=== PATIENT | female | born 1955 | race Caucasian/White ===

== ENCOUNTER → 2018-05-26 08:09 | Outpatient (CLI) | payer MEDICAID, SELFPAY ==
--- NOTE | 2018-05-26 08:14 | BI_ITS ---
MAMMOGRAPHY - BILATERAL SCREENING REASON FOR EXAM: Female, 63 years old. Routine annual screening examination. PERTINENT HISTORY: Mother with breast cancer. History of leukemia. TECHNIQUE: Digital bilateral breast caprice (3D mammographic acquisition) in the CC and MLO projections. 2-D mediolateral oblique (MLO) and craniocaudad (CC) views of both breasts were obtained. CAD: Full Field Digital Mammography with Computer Added Detection was performed. COMPARISON: Comparison is made with prior axial examination dated April 11, 2016 and May 02, 2011. FINDINGS: Breast Composition: There are scattered areas of fibroglandular density. There are no dominant masses or suspicious calcifications. Multiple enlarged bilateral axillary lymph nodes. These have progressed as compared to prior study. No other significant abnormalities are identified. There has been no significant change since the prior study. BI/SCREENING MAMM (CAD), BILAT IMPRESSION: Stable bilateral screening mammogram. Multiple bilateral axillary lymph nodes. These have progressed as compared to prior study. Yearly follow-up mammogram recommended. (A) ASSESSMENT CATEGORY: BIRADS Category 2: Benign. A letter regarding these results will be sent to the patient by the facility within 30 days. Approximately 10% of breast cancers are not detected by mammography. A normal mammogram should not delay biopsy of a clinically suspicious abnormality. [id number] Electronically Signed: Chepe Hays MD at 10:18 EST , Service support ,
== END ==
PROVIDERS: Family Provider Internal Medicine; PCP Internal Medicine
DX: Z12.31 Encounter for screening mammogram for malignant neoplasm of breast (principal)
CPT/HCPCS: 77063; 77067

== ENCOUNTER 2018-11-09 00:23 | Emergency (ER) | payer OTHER, SELFPAY ==
[2018-10-15 14:06] VITALS: BMI 28.9
[2018-11-09 00:23] VITALS: BP 156/83; PULSE 70; RESP 16; TEMP 37; O2SAT 95
[2018-11-09 00:24] VITALS: BP 156/83; PULSE 70; RESP 16; TEMP 37; O2SAT 95; BMI 28.7
--- NOTE | 2018-11-09 01:34 | CT_ITS ---
STUDY: CT ABDOMEN AND PELVIS WITH CONTRAST REASON FOR EXAM: Female, 63 years old. Left lower quadrant pain with nausea and vomiting. Pelvic mass left side. Elevated white blood cell count. History of lymphoma and thyroid cancer in the past. RADIATION DOSAGE (If Supplied By Facility): CTDIvol = ( 14.85 ) mGy, DLP = ( 1124.51 ) mGycm TECHNIQUE: Transaxial images were obtained from the dome of the diaphragm to the symphysis pubis without oral contrast. 100ML IV Isovue 300 was administered. Sagittal and coronal images were reconstructed. Individualized dose optimization techniques were used for this CT. COMPARISON: None. FINDINGS: The visualized lung bases are unremarkable. The visualized portions of the heart are within normal limits. There is mild abdominal and pelvic ascites. Normal liver. Normal gallbladder and extrahepatic biliary system. The spleen measures 15.2 x 5.0 x 13.7 cm, consistent with moderate splenomegaly. Normal pancreas. Normal bilateral adrenal glands. Normal right kidney. There are multiple left peripelvic cysts. There is a 4 mm focus of cortical nephrocalcinosis in the anterior lower pole of left kidney. Otherwise, normal left kidney with no demonstrated hydronephrosis or ureteral calculi. There is a small hiatal hernia. There is apparent focal mural thickening of the distal body of the stomach, seen both on early and delayed images, which might be an artifact of peristalsis or might represent inflammatory or neoplastic process. There is dilatation of small bowel loops, ranging up to 3.2 cm in diameter. There is no demonstrated decompression of the distal ileum or discrete transition point to strongly suggest presence of a mechanical obstruction. Finding is more likely to represent ileus. Normal colon. The appendix is visualized on series 2, axial images 61-65 and it appears normal.. Normal abdominal aorta. Normal inferior vena cava. There is an enlarged lymph node adjacent to the head of the pancreas, with short axis diameter of 2.8 cm. There are borderline enlarged periaortic and pericaval retroperitoneal lymph nodes, ranging up to 1 cm in short axis diameter. There are enlarged pelvic sidewall lymph nodes bilaterally, ranging up to 3 cm in short axis diameter on the left and 2.4 cm in short axis diameter on the right. There are also mildly enlarged inguinal lymph nodes bilaterally. Normal urinary bladder. There is a 7.7 x 3.6 x 3.4 cm left spigelian hernia which contains omental fat, but no bowel. There is no significant infiltration of the herniated fat and strangulation is thought to be unlikely. Normal osseous structures. CT/Abdomen/Pelvis W IV Cont ONLY IMPRESSION: Moderate splenomegaly. Prominent pelvic side wall lymphadenopathy bilaterally. Prominent enlargement of a lymph node adjacent to that of the pancreas. Borderline enlarged periaortic and paracaval retroperitoneal lymph nodes. 7.7 cm left spigelian hernia contains fat, but no bowel. There is no significant infiltration of herniated fat and strangulation is thought to be unlikely. Dilatation of small bowel loops probably represents an ileus rather than mechanical obstruction. Early or partial small bowel obstruction cannot be excluded entirely. A follow-up study with oral contrast may be warranted. Apparent mural thickening in the distal body of the stomach may be an artifact of peristalsis or may represent an inflammatory neoplastic process. Small hiatal hernia. Left renal peripelvic cysts. No evidence for diverticulitis or appendicitis. Electronically Signed: Edgardo Starr MD at 3:47 EDT , Service support ,
--- NOTE | 2018-11-09 01:35 | ED.DCSUM_ITS ---
History of Present Illness Chief Complaint: Abd Pain Informant: Patient - Abdominal Pain/Flank Pain Onset: Today - 12-15 hrs approx Context: Gradual Onset Timing: Continuous Quality: Aching Location: LLQ - initially, now diffuse Current Severity: Moderate Maximum Severity: Moderate Worsened by: Nothing Relieved by: Nothing - Nausea/Vomiting/Emesis GI Symptom: Nausea. Negative for: Vomiting Onset: Today Severity: Mild - Diarrhea/Melena/Hematochezia GI Symptom: Negative for: Diarrhea, Melena, Hematochezia Associated Symptoms: - - Feels bloated/distended. Negative for: Dysuria, Frequency, Hematuria, Urgency Narrative: Patient states she has had this discomfort but not for a couple years, has never had studies or test done on it, however recently she made an appointment with Dr. hill with surgery to get a colonoscopy and look into this. She has not seen him yet. She denies any fevers. She had a small bowel movement this evening that did not seem to affect the discomfort. She feels like there is a knot or something hard in her left lower quadrant, where the pain started. - Past Medical History (1) CLL (chronic lymphocytic leukemia) Status: Chronic (2) History of thyroid cancer Status: Chronic Past Medical History - Allergies and Home Meds Allergies/Adverse Reactions: Allergies ibuprofen Allergy (Severe, Verified 10/15/18 14:05) Swelling throat tightness aspirin Allergy (Verified 11/09/18 00:29) Angioedema oxycodone Allergy (Verified 11/09/18 00:29) Angioedema moxifloxacin [From Avelox] Adverse Reaction (Intermediate, Verified 10/15/18 14:05) Rash Primary Care Physician: Lashanda Sharma [Primary Care Provider] - Surgical History: - - No abdominal surgeries Lives: Spouse/ Significant Other Smoking Status: Never smoker Review of Systems General: Reports: Malaise. Denies: Chills, Fever, Sweats Eyes: Denies: Visual changes - bilaterally, Diplopia ENT: Denies: Rhinorrhea, Sore throat Cardiovascular: Denies: Chest pain, Palpitations Respiratory: Denies: Dyspnea, Cough, Dyspnea on exertion Gastrointestinal: Reports: Abdominal pain, Nausea. Denies: Vomiting, Diarrhea, Melena, Hematochezia Genitourinary: Denies: Dysuria, Hematuria, Frequency Musculoskeletal: Denies: Back pain, Extremity Pain Skin: Denies: Rash, Wounds Neurological: Denies: Headache, Weakness, Numbness Physical Exam Vital Signs/Narrative: Vital Signs Temp Pulse Resp BP Pulse Ox 11/09/18 00:24 98.6 F 70 16 156/83 H 95 11/09/18 00:23 98.6 F 70 16 156/83 H 95 Inital Vital Signs reviewed: Yes General: Well nourished, Well developed, No Acute Distress Head: Normocephalic, Atraumatic Eyes: Perrl, EOMI ENT: Moist mucous membranes, No rhinorrhea Neck: Supple, Nontender Cardiovascular: Regular rate, Regular rhythm, No murmurs Respiratory: No distress, CTA bilaterally, Chest nontender Abdomen: Soft, Nondistended, Tender - Left lower quadrant where there is a palpable mass-like area that is not in the abdominal wall; mild suprapubic tenderness, mild tenderness across entire upper abdomen, Hypoactive bowel sounds Back: Nontender, Normal Inspection. Negative for: CVA tenderness Extremities: Nontender, No edema Skin: Normal color, No rash, No Trauma Neurological: Alert, Oriented x3, Cranial nerves II-XII grossly intact, Normal Strength, Normal Sensation Psychological: Normal Mood, - - Anxious Diagnostic/Tx/Re-eval Impressions Abdomen/Pelvis CT 11/09/18 01:34 IMPRESSION: Moderate splenomegaly. Prominent pelvic side wall lymphadenopathy bilaterally. Prominent enlargement of a lymph node adjacent to that of the pancreas. Borderline enlarged periaortic and paracaval retroperitoneal lymph nodes. 7.7 cm left spigelian hernia contains fat, but no bowel. There is no significant infiltration of herniated fat and strangulation is thought to be unlikely. Dilatation of small bowel loops probably represents an ileus rather than mechanical obstruction. Early or partial small bowel obstruction cannot be excluded entirely. A follow-up study with oral contrast may be warranted. Apparent mural thickening in the distal body of the stomach may be an artifact of peristalsis or may represent an inflammatory neoplastic process. Small hiatal hernia. Left renal peripelvic cysts. No evidence for diverticulitis or appendicitis. Electronically Signed: Edgardo Starr MD at 3:47 EDT , Service support , 11/09/18 01:34 Abdomen/Pelvis W IV Cont ONLY [CT] Stat Laboratory Results 11/09/18 11/09/18 11/09/18 00:49 00:49 01:45 WBC 131.0 H* RBC 3.86 L Hgb 11.8 L Hct 37.6 MCV 97.4 MCH 30.6 MCHC 31.4 L RDW Std Deviation 50.1 H RDW Coeff of Deisy 14.5 Plt Count 66 L MPV 11.2 Immature Gran % (Auto) 0.200 Neut % (Auto) 2.9 L Lymph % (Auto) 91.6 H [place] % (Auto) 5.1 Eos % (Auto) 0.2 Baso % (Auto) 0.0 Absolute Neuts (auto) 3.8 Absolute Lymphs (auto) 119.97 H Absolute Nucleated RBC 0.00 Total Counted 100 Neutrophils % (Manual) 3 L Lymphocytes % (Manual) 92 H* Monocytes % (Manual) 5 Nucleated RBC % 0 [address] Review May foll Sodium 136 Potassium 4.4 Chloride 104 Carbon Dioxide 30.0 Anion Gap 2 L BUN 14 Creatinine 0.79 Estim Creat Clear Calc 69.12 Est GFR (MDRD) Af Amer 95 Est GFR (MDRD) Non-Af 79 BUN/Creatinine Ratio 17.8 Glucose 138 H Calcium 10.6 H Total Bilirubin 0.80 AST 32 ALT 37 Alkaline Phosphatase 78 Total Protein 7.1 Albumin 4.1 Globulin 3.0 Albumin/Globulin Ratio 1.4 Lipase 112 Urine Color Yellow Urine Clarity Sl. Cloudy Urine pH 8.0 Ur Specific [place] 1.015 Urine Protein Negative Urine Glucose (UA) Normal Urine Ketones 15 H Urine Occult Blood Negative Urine Nitrite Negative Urine Bilirubin Negative Urine Urobilinogen Normal Ur Leukocyte Esterase 25 H Urine RBC 0 SEEN Urine WBC 0-5 SEEN Ur Squamous Epith Cells 0-5 SEEN Urine Bacteria 1+ Urine Mucus 0 SEEN - Medical Decision Making Patient was given morphine here in the ER as well as IV fluids, she received Zofran by EMS prior to arrival here. On reexamination she is feeling much better. The palpable mass in her left lower quadrant is apparently a Spigelian hernia containing fat only on CT. There is no sign of strangulation. The other findings are likely related to her CLL. She also had findings consistent with an ileus, and she does have hypoactive bowel sounds and vomiting at presentation. On reexamination after the above treatment, she has bowel sounds now that sound normal. She is tolerating oral fluids without any difficulty. Viral etiology of this is certainly a possibility, or certainly a transient ileus. I think she is stable to be discharged home. Discussed with the on-call oncologist Dr. Henry, she agrees and prefers that the patient follow-up as soon as possible, hopefully on Saturday. Will prescribe the patient Zofran, she is comfortable with this plan. ED Disposition - Plan for ED Patient: Disposition: Home or Assisted Living Diagnosis: Diffuse abdominal pain, Spigelian hernia, CLL (chronic lymphocytic leukemia), Vomiting Instructions: VOMITING (7y-Adult) Prescriptions: Ondansetron [Zofran] 8 mg PO Q8H PRN #12 tab PRN Reason: Nausea/Vomiting Transmission Status: Pending to [id number] Referrals: Mateo Pereira MD [NON-STAFF] - 11/10/18 (call saturday AM for appt time)
[2018-11-09] MEDS: Morphine 4 MG/ML Syringe IV (01:42)
[2018-11-09] MEDS: 0.9% Normal Saline 1,000 ML 125 ML IV (01:43)
[2018-11-09 01:44] LABS: Hematocrit 37.6 % (37-47); Hemoglobin 11.8 g/dL (12.0-15.0); Mean Corp Hgb Conc 31.4 g/dL (32-36); Mean Corpuscular Hgb 30.6 pg (27.0-32.0); Mean Corpuscular Volume 97.4 fL (81-99); Mean Platelet Vol. 11.2 fl (6.2-12.0); POSITIVE COUNT YES; POSITIVE DIFFERENTIAL YES; POSITIVE MORPHOLOGY YES; Platelet Count 66 K/mm3 (150-450); RBC Distribution Width CV 14.5 % (11.6-14.6); RBC Distribution Width SD 50.1 fl (35.1-43.9); Red Blood Count 3.86 M/mm3 (4.2-5.4)
[2018-11-09 01:51] LABS: Mucous, Urine 0 SEEN /hpf (<or=2+); Red Blood Cells-Urine 0 SEEN /hpf (0-5)
--- NOTE | 2018-11-09 01:55 | ED.RN ---
RECEIVED CRITICAL WHITE COUNT OF131, PT WITH KNOWN CLL AND LYMPHOMA. NOTIFIED.
[2018-11-09 01:56] LABS: ALB/GLOB Ratio 1.4 RATIO (0.9-2.4); AST(SGOT) 32 U/L (15-37); Alanine Aminotransfer ALT/SGPT 37 U/L (13-56); Albumin, Serum 4.1 g/dL (3.2-5.0); Alkaline Phosphatase 78 U/L (45-117); Anion Gap 2 (5-15); BUN 14 mg/dL (7-18); BUN/Creat Ratio 17.8 RATIO (10-20); Calcium,Total 10.6 mg/dL (8.5-10.1); Chloride 104 mmol/L (98-107); Creatinine, Serum 0.79 mg/dL (0.55-1.02); EST Glomerular Filtration Rate 79 mL/min (>60); Est Glom Filt Rate - Afr Amer 95 mL/min (>60); Estimated Creatinine Clearance 69.12 ml/min; Glucose 138 mg/dL (74-106); Lipase 112 U/L (73-393); Potassium 4.4 mmol/L (3.5-5.1); Protein, Total 7.1 g/dL (6.4-8.2); Sodium Level 136 mmol/L (136-145)
[2018-11-09 02:02] LABS: Color, Urine Yellow (Yellow); Glucose, Dipstick Normal (Normal); Ketone-Dipstick 15 mg/dl (Negative); Leukocyte Esterase-Dipstick 25 /ul (Negative); Nitrite-Dipstick Negative (Negative); Occult Blood-Urine Negative /ul (Negative); Protein-Dipstick Negative (Negative); Specific Gravity, Urine 1.015 (1.002-1.030); Urine Bilirubin Dipstick Negative (Negative); Urine Clarity Sl. Cloudy (Clear); Urine Urobilinogen Normal (Normal)
[2018-11-09 02:20] LABS: Bacteria 1+ /hpf (None Seen); Squamous Epithelial Cells - UA 0-5 SEEN /hpf (5-10); White Blood Cells 0-5 SEEN /hpf (0-5)
[2018-11-09 02:27] LABS: Lymphocyte 92 % (19-41); Neutrophil-Segmented 3 % (47-70); Total Cells Counted 100 (MANUAL DIFF)
[2018-11-09 02:28] LABS: Monocyte 5 % (0-10)
[2018-11-09 04:57] VITALS: BP 129/63; PULSE 72; RESP 14; O2SAT 100
[2018-11-10 12:10] LABS: Pathologist Review Reviewed
[2018-11-12 03:53] LABS: Differential Indicated MANUAL DIFF
[2018-11-12 03:58] LABS: Absolute Neutrophil Count 3.9 X10^3/uL (2.0-7.7)
[2018-11-12 04:00] LABS: Absolute Lymphocyte Count 121.83 X10^3/uL (0.83-4.51); Lymphocyte # 121.83 X10^3/ul (4.0)
[2018-11-12 04:01] LABS: Platelet Estimate MOD DEC (ADEQ); Red Cell Morphology NORM C+C NORMAL (NORM C&C)
== END 2018-11-09 04:57 | disposition home or self-care (01) ==
PROVIDERS: Emergency Provider Emergency Medicine
DX: C91.10 Chronic lymphocytic leukemia of B-cell type not having achieved remission (principal); R10.84 Generalized abdominal pain; R19.04 Left lower quadrant abdominal swelling, mass and lump; K43.9 Ventral hernia without obstruction or gangrene; R11.10 Vomiting, unspecified; Z79.899 Other long term (current) drug therapy; Z88.5 Allergy status to narcotic agent; Z85.850 Personal history of malignant neoplasm of thyroid
CPT/HCPCS: 74177; 80053; 81001; 83690; 85025; 96361; 96374; 99285; J7030; Q9967; A4216; J2405

== ENCOUNTER → 2019-03-18 11:44 | Outpatient (CLI) | payer OTHER, SELFPAY ==
[2019-03-18 08:20] VITALS: BMI 30.2
[2019-03-18 13:41] LABS: Cholesterol 230 mg/dL (200); High Density Lipoprotein 63 mg/dL; Triglycerides 120 mg/dL; Very Low Density Lipoprotein 24 mg/dL (5-40)
== END ==
PROVIDERS: Referring Provider Internal Medicine Cardiovascular Disease; Visit Provider Internal Medicine Cardiovascular Disease
DX: Z01.810 Encounter for preprocedural cardiovascular examination (principal); E78.5 Hyperlipidemia, unspecified
CPT/HCPCS: 36415; 80061

== ENCOUNTER → 2019-03-30 07:49 | Outpatient (CLI) | payer OTHER, SELFPAY ==
[2019-03-18 08:20] VITALS: BMI 30.2
--- NOTE | 2019-03-30 08:00 | CT_ITS ---
STUDY: CARDIAC CALCIUM SCORING - CT CHEST REASON FOR EXAM: Female, 64 years old. Chemotherapy for CLL. RADIATION DOSAGE (If Supplied By Facility): CTDIvol = ( 12.19 ) mGy, DLP = ( 195.04 ) mGycm TECHNIQUE: Axial non-enhanced images were acquired through the heart for the sole purpose of measuring coronary artery calcium. Individualized dose optimization techniques were used for this CT. COMPARISON: None. FINDINGS: Please see the patient''s medical record for a personalized calcium score. The visualized lungs are clear. The visualized soft tissues are within normal limits. CT/Limited Chest CT w/CCTA IMPRESSION: Please see the patient''s medical record for a personalized calcium score. Please go to: [email or web address] , for a description of the calculator. Electronically Signed: Calvin Dozier, at 17:43 EST Tel , Service support ,
--- NOTE | 2019-03-30 08:01 | CT_ITS ---
STUDY: CT ABDOMEN AND PELVIS WITH CONTRAST REASON FOR EXAM: Female, 64 years old. Follow-up CLL. Diagnosed 2 years ago with treatment received fall. RADIATION DOSAGE (If Supplied By Facility): CTDIvol = ( 15.45 ) mGy, DLP = ( 1369.36 ) mGycm TECHNIQUE: Transaxial images were obtained from the dome of the diaphragm to the symphysis pubis without oral contrast. 100mL Isovue-370 was administered. Sagittal and coronal images were reconstructed. Individualized dose optimization techniques were used for this CT. COMPARISON: 11/09/2018. FINDINGS: The visualized lung bases are unremarkable. The visualized portions of the heart are within normal limits. Normal liver. Normal gallbladder and extrahepatic biliary system. Normal spleen. No splenomegaly. Normal pancreas. Normal bilateral adrenal glands. Normal right kidney. Enlargement of the left renal pelvis with the mild fullness of the left renal collecting system versus multiple parapelvic cysts, otherwise normal left ureter. These findings are most compatible with left UPJ etiology versus nonspecific pelviectasis. The stomach is decompressed, otherwise unremarkable. No hiatal hernia. Normal small intestine. There is abundant fecal debris suggestive of mild constipation. There is non-visualization of the appendix. There is mild atherosclerotic calcification of the abdominal aorta, without a demonstrated aneurysm. Normal inferior vena cava. Normal retroperitoneum with no distinct lymphadenopathy. Normal urinary bladder. There is atrophy of the uterus. Previously seen lymph nodes along the left external iliac arteries markedly reduced in size with largest node visualized currently measuring 1.4 cm x 1.2 cm (previously measuring 3.2 x 2.9 cm. The largest lymph node along the right external iliac vessels measures 1.0 x 0.7 cm from a previous dimension of 2.6 x 2.2 cm. Redemonstrated is left paracentral ventral hernia containing fat. Normal osseous structures. There are small lymph nodes at the level of the inguinal region, largest on the left measuring approximately 0.8 cm and on the right 0.8 cm, reduced in size in the interval. CT/Abdomen/Pelvis WITH Contrast IMPRESSION: Near complete resolution of previously pelvic and retroperitoneal and peripancreatic lymphadenopathy. No new sites of lymphadenopathy noted. Mild fullness of the left renal collecting system with pelviectasis versus partial UPJ etiology, stable in the interval. Constipation. Electronically Signed: Selin Preston MD at 23:36 EST , Service support ,
--- NOTE | 2019-03-30 08:01 | CT_ITS ---
STUDY: CT CHEST WITH CONTRAST REASON FOR EXAM: Female, 64 years old. Follow-up chronic lymphocytic leukemia. RADIATION DOSAGE (If Supplied By Facility): CTDIvol = ( 15.45 ) mGy, DLP = ( 1369.36 ) mGycm TECHNIQUE: Transaxial imaging was performed following intravenous administration of 100mL Isovue-370. Multiplanar coronal and sagittal images were reformatted. Individualized dose optimization techniques were used for this CT. COMPARISON: None. FINDINGS: There is minimal linear bilateral basilar atelectasis, remainder of the lungs are normal. There is no demonstrated pleural abnormality. Normal heart and pericardium. Normal mediastinum. Normal hilar regions. Normal enhanced pulmonary arteries. Normal aorta arch and descending thoracic aorta. Mild osteopenia along with mild spondylosis/degenerative disease of thoracic spine. There is no demonstrated abnormality of the visualized upper abdomen. There are several lymph nodes within the bilateral axillary regions, largest on the right measuring 1.5 x 0.6 cm and on the left 1.5 x 1.4 cm. These are markedly reduced in the interval. CT/Chest WITH Contrast IMPRESSION: Minimal bilateral basilar atelectasis otherwise no acute cardiopulmonary process seen. No lymphadenopathy or mass visualized in the chest. Marked reduction of axillary lymphadenopathy in the interval. Electronically Signed: Selin Preston MD at 23:41 EST , Service support ,
[2019-03-30 08:09] VITALS: BP 138/67; PULSE 58; RESP 16; O2SAT 96; BMI 29.9
== END ==
PROVIDERS: Referring Provider Nurse Practitioner Family; Visit Provider Nurse Practitioner Family
DX: R10.84 Generalized abdominal pain (principal); R07.9 Chest pain, unspecified
CPT/HCPCS: 71260; 74177; 75571; 76380

== ENCOUNTER → 2019-04-02 12:46 | Outpatient (CLI) | payer OTHER, SELFPAY ==
[2019-03-18 08:20] VITALS: BMI 30.2
[2019-03-30 08:09] VITALS: BMI 29.9
--- NOTE | 2019-03-30 17:31 | CA.SCORE ---
Calcium Scoring Date of Study:: 03/30/19 Coronary Calcium Scoring: High-resolution Computed Tomographic imaging of the chest was performed on [03/30/2019], with particular attention paid to the coronary arteries. Images from the examination were analyzed for the presence and extent of coronary artery calcification , using coronary calcium quantification software. The patient tolerated the procedure well and there were no complications. The results of the coronary calcification analysis are provided below. - Findings Left Main (LM): 0 Left Anterior Descending (LAD): 0 Left Circumflex (LCX): 0 Right Coronary Artery (RCA): 0 Total Agatston Score: 0 Percentile Rankinth Calcium Scoring Interpretation: 0 No identifiable atherosclerotic plaque. Very low cardiovascular disease risk. <5% chance of presence coronary artery disease A Negative Examination 1-10 Minimal Plaque burden. Significant coronary artery disease very unlikely. 11-100 Mild plaque burden. Likely mild or minimal coronary atherosclerosis. 101-400 Moderate plaque burden Moderate non-obstructive coronary artery disease highly likely. Over 400 Extensive plaque burden. High likelihood of at least one significant coronary stenosis (>50% diameter) Calcium Score: 0 Negative Examination - The above suggests no significant atherosclerotic plaquing. A full evaluation of cardiac risk should include an assessment of conventional risk factors. The scores and percentiles noted here in should be interpreted in that context.
--- NOTE | 2019-04-02 12:48 | ECHOD_ITS ---
Reason For Study: ARRHYTHMIA Procedure This was a 2D Doppler, Color Flow transthoracic echocardiogram. Exam performed in department. Left Ventricle Normal LV size. Mild concentric left ventricular hypertrophy. Left ventricular systolic function is normal. The estimated ejection fraction is 65 %. Stage 1 diastolic dysfunction. No regional wall motion abnormalities noted. Right Ventricle Normal RV size. Normal systolic function. Atria Normal left atrium. Normal right atrium. Mitral Valve Normal mitral valve. Tricuspid Valve Normal tricuspid valve. Aortic Valve Trisinus/trileaflet aortic valve. Pulmonic Valve Normal pulmonic valve. Great Vessels Normal aortic root. The pulmonary artery is normal size. Normal inferior vena cava. Pericardium/Pleural No pericardial effusion. MMode/2D Measurements & Calculations LVIDd: 4.5 cm IVSd: 1.4 cm Ao root diam: 3.4 cm LVIDs: 2.8 cm LVPWd: 1.3 cm RVDd: 2.5 cm FS: 37.8 % LAV(MOD-bp): 53.1 ml LA A4 area: 16.5 cm2 LA dimension(2D): 4.2 cm LAV(MOD-bp) Indexed: 28.0 ml/m2 LAV(MOD-sp2): 58.4 ml LAV(MOD-sp4): 45.7 ml RA A4 area: 16.1 cm2 Time Measurements MV dec time: 0.22 sec Doppler Measurements & Calculations MV E max drew: 56.7 cm/sec Lat Peak E' Drew: 6.6 cm/sec Med Peak E' Drew: 5.2 cm/sec MV A max drew: 90.2 cm/sec E/E' lat: 8.6 E/E' med: 10.8 MV E/A: 0.63 Ao V2 max: 124.8 cm/sec LV V1 max: 111.8 cm/sec PA V2 max: 80.3 cm/sec Ao max P.2 mmHg LV V1 max P.0 mmHg TR max drew: 261.0 cm/sec TR max P.5 mmHg Interpretation Summary Normal LV size. Left ventricular systolic function is normal. The estimated ejection fraction is 65 %. Stage 1 diastolic dysfunction. Mild concentric left ventricular hypertrophy. Ordering Physician: Sourav Snyder Referring Physician: Lashanda [facility] Performed By: Emily Ball, RON, RVT
== END ==
PROVIDERS: Referring Provider Internal Medicine Cardiovascular Disease; Visit Provider Internal Medicine Cardiovascular Disease
DX: Z01.810 Encounter for preprocedural cardiovascular examination (principal); C91.90 Lymphoid leukemia, unspecified not having achieved remission; K43.9 Ventral hernia without obstruction or gangrene; R00.8 Other abnormalities of heart beat
CPT/HCPCS: 93306

== ENCOUNTER 2019-04-13 09:09 | Day surgery (SDC) | payer OTHER, SELFPAY ==
--- NOTE | 2019-03-11 10:08 | HP_ITS ---
Intake Vital Signs 03/09/19 Body Mass Index (BMI) 30.0 03/09/19 Height 5 ft 5 in 03/09/19 Weight: 180 lb 03/09/19 Body Mass Index (BMI) 29.9 03/09/19 Blood Pressure 128/76 H 03/09/19 Blood Pressure Location Rt brachial 03/09/19 Blood Pressure Position Sitting 03/09/19 Respiratory Rate 16 Intake Visit Reasons: cscope, update after chemo Chief Complaint: Toxicity Assessment- Cycle 3 BR Trim Die Maker Required: No Is patient in pain?: No Allergies ibuprofen Allergy (Severe, Verified 03/09/19 09:49) Swelling azithromycin [From Zithromax] Allergy (Intermediate, Verified 03/09/19 09:49) Unknown aspirin Allergy (Verified 03/09/19 09:49) Angioedema oxycodone Allergy (Verified 03/09/19 09:49) Angioedema moxifloxacin [From Avelox] Adverse Reaction (Intermediate, Verified 03/09/19 09:49) Rash Medications Albuterol IH (ProAir) [Proair Hfa (SP)Vent Pts] 2 puff INHALATION Q4H PRN PRN 04/17/18 [History Confirmed 03/09/19] Citalopram Hydrobromide [Citalopram HBr] 20 mg PO DAILY 04/17/18 [History Confirmed 03/09/19] Levothyroxine Sodium [Synthroid] 200 mcg PO UD 04/17/18 [History Confirmed 03/09/19] Nadolol [Corgard] 20 mg PO DAILY 04/17/18 [History Confirmed 03/09/19] Cetirizine HCl [Zyrtec] 10 mg PO DAILY 04/21/18 [History Confirmed 03/09/19] Ondansetron [Zofran] 8 mg PO Q8H PRN #12 tab 11/09/18 [Rx Confirmed 03/09/19] Allopurinol [Zyloprim] 300 mg PO DAILY #36 tab 12/11/18 [Rx Confirmed 03/09/19] Cholecalciferol (Vitamin D3) [Vitamin D3] 1,000 unit PO DAILY 12/11/18 [History Confirmed 03/09/19] Smz/Tmp Ds [Bactrim Ds] 1 tab PO DAILY #30 tab 12/11/18 [Rx Confirmed 03/09/19] Valacyclovir HCl [Valacyclovir] 500 mg PO DAILY #30 tab 12/11/18 [Rx Confirmed 03/09/19] Ondansetron [Zofran Odt] 4 mg PO Q8H PRN PRN #30 tab 12/18/18 [Rx Confirmed 03/09/19] Allopurinol [Zyloprim] 300 mg PO DAILY #36 tab 01/22/19 [Rx Confirmed 03/09/19] Smz/Tmp Ds [Bactrim Ds] 1 tab PO DAILY #30 tab 01/22/19 [Rx Confirmed 03/09/19] Valacyclovir HCl [Valacyclovir] 500 mg PO DAILY #30 tab 01/22/19 [Rx Confirmed 03/09/19] PFSH Medical History CLL (chronic lymphocytic leukemia) (Chronic) Encounter for education (Acute) Ventricular trigeminy (Chronic) Hyperlipidemia (Chronic) Neutropenia (Acute) Chemotherapy management, encounter for (Chronic) Hypothyroidism (Chronic) AKANKSHA (obstructive sleep apnea) (Chronic) Constipation (Resolved) Diarrhea (Resolved) Surgical History History of thyroidectomy (Chronic ~1996) Family History Mother , age 52 Breast cancer Father PTSD (post-traumatic stress disorder) Pre-diabetes Hypothyroidism Sister Depression Hypothyroidism Uterine cancer Social History (Updated 03/11/19 @ 10:08 by Hamilton Melendez MD) Smoking Status: Never smoker HPI HPI HPI: BRANDY LUGO, is a 63 F who presents to the office today for HPI HPI Surgical H&P: Yes HPI: BRANDY LUGO, is a 63 F who presents to the office today for colonoscopy and hernia. The patient notes that she underwent chemotherapy for leukemia. She has been told by her insurance company that she is due for colonoscopy. She had a CT scan and PET scan which showed a spigelian hernia in the left lower quadrant. This is near the site of her pain. ROS General General: Yes fatigue; no weight change HEENT HEENT: Yes difficulty swallowing Cardio Cardiovascular: No murmur, pacemaker, heart disease, atrial fibrillation, high blood pressure, heart attack, heart stent, palpitations, shortness of breat with exertion or chest pain Psych Psychiatric: Yes depression and anxiety Resp Respiratory: Yes shortness of breath, No sleep apnea, No cough, No COPD, Yes asthma, No emphysema, No wheezing Gastro Gastrointestinal: Yes abdominal pain, No nausea or vomiting, Yes diarrhea, No constipation, No blood in stool, No acid reflux, No hemorrhoids, No ulcers, No gallbladder problem, No black,tarry stools Hu Hematologic: No blood thinners Exam Const General: cooperative Orientation: alert, oriented x3 HENMT Head: normal to inspection Ears: hearing grossly normal bilaterally Eyes General: appearance normal, both eyes and all related structures Visual [place]: normal visual longoria by confrontation Neck Neck: normal visual inspection Chest Chest palpation & inspection: normal inspection of the chest Resp Effort & Inspection: normal respiratory effort Auscultation: clear to auscultation bilaterally Cardio Rate: regular rate Rhythm: regular rhythm Heart Sounds: no murmurs GI Inspection: non-distended Palpation: soft, tender in the LLQ Musc Cervical Spine: normal cervical lordosis, cervical ROM normal Skin General: no rashes or lesions noted Neuro General: alert, oriented x3 Cranial Nerves: CN's II-XI intact bilaterally Cognition: normal cognition Extrem General: normal to inspection, full ROM Psych Appearance: grossly normal Affect: normal affect Assessment & Plan Problems 1. CLL (chronic lymphocytic leukemia) C91.10 2. Spigelian hernia K43.9 3. LLQ pain R10.32 Plan The patient had been having left lower quadrant pain. Her insurance company notified her that she is due for colonoscopy. We are planning a colonoscopy for abdominal pain before she was found to have leukemia and underwent chemotherapy. While undergoing treatment she had a CT a PET scan which shows beginning hernia in the left lower quadrant which corresponds the area of her pain. I discussed robotic assisted laparoscopic spigelian hernia repair with mesh. I would like to fix this from the inside but I did discuss the risks and benefits of the procedure. I discussed the risks of bleeding, infection, bowel injury, epigastric vessel injury, recurrence, mesh placement. The patient understands all the risks and wants to book a ventral hernia repair before the end of the year. Patient is also due for colonoscopy. She is having left lower quadrant pain. I will get her scheduled for colonoscopy as well. I explained endoscopy in detail to the patient. I explained the risks including but not limited to stroke or heart attack with anesthesia, perforation of the GI tract, bleeding, infection. I explained that any of these could necessitate further emergency surgery. The patient understands and all questions were answered sufficiently. The patient wishes to proceed with procedure. Hamilton Melendez MD Pager: [facility] [address] [place] [address], [address] [place] [address] Office: Coding Level of Care Code Off vis,est,level 4 Diagnoses CLL (chronic lymphocytic leukemia) C91.10 Spigelian hernia K43.9 LLQ pain R10.32 03/11/19 1008 <Electronically signed by Hamilton pina MD> Date _ Hamilton Melendez MD
[2019-03-30 08:09] VITALS: BMI 29.9
[2019-04-13] VITALS (8 sets, daily range): BP systolic 89–128; BP diastolic 47–87; PULSE 57–66; RESP 16; TEMP 35.9–36.7; O2SAT 96–98
--- NOTE | 2019-04-13 | COLBX_PTH ---
PATIENT: BRANDY LUGO LOC: EN U#:[id number] AGE/SX: 64/F ROOM: RE04/13/[address]: Dr. Hamilton Melendez MD : [id number] BED: DIS: 04/13/2019 SPEC #: [id number] RECD: 04/13/19 15:10 STATUS: SHAYY REAvery #: [id number] NENITA: 04/13/19 00:[address]: Hamilton Melendez DEPT: SURGICAL PATHOLOGY RECD BY: Damian Esparza ENTERED: 04/14/19 08:39 SP TYPE: COLON BX OTHR DR: Pricilla Kincaid, WORKING MANAGER-C [facility] Tissues: Sigmoid colon biopsy Procedures: Surgery Specimen Level IV HEADER OPERATION: Colonoscopy (MAC) PRE-OP DIAGNOSIS: Screening TISSUE SUBMITTED: Sigmoid colon polyp biopsy MICROSCOPIC DIAGNOSIS Sigmoid colon polyp, biopsy: Tubular adenoma. AM:dolly 12/26/19 MICROSCOPIC DESCRIPTION Slides are reviewed. GROSS DESCRIPTION Received in fixative is one container labeled with the patient's name and designated sigmoid colon polyp. The specimen consists of one irregular fragment of light dailey soft tissue that measures 0.5 x 0.2 x 0.1 cm. The specimen is totally submitted in one cassette. / SJ:dolly 04/14/19 TC:5 CPT: 84384
[2019-04-13 09:50] LABS: International Normalized Ratio 1.1; Prothrombin Time (Protime)PT. 13.7 SECONDS (11.7-14.9)
[2019-04-13 09:51] LABS: Partial Thromboplast Time 27.2 Seconds (24.1-36.2)
[2019-04-13] MEDS: Lactated Ringers 1,000 ML 100 ML IV (09:54)
[2019-04-13 09:57] LABS: Thyroid Stim Hormone (TSH) 1.21 uIU/mL (0.358-3.74)
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
--- NOTE | 2019-04-13 11:13 | OP.COLON_ITS ---
Patient Name: Keshia De Paz Procedure Date: 04/13/2019 10:10 AM Date of : 1955 Age: 64 Procedure: Colonoscopy Indications: Screening for colorectal malignant neoplasm Providers: Hamilton Melendez MD Referring MD: Lashanda Hernandez [facility] Medicines: Monitored Anesthesia Care Patient Profile: This is a 64 year old female. Refer to note in patient chart for documentation of history and physical. Last Colonoscopy: 10 years ago. Complications: No immediate complications. Procedure: Pre-Anesthesia Assessment: - Prior to the procedure, a History and Physical was performed, and patient medications and allergies were reviewed. The patient's tolerance of previous anesthesia was also reviewed. The risks and benefits of the procedure and the sedation options and risks were discussed with the patient. All questions were answered, and informed consent was obtained. Prior Anticoagulants: The patient has taken no previous anticoagulant or antiplatelet agents. After reviewing the risks and benefits, the patient was deemed in satisfactory condition to undergo the procedure. After I obtained informed consent, the scope was passed under direct vision. Throughout the procedure, the patient's blood pressure, pulse, and oxygen saturations were monitored continuously. The pediatric colonoscope was introduced through the anus and advanced to the cecum, identified by appendiceal orifice and ileocecal valve. The colonoscopy was performed without difficulty. The patient tolerated the procedure well. The quality of the bowel preparation was good. Scope In: 10:45:19 AM Scope Withdrawal Time 0 hours 6 minutes 19 seconds Scope Out: 11:03:00 AM Total Procedure Duration Time 0 hours 17 minutes 41 seconds Findings: A small polyp was found in the sigmoid colon. The polyp was removed with a cold biopsy forceps. Resection and retrieval were complete. The exam was otherwise without abnormality on direct and retroflexion views. Impression: - One small polyp in the sigmoid colon, removed with a cold biopsy forceps. Resected and retrieved. - The examination was otherwise normal on direct and retroflexion views. Recommendation: - Discharge patient to home. - Resume previous diet. - Continue present medications. - Await pathology results. - Repeat colonoscopy for surveillance based on pathology results. Procedure Code(s): --- Professional --- 35820, Colonoscopy, flexible; with biopsy, single or multiple Diagnosis Code(s): --- Professional --- Z12.11, Encounter for screening for malignant neoplasm of colon D12.5, Benign neoplasm of sigmoid colon CPT copyright 2017 [employer]. All rights reserved. The codes documented in this report are preliminary and upon french professor review may be revised to meet current compliance requirements. Hamilton Melendez MD 04/13/2019 11:12:18 AM This report has been signed electronically. Number of Addenda: 0 Note Initiated On: 04/13/2019 10:10 AM
== END 2019-04-13 12:03 | disposition home or self-care (01) ==
LOC: EN 09:09 → AC 09:11
PROVIDERS: Anesthesiology; Visit Provider Surgery
PROC: 0DJD8ZZ Inspection of Lower Intestinal Tract, Via Natural or Artificial Opening Endoscopic (ICD-10-PCS; CPT 45378; principal; 2019-04-13 10:25)
DX: Z12.11 Encounter for screening for malignant neoplasm of colon (principal); D12.5 Benign neoplasm of sigmoid colon; K43.9 Ventral hernia without obstruction or gangrene; K21.9 Gastro-esophageal reflux disease without esophagitis; C91.11 Chronic lymphocytic leukemia of B-cell type in remission; C73 Malignant neoplasm of thyroid gland; J45.909 Unspecified asthma, uncomplicated; F32.9 Major depressive disorder, single episode, unspecified; F41.9 Anxiety disorder, unspecified; R00.8 Other abnormalities of heart beat; Z79.899 Other long term (current) drug therapy
CPT/HCPCS: 45380; 36415; 84443; 85610; 85730; 88305; J7120

== ENCOUNTER 2019-04-17 10:06 | Day surgery (SDC) | payer OTHER, SELFPAY ==
--- NOTE | 2019-03-11 10:08 | HP_ITS ---
Intake Vital Signs 03/09/19 Body Mass Index (BMI) 30.0 03/09/19 Height 5 ft 5 in 03/09/19 Weight: 180 lb 03/09/19 Body Mass Index (BMI) 29.9 03/09/19 Blood Pressure 128/76 H 03/09/19 Blood Pressure Location Rt brachial 03/09/19 Blood Pressure Position Sitting 03/09/19 Respiratory Rate 16 Intake Visit Reasons: cscope, update after chemo Chief Complaint: Toxicity Assessment- Cycle 3 BR Elastic Cutter Required: No Is patient in pain?: No Allergies ibuprofen Allergy (Severe, Verified 03/09/19 09:49) Swelling azithromycin [From Zithromax] Allergy (Intermediate, Verified 03/09/19 09:49) Unknown aspirin Allergy (Verified 03/09/19 09:49) Angioedema oxycodone Allergy (Verified 03/09/19 09:49) Angioedema moxifloxacin [From Avelox] Adverse Reaction (Intermediate, Verified 03/09/19 09:49) Rash Medications Albuterol IH (ProAir) [Proair Hfa (SP)Vent Pts] 2 puff INHALATION Q4H PRN PRN 04/17/18 [History Confirmed 03/09/19] Citalopram Hydrobromide [Citalopram HBr] 20 mg PO DAILY 04/17/18 [History Confirmed 03/09/19] Levothyroxine Sodium [Synthroid] 200 mcg PO UD 04/17/18 [History Confirmed 03/09/19] Nadolol [Corgard] 20 mg PO DAILY 04/17/18 [History Confirmed 03/09/19] Cetirizine HCl [Zyrtec] 10 mg PO DAILY 04/21/18 [History Confirmed 03/09/19] Ondansetron [Zofran] 8 mg PO Q8H PRN #12 tab 11/09/18 [Rx Confirmed 03/09/19] Allopurinol [Zyloprim] 300 mg PO DAILY #36 tab 12/11/18 [Rx Confirmed 03/09/19] Cholecalciferol (Vitamin D3) [Vitamin D3] 1,000 unit PO DAILY 12/11/18 [History Confirmed 03/09/19] Smz/Tmp Ds [Bactrim Ds] 1 tab PO DAILY #30 tab 12/11/18 [Rx Confirmed 03/09/19] Valacyclovir HCl [Valacyclovir] 500 mg PO DAILY #30 tab 12/11/18 [Rx Confirmed 03/09/19] Ondansetron [Zofran Odt] 4 mg PO Q8H PRN PRN #30 tab 12/18/18 [Rx Confirmed 03/09/19] Allopurinol [Zyloprim] 300 mg PO DAILY #36 tab 01/22/19 [Rx Confirmed 03/09/19] Smz/Tmp Ds [Bactrim Ds] 1 tab PO DAILY #30 tab 01/22/19 [Rx Confirmed 03/09/19] Valacyclovir HCl [Valacyclovir] 500 mg PO DAILY #30 tab 01/22/19 [Rx Confirmed 03/09/19] PFSH Medical History CLL (chronic lymphocytic leukemia) (Chronic) Encounter for education (Acute) Ventricular trigeminy (Chronic) Hyperlipidemia (Chronic) Neutropenia (Acute) Chemotherapy management, encounter for (Chronic) Hypothyroidism (Chronic) AKANKSHA (obstructive sleep apnea) (Chronic) Constipation (Resolved) Diarrhea (Resolved) Surgical History History of thyroidectomy (Chronic ~1996) Family History Mother , age 52 Breast cancer Father PTSD (post-traumatic stress disorder) Pre-diabetes Hypothyroidism Sister Depression Hypothyroidism Uterine cancer Social History (Updated 03/11/19 @ 10:08 by Hamilton Melendez MD) Smoking Status: Never smoker HPI HPI HPI: BRANDY LUGO, is a 63 F who presents to the office today for HPI HPI Surgical H&P: Yes HPI: BRANDY LUGO, is a 63 F who presents to the office today for colonoscopy and hernia. The patient notes that she underwent chemotherapy for leukemia. She has been told by her insurance company that she is due for colonoscopy. She had a CT scan and PET scan which showed a spigelian hernia in the left lower quadrant. This is near the site of her pain. ROS General General: Yes fatigue; no weight change HEENT HEENT: Yes difficulty swallowing Cardio Cardiovascular: No murmur, pacemaker, heart disease, atrial fibrillation, high blood pressure, heart attack, heart stent, palpitations, shortness of breat with exertion or chest pain Psych Psychiatric: Yes depression and anxiety Resp Respiratory: Yes shortness of breath, No sleep apnea, No cough, No COPD, Yes asthma, No emphysema, No wheezing Gastro Gastrointestinal: Yes abdominal pain, No nausea or vomiting, Yes diarrhea, No constipation, No blood in stool, No acid reflux, No hemorrhoids, No ulcers, No gallbladder problem, No black,tarry stools Hu Hematologic: No blood thinners Exam Const General: cooperative Orientation: alert, oriented x3 HENMT Head: normal to inspection Ears: hearing grossly normal bilaterally Eyes General: appearance normal, both eyes and all related structures Visual Longoria: normal visual longoria by confrontation Neck Neck: normal visual inspection Chest Chest palpation & inspection: normal inspection of the chest Resp Effort & Inspection: normal respiratory effort Auscultation: clear to auscultation bilaterally Cardio Rate: regular rate Rhythm: regular rhythm Heart Sounds: no murmurs GI Inspection: non-distended Palpation: soft, tender in the LLQ Musc Cervical Spine: normal cervical lordosis, cervical ROM normal Skin General: no rashes or lesions noted Neuro General: alert, oriented x3 Cranial Nerves: CN's II-XI intact bilaterally Cognition: normal cognition Extrem General: normal to inspection, full ROM Psych Appearance: grossly normal Affect: normal affect Assessment & Plan Problems 1. CLL (chronic lymphocytic leukemia) C91.10 2. Spigelian hernia K43.9 3. LLQ pain R10.32 Plan The patient had been having left lower quadrant pain. Her insurance company notified her that she is due for colonoscopy. We are planning a colonoscopy for abdominal pain before she was found to have leukemia and underwent chemotherapy. While undergoing treatment she had a CT a PET scan which shows beginning hernia in the left lower quadrant which corresponds the area of her pain. I discussed robotic assisted laparoscopic spigelian hernia repair with mesh. I would like to fix this from the inside but I did discuss the risks and benefits of the procedure. I discussed the risks of bleeding, infection, bowel injury, epigastric vessel injury, recurrence, mesh placement. The patient understands all the risks and wants to book a ventral hernia repair before the end of the year. Patient is also due for colonoscopy. She is having left lower quadrant pain. I will get her scheduled for colonoscopy as well. I explained endoscopy in detail to the patient. I explained the risks including but not limited to stroke or heart attack with anesthesia, perforation of the GI tract, bleeding, infection. I explained that any of these could necessitate further emergency surgery. The patient understands and all questions were answered sufficiently. The patient wishes to proceed with procedure. Hamilton Melendez MD Pager: [facility] [address] [place] [address], [address] [place] [address] Office: Coding Level of Care Code Off vis,est,level 4 Diagnoses CLL (chronic lymphocytic leukemia) C91.10 Spigelian hernia K43.9 LLQ pain R10.32 03/11/19 1008 <Electronically signed by Hamilton pina MD> Date _ Hamilton Melendez MD I have reexamined the patient. No changes since prior exam.
[2019-03-18 08:20] VITALS: BMI 30.2
--- NOTE | 2019-04-17 10:17 | HP.PCM_ITS ---
Problem List (1) Spigelian hernia Status: Acute History of Present Illness Date of Admission: 04/17/19 The patient is a 64 year old F who had CT scan for left lower quadrant pain and was found to have a spigelian hernia. She presents for robotic assisted spigelian hernia repair. Past Medical History Past Medical History (Chronic Problems): Chronic Problems (Last Reviewed 04/01/19 @ 10:40 by Adalgisa Santos) CLL (chronic lymphocytic leukemia) (Chronic) Ventricular trigeminy (Chronic) Hyperlipidemia (Chronic) Medical History: Medical History (Last Reviewed 04/01/19 @ 10:40 by Adalgisa Santos) Encounter for education (Acute) Z71.9 CLL (chronic lymphocytic leukemia) (Chronic) C91.90 Thyroid cancer (Resolved) Onset Date: 1996 R19.7 Ventricular trigeminy (Chronic) C91.90 Hyperlipidemia (Chronic) Z85.850 Neutropenia E03.9 Chemotherapy management, encounter for C73 1996 - 2004 Hypothyroidism F41.8 AKANKSHA (obstructive sleep apnea) J45.909 Constipation Z98.890 1996 Allergies ibuprofen Allergy (Severe, Verified 04/13/19 09:32) Swelling throat tightness azithromycin [From Zithromax] Allergy (Intermediate, Verified 04/13/19 09:32) Unknown aspirin Allergy (Verified 04/13/19 09:32) Angioedema oxycodone Allergy (Verified 04/13/19 09:32) Angioedema moxifloxacin [From Avelox] Adverse Reaction (Intermediate, Verified 04/13/19 09:32) Rash Home Medications: Ambulatory Orders Medication Instructions Recorded Albuterol IH (ProAir) [Proair Hfa 2 puff INHALATION Q4H PRN PRN 04/17/18 (SP)Vent Pts] Citalopram Hydrobromide 10 mg PO DAILY 04/17/18 [Citalopram HBr] Levothyroxine Sodium [Synthroid] 200 mcg PO UD 04/17/18 Nadolol [Corgard] 10 mg PO DAILY 04/17/18 Cetirizine HCl [Zyrtec] 10 mg PO DAILY PRN 04/21/18 Cholecalciferol (Vitamin D3) 1,000 unit PO DAILY 12/11/18 [Vitamin D3] Ondansetron [Zofran Odt] 4 mg PO Q8H PRN PRN #30 tab 12/18/18 Biotin 2,500 mcg PO DAILY 04/09/19 Ensure Enlive 237 ml PO MOWEFR 04/09/19 Famotidine [Pepcid] 20 mg PO DAILY PRN 04/09/19 Surgical History: Surgical History (Last Reviewed 04/01/19 @ 10:40 by Adalgisa Santos) History of thyroidectomy Onset Date: ~1996 R10.9 Surgical History: - Smoking Status: Never smoker Tobacco Use: Non-smoker Review of Systems Constitutional: Denies: Anorexia, Fever Eyes: Denies: Blurred vision HEENT: Denies: Difficulty Swallowing Cardiovascular: Denies: Chest Pain Respiratory: Denies: Cough, Shortness of Breath Gastrointestinal: Reports: Abdominal Pain. Denies: Nausea, Vomiting Musculoskeletal: Denies: Joint Tenderness Skin: Denies: Dryness, Jaundice Neurological: Denies: Balance problems Psychiatric: Denies: Anxiety, Depression Hematologic/ Lymphatic: Denies: Anemia VTE Information - Inpt Only VTE Present on Admission: No VTE Mechan Device Prophylaxis: SCD's Patient Problems: Active and Suspected Problems (Last Reviewed 04/01/19 @ 10:40 by Adalgisa Santos) Spigelian hernia (Acute) - Physical Exam Vitals/I&O's: Body Mass Index (BMI) 30.0 General: Alert, Oriented x3 Lungs: Normal air movement Cardiovascular: Regular rate, Regular Rhythm Abdomen: Soft, Non Tender, Non-Distended Current Medications Cefazolin Sodium 2 gm/ Sodium (Chloride) 110 mls @ 150 mls/hr IV PREOP ONE Stop: 04/17/19 13:43 Assessment/Plan All Active Problems (Last Reviewed 04/01/19 @ 10:40 by Adalgisa Santos) Spigelian hernia (Acute) Preop cardiovascular exam (Acute) Chest pain (Acute) Encounter for education (Acute) Thyroid cancer (Resolved 1996) 64-year-old female with spigelian hernia left lower quadrant 1. The patient was found to have a subgaleal hernia with CAT scan. The CAT scan was reviewed with the patient and I discussed the risks and plan for robotic assisted laparoscopic spigelian hernia repair with mesh. The patient understood all the risks and approved to proceed. There have been no changes since the prior visit besides a colonoscopy that was performed which only revealed a tubular adenoma. Hamilton Melendez MD Pager: [facility] [address] [place] [address], [address] [place] [address] Office:
[2019-04-17 10:30] VITALS: BP 142/89; PULSE 59; RESP 16; TEMP 36.4; O2SAT 98; BMI 30.7
[2019-04-17] MEDS: Lactated Ringers 1,000 ML 100 ML IV ×2 (10:57→10:58)
[2019-04-17] MEDS: Cefazolin 2 GM in 0.9% Normal Saline 100 ML IV (11:50)
[2019-04-17] MEDS: Bupivacaine Mpf 0.5% 30 ML VIAL (12:19)
[2019-04-17 13:19] VITALS: BP 128/89; BP 142/89; PULSE 67; RESP 18; TEMP 36.9; O2SAT 94
[2019-04-17 13:30] VITALS: BP 128/77; BP 142/89; PULSE 62; RESP 18; O2SAT 100
--- NOTE | 2019-04-17 13:37 | OP.PCM_ITS ---
Problem List (1) Spigelian hernia Status: Acute Report of Operation Date of Procedure: 04/17/19 Pre-Operative Diagnosis: Left lower quadrant spigelian hernia Post-Operative Diagnosis: Same Surgery/Procedure Performed:: Robotic assisted laparoscopic ventral hernia repair with mesh Specimen's removed: None Description of Procedure: The patient was prepped and draped in usual sterile fashion. An incision was made in the right upper quadrant a Veress needle was placed into the abdomen and a drop test was performed. Next the abdomen was insufflated to 15 mmHg and the Veress needle was removed. The camera port was placed through this incision and the abdomen was inspected and free of injuries. Next in the right lower quadrant and left upper quadrant 8 mm robotic ports were placed. The robot was then docked. The left lower quadrant was inspected and there was a hernia. The hernia was opened slightly to allow the reduction of the abdominal fat contents. Once the hernia contents were fully reduced an incision was made in the peritoneum and this was dissected laterally until the hernia sac was located and reduced into the abdomen. The dissection was carried further laterally until there was a good amount of tissue dissected free circumferentially around the hernia. The defect was then closed using a running 0-V lock suture nonabsorbable. It was then run in the opposite direction performing 2 layer closure. Next the pro-repeater operator mesh was trimmed and placed over the defect and unfolded. The peritoneum was then reapproximated over the mesh completely covering it in a continuous fashion with a running 3-0V lock suture. The peritoneum completely covered the mesh. Next the robot was undocked and the abdomen was allowed to desufflate. The skin incisions were injected with anesthetic and closed with interrupted 4-0 Monocryl sutures and Steri-Strips and bandages. Patient tolerated the procedure well was brought back in stable condition. Grafts/Implants Used: Pro-repeater operator mesh - Admit VTE Documentation VTE Mechan Device Prophylaxis: SCD's
--- NOTE | 2019-04-17 13:42 | PCM.DC.HER ---
Discharge Diet: Light diet - advance as tolerated Discharge Activity: Return to Normal Activity, May Not Drive - for 2-3 days or while taking narcotic pain meds., May Shower - with the bandage in place 1-2 days after surgery. Lifting Restrictions: 20 pounds for 4 weeks. Additional Activity Instructions:: Climbing stairs is fine, walking is encouraged. Sitting in bed may be uncomfortable. Sitting up using your lateral muscles (sitting up sideways) is usually more comfortable. Do not drive, work heavy equipment of sign legal documents for 24 hours. If your hernia repair was an ingunial repair, you may have scrotal swelling, an ice pack and/or athletic support can provide more comfort. Pain medications may cause nausea, you should typically eat light foods as you take your pain medications. Pain medications may also cause constipation. If you have difficulty with this, discuss with your doctor. Call your doctor if your incision/area has: Continuous Slow Oozing, Sudden Increased Bleeding, Increased Pain/ Swelling, Increased Redness, Foul Smelling Discharge Call your doctor if you observe: Fever of 101 or Higher Suture Line Care: Avoid Pulling/Pushing, Avoid Pinching/Bending Change Dressing in (Days):: 3 - Leave steri-strips for 1 week. May protect with a guaze bandaid. Cleanse incision/area with: Keep Dressing Clean & Dry Allergies/Adverse Reactions: Allergies ibuprofen Allergy (Severe, Verified 04/17/19 10:28) Swelling throat tightness azithromycin [From Zithromax] Allergy (Intermediate, Verified 04/17/19 10:28) Unknown aspirin Allergy (Verified 04/17/19 10:28) Angioedema oxycodone Allergy (Verified 04/17/19 10:28) Angioedema moxifloxacin [From Avelox] Adverse Reaction (Intermediate, Verified 04/17/19 10:28) Rash Medications to take at Discharge Albuterol IH (ProAir) [Proair Hfa (SP)Vent Pts] 2 puff INHALATION Q4H PRN PRN 04/17/18 Citalopram Hydrobromide [Citalopram HBr] 10 mg PO DAILY 04/17/18 Levothyroxine Sodium [Synthroid] 200 mcg PO UD 04/17/18 Nadolol [Corgard] 10 mg PO DAILY 04/17/18 Cetirizine HCl [Zyrtec] 10 mg PO DAILY PRN 04/21/18 Cholecalciferol (Vitamin D3) [Vitamin D3] 1,000 unit PO DAILY 12/11/18 Ondansetron [Zofran Odt] 4 mg PO Q8H PRN PRN #30 tab 12/18/18 Biotin 2,500 mcg PO DAILY 04/09/19 Ensure Enlive 237 ml PO MOWEFR 04/09/19 Famotidine [Pepcid] 20 mg PO DAILY PRN 04/09/19 Hydrocodone Bitart/Apap 5-325 [[place] 5MG-325MG] 1 tablet PO Q6H PRN PRN 5 Days #20 tablet 04/17/19 The following prescriptions were given: Hydrocodone Bitart/Apap 5-325 [[place] 5MG-325MG] 1 tablet PO Q6H PRN PRN 5 Days #20 tablet PRN Reason: Pain Transmission Status: Sent to [facility] Primary Care Physician: Lashanda Sharma [Primary Care Provider] - Test Results: Test results from this visit will be discussed in further detail at your follow-up appointment, if applicable. Please Follow Up With: Hamilton Melendez MD When: Please call to schedule 2 week follow up appointment. [phone]
[2019-04-17 13:45] VITALS: BP 134/82; BP 142/89; PULSE 60; RESP 18; O2SAT 100
[2019-04-17 13:57] VITALS: BP 137/78; BP 142/89; PULSE 62; RESP 18; TEMP 37; O2SAT 93
[2019-04-17] MEDS: HYDROcodone Bitartrate/Apap 5/325 Tablet PO (15:07)
[2019-04-17 15:43] VITALS: BP 133/71; BP 142/89; PULSE 62; RESP 16; TEMP 36.6; O2SAT 93
== END 2019-04-17 15:46 | disposition home or self-care (01) ==
LOC: SDC 10:06 → AC 10:08
PROVIDERS: Referring Provider Surgery; Visit Provider Surgery
PROC: (CPT 49652; principal; 2019-04-17 12:35)
DX: K43.9 Ventral hernia without obstruction or gangrene (principal); C91.10 Chronic lymphocytic leukemia of B-cell type not having achieved remission; E78.5 Hyperlipidemia, unspecified; E03.9 Hypothyroidism, unspecified; J45.909 Unspecified asthma, uncomplicated; K21.9 Gastro-esophageal reflux disease without esophagitis; R00.8 Other abnormalities of heart beat; Z79.899 Other long term (current) drug therapy; Z92.21 Personal history of antineoplastic chemotherapy; Z85.850 Personal history of malignant neoplasm of thyroid
CPT/HCPCS: 49652; J7120; J2405

== ENCOUNTER → 2020-07-25 09:46 | Outpatient (CLI) | payer OTHER, SELFPAY ==
[2020-06-15 10:54] VITALS: BMI 32.3
[2020-07-25 10:41] LABS: Absolute Lymphocyte Count 0.85 X10^3/uL (0.83-4.51); Absolute Neutrophil Count 2.6 X10^3/uL (2.0-7.7); Basophil# 0.03 X10^3/uL; Basophil% 0.7 % (0-1); Eosinophil# 0.33 X10^3/uL; Eosinophils% 7.5 % (0-5); Hematocrit 45.1 % (37-47); Hemoglobin 15.8 g/dL (12.0-15.0); Lymphocyte # 0.85 X10^3/ul (4.0); Lymphocyte % 19.4 % (19-41); Mean Corpuscular Hgb 31.8 pg (27.0-32.0); Mean Corpuscular Volume 90.7 fL (81-99); Monocyte# 0.53 X10^3/uL; Monocyte% 12.1 % (0-10); NRBC Flagged by Analyzer 0 % (0-5); Neutrophil # 2.62 X10^3/uL (2.7-7.7); Neutrophil % 59.8 % (47-70); Platelet Count 180 K/mm3 (150-450); RBC Distribution Width SD 39.7 fl (35.1-43.9); Red Blood Count 4.97 M/mm3 (4.2-5.4); White Blood Count 4.4 K/mm3 (4.4-11.0)
[2020-07-25 11:19] LABS: ALB/GLOB Ratio 1.2 RATIO (0.9-2.4); AST(SGOT) 22 U/L (15-37); Alanine Aminotransfer ALT/SGPT 30 U/L (13-56); Albumin, Serum 3.8 g/dL (3.2-5.0); Alkaline Phosphatase 73 U/L (45-117); Anion Gap 3 (5-15); BUN 10 mg/dL (7-18); BUN/Creat Ratio 16.1 RATIO (10-20); Calcium,Total 10.1 mg/dL (8.5-10.1); Chloride 103 mmol/L (98-107); Cholesterol 245 mg/dL (200); Creatinine, Serum 0.62 mg/dL (0.55-1.02); EST Glomerular Filtration Rate 103 mL/min (>60); Est Glom Filt Rate - Afr Amer 125 mL/min (>60); Globulin 3.2 g/dL (2.2-4.2); Glucose 87 mg/dL (74-106); High Density Lipoprotein 71 mg/dL; Sodium Level 139 mmol/L (136-145); Thyroid Stim Hormone (TSH) 0.65 uIU/mL (0.358-3.74); Triglycerides 161 mg/dL; Very Low Density Lipoprotein 32 mg/dL (5-40)
[2020-07-27 14:56] LABS: Vitamin D 1,25-Dihydroxy 79.2 pg/mL (19.9-79.3)
== END ==
DX: I10 Essential (primary) hypertension (principal); E78.5 Hyperlipidemia, unspecified; E55.9 Vitamin D deficiency, unspecified
CPT/HCPCS: 36415; 80053; 80061; 82652; 84443; 85025

== ENCOUNTER → 2020-08-09 10:17 | Outpatient (CLI) | payer OTHER, SELFPAY ==
[2020-07-28 09:39] VITALS: BMI 33.3
--- NOTE | 2020-08-09 10:19 | BI_ITS ---
MAMMOGRAPHY - BILATERAL SCREENING REASON FOR EXAM: Female, 65 years old. Routine annual screening examination. PERTINENT HISTORY: Mother with breast cancer. TECHNIQUE: Digital bilateral breast zak (3D mammographic acquisition) in the CC and MLO projections. 2-D mediolateral oblique (MLO) and craniocaudad (CC) views of both breasts were obtained. CAD: Full Field Digital Mammography with Computer Added Detection was performed. COMPARISON: Comparison is made with prior study dated 05/26/2018 and 05/02/2011. FINDINGS: Breast Composition: There are scattered areas of fibroglandular density. There are no dominant masses or suspicious calcifications. Interval decrease in size of the bilateral axillary lymph nodes. No other significant abnormalities are identified. There has been no significant change since the prior study. BI/SCRN MAMM (CAD)W/ZAK BILAT IMPRESSION: Stable bilateral screening mammogram. Interval decrease in size of the bilateral axillary lymph nodes. Yearly follow-up mammogram recommended. (A) ASSESSMENT CATEGORY: BIRADS Category 2: Benign. A letter regarding these results will be sent to the patient by the facility within 30 days. Approximately 10% of breast cancers are not detected by mammography. A normal mammogram should not delay biopsy of a clinically suspicious abnormality. [id number] Electronically Signed: Chepe Hays MD at 12:47 EDT , Service support ,
== END ==
DX: Z12.31 Encounter for screening mammogram for malignant neoplasm of breast (principal)
CPT/HCPCS: 77063; 77067

== ENCOUNTER → 2020-11-24 07:39 | Outpatient (CLI) | payer OTHER, SELFPAY ==
[2020-08-31 10:41] VITALS: BMI 32.5
[2020-11-24 10:33] LABS: Cholesterol 212 mg/dL (200); High Density Lipoprotein 61 mg/dL; Triglycerides 79 mg/dL; Very Low Density Lipoprotein 16 mg/dL (5-40)
== END ==
PROVIDERS: Nurse Practitioner Adult Health
DX: E78.5 Hyperlipidemia, unspecified (principal)
CPT/HCPCS: 36415; 80061

== ENCOUNTER → 2020-11-29 09:31 | Outpatient (CLI) | payer OTHER, SELFPAY ==
[2020-08-31 10:41] VITALS: BMI 32.5
[2020-11-29 11:31] LABS: Absolute Lymphocyte Count 1.04 X10^3/uL (0.83-4.51); Absolute Neutrophil Count 2.9 X10^3/uL (2.0-7.7); Basophil# 0.03 X10^3/uL; Basophil% 0.6 % (0-1); Eosinophil# 0.28 X10^3/uL; Eosinophils% 5.8 % (0-5); Hematocrit 44.6 % (37-47); Hemoglobin 14.8 g/dL (12.0-15.0); Lymphocyte # 1.04 X10^3/ul (0.83-4.51); Lymphocyte % 21.5 % (19-41); Mean Corp Hgb Conc 33.2 g/dL (32-36); Mean Corpuscular Volume 90.3 fL (81-99); Mean Platelet Vol. 12.1 fl (6.2-12.0); Monocyte# 0.53 X10^3/uL; NRBC Flagged by Analyzer 0 % (0-5); Neutrophil # 2.94 X10^3/uL (2.7-7.7); Neutrophil % 60.7 % (47-70); Platelet Count 157 K/mm3 (150-450); RBC Distribution Width SD 39.6 fl (35.1-43.9); Red Blood Count 4.94 M/mm3 (4.2-5.4); White Blood Count 4.8 K/mm3 (4.4-11.0)
== END ==
PROVIDERS: Referring Provider Nurse Practitioner Adult Health; Visit Provider Nurse Practitioner Adult Health
DX: C91.12 Chronic lymphocytic leukemia of B-cell type in relapse (principal)
CPT/HCPCS: 36415; 85025

== ENCOUNTER → 2021-03-23 10:57 | Outpatient (CLI) | payer MEDICARE, SELFPAY ==
--- NOTE | 2021-03-23 11:00 | ECHOD_ITS ---
Reason For Study: HTN Procedure This was a 2D Doppler, Color Flow transthoracic echocardiogram. Myocardial strain analysis was performed in this exam to aid in the assessment of cardiac function. Exam performed in department. Left Ventricle Normal LV size. Mild concentric left ventricular hypertrophy. Left ventricular systolic function is normal. The estimated ejection fraction is 65 %. Stage 1 diastolic dysfunction. No regional wall motion abnormalities noted. Right Ventricle Normal RV size. Normal systolic function. Atria Normal left atrium. Normal right atrium. Mitral Valve Normal mitral valve. Tricuspid Valve Normal tricuspid valve. Mild tricuspid valve insufficiency. Pulmonary artery systolic pressure is 30 mmHg. Aortic Valve Normal aortic valve. Trisinus/trileaflet aortic valve. Pulmonic Valve Normal pulmonic valve. Great Vessels Normal aortic root. The pulmonary artery is normal size. Normal inferior vena cava. Pericardium/Pleural No pericardial effusion. MMode/2D Measurements & Calculations LVIDd: 4.1 cm IVSd: 1.4 cm Ao root diam: 3.5 cm LVIDs: 2.5 cm LVPWd: 1.3 cm RVDd: 3.1 cm FS: 38.9 % LAV(MOD-bp): 56.6 ml LA A4 area: 18.9 cm2 LA dimension(2D): 3.6 cm LAV(MOD-bp) Indexed: 29.0 ml/m2 LAV(MOD-sp2): 60.1 ml LAV(MOD-sp4): 53.4 ml RA A4 area: 15.5 cm2 Doppler Measurements & Calculations MV E max drew: 51.8 cm/sec Lat Peak E' Drew: 6.5 cm/sec Med Peak E' Drew: 4.0 cm/sec MV A max drew: 96.3 cm/sec E/E' lat: 8.0 E/E' med: 13.0 MV E/A: 0.54 Ao V2 max: 132.9 cm/sec LV V1 max: 82.3 cm/sec TR max drew: 247.8 cm/sec Ao max P.1 mmHg LV V1 max P.7 mmHg TR max P.6 mmHg ECHO/Echo Complete Interpretation Summary Normal LV size. Left ventricular systolic function is normal. The estimated ejection fraction is 65 %. Stage 1 diastolic dysfunction. Mild concentric left ventricular hypertrophy. The global longitudinal strain is normal. The global longitudinal strain = -20 % (normal). Ordering Physician: Sourav Snyder Referring Physician: [facility] Performed By: Nova Gomes, RON, RVT
== END ==
PROVIDERS: Referring Provider Internal Medicine Cardiovascular Disease; Visit Provider Internal Medicine Cardiovascular Disease
DX: R94.31 Abnormal electrocardiogram [ECG] [EKG] (principal); R03.0 Elevated blood-pressure reading, without diagnosis of hypertension
CPT/HCPCS: 93306

== ENCOUNTER → 2022-07-11 | Outpatient (CLI) | payer MEDICARE, SELFPAY ==
--- NOTE | 2022-07-11 10:45 | BI_ITS ---
MAMMOGRAPHY - BILATERAL SCREENING REASON FOR EXAM: Female, 67 years old. Routine annual screening examination. PERTINENT HISTORY: Mother with breast cancer. Personal history of leukemia/lymphoma. Right axillary swelling. Prior right axillary surgery. TECHNIQUE: Digital bilateral breast zak (3D mammographic acquisition) in the CC and MLO projections. 2-D mediolateral oblique (MLO) and craniocaudad (CC) views of both breasts were obtained. CAD: Full Field Digital Mammography with Computer Added Detection was performed. COMPARISON: Comparison is made with prior study dated August 09, 2020 and May 26, 2018. FINDINGS: Breast Composition: There are scattered areas of fibroglandular density. There are no dominant masses or suspicious calcifications. Once again, the appearance of the dense bilateral axillary lymph nodes. These have increased in size as compared to prior study. Clinical correlation is recommended. No other significant abnormalities are identified. There has been no significant change since the prior study. BI/SCRN MAMM (CAD)W/ZAK BILAT IMPRESSION: Stable bilateral screening mammogram. Yearly follow-up mammogram recommended. (A). Increased size of the previously seen bilateral axillary lymph nodes. ASSESSMENT CATEGORY: BIRADS Category 4: Suspicious - Biopsy Should Be Considered. A letter regarding these results will be sent to the patient by the facility within 30 days. Approximately 10% of breast cancers are not detected by mammography. A normal mammogram should not delay biopsy of a clinically suspicious abnormality. [id number] Electronically Signed: Chepe Hays MD at 12:08 EDT ,
== END | disposition home or self-care (01) ==
LOC: OPBI 10:43
PROVIDERS: Referring Provider Nurse Practitioner Family; Visit Provider Nurse Practitioner Family
DX: Z12.31 Encounter for screening mammogram for malignant neoplasm of breast (principal); Z80.3 Family history of malignant neoplasm of breast; Z85.6 Personal history of leukemia
CPT/HCPCS: 77063; 77067

== ENCOUNTER → 2022-07-18 | Outpatient (CLI) | payer MEDICARE, SELFPAY ==
[2022-07-18 09:53] LABS: Vitamin D,25 Hydroxy 43.7 ng/mL
[2022-07-18 10:22] LABS: ALB/GLOB Ratio 1.4 RATIO (0.9-2.4); AST(SGOT) 17 U/L (15-37); Alanine Aminotransfer ALT/SGPT 26 U/L (13-56); Albumin, Serum 3.6 g/dL (3.2-5.0); Alkaline Phosphatase 53 U/L (45-117); Anion Gap 8 (5-15); BUN 14 mg/dL (7-18); BUN/Creat Ratio 20.2 RATIO (10-20); Calcium,Total 9.3 mg/dL (8.5-10.1); Chloride 106 mmol/L (98-107); Cholesterol 231 mg/dL (200); Creatinine, Serum 0.69 mg/dL (0.55-1.02); EST Glomerular Filtration Rate 90 mL/min (>60); Est Glom Filt Rate - Afr Amer 109 mL/min (>60); Free T3 2.5 pg/mL (2.18-3.98); Globulin 2.6 g/dL (2.2-4.2); Glucose 94 mg/dL (74-106); High Density Lipoprotein 50 mg/dL; Potassium 4.1 mmol/L (3.5-5.1); Protein, Total 6.2 g/dL (6.4-8.2); Sodium Level 142 mmol/L (136-145); T4 Free Direct 1.57 ng/dL (0.76-1.46); Thyroid Stim Hormone (TSH) 0.03 uIU/mL (0.358-3.74); Triglycerides 88 mg/dL; Very Low Density Lipoprotein 18 mg/dL (5-40)
[2022-07-18 10:37] LABS: Hemoglobin A1c 5.3 % (3.8-5.6)
== END | disposition home or self-care (01) ==
LOC: PAVLAB 08:57
PROVIDERS: Referring Provider Nurse Practitioner Family; Visit Provider Nurse Practitioner Family
DX: K92.1 Melena (principal); E03.9 Hypothyroidism, unspecified; I10 Essential (primary) hypertension; E55.9 Vitamin D deficiency, unspecified; E78.5 Hyperlipidemia, unspecified; R73.03 Prediabetes
CPT/HCPCS: 36415; 80053; 80061; 82306; 83036; 84439; 84443; 84481

== ENCOUNTER → 2022-08-01 | Outpatient (CLI) | payer MEDICARE, SELFPAY ==
--- NOTE | 2022-08-01 13:40 | CT_ITS ---
STUDY: CT CHEST, ABDOMEN T PELVIS WITH CONTRAST REASON FOR EXAM: Female, 67 years old. Known CLL, restaging RADIATION DOSAGE (If Supplied By Facility): CTDIvol = ( 15.33 ) mGy, DLP = ( 1851.02 ) mGycm TECHNIQUE: Transaxial imaging was performed following intravenous administration of IV 100mL Isovue-300. Individualized dose optimization techniques were used for this CT. COMPARISON: 2018 FINDINGS: CHEST Lung windows show the lungs to be normally expanded. No superimposed infiltrate effusion or suspicious noncalcified mass or nodule. Normal heart and pericardium. No calcified coronary vessels. Multiple enlarged suspicious axillary lymph nodes that have increased in both size and number since the previous study. Largest nodes measure up to 1.6 cm in short axis dimension No suspicious enlarged mediastinal or perihilar lymph nodes. Normal unenhanced pulmonary arteries. Normal aorta arch and descending thoracic aorta. There are multi-level degenerative changes of the thoracic spine. ABDOMEN Normal liver. Normal gallbladder and extrahepatic biliary system. Normal spleen. Normal pancreas. Normal bilateral adrenal glands. No obstructive uropathy, or suspicious solid renal lesion, there are stable bilateral parapelvic cysts. There is a small hiatal hernia. Normal small intestine. Normal colon. There is non-visualization of the appendix. Normal abdominal aorta. Normal inferior vena cava. There are multiple subcentimeter in short axis dimension mesenteric and retroperitoneal lymph nodes, no suspicious bulky mesenteric or retroperitoneal lymphadenopathy noted. There are also multiple subcentimeter in short axis dimension inguinal lymph nodes. Normal abdominal wall. Normal osseous structures. PELVIS Normal urinary bladder. Uterus is present, the endometrium cannot be accurately evaluated with CT. No suspicious cystic mass or free fluid in the pelvis. As with the axilla, there are enlarged pelvic lymph nodes which have both increased in size and number since the previous study. Pelvic lymph nodes measuring up to 2 cm in short axis dimension and are concerning for metastasis. Normal visualized pelvic arteries. CT/CT Chest, Abd, Pel w/Contrast IMPRESSION: Significant increase in size and number of both axillary and pelvic lymph nodes. Many of these nodes measure greater than 1.5 cm in short axis dimension and are consistent with progression of disease/metastasis. No suspicious bulky mediastinal, or perihilar, or retroperitoneal lymphadenopathy. No acute pulmonary process No suspicious solid organ abnormality, stable parapelvic renal cysts Degenerative bony changes Uterus is present, the endometrium cannot be accurately evaluated with CT. Electronically Signed: Black Le MD at 10:23 EDT ,
--- NOTE | 2022-08-01 13:40 | CT_ITS ---
STUDY: CT SOFT TISSUE NECK WITH CONTRAST REASON FOR EXAM: Female, 67 years old. Known CLL, restaging RADIATION DOSAGE (If Supplied By Facility): CTDIvol = ( 15.33 ) mGy, DLP = ( 1851.02 ) mGycm TECHNIQUE: The patient was scanned in a multi-detector CT scanner. High resolution transaxial imaging was performed following intravenous administration of IV 100mL Isovue-300. Sagittal and coronal images were reconstructed. Individualized dose optimization techniques were used for this CT. COMPARISON: None. FINDINGS: Normal bilateral parotid glands. Normal bilateral brush trimming machine setter spaces. Normal bilateral parapharyngeal spaces. Normal bilateral carotid spaces. Normal bilateral sublingual and submandibular glands and spaces. Normal visualized nasopharynx. Normal retropharyngeal space. Normal perivertebral space. Normal visualized bilateral faucial tonsils. The visualized tongue, tongue base and oropharynx are normal. The visualized cervical lymph nodes (levels I-) are within normal size limits, and maintain normal morphology. All measure less than 1 cm in short axis dimension. Largest nodes measure up to 9 mm in short axis dimension. There is no demonstrated solid or cystic mass lesion. There is no abnormal contrast enhancement. Normal epiglottis, bilateral vallecula and hypopharynx. The pre-epiglottic and paraglottic adipose spaces are normal. Normal visualized bilateral piriform sinuses, aryepiglottic folds, vocal cords, and arytenoid-cricoid articulations. Normal subglottic trachea. Normal bilateral lobes of the thyroid gland. Normal visualized pulmonary apices. Normal visualized paranasal sinuses. There is multilevel degenerative changes of the cervical spine. Multiple subcentimeter in short axis dimension and supraclavicular lymph nodes also noted. CT/Soft Tissue Neck WITH Contrast IMPRESSION: Diffuse bilateral jugular chain, supraclavicular and posterior lymph nodes identified. However, all nodes measure less than 1 cm in short axis dimension. There is not a recent soft tissue neck CT for comparison. There is no suspicious bulky adenopathy, airway narrowing or deviation. No suspicious enhancing lesion Degenerative bony changes without suspicious lytic or blastic lesion Electronically Signed: Black Le MD at 10:15 EDT ,
== END | disposition home or self-care (01) ==
LOC: CT 13:17
PROVIDERS: Referring Provider Nurse Practitioner Family; Visit Provider Nurse Practitioner Family
DX: C91.10 Chronic lymphocytic leukemia of B-cell type not having achieved remission (principal)
CPT/HCPCS: 70491; 71260; 74177; Q9967; A4216

== ENCOUNTER → 2022-09-11 | Outpatient (CLI) | payer MEDICARE, SELFPAY ==
--- NOTE | 2022-09-11 15:54 | BD_ITS ---
STUDY: DUAL ENERGY X-RAY ABSORPTIOMETRY / DXA REASON FOR EXAM: Female, 67 years old. M810 TECHNIQUE: Bone Mineral Density (BMD) measurements of lumbar spine and bilateral hips were obtained. COMPARISON: None. FINDINGS: Lumbar Spine (L1-L4): g/cm2 (0.777) / T-score (-2.9) / Z-score (-1.0) Findings are suggestive of osteoporosis with a high fracture risk. Left Femur Total: g/cm2 (0.881) / T-score (-0.5) / Z-score (0.8) Left Femoral Neck: g/cm2 (0.637) / T-score (-1.9) / Z-score (-0.3) Right Femur Total: g/cm2 (0.861) / T-score (-0.7) / Z-score (0.6) Right Femoral Neck: g/cm2 (0.636) / T-score (-1.9) / Z-score (-0.3) BD/Dexa Bone Density Study IMPRESSION: The patient is considered osteoporotic as outlined below according to World Telly Organization (WHO) criteria with a high fracture risk. Reference Information: The T-score is the number of standard deviations above or below the standard which is normal for young adults at their peak bone mineral density. The World Health Organization (WHO) interprets the T-scores as follows: Above -1 Normal bone density Between -1 and -2.5 Osteopenia Equal to / or below -2.5 Osteoporosis As a practical clinical guideline, osteopenia may be graded as follows: Mild -1 through -1.5 Moderate -1.6 through -2.0 Severe -2.1 through -2.4 The Z-score is the number of standard deviations above or below age-matched controls. A Z-score of less than -1.5 would be considered abnormal. References: 1. NIH Osteoporosis and Related Bone Diseases www osteo.org 2. International Society for Clinical Densitometry www iscd.org 3. National Osteoporosis Foundation www nof.org Electronically Signed: Chepe Hays MD at 12:13 EDT ,
== END | disposition home or self-care (01) ==
LOC: OPBD 15:45
PROVIDERS: Referring Provider Nurse Practitioner Family; Visit Provider Nurse Practitioner Family
DX: Z78.0 Asymptomatic menopausal state (principal)
CPT/HCPCS: 77080

== ENCOUNTER → 2023-02-06 | Outpatient (CLI) | payer MEDICARE, SELFPAY ==
--- NOTE | 2023-02-07 09:56 | PFT ---
INTRODUCTION: The patient is a 67-year-old female who presents for pulmonary function studies secondary to a diagnosis of dyspnea. Respiratory therapy reported good patient effort. Bronchodilators were used during testing. INTERPRETATION: Forced expiration spirometry demonstrates the presence of a mild large airways obstructive ventilatory defect. There was a significant response to aerosolized bronchodilators. Body plethysmography was performed and revealed normal lung volumes. Diffusing capacity by single breath CO was within normal limits. IMPRESSION: Partially reversible mild large airways obstructive ventilatory defect with preserved lung volumes and diffusion capacity.
== END | disposition home or self-care (01) ==
PROVIDERS: Referring Provider Nurse Practitioner Acute Care; Visit Provider Nurse Practitioner Acute Care
DX: R06.00 Dyspnea, unspecified (principal)
CPT/HCPCS: 94060; 94726; 94729

== ENCOUNTER → 2023-02-12 | Outpatient (CLI) | payer MEDICARE, SELFPAY ==
[2023-02-12 11:15] VITALS: PULSE 71; PULSE 80; PULSE 90; PULSE 93; PULSE 94; PULSE 96; PULSE 97; O2SAT 93; O2SAT 95; O2SAT 96; O2SAT 97; O2SAT 98
--- NOTE | 2023-02-13 05:45 | PCM.PSN.6M ---
PSN 6 Minute Walk Test 6 Minute Walk Test 6 Minute Walk Test: 6 Minute Walk Test PSN:6-Minute Walk Test Start: 02/12/23 11:26 Freq: Status: Active Protocol: [id number].6MINW Document 02/12/23 11:15 AEH (Rec: 02/12/23 11:30 AE Desktop) 6 Minute Walk Test Date Performed 02/12/23 Time Performed 11:15 Height 5 ft 5 in Weight: 78.925 kg Weight in Pounds 174.[address]: LASHA Ulrich Assistive device used: None Pre-test Oxygen Delivery Method Room Air Pulse Ox 97 Pulse Rate (60-100) 71 Dyspnea Brooke Scale (0-10) 0.5 Exertion Brooke Scale (6-20) 6 1st minute Oxygen Delivery Method Room Air Pulse Ox 95 Pulse Rate (60-100) 90 2nd minute Oxygen Delivery Method Room Air Pulse Ox 96 Pulse Rate (60-100) 93 3rd minute Oxygen Delivery Method Room Air Pulse Ox 95 Pulse Rate (60-100) 94 4th minute Oxygen Delivery Method Room Air Pulse Ox 96 Pulse Rate (60-100) 96 5th minute Oxygen Delivery Method Room Air Pulse Ox 98 Pulse Rate (60-100) 94 6th minute Oxygen Delivery Method Room Air Pulse Ox 93 Pulse Rate (60-100) 97 Dyspnea Brooke Scale (0-10) 1 Exertion Brooke Scale (6-20) 8 Post-test Oxygen Delivery Method Room Air Pulse Ox 97 Pulse Rate (60-100) 80 Full Laps Walked 27 Partial Lap, Number of Tiles Walked 18 Total Distance Walked (ft) 1611 Interpretation Interpretation: The patient was able to ambulate 1611 feet over the course of 6 minutes on room air with no assistive devices or breaks. The patient experienced no significant desaturation or tachycardia during testing. These findings are consistent with a normal walking oximetry. Recommendations Recommendations: No supplemental oxygen will be indicated at this time.
== END | disposition home or self-care (01) ==
LOC: PSN 11:06
PROVIDERS: Referring Provider Nurse Practitioner Acute Care; Visit Provider Nurse Practitioner Acute Care
DX: R06.00 Dyspnea, unspecified (principal)
CPT/HCPCS: 94618

== ENCOUNTER → 2023-02-19 | Outpatient (CLI) | payer MEDICARE, SELFPAY | END | disposition home or self-care (01) | LOC: SL 10:20 | PROVIDERS: Referring Provider Nurse Practitioner Acute Care; Visit Provider Nurse Practitioner Acute Care | DX: R06.00 Dyspnea, unspecified (principal) | CPT/HCPCS: 98960; G0463 ==

== ENCOUNTER → 2023-03-04 | Outpatient (CLI) | payer MEDICARE, SELFPAY | END | disposition home or self-care (01) | LOC: SL 11:27 | PROVIDERS: Visit Provider Nurse Practitioner Acute Care | DX: Z00.00 Encounter for general adult medical examination without abnormal findings (principal) ==

== ENCOUNTER → 2023-04-11 | Outpatient (CLI) | payer MEDICARE, SELFPAY ==
--- NOTE | 2023-04-11 10:01 | RAD_ITS ---
STUDY: X-RAY - UNILATERAL RIBS ( LEFT ) WITH CHEST REASON FOR EXAM: Female, 68 years old. R/O FX TECHNIQUE - RIBS: 4 view(s) of the ribs. TECHNIQUE - CHEST: Single PA view of the chest. COMPARISON: None. FINDINGS - RIBS: Normal visualized ribs without a demonstrated fracture. FINDINGS - CHEST: Hyperinflation. The lungs are clear. There is no demonstrated pleural abnormality. Normal size heart. Normal mediastinum and luis antonio. Normal visualized pulmonary arteries. There is atherosclerotic tortuosity of the aortic arch and descending thoracic aorta. There are diffuse degenerative changes of the visualized thoracic spine. Normal visualized ribs, clavicles, and shoulders. There is no demonstrated abnormality of the visualized soft tissue structures of the upper abdomen. RAD/Ribs Uni Min 3V w/PA Chest IMPRESSION: RIBS: Normal x-ray examination of the ribs. CHEST: Hyperinflation. Electronically Signed: Chepe Hays MD at 10:52 [facility] ,
== END | disposition home or self-care (01) ==
PROVIDERS: PCP Nurse Practitioner Family; Referring Provider Family Medicine; Visit Provider Family Medicine
DX: S20.212A Contusion of left front wall of thorax, initial encounter (principal); X58.XXXA Exposure to other specified factors, initial encounter
CPT/HCPCS: 71101

== ENCOUNTER 2023-11-11 10:30 | Outpatient (RCR) | payer MEDICARE, SELFPAY ==
--- NOTE | 2023-10-22 15:23 | HP.PTEVAL ---
Patient's Visit Information Visit Information Visit Information: BRANDY LUGO is a 68 year old F referred to Physical Therapy by JOEY Cantu with a diagnosis of LOW BACK PAIN. Date of Evaluation: 10/22/23 Physical Therapist: Brandi Maurer PT, Cert MDT Visit Plan Frequency: 2-3x /Week Duration: 4-6 Weeks Plan: POSTURE CORRECTION/STRENGTHENING, INSTRUCTION IN APPROPRIATE BODY MECHANICS AND ACTIVITY MODIFICATIONS. DLS STARTING WITH A NEUTRAL SPINE PROGRESSING ROM TOLERATED. JULIO CÉSAR LE ROM, STRETCHING AND STRENGTHENING. HEP INSTRUCTION. 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 Present symptoms: MID BACK AND LOW BACK PAIN THAT WRAPS AROUND RIB CAGE AND FRONT OF HIPS INTO PROXIMAL THIGHS. PATIENT DENIES JULIO CÉSAR LE NUMBNESS AND TINGLING. A LITTLE TINGLING IN FINGERS INTERMITTENTLY (HAS HAPPENED IN THE PAST WHEN THYROID MEDS HAVE BEEN OFF). 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 FELT A GRATING FEELING OR A TWINGE THAT DIDN'T FEEL NORMAL WHILE LIFTING THE POTTING SOIL. 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 TRIED HEATING PAD AND TYLONOL THAT NIGHT. SHARP PAINS TURNING AND GOT INCREASINGLY WORSE AND STARTED GETTING SPASMS. WENT TO THE DOCTOR ABOUT A WEEK LATER AT [facility] AND WAS PRESCRIBED PREDNISONE AND EX'S. PREDNISONE DIDN'T HELPED AND EVENTUALLY TRIED EX'S BUT COULD DO ABOUT 3 OF THE EX'S BUT DIDN'T HELP. CALLED BACK AND GOT MUSCLE RELAXERS WHICH HELPED MUSCLE SPASMS BUT HASN'T HELPED PAIN. CALLED BACK AND ASKED ABOUT MORE MORE PREDNISONE AND PHYSICAL THERAPY AND IMAGING AND PHYSICAL THERAPY WAS ORDERED. Worse: BENDING, STANDING, TWISTING, SQUATING, LIFTING, RISING FROM SQUAT, RISING FROM BEND, TURNING WHILE REACHING Better: HEATING PAD WHILE ON BUT IT DOESN'T LAST. MUSCLE RELAXER HELPS SPASMS BUT NOT PAIN. KNEE TO CHEST BUT DOESN'T LAST Disturbed sleep: YES Previous history/Previous treatment: H/O LOW BACK FATIGUE OVER THE YEAR AND TIGHTNESS BUT NOT PAIN. RECENT X-RAYS AND CAT SCANS SHOW DDD (CERVICAL AND LUMBAR) IMAGING WAS DONE FOR ONCOLOGY REASONS PER PATIENT REPORT. NO BACK SURGERY. Coughing/sneezing/straining: POSITIVE FOR INCREASED PAIN Gait: NOT USING ANY ASSISTIVE DEVICES. MORE TIME AND DISTANCE LIMITED THAN USUAL. Bowel or Bladder Dysfunction: NO Unexplained weight loss: NO Imaging: NO IMAGING SINCE THIS INCIDENT. PMH/Recent major surgery: OSTEOPOROSIS. SEE BELOW Objective Objective: Sitting/Standing Posture: FAIR. MILD FH AND RSH'S. NO TORTICOLLIS. NORMAL LORDOSIS. NO RELEVANT LATERAL SHIFT. Other Observations: THIS PATIENT AMBULATES INDEP'LY INTO PT WITHOUT ANY AD'S WITH GUARDED GAIT PATTERN AND DECREASED TRUNK ROTATION. INDEP TRANSFERS SIT TO STAND. TRANSFERS ARE GUARDED TOO. Sensory deficit: JULIO CÉSAR UE AND LE LIGHT TOUCH SENSATION GROSSLY INTACT AND SYMMETRICAL ROM deficit: MILD HS AND CALF TIGHTNESS. JULIO CÉSAR UE ROM WFL. Motor deficit: JULIO CÉSAR UE AND LE STRENGTH GROSSLY 5/5 EXCEPT JULIO CÉSAR HIPS 4/5 AND JULIO CÉSAR SHLD'S 4/5. TESTING OF JULIO CÉSAR HIPS AND JULIO CÉSAR SHLD'S PROVOKES C/O MILD TRUNK DISCOMFORT. Reflexes: JULIO CÉSAR LE DTR'S ARE 2+ Dural Signs: NEGATIVE JULIO CÉSAR LE'S. Lumbar mvmt loss: flex - MOD TO CUCO - INCREASES - NW ext - MOD - NE R SG - MOD - INCREASES - W L SG - MOD - INCREASES - NW Core strength: FAIR Postural Strength: Fair Palpation: NO ACUTE TENDERNESS WITH LIGHT PALPATION OF THORACIC, LUMBAR, SACRAL OR HIP REGIONS. TREATMENT: NEUROMUSCULAR REEDUCATION - RETRAINING OF MVMT AND POSTURE FOR SITTING, LYING AND STANDING ACTIVITIES. Balance/Special Test Scores Oswestry Low Back Score: 27 Goals Goal 1:: DECREASE C/O LOW TRUNK PAIN BY AT LEAST 70% TO EASE ADL'S Goal Time Frame: 4-6 Weeks Goal 2:: IMPROVE PERSONAL CARE, LIFTING, WALKING, SITTING, STANDING, SLEEP, SOCIAL LIFE, TRAVEL AND RECREATIONAL/HOMEMAKING FUNCTION Goal Time Frame: 4-6 Weeks Goal 3:: INSTRUCT IN PROPHYLAXIS Goal Time Frame: 4-6 Weeks Rehabilitation Potential Physical Therapy Diagnosis: THIS PATIENT PRESENTS TO PT WITH C/O TRUNK PAIN THAT SOMETIMES RADIATES INTO PROXIMAL THIGHS AND AROUND HER RIB CAGE LIMITING NORMAL ADL'S. SHE HAS DECRERASED TRUNK ROM, SHLD AND HIP WEAKNESS, CORE WEAKNESS AND POSTURAL WEAKNESS. Anticipated Interventions Patient/Client Instruction: Educate patient on: Condition, Plan of Care and Risk Factors For the Purpose of:: To improve self management Therapeutic Exercise to Include: Strength training, Body mechanics, Postural training, Neuromotor development, In an aquatic setting and Dynamic Lumbar Stabilization For the Purpose of:: To decrease pain, To improve muscle performance and motor function, To increase tolerance to activity/condition/position, To improve ability of physical actions for home/community/work/leisure and To improve gait and locomotor functions Cryotherapy (ice pack, ice massage): Yes Thermo therapy (hot pack): Yes For the Purpose of:: To decrease pain, To decrease swelling/inflammation and To improve nutrient delivery to tissue Text: Thank you for the opportunity to evaluate your patient. For Medicare and Medicare HMO plans, please review the plan of care and approve it. It will need to be FAXED BACK to us at [phone] for Medicare purposes. For Medicare only, by signing this I certify the plan of care. Please let me know if there are questions or concerns regarding this plan of care. Physician Signature: Date:
--- NOTE | 2023-11-11 11:37 | HP.PTDCSUM ---
Discharge Summary D/C summary: It has been my pleasure to treat BRANDY LUGO referred by El Smith NP-C, with the diagnosis of LOW BACK PAIN for a total of 10 visit(s). Discharge Date: 11/11/23 Please see the following information for a summary of their discharge status. Subjective Subjective: PATIENT REPORTS SHE HAD GREAT PAIN RELIEF FOR 3 DAYS AFTER TRYING SOME POSTURE CHANGES AROUND October BUT SOMETIME SINCE THEN THE PAIN RETURNED. PAIN IS RANGING 0 TO 6/10 CURRENTLY. OVER-ALL PATIENT STATES SHE DOES NOT FEEL LIKE SHE IS GETTING BETTER NOW. Pain back: Pain Intensity (Out of 10): 2 Overall Improvement % Improvement: 0 Objective Objective/Function: UPON ASSESSMENT TODAY PATIENT IS NOT IMPROVING. WE HAVE BEEN WORKING ON CORE AND LE STRENGTHENING AND LE FLEXIBILITY ALONG WITH POSTURE TRAINING AND ACTIVITY MODIFICATIONS TO TRY TO REDUCE HER PAIN BUT SHE IS NOT IMPROVING. PHYSICIAN RE-ASSESSMENT IS RECOMMENDED AND SHE IS AGREEABLE. UPONE EXAM TODAY: Motor deficit: JULIO CÉSAR UE AND LE STRENGTH GROSSLY 5/5 EXCEPT JULIO CÉSAR HIPS 4/5 AND JULIO CÉSAR SHLD'S 4/5. TESTING OF JULIO CÉSAR HIPS AND JULIO CÉSAR SHLD'S PROVOKES C/O MILD TRUNK DISCOMFORT. Reflexes: JULIO CÉSAR LE DTR'S ARE 2+ Dural Signs: NEGATIVE JULIO CÉSAR LE'S. Lumbar mvmt loss: flex - MOD TO CUCO - INCREASES - NW ext - MOD - MILD INCREASED LBP - NW R SG - MOD - INCREASES - NW L SG - MOD - INCREASES - NW Core strength: FAIR Postural Strength: Fair Goals Goal 1:: DECREASE C/O LOW TRUNK PAIN BY AT LEAST 70% TO EASE ADL'S Goal Progress: Not Progressing Goal 2:: IMPROVE PERSONAL CARE, LIFTING, WALKING, SITTING, STANDING, SLEEP, SOCIAL LIFE, TRAVEL AND RECREATIONAL/HOMEMAKING FUNCTION Goal Progress: Not Progressing Goal 3:: INSTRUCT IN PROPHYLAXIS Goal Progress: Not Progressing Plan Plan: D/C DUE TO LACK OF PROGRESS. PATIENT AGREEABLE. D/C Information d/c sentence: If there are questions or concerns regarding this patient's physical therapy, please feel free to call me at [phone]. Thank you for the referral of this patient. Sincerely, Brandi Maurer, PT, Cert MDT Balance/Gait/Functional tests Balance/Special Test Scores Oswestry Low Back Score: 25 Improvement % Improvement: 0
== END 2023-11-11 19:00 | disposition home or self-care (01) ==
LOC: PT 10:30
PROVIDERS: PCP Nurse Practitioner Family; Visit Provider Nurse Practitioner Family
DX: M54.50 Low back pain, unspecified (principal)
CPT/HCPCS: 97110; 97112; 97162; 97530

== ENCOUNTER → 2023-12-09 | Outpatient (CLI) | payer MEDICARE, SELFPAY | END | disposition home or self-care (01) | LOC: LABSPEC 10:24 | PROVIDERS: PCP Nurse Practitioner Family; Referring Provider Family Medicine; Visit Provider Family Medicine | DX: R19.7 Diarrhea, unspecified (principal) | CPT/HCPCS: 87493 ==

== ENCOUNTER 2024-01-07 10:03 | Outpatient (RCR) | payer MEDICARE, SELFPAY ==
--- NOTE | 2024-01-08 15:09 | HP.PTEVAL ---
Patient's Visit Information Visit Information Visit Information: BRANDY LUGO is a 68 year old F referred to Physical Therapy by Jaymie Alvarez Roge, CLIENT ENGAGEMENT MANAGER-C with a diagnosis of LOW BACK PAIN. Date of Evaluation: 01/07/24 Physical Therapist: Brandi Maurer, PT, Cert MDT Visit Plan Frequency: 2-3x /Week Duration: 4-6 Weeks Plan: LAND AND/OR AQUATIC THERAPY FOR CORE STRENGTHENING, TRUNK ROM/STRETCHING, POSTURE TRAINING AND HEP INST. Subjective Subjective: Present symptoms: MID BACK PAIN Present since: END OF AUGUST 2023 Pain Scale: WORST 3/10, LEAST 0/10 Currently: 0/10 Is it getting better, worse or staying the same: BETTER Commenced as a result of: LIFTING Worse: STANDING IN THE KITCHEN, DOING ANYTHING STANDING ON A HARD SURFACE, PROLONGED SITTING ON HARD CHAIRS OR REALLY SOFT CHAIRS, NO BACK SUPPORT Better: PULLING IN ABDOMEN AND TUCKING PELVIS Treatment this episode: SEE PT SUMMER 10/22/23. 10 PT VISITS PRIOR TO GOING ON VACATION. PMH/Recent major surgery: Medical History Osteoporosis Postoperative primary hypothyroidism Elevated blood pressure reading in office without diagnosis of hypertension Multiple premature ventricular complexes Obesity Spigelian hernia Thyroid cancer (1996) AKANKSHA (obstructive sleep apnea) Hypothyroidism Hyperlipidemia Chemotherapy management, encounter for Neutropenia CLL (chronic lymphocytic leukemia) Surgical History History of herniorrhaphy (04/17/19) History of thyroidectomy (1996) Objective Objective: Sitting/Standing Posture: FAIR. NORMAL LORDOSIS. NO RELEVANT LUMBAR LATERAL SHIFT. NO TORTICOLLIS. Other Observations: INDEP GAIT AND TRANSFERS. Sensory deficit: JULIO CÉSAR UE AND LE LIGHT TOUCH SENSATION IS GROSSLY INTACT AND SYMMETRICAL. ROM deficit: JULIO CÉSAR UE AND LE ROM WFL. Motor deficit: JULIO CÉSAR UE AND LE STRENGTH GROSSLY 5/5 WITH MMT'ING AND PATIENT DENIES INCREASED PAIN WITH TESTING. Reflexes: JULIO CÉSAR LE'S 2+ Dural Signs: NEG JULIO CÉSAR LE'S. Lumbar mvmt loss: flex - MIN TO MOD ext - MOD R SG - MIN L SG - MIN - INCREASES - NW Thoracic Mvmt Loss: JULIO CÉSAR ROT - MIN TO MOD. Core strength: FAIR Postural Strength: FAIR Palpation: NO ACUTE SPINAL TENDERNESS. Balance/Special Test Scores Oswestry Low Back Score: 7 Goals Goal 1:: DECREASE C/O BACK PAIN BY 80% TO EASE ADL'S. Goal Time Frame: 4-6 Weeks Goal 2:: IMPROVE LIFTING, SITTING, STANDING, TRAVEL AND HOMEMAKING FUNCTION. Goal Time Frame: 4-6 Weeks Goal 3:: INSTRUCT IN PROPHYLAXIS Goal Time Frame: 4-6 Weeks Rehabilitation Potential Physical Therapy Diagnosis: CORE STIFFNESS AND WEAKNESS Rehabilitation Potential: Good Anticipated Interventions Patient/Client Instruction: Educate patient on: Condition, Plan of Care and Risk Factors For the Purpose of:: To improve self management Therapeutic Exercise to Include: Strength training, Body mechanics, Postural training, Flexibilty training, Neuromotor development, In an aquatic setting, Dynamic Lumbar Stabilization and Scapular Strength/Stabilization For the Purpose of:: To decrease pain, To increase ROM, To improve muscle performance and motor function, To increase tolerance to activity/condition/position and To improve ability of physical actions for home/community/work/leisure Cryotherapy (ice pack, ice massage): Yes Thermo therapy (hot pack): Yes Ultrasound (thermal/non thermal): Yes For the Purpose of:: To decrease pain, To improve muscle performance and motor function, To increase tolerance to activity/condition/position and To improve ability of physical actions for home/community/work/leisure Text: Thank you for the opportunity to evaluate your patient. For Medicare and Medicare HMO plans, please review the plan of care and approve it. It will need to be FAXED BACK to us at [phone] for Medicare purposes. For Medicare only, by signing this I certify the plan of care. Please let me know if there are questions or concerns regarding this plan of care. Physician Signature: Date:
== END 2024-01-07 19:00 | disposition home or self-care (01) ==
LOC: PT 10:03
PROVIDERS: PCP Nurse Practitioner Family; Referring Provider Nurse Practitioner Family; Visit Provider Nurse Practitioner Family
DX: M54.9 Dorsalgia, unspecified (principal); G89.29 Other chronic pain
CPT/HCPCS: 97162

== ENCOUNTER 2024-01-20 11:40 | Outpatient (CLI) | payer MEDICARE, SELFPAY ==
[2024-01-20 11:51] VITALS: BP 136/79; PULSE 61; RESP 16; O2SAT 94
[2024-01-20] MEDS: 0.9% NaCl Peripheral Flush Adult/Peds IV (11:54)
[2024-01-20] MEDS: Zoledronic Acid 5 MG 100 ML 300 MG IV (12:05)
[2024-01-20 12:31] VITALS: BP 135/73; PULSE 52; RESP 16
== END 2024-01-20 23:59 | disposition home or self-care (01) ==
LOC: MEDOUTP 11:41
PROVIDERS: PCP Nurse Practitioner Family; Referring Provider Internal Medicine Endocrinology, Diabetes & Metabolism; Visit Provider Internal Medicine Endocrinology, Diabetes & Metabolism
DX: M81.0 Age-related osteoporosis without current pathological fracture (principal)
CPT/HCPCS: 96365; A4216; J3489

== ENCOUNTER → 2024-08-13 | Outpatient (CLI) | payer MEDICARE, SELFPAY ==
[2024-08-17 15:08] LABS: H.Pylori Breath Test Negative (Negative)
== END | disposition home or self-care (01) ==
LOC: LAB 15:02
PROVIDERS: PCP Family Medicine; Referring Provider Internal Medicine Medical Oncology; Visit Provider Internal Medicine Medical Oncology
DX: C91.90 Lymphoid leukemia, unspecified not having achieved remission (principal)
CPT/HCPCS: 83013

== ENCOUNTER 2024-10-05 09:56 | Day surgery (SDC) | payer MEDICARE, SELFPAY ==
--- NOTE | 2024-09-29 08:01 | EKG12_ITS ---
Test Reason : PREOP Blood Pressure : */* mmHG Vent. Rate : 66 BPM Atrial Rate : 66 BPM P-R Int : 156 ms QRS Dur : 86 ms QT Int : 400 ms P-R-T Axes : 19 25 34 degrees QTcB Int : 419 ms Normal sinus rhythm Normal ECG Confirmed by Kyle Pan ([id number]), tape editor JARED ALVAREZ ([id number]) on 09/30/2024 10:13:41 AM Referred By: Hamilton Melendez Confirmed By: Kyle Pan
--- NOTE | 2024-09-29 13:07 | PAT.ANESEVAL ---
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 When Was Last Pacemaker Check QUESTION #4 FULL TEXT: You/Your Family Experience fever (hyperthermia) with Anesthesia Last Oral Intake Last Oral intake: Last Oral Intake NPO since Meds taken in AM with sips of water? 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 - director of analytical development: PONV - director of analytical development Female Yes 09/22/24 14:15 HX of Motion Sickness No 09/22/24 14:15 HX of N/V After Surgery No 09/22/24 14:15 Non-Smoker Yes 09/22/24 14:15 Duration of Surgery greater No 09/22/24 14:15 than 60 minutes Number of Risk Factors 2 09/22/24 14:15 PONV Score Moderate Risk 09/22/24 14:15 Height & Weight Height & Weight: Anesthesia: Height & Weight Height 5 ft 5 in 09/16/24 08:50 Respiratory Assessment Respiratory Assessment - director of analytical development: Respiratory Tract Infection Hx - director of analytical development Hx Respiratory Tract Infection No 09/22/24 14:15 STOP Sleep Apnea STOP Sleep Apnea - director of analytical development: STOP Sleep Apnea - director of analytical development Hx Hypertension No 09/22/24 14:15 Hx Sleep Apnea Yes 09/22/24 14:15 CPAP Yes 09/22/24 14:15 BIPAP No 09/22/24 14:15 Do you snore loudly (louder than talking or can be heard Do you often feel tired/ fatigued/ sleepy during daytime? Has anyone observed you stop breathing during sleep? STOP Results Positive 09/22/24 14:15 QUESTION #5 FULL TEXT : Do you snore loudly (louder than talking or can be heard through closed doors)? 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 Specify any problems Hx of Preganancy in last 3 No 09/22/24 14:15 Months Nurse Filling Out Transfusion [email or web address] 09/22/24 14:15 & Questions: Date: 09/22/24 09/22/24 14:15 Time: 14:23 09/22/24 14:15 Patient unable to answer at this time (ie. confused, unrespo /Reproduction History /Reproductive History - director of analytical development: /Reproductive Hx- director of analytical development Hx Now No 09/22/24 14:15 Gestational Age (in weeks): EDC: Hx Hx Para Hx Section SAB No 09/22/24 14:15 PFSH Medical History (Updated 09/29/24 @ 09:[address] Hamilton Melendez MD) Excessive bleeding Cardiology follow-up encounter History of echocardiogram Hypogammaglobulinemia Osteoporosis Postoperative primary hypothyroidism Elevated blood pressure reading in office without diagnosis of hypertension Multiple premature ventricular complexes Obesity Spigelian hernia Thyroid cancer (1996) AKANKSHA (obstructive sleep apnea) Hypothyroidism Hyperlipidemia Chemotherapy management, encounter for Neutropenia CLL (chronic lymphocytic leukemia) Home Medications ?Medication ?Instructions ?Recorded ?Last Taken ?Type albuterol sulfate 90 mcg/actuation 2 puff inhalation Q4H PRN PRN 04/17/18 Unknown History aerosol inhaler Wheezing cholecalciferol (vitamin D3) 25 2,000 unit PO DAILY 12/11/18 Unknown History mcg (1,000 unit) capsule citalopram 20 mg tablet 20 mg PO DAILY anxiety/depression 03/23/21 Unknown History nadolol 20 mg tablet 20 mg PO DAILY #90 tabs 03/23/21 Unknown Rx Saccharomyces boulardii 250 mg 250 mg PO BID 07/30/23 Unknown History capsule (Florastor) fluticasone propionate 230 2 inh inhalation BID #1 ea 07/30/23 Unknown Rx mcg-salmeterol 21 mcg/actuation HFA inhaler (Advair HFA) spacer #1 ea 07/30/23 Unknown Rx zoledronic acid 5 mg/100 mL in 1 ea .Route ONCE #100 mL 10/25/23 Unknown Rx mannitol 5 %-water intravenous piggybck Lactobacillus acidophilus 20 100 mmu cells PO QDAY 08/13/24 Unknown History billion cell capsule (Florajen Acidophilus) cetirizine 10 mg capsule 10 mg PO DAILY PRN Allergies 08/13/24 Unknown History magnesium 200 mg tablet 200 mg PO QDAY 08/13/24 Unknown History allopurinol 300 mg tablet 300 mg PO QDAY #60 tabs 09/16/24 Unknown Rx lidocaine-prilocaine 2.5 %-2.5 % 1 applic topical ONCE PRN port 09/16/24 Unknown Rx topical cream access 30 days #30 grams ondansetron 4 mg disintegrating 4 mg PO Q8H PRN nausea and 09/16/24 Unknown Rx tablet vomiting #30 tabs diphenhydramine HCl 25 mg tablet 25 mg PO DAILY PRN allergy symptoms 09/22/24 Unknown History (Allergy (diphenhydramine)) levothyroxine 200 mcg tablet 200 mcg PO DAILY 09/22/24 Unknown History Allergy/AdvReac Type Severity Reaction Status Date / Time ibuprofen Allergy Severe Swelling Verified 09/29/24 08:25 azithromycin (From Zithromax) Allergy Intermediate Unknown Verified 09/29/24 08:25 aspirin Allergy Angioedema Verified 09/29/24 08:25 oxycodone Allergy Angioedema Verified 09/29/24 08:25 moxifloxacin (From Avelox) AdvReac Intermediate Rash Verified 09/29/24 08:25 Family History Mother , age 52 Breast cancer Father PTSD (post-traumatic stress disorder) Pre-diabetes Hypothyroidism Sister Depression Hypothyroidism Uterine cancer Surgical History Encounter for education History of herniorrhaphy (04/17/19) History of thyroidectomy (1996) Social History Smoking Status: Never smoker alcohol intake: current details: 4 oz per day substance use type: does not use what type of physical activity do you participate in: other details: heavy yardwork 5 days per week Audit: Pertinent Findings Pertinent Findings EKG Perinent findings: 03/18/2019. Sinus bradycardia Echo (EF%) pertinent findings: 03/23/2021. Normal size function EF 65%. Consult pertinent findings: Cardiology 03/23/2021. Hypertension. Under good control. Pulmonary function results/spirometer pertinent findings: 02/07/2023. Partially reversible mild large airway obstructive ventilatory defect. Current Visit Impressions Current Visit Impressions: Patient with history of low platelets and elevated white count. Due to her CLL. Recommendation Anesthesia Recommendation Anesthesia recommendation: OPTIMIZED for anesthesia
[2024-10-05] VITALS (7 sets, daily range): BP systolic 90–112; BP diastolic 56–76; PULSE 72–87; RESP 14–18; TEMP 36.1–36.3; O2SAT 93–97; BMI 29.3
[2024-10-05] MEDS: Lactated Ringers 1,000 ML 15 ML IV (10:15)
--- NOTE | 2024-10-05 10:48 | PCM.PRE.AN2 ---
ASA Classification* ASA Classification ASA Classification: 3 Assessment & Plan Anesthesia* Anesthesia Assessment Anesthesia Assessment: Discussed sedation and/or anesthesia options, risks, benefits, and alternatives with patient/parents/legal guardian/POA. Questions invited. The patient/parents/legal guardian/POA seems to understand and agrees to proceed with anesthesia plan. Reviewed the physical assessment, medical history, allergy history and patient home medications list prior to surgery/procedure/anesthetic and documented any changes. Performed airway and anesthesia risk assessments. Anesthesia Type Anesthesia Type: MAC History Source History Obtained from:: Patient and Chart Anesthesia Focused Assessment* Temperature: 97.3 F Pulse Rate: 87 Respiratory Rate: 16 Pulse Ox: 97 Oxygen Delivery Method: Room Air Airway Assessment Mouth opens: >3 cm Mallampati Score: IV Teeth Condition: Chipped/Broken (Patient has a chip on #8.) and Missing (Patient has a couple missing left upper molars.) Neck Range of motion (ROM): Full ROM Comment: Short temporomandibular distance Labs Anesthesia Preop lab: CBC WBC 57.9 K/mm3 (4.4-11.0) H* 09/30/24 08:18 09/30/24 RBC 4.22 M/mm3 (4.2-5.4) 09/30/24 08:18 09/30/24 Hgb 13.3 g/dL (12.0-15.0) 09/30/24 08:18 09/30/24 Hct 39.1 % (37-47) 09/30/24 08:18 09/30/24 Plt Count 75 K/mm3 (150-450) L 09/30/24 08:18 09/30/24 CHEMISTRY Potassium 4.4 mmol/L (3.3-5.1) 09/30/24 08:18 09/30/24 Sodium 138 mmol/L (133-145) 09/30/24 08:18 09/30/24 Phosphorus 2.8 mg/dL (2.7-4.5) 09/30/24 08:18 09/30/24 BUN 15 mg/dL (4-19) 09/30/24 08:18 09/30/24 Creatinine 0.71 mg/dL (0.70-1.20) 09/30/24 08:18 09/30/24 Glucose 101 mg/dL (70-99) H 09/30/24 08:18 09/30/24 TSH 0.747 uIU/mL (0.358-3.740) 03/31/24 10:30 03/31/24 COAG PT 13.7 SECONDS (11.7-14.9) 04/13/19 09:28 04/13/19 Pre-Assessment Diagnosis/Proposed Procedure Planned Operative Procedure(s): RIGHT POSSIBLE LEFT PORT PLACEMENT Anesthesia History 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 When Was Last Pacemaker Check QUESTION #4 FULL TEXT: You/Your Family Experience fever (hyperthermia) with Anesthesia Last Oral Intake Last Oral intake: Last Oral Intake NPO since 22:00 10/05/24 10:21 Meds taken in AM with sips of water? 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 Female Yes 09/22/24 14:15 HX of Motion Sickness No 09/22/24 14:15 HX of N/V After Surgery No 09/22/24 14:15 Non-Smoker Yes 09/22/24 14:15 Duration of Surgery greater No 09/22/24 14:15 than 60 minutes Number of Risk Factors 2 09/22/24 14:15 PONV Score Moderate Risk 09/22/24 14:15 Height & Weight Height & Weight: Anesthesia: Height & Weight Height 5 ft 5 in 10/05/24 10:21 Weight: 80 kg 10/05/24 10:21 Body Mass Index (BMI) 29.3 10/05/24 10:21 Respiratory Assessment Respiratory Assessment - tension machine operator: Respiratory Tract Infection Hx - tension machine operator Hx Respiratory Tract Infection No 09/22/24 14:15 STOP Sleep Apnea STOP Sleep Apnea - tension machine operator: STOP Sleep Apnea - tension machine operator Hx Hypertension No 09/22/24 14:15 Hx Sleep Apnea Yes 09/22/24 14:15 CPAP Yes 09/22/24 14:15 BIPAP No 09/22/24 14:15 Do you snore loudly (louder than talking or can be heard Do you often feel tired/ fatigued/ sleepy during daytime? Has anyone observed you stop breathing during sleep? STOP Results Positive 09/22/24 14:15 QUESTION #5 FULL TEXT : Do you snore loudly (louder than talking or can be heard through closed doors)? 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 Specify any problems Hx of Preganancy in last 3 No 09/22/24 14:15 Months Nurse Filling Out Transfusion [email or web address] 09/22/24 14:15 & Questions: Date: 09/22/24 09/22/24 14:15 Time: 14:23 09/22/24 14:15 Patient unable to answer at this time (ie. 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: /Reproductive Hx- tension machine operator Hx Now No 09/22/24 14:15 Gestational Age (in weeks): EDC: Hx Hx Para Hx Section SAB No 09/22/24 14:15 Active Medications Active Medications: Current Medications Generic Name Dose Route Start Last Admin Trade Name Freq PRN Reason Stop Dose Admin Cefazolin Sodium 2 gm/ Sodium 110 mls @ 150 mls/hr 10/05/24 13:00 Chloride IV 10/05/24 13:43 INTRAOP ONE Lactated Ringer's 1,000 mls @ 15 mls/hr 10/05/24 10:15 10/05/24 10:15 IV 15 mls/hr .Q48H RICARDO Administration PFSH Medical History Excessive bleeding Cardiology follow-up encounter History of echocardiogram Hypogammaglobulinemia Osteoporosis Postoperative primary hypothyroidism Elevated blood pressure reading in office without diagnosis of hypertension Multiple premature ventricular complexes Obesity Spigelian hernia Thyroid cancer (1996) AKANKSHA (obstructive sleep apnea) Hypothyroidism Hyperlipidemia Chemotherapy management, encounter for Neutropenia CLL (chronic lymphocytic leukemia) Home Medications ?Medication ?Instructions ?Recorded ?Last Taken ?Type albuterol sulfate 90 mcg/actuation 2 puff inhalation Q4H PRN PRN 04/17/18 Unknown History aerosol inhaler Wheezing cholecalciferol (vitamin D3) 25 2,000 unit PO DAILY 12/11/18 Unknown History mcg (1,000 unit) capsule citalopram 20 mg tablet 20 mg PO DAILY anxiety/depression 03/23/21 Unknown History nadolol 20 mg tablet 20 mg PO DAILY #90 tabs 03/23/21 Unknown Rx Saccharomyces boulardii 250 mg 250 mg PO BID 07/30/23 Unknown History capsule (Florastor) fluticasone propionate 230 2 inh inhalation BID #1 ea 07/30/23 Unknown Rx mcg-salmeterol 21 mcg/actuation HFA inhaler (Advair HFA) spacer #1 ea 07/30/23 Unknown Rx zoledronic acid 5 mg/100 mL in 1 ea .Route ONCE #100 mL 10/25/23 Unknown Rx mannitol 5 %-water intravenous piggybck Lactobacillus acidophilus 20 100 mmu cells PO QDAY 08/13/24 Unknown History billion cell capsule (Florajen Acidophilus) cetirizine 10 mg capsule 10 mg PO DAILY PRN Allergies 08/13/24 Unknown History magnesium 200 mg tablet 200 mg PO QDAY 08/13/24 Unknown History allopurinol 300 mg tablet 300 mg PO QDAY #60 tabs 09/16/24 Unknown Rx lidocaine-prilocaine 2.5 %-2.5 % 1 applic topical ONCE PRN port 09/16/24 Unknown Rx topical cream access 30 days #30 grams ondansetron 4 mg disintegrating 4 mg PO Q8H PRN nausea and 09/16/24 Unknown Rx tablet vomiting #30 tabs diphenhydramine HCl 25 mg tablet 25 mg PO DAILY PRN allergy symptoms 09/22/24 Unknown History (Allergy (diphenhydramine)) levothyroxine 200 mcg tablet 200 mcg PO DAILY 09/22/24 Unknown History Allergy/AdvReac Type Severity Reaction Status Date / Time ibuprofen Allergy Severe Swelling Verified 09/30/24 09:17 azithromycin (From Zithromax) Allergy Intermediate Unknown Verified 09/30/24 09:17 aspirin Allergy Angioedema Verified 09/30/24 09:17 oxycodone Allergy Angioedema Verified 09/30/24 09:17 moxifloxacin (From Avelox) AdvReac Intermediate Rash Verified 09/30/24 09:17 Family History Mother , age 52 Breast cancer Father PTSD (post-traumatic stress disorder) Pre-diabetes Hypothyroidism Sister Depression Hypothyroidism Uterine cancer Surgical History Encounter for education History of herniorrhaphy (04/17/19) History of thyroidectomy (1996) Social History Smoking Status: Never smoker alcohol intake: current details: 4 oz per day substance use type: does not use what type of physical activity do you participate in: other details: heavy yardwork 5 days per week Review of Systems (Anesthesia) ROS Narrative System reviewed and no additional complaints, except as documented.
--- NOTE | 2024-10-05 11:16 | PCM.HP.BLA ---
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 Is patient in pain?: No Allergies ibuprofen Allergy (Severe, Verified 09/29/24 08:25) Swellingazithromycin (From Zithromax) Allergy (Intermediate, Verified 09/29/24 08:25) Unknownaspirin Allergy (Verified 09/29/24 08:) Angioedemaoxycodone Allergy (Verified 09/29/24 08:25) Angioedemamoxifloxacin (From Avelox) Adverse Reaction (Intermediate, Verified 09/29/24 08:25) Rash Medications ?Medication ?Instructions ?Recorded ?Confirmed ?Type albuterol sulfate 90 mcg/actuation 2 puff inhalation Q4H PRN PRN 04/17/18 09/29/24 History aerosol inhaler Wheezing cholecalciferol (vitamin D3) 25 2,000 unit PO DAILY 12/11/18 09/29/24 History mcg (1,000 unit) capsule citalopram 20 mg tablet 20 mg PO DAILY anxiety/depression 03/23/21 09/29/24 History nadolol 20 mg tablet 20 mg PO DAILY #90 tabs 03/23/21 09/29/24 Rx Saccharomyces boulardii 250 mg 250 mg PO BID 07/30/23 09/29/24 History capsule (Florastor) fluticasone propionate 230 2 inh inhalation BID #1 ea 07/30/23 09/29/24 Rx mcg-salmeterol 21 mcg/actuation HFA inhaler (Advair HFA) spacer #1 ea 07/30/23 09/29/24 Rx zoledronic acid 5 mg/100 mL in 1 ea .Route ONCE #100 mL 10/25/23 09/29/24 Rx mannitol 5 %-water intravenous piggybck Lactobacillus acidophilus 20 100 mmu cells PO QDAY 08/13/24 09/29/24 History billion cell capsule (Florajen Acidophilus) cetirizine 10 mg capsule 10 mg PO DAILY PRN Allergies 08/13/24 09/29/24 History magnesium 200 mg tablet 200 mg PO QDAY 08/13/24 09/29/24 History allopurinol 300 mg tablet 300 mg PO QDAY #60 tabs 09/16/24 09/29/24 Rx lidocaine-prilocaine 2.5 %-2.5 % 1 applic topical ONCE PRN port 09/16/24 09/29/24 Rx topical cream access 30 days #30 grams ondansetron 4 mg disintegrating 4 mg PO Q8H PRN nausea and 09/16/24 09/29/24 Rx tablet vomiting #30 tabs diphenhydramine HCl 25 mg tablet 25 mg PO DAILY PRN allergy symptoms 09/22/24 09/29/24 History (Allergy (diphenhydramine)) levothyroxine 200 mcg tablet 200 mcg PO DAILY 09/22/24 09/29/24 History Have you fallen in the past year?: No PFSH Medical History (Updated 09/29/24 @ 09:[address] Hamilton Melendez MD) Excessive bleeding Cardiology follow-up encounter History of echocardiogram Hypogammaglobulinemia Osteoporosis Postoperative primary hypothyroidism Elevated blood pressure reading in office without diagnosis of hypertension Multiple premature ventricular complexes Obesity Spigelian hernia Thyroid cancer (1996) AKANKSHA (obstructive sleep apnea) Hypothyroidism Hyperlipidemia Chemotherapy management, encounter for Neutropenia CLL (chronic lymphocytic leukemia) Surgical History Encounter for education History of herniorrhaphy (04/17/19) History of thyroidectomy (1996) Family History Mother , age 52 Breast cancerFather PTSD (post-traumatic stress disorder) Pre-diabetes HypothyroidismSister Depression Hypothyroidism Uterine cancer Social History Smoking Status: Never smoker alcohol intake: current details: 4 oz per day substance use type: does not use what type of physical activity do you participate in: other details: heavy yardwork 5 days per week HPI HPI HPI: Patient is a 69-year-old female here for port placement for CLL. She has no acute complaints. She does report she bleeds easily. ROS General General: Yes fatigue; No weight change, appetite, colon cancer, breast cancer or weakness HEENT HEENT: Yes difficulty swallowing and swollen glands; No eye injury, eye surgery or hoarseness Endo Endocrine: No thyroid disease, diabetes mellitus, thyroid cancer, Hair loss, heat intolerance or cold intolerance Skin Skin: Yes rash; No changing moles Breast Breast: No left breast lump, right breast lump, nipple discharge, breast pain, abnormal mammogram, abnormal US or breast enlargement Musc Musculoskeletal: No back problems, arthritis, rheumatoid arthritis, gout or joint pain Cardio Cardiovascular: No murmur, pacemaker, heart disease, atrial fibrillation, high blood pressure, heart attack, heart stent, palpitations, shortness of breath with exertion or chest pain Psych Psychiatric: Yes depression and anxiety; No hearing voices Resp Respiratory: No shortness of breath, Yes sleep apnea, No cough, No COPD, Yes asthma, No emphysema and No wheezing Gastro Gastrointestinal: Yes abdominal pain, No nausea or vomiting, No diarrhea, No constipation, No blood in stool, No acid reflux, No hemorrhoids, No ulcers, No gallbladder problem and No black,tarry stools Hu Hematologic: No blood thinners, Yes blood disorders, No bleeding, No anemia and No blood clots Neuro Neurologic: No system reviewed and no additional complaints, except as documented, No as per HPI, No abnormal gait, No abnormal hearing, No abnormal movements, No abnormal speech, No behavioral changes, No burning sensations, No confusion, No convulsions, No disequilibrium, No dizziness, No localized weakness, No frequent falls, No headache(s), No lack of coordination, No loss of vision, No memory loss, No numbness, No other visual disturbances, No radicular pain, No restless legs, No sensory deficit, No syncope, No tingling, No tremor(s), No weakness and No other Exam Const General: cooperative Orientation: alert and oriented x3 HENMT Head: normal to inspection Neck Neck: normal visual inspection and full ROM Chest Chest palpation & inspection: normal inspection of the chest Resp Effort & Inspection: normal respiratory effort Auscultation: clear to auscultation bilaterally Cardio Rate: regular rate Rhythm: regular rhythm GI Inspection: non-distended Palpation: soft and nontender Skin General: no rashes or lesions noted Neuro General: patient alert and patient oriented x3 Extrem General: full ROM Psych Appearance: grossly normal Mental Status: mental status grossly normal Assessment and Plan Assessment and Plan (1) Encounter for insertion of venous access port: Status: Acute Plan: I discussed right chest port placement with the patient in detail. I discussed the risks including but not limited to bleeding, infection, injury other organs, of pneumothorax. Patient understands the risks and is willing to proceed. The patient has CLL and her platelet count has been over 100. She is not on any blood thinners but does report that she bleeds easily. Hamilton Melendez MD Pager: [facility] [address] [place] [address], [address] [place] [address] Office: I have examined the patient and the H&P has been reviewed. There are no clinical changes since date of exam.
[2024-10-05] MEDS: Cefazolin 2 GM in 0.9% Normal Saline (100mL Bag) 100 ML IV (12:00)
[2024-10-05] MEDS: Bupivacaine Mpf 0.5% 30 ML VIAL (12:27)
[2024-10-05] MEDS: Lidocaine 1%/Epi 1:200 (30ml) 30 ML AMPUL (12:27)
--- NOTE | 2024-10-05 12:30 | PCM.OPRPT ---
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: No Type of Anesthesia: Local MAC RN Documented Start/Stop Times: Operation Date: 10/05/24 11:30 Case Time Into Pre-Op 10/05/24 10:03 Out of Pre-Op 10/05/24 11:55 Anesthesia Start 10/05/24 12:00 Into Room 10/05/24 12:00 Procedure Start 10/05/24 12:16 Procedure End 10/05/24 12:29 Procedure Start Time: 12:16 Procedure Stop Time: :29 Select all DRAINS/GRAFTS/IMPLANTS that apply: Implanted device Implanted device details: 8 [place] PowerPort Estimated Blood Loss: 5 Specimen collected: No Description of surgery: After obtaining informed consent patient was brought back to the operating room MAC anesthesia was induced and the right chest and neck were prepped in normal sterile fashion. Ultrasound was used to evaluate both IJs and the right IJ was selected. Next, using a needle, the right IJ was accessed and a guidewire was passed on into the superior vena cava under fluoroscopy guidance. A small incision was made over the puncture site and the dilator introducer was placed over the guidewire. Next this was capped and the pocket was made for the port. 1% lidocaine with epinephrine was injected in the proposed port site. An incision was made with scalpel. Electrocautery was used to make a pocket under the skin and subcutaneous tissue. Hemostasis was obtained. Next, the catheter was tunneled up to the neck incision site and placed through the introducer. The peel-away introducer was removed and the position of the catheter was confirmed on fluoroscopy. Next, the catheter was trimmed and attached to the port with the locking device. Interrupted 2-0 Vicryl sutures were used to anchor the port to the chest wall and then the port was placed inside the pocket. The pocket was then flushed with saline and the port irrigated with saline. There was good blood return and the port flushed easily. Next, heparin was injected into the port. The skin was closed with subcutaneous interrupted 3-0 Vicryl sutures. A single 3-0 Vicryl sutures placed under the skin at the neck incision site. Steri-Strips were placed as well as op sites. Patient tolerated procedure well, was taken to PACU in stable condition. Chest x-ray will be obtained. Surgical Findings: Good placement on fluoroscopy Complications Complications: No Admit VTE Documentation VTE Mechan Device Prophylaxis: SCD's
--- NOTE | 2024-10-05 12:31 | DCINST_ITS ---
Discharge Instructions Procedure Port-A-Cath Diet Discharge Diet: Light diet - advance as tolerated (Pain medication may cause nausea. You should typically eat light foods as you take your pain medication.) Activity Discharge Activity: Return to Normal Activity and May Shower (with your bandage in place in 1-2 days after surgery. DO NOT SHOWER WHEN YOUR PORT IS ACCESSED.) Dressing / Incision Call your doctor if your incision/area has: Continuous Slow Oozing, Sudden Increased Bleeding, Increased Pain/ Swelling, Increased Redness and Foul Smelling Discharge Call your doctor if you observe: Fever of 101 or Higher Remove Dressing in: 2 days Cleanse incision/area with: Soap & Water Follow Up Care Please Follow Up With: Hamilton Melendez MD When: as needed [phone] Test Results: Test results from this visit will be discussed in further detail at your follow- up appointment, if applicable. Discharge Plan Admission Attending Provider: Hamilton Melendez Primary Care Provider: Ivan Spears Consulting Providers: Mateo Pereira Instructions Print Language: Danish Discharge Orders/Prescriptions Prescriptions: No Action nadolol 20 mg tablet 20 mg PO DAILY Qty: 90 3RF Saccharomyces boulardii [Florastor] 250 mg capsule 250 mg PO BID (DME) spacer See Rx Instructions .ROUTE .MEDSUPPLY Qty: 1 0RF Rx Instructions: As directed fluticasone propion-salmeterol [Advair HFA] 230-21 mcg/actuation HFA aerosol inhaler 2 inh inhalation BID Qty: 1 3RF magnesium 200 mg tablet 200 mg PO QDAY Florajen Acidophilus 20 billion cell capsule 100 mmu cells PO QDAY lidocaine-prilocaine 2.5-2.5 % cream 1 applic topical ONCE PRN (Reason: port access) 30 Days Qty: 30 2RF allopurinol 300 mg tablet 300 mg PO QDAY Qty: 60 0RF Patient Comments: AWAITING RX ARRIVAL ondansetron 4 mg tablet,disintegrating 4 mg PO Q8H PRN (Reason: nausea and vomiting) Qty: 30 0RF albuterol sulfate 1 PUFF inhaler 2 puff INHALATION Q4H PRN PRN (Reason: Wheezing) cholecalciferol (vitamin D3) 1,000 UNIT capsule 2,000 unit PO DAILY citalopram 20 mg tablet 20 mg PO DAILY cetirizine 10 mg capsule 10 mg PO DAILY PRN (Reason: Allergies) diphenhydramine HCl [Allergy (diphenhydramine)] 25 mg tablet 25 mg PO DAILY PRN (Reason: allergy symptoms) levothyroxine 200 mcg tablet 200 mcg PO DAILY zoledronic nuds-vewrmjok-qfyvo 5 mg/100 mL piggyback 1 ea .Route ONCE Qty: 100 0RF Rx Instructions: onceinfuse over 20 minutes Other Ambulatory Orders: 12 Lead EKG (Routine) Timeframe: 20240929 Location: None Selected Ordered By: Dr. Dariel De Santiago Referrals / Follow Up: Valerie Henry NP, [employer] [Med Staff - Adv Practice Prof] - Disposition Disposition (needs filled in before D/C Order can be placed): Home, Self Care
--- NOTE | 2024-10-05 12:37 | PCM.POST.ANE ---
Anesthesia: Postop Eval I Current Vital Signs Temperature: 97 F Pulse Rate: 74 Blood Pressure: 112/58 Respiratory Rate: 16 Pulse Ox: 93 Oxygen Delivery Method: Room Air Assessment Airway patent: Yes Spontaneous unlabored respirations: Yes Mental status: Awake and Calm nausea: No Vomiting: No Anesthesia Complication: No Fluid Hydration Crystalloid volume administer (ml): 800 Total IV fluid infused: 800 Progress Note Anesthesia document: Postop Eval 1 completed: Yes
--- NOTE | 2024-10-05 12:40 | RAD_ITS ---
PROCEDURE: CXR FOR LINE PLACEMENT 10/05/2024 REASON FOR EXAM: LINE PLACEMENT TECHNIQUE: CXR FOR LINE PLACEMENT COMPARISON: Chest radiograph 04/11/2023 FINDINGS: Bones: No aggressive bone abnormalities are identified. Joints: Unremarkable. Soft tissues: Medication port approaches from the right internal jugular and has its tip the cavoatrial junction. Other: Heart size is normal. Lungs are clear. Mediastinal and hilar contours are within normal limits. RAD/CXR for Line Placement IMPRESSION: No pneumothorax. No acute process. Satisfactory position of right-sided medic ation port Reading [facility]
--- NOTE | 2024-10-05 14:04 | POSTOPAN2_ITS ---
Anesthesia Postop Eval I Sum Postop Eval Completion status Anesthesia document: Postop Eval 1 completed: Yes Anesthesia Postop Eval I Summary Anesthesia Postop Eval I Summary: Anesthesia Postop Eval I: Assessment Summary Airway patent Yes 10/05/24 12:37 MATH AND SCIENCE INSTRUCTOR.[email or web address] Spontaneous unlabored Yes 10/05/24 12:37 MATH AND SCIENCE INSTRUCTOR.SOBR respirations Mental status Awake,Calm 10/05/24 12:37 MATH AND SCIENCE INSTRUCTOR.SOBR nausea No 10/05/24 12:37 MATH AND SCIENCE INSTRUCTOR.SOBR Vomiting No 10/05/24 12:37 MATH AND SCIENCE INSTRUCTOR.SOBR Anesthesia Postop Eval I: Fluid Summary Crystalloid volume administer 800 10/05/24 12:37 MATH AND SCIENCE INSTRUCTOR.SOBR (ml) Colloids volume administered ( ml) Blood Product volume administered (ml) Total IV fluid infused 800 10/05/24 12:37 MATH AND SCIENCE INSTRUCTOR.SOBR Anesthesia Postop Eval I: Summary Notes Anesthesia Complication No 10/05/24 12:37 MATH AND SCIENCE INSTRUCTOR.SOBR Anesthesia Complication Comment: Post-operative progress note Anesthesia: Postop Eval II Evaluation Mental status: Awake Pain Level: 1 nausea: No Vomiting: No
--- NOTE | 2024-10-05 14:04 | PCM.POSTANE2 ---
Anesthesia Postop Eval I Sum Postop Eval Completion status Anesthesia document: Postop Eval 1 completed: Yes Anesthesia Postop Eval I Summary Anesthesia Postop Eval I Summary: Anesthesia Postop Eval I: Assessment Summary Airway patent Yes 10/05/24 12:37 [employer]IN[employer]ED [employer] SUPERVISOR.[email or web address] Spontaneous unlabored Yes 10/05/24 12:37 REINFORCED STE[employer]ING SUPERVISOR.SOBR respirations Mental status Awake,Calm 10/05/24 12:37 REINFORCED [employer]ING SUPERVISOR.SOBR nausea No 10/05/24 12:37 REINFORCED STEEL [employer]ACING SUPERVISOR.SOBR Vomiting No 10/05/24 12:37 REINFORCED STEEL [employer]ACING SUPERVISOR.SOBR Anesthesia Postop Eval I: Fluid Summary Crystalloid volume administer 800 10/05/24 12:37 REINFORCED STEEL PLACING SUPERVISOR.SOBR (ml) Colloids volume administered ( ml) Blood Product volume administered (ml) Total IV fluid infused 800 10/05/24 12:37 REINFORCED STEEL PLACING SUPERVISOR.SOBR Anesthesia Postop Eval I: Summary Notes Anesthesia Complication No 10/05/24 12:37 REINFORCED STEEL PLACING SUPERVISOR.SOBR Anesthesia Complication Comment: Post-operative progress note Anesthesia: Postop Eval II Evaluation Mental status: Awake Pain Level: 1 nausea: No Vomiting: No
--- OUTSIDE RECORDS SUMMARY | 2024-10-05 22:19 | XMS RPT_ITS | CCD ---
Author Organization [facility] Care Team Providers Care Buyer Liaison Name Role Phone Izabela Hendrickson Primary Care Provider Ivan Sanchez Unavailable Unavailable LUIS, TRICE Wellington Attending Unavailable LUIS, TRICE Wellington Primary Care Unavailable LUIS, TRICE Wellington Admitting Unavailable LUIS, TRICE Wellington Attending Unavailable LUIS, TRICE Wellington Primary Care Unavailable LUIS, TRICE Wellington Admitting [facility], [facility] Primary Care Pro vider [facility], [facility] Ref[facility] Dr[facility] Galindo Attending Provider [facility], [facility] Primary Care Pro vider [facility], [facility] Referring Provid er Dr. Mateo Pereira Attending Provider Ana BOTTLING ATTENDANT, BOTTLING ATTENDANT-C Lauren Attending Provider Ana BOTTLING ATTENDANT, BOTTLING ATTENDANT-C Lauren Referring Provider Ana BOTTLING ATTENDANT, BOTTLING ATTENDANT-C Lauren Other Provider Dr. Justin Dobbs Attending Provider Dr. Obdulio Fonseca Attending Provider [facility], [facility] Primary Care Pro vider [facility], [facility] Referring [facility]id [facility] Dr. Galindo Attending Provider Ana BOTTLING ATTENDANT, BOTTLING ATTENDANT-C Lauren Attending Provider [phone] Ana BOTTLING ATTENDANT, BOTTLING ATTENDANT-C Lauren Referring Provider Ana BOTTLING ATTENDANT, BOTTLING ATTENDANT-C Lauren Other Provider Dr. Justin Dobbs Attending Provider Dr. Obdulio Fonseca Attending Provider [facility], [facility] Primary Care Pro vider [facility], [facility] Referring Provid er Dr. Mateo Pereira Attending Provider Dr. Jose Roberto Su Attending Provider UVALDO, JAYMIE Primary Care Unavailable SELF, SELF Referring Unavailable Uvaldo BOTTLING ATTENDANT-C, [facility] Primary Care Provider Uvaldo BOTTLING ATTENDANT-C, Jaymie Referring Provider Kelli GONZALES, Dr. Galindo Attending Provider Tory GONZALES, Dr. Love Primary Care Provider [phone] Kelli GONZALES, Dr. Galindo Referring Provider Tory GONZALES, Dr. Love Referring Provider [facility], [facility] Family Provider [facility], [facility] Referring Provid er King CHRISTIAN, Dr. Cid Other Provider Tory GONZALES, Dr. Love Other Provider Carl BOTTLING ATTENDANT-C, Valerie Attending Provider [facility], [facility] Family Provider [facility], [facility] Referring Provid er King CHRISTIAN, Dr. Cid Other Provider Tory GONZALES, Dr. Love Other Provider Nora GONZALES, Dr. Villasenor Attending Provider [facility], [facility] Family Provider [facility], [facility] Referring Provid er King CHRISTIAN, Dr. Cid Other Provider Tory GONZALES, Dr. Love Other Provider Sarah VSRoge, El Attending Unavailable Uvaldo [facility], Jaymie Primary Care Unavailabl Ivan Plummer Primary Care Unavailable Ivan Spears Referring Unavailable PraMateo rousseau Attending Unavailable Carl BOTTLING ATTENDANT, Valerie Attending Unavailable Spears, Ivan Primary Care Unavailable Spears, Ivan Referring Unavailable Spears, Ivan Primary Care Unavailable Hamilton Melendez Attending Unavailable Tory, Ivan Referring Unavailable Spears, Ivan Primary Care Unavailable Spears, Ivan Referring Unavailable PraMateo rousseau Attending Unavailable [facility], [facility] Primary Care Unavailabl e Uvaldo VSC, Jaymie Referring Unavailabl e Prah, Mateo Attending Unavailable Ana COLBY, Lauren Attending Unavailable [facility], [facility] Primary Care Unavailabl e Uvaldo VSC, [facility] Referring Unavailabl e Jose Roberto Su Attending Unavailable [facility] Primary Care Unavailabl e Uvaldo VSC, [facility] Referring Unavailabl e Uvaldo VSC, [facility] Primary Care Unavailabl e Uvaldo VSC, [facility] Referring Unavailabl e Prah, Mateo Attending Unavailable [facility], [facility] Primary Care Unavailabl e Uvaldo VSC, Jaymie Referring Unavailabl e Prah, Mateo Attending Unavailable Radha [facility], Sabiha Attending Unavailable [facility], [facility] Primary Care Unavailabl e Radha VSC, Sabiha Referring Unavailable Hamilton Melendez Referring Unavailable Nora, Hamilton Attending Unavailable Tory, Ivan Primary Care Unavailable Mateo Pereira Consulting Unavailable Mau Sui Referring Unavailable Jose Roberto Su Attending Unavailable [facility], [facility] Primary Care Unavailabl e Uvaldo VSC, [facility] Primary Care Unavailabl e Uvaldo VSC, Jaymie Referring Unavailabl e Uvaldo VSC, Jaymie Attending Unavailabl e PrahMateo Attending Unavailable Tory, Ivan Primary Care Unavailable Mateo Pereira Referring Unavailable Mau Sui Consulting Unavailable [facility], [facility] Lashanda Hernandez Referring Unavailable Mateo Pereira Attending Unavailable Ivan Spears Consulting Unavailable Radha [facility], Sabiha Attending Unavailable [facility], [facility] Primary Care Unavailabl e Radha VSC, Sabiha Referring Unavailable Allergies Allergy Classification Reported Allergen(s) Allergy Type Date of Onset Reaction(s) Facility (12 sources) Ibuprofen Drug Allergy 0 Swelling [facility] Comment on above: throat tightness (1 source) Oxytocin Drug Allergy 9 [facility] (1 source) Moxifloxacin Hcl In Nacl Propensity to adverse reactions to drug 1 Rash [facility] (11 sources) Aspirin Drug Allergy 2 Angioedema [facility] (11 sources) Azithromycin Drug Allergy 2 Unknown [facility] (11 sources) moxifloxacin Drug Allergy 2 Rash [facility] (11 sources) oxyCODONE Drug Allergy 2 Angioedema [facility] (1 source) Aspirin Drug Allergy 5 [facility] (1 source) Azithromycin Drug Allergy 5 [facility] (1 source) Ibuprofen Drug Allergy 5 [facility] (1 source) moxifloxacin Drug Allergy 5 [facility] (1 source) oxyCODONE Drug Allergy 5 [facility] Medications Current Medications Medication Drug Class(es) Dates Sig (Normalized) Sig (Original) [id number] 200 actuat albuterol 0.09 mg/actuat metered dose inhaler (9 sources) beta2-Adrenergic Agonist Start: 04-17-2018 Albuterol Sulfate 1 PUFF inhaler Active 2 NMA INHALATION EVERY 4 HOURS NEEDED as needed for Wheezing April 17, 2018 1:00am Start: 04-17-2018 take 1 puff(s) by in halation every four hours as needed Albuterol Sulfate Active 2 PUFF INHALATION EVERY 4 HOURS NEEDED April 17, 2018 12:00am Albuterol Sulfate 1 PUFF inhaler (2 sources) Start: 04-17-2018 Albuterol Sulf ate 1 PUFF inhaler Active 2 NMA INHALATION EVERY 4 HOURS NEEDED as needed for Wheezing April 17, 2018 1:00am allopurinol 300 mg oral tablet (19 sources) Xanthine Oxidase Inhibitor Start: 09-16-2024 take 1 tablet by mouth once daily Allopurinol 300 mg tablet Active 300 mg PO daily September 16, 2024 12:00am Start: 06-28-2023 End: 03-23-2024 Allopurinol 300 mg tablet Di scontinued 300 mg PO DAILY 36 July 04, 2023 1:04pm March 23, 2024 2:29pm Take 1 tablet by mouth daily on days 1-6 of each cycle Start: 12-11-2018 End: 03-18-2019 Allopurinol 300 MG tablet Di scontinued 300 mg PO DAILY 36 December 11, 2018 12:00am March 18, 2019 11:29am Take 1 tablet by mouth daily on days 1-6 of each cycle cholecalciferol 0.025 mg oral capsule (11 sources) Vitamin D Start: 12-11-2018 take 2 capsules by mouth once daily Cholecalciferol (Vitamin D3) 1,000 UNIT capsule Active 2000 U PO DAILY December 11, 2018 12:00am Start: 12-11-2018 take 2000 [IU] by mo [facility] once daily Cholecalciferol (Vitamin D3) Active 2000 UNIT PO DAILY December 10, 2018 11:00pm citalopram 20 mg oral tablet (20 sources) Serotonin Reuptake Inhibitor Start: 03-23-2021 take 1 tablet by mouth once daily Citalopram 20 mg tablet Active 20 mg PO DAILY March 23, 2021 2:29pm Start: 04-17-2018 End: 03-23-2021 take 10 mg by mouth once daily Citalopram 20 MG tablet Discontinued 10 mg PO DAILY April 17, 2018 1:00am March 23, 2021 2:31pm Start: 04-17-2018 End: 03-23-2021 take 10 mg by mouth once daily Citalopram Discontinued 10 MG PO DAILY April 17, 2018 12:00am March 23, 2021 1:31pm diphenhydrAMINE hydrochloride 25 mg oral tablet (2 sources) Histamine-1 Receptor Antagonist Start: 09-22-2024 take 1 tablet by mouth once daily as needed Diphenhydramine Hcl (Allergy (Diphenhydramine)) 25 mg tablet Active 25 mg PO DAILY as needed for allergy symptoms September 22, 2024 12:00am epinephrine (EPIPEN) 0.3 MG/0.3ML (1:1000) IM ADRIA (1 source) epinephrine (EPI PEN) 0.3 MG/0.3ML (1:1000) IM ADRIA 0.3 mg by Intramuscular route as needed. 0 Active Fluticasone Propion-Salmeterol (6 sources) Corticosteroid, beta2-Adrenergic Agonist Start: 07-30-2023 Fluticasone Propion-Salmeterol (Advair Hfa) 230-21 mcg/actuation HFA aerosol inhaler Active 2 NMA INHALATION TWICE A DAY 1 July 30, 2023 2:56pm Start: 07-30-2023 End: 07-30-2023 Fluticasone Propion-Salmeter ol (Advair Hfa) 230-21 mcg/actuation HFA aerosol inhaler Discontinued 2 NMA INHALATION TWICE A DAY 3 July 30, 2023 12:00am July 30, 2023 2:56pm lactobacillus acidophilus 460 mg oral capsule (3 sources) Start: 08-13-2024 Lactobacillus Acidophilus (Florajen Acidophilus) 20 billion cell capsule Active 100 NMA PO daily August 13, 2024 12:00am Levalbuterol (1 source) beta2-Adrenerg ic Agonist Levalbuterol HCl (XOPENEX IN) take by inhalation as needed. 0 Active levothyroxine sodium 0.2 mg oral tablet (20 sources) l-Thyroxine Start: 09-22-2024 take 1 tablet by mouth once daily Levothyroxine 200 mcg tablet Active 200 ug PO DAILY September 22, 2024 12:00am Start: 08-31-2024 End: 09-22-2024 take 1 tablet by mouth once daily Levothyroxine 175 mcg tablet Discontinued 175 ug PO daily August 31, 2024 12:00am September 22, 2024 2:13pm Start: 03-23-2024 End: 08-31-2024 Levothyroxine 200 mcg tablet Discontinued 200 ug PO DIRECTED March 23, 2024 2:31pm August 31, 2024 8:11am 200 MG Sat SAT - 1/4 TAB ON SUN Start: 04-17-2018 End: 03-23-2024 Levothyroxine 200 mcg tablet Discontinued 200 ug PO DIRECTED July 28, 2020 10:53am March 23, 2024 2:32pm 200 MG Sat SAT - 1/2 TAB 100 MG ON SAT AND SAT levothyroxine (S YNTHROID) 150 MCG PO TABS take 1 Tab by mouth See admin instructions. Take one tablet daily Saturday through Saturday with 1 1/2 tabs on Sundays. 0 Active Lidocaine / Prilocaine (2 sources) Antiarrhythmic, Amide Local Anesthetic Start: 09-16-2024 Lidocaine-Prilocaine 2.5-2.5 % cream Active 1 NMA TOPICAL ONCE as needed for port access September 16, 2024 12:00am Magnesium (14 sources) Start: 08-13-2024 take 1 tablet by mouth once daily Magnesium 200 mg tablet Active 200 mg PO daily August 13, 2024 12:00am Start: 03-23-2021 End: 07-30-2023 magnesium Discontinued PO DA ONESIMO March 23, 2021 1:00am July 30, 2023 2:28pm Start: 03-23-2021 magnesium Acti ve PO DAILY March 23, 2021 12:00am Start: 03-23-2021 magnesium Acti ve PO DAILY March 23, 2021 1:00am Multivitamin preparation (8 sources) Start: 07-28-2020 take 1 tablet by mouth once daily Multivitamin Active 1 TABLET PO DAILY July 27, 2020 11:00pm Start: 07-28-2020 take 1 tablet by evangelina th once daily Multivitamin Active 1 TABLET PO DAILY July 28, 2020 12:00am olopatadine 1 mg/ml ophthalmic solution (1 source) Histamine-1 Receptor Inhibitor take 1 drop(s) into the eye(s) twice daily olopatadine (PATANOL) 0.1 % OP SOLN apply 1 Drop to eye 2 times daily. 0 Active ondansetron 4 mg disintegrating oral tablet (13 sources) Serotonin-3 Receptor Antagonist Start: 09-17-19 take 1 tablet by mouth every eight hours as needed for nausea and vomiting Ondansetron 4 mg tablet,disintegrati ng Active 4 mg PO Q8H as needed for nausea and vomiting September 16, 2024 12:00am Start: 11-09-2018 End: 03-18-2019 take 1 tablet by mouth every eight hours as needed for nausea Ondansetron Hcl 8 MG tablet Discontinued 8 mg PO Q8H as needed for Nausea/Vomiting November 09, 2018 12:00am March 18, 2019 11:29am saccharomyces boulardii 250 mg oral capsule (3 sources) Start: 07-30-2023 take 1 capsule by mouth twice daily Saccharomyces Boulardii (Florastor) 250 mg capsule Active 250 mg PO TWICE A DAY July 30, 2023 12:00am spacer (3 sources) Start: 07-30-2023 spacer Active 0 .ROUTE .MEDSUPPLY July 30, 2023 12:00am As directed vitamin K2 (8 sources) Start: 08-31-2020 take 45 ug by mouth once daily Vitamin K2 Active 45 MCG PO DAILY August 30, 2020 11:00pm Start: 08-31-2020 take 45 ug by mouth once daily Vitamin K2 Active 45 MCG PO DAILY August 31, 2020 12:00am 100 ml zoledronic acid 0.05 mg/ml injection (3 sources) Bisphosphonate Start: 10-25-2023 Zoledronic Geok-Tvmlyqwq-Ixswg 5 mg/100 mL piggyback Active 1 NMA .Route ONCE 100 October 25, 2023 12:00am onceinfuse over 20 minutes Completed/Discontinued Medications Medication Drug Class(es) Dates Sig (Normalized) Sig (Original) acetaminophen 325 mg / HYDROcodone bitartrate 5 mg oral tablet (11 sources) Opioid Agonist Start: 04-17-2019 End: 04-22-2019 Hydrocodone-Acetami nophen 1 TABLET tablet Discontinued 1 {tbl} PO EVERY 6 HOURS NEEDED as needed for Pain 08 09April 17, 2019 April 21, 2019 1:00am April 22, 2019 1:07am Start: 04-17-2019 End: 04-22-2019 take 1 tablet by mouth every six hours as needed Hydrocodone-Acetaminophen Discontinued 1 TABLET PO EVERY 6 HOURS NEEDED 08 09April 17, 2019 April 22, 2019 12:07am amoxicillin 875 mg / clavulanate 125 mg oral tablet (3 sources) Penicillin-class Antibacterial Start: 07-25-2023 End: 07-30-2023 Amoxicillin-Pot Clavulanate 875-125 mg tablet Discontinued 1 {tbl} PO TWICE A DAY July 25, 2023 12:00am July 30, 2023 2:27pm x7 days ascorbic acid 500 mg oral tablet (11 sources) Vitamin C Start: 03-02-2020 End: 07-28-2020 take 1 tablet by mouth once daily Ascorbic Acid (Vitamin C) 500 MG tablet Discontinued 500 mg PO DAILY@0800 March 02, 2020 1:00am July 28, 2020 10:50am biotin 2.5 mg oral capsule (11 sources) Start: 04-09-2019 End: 03-23-2021 take 1 capsule by mouth once daily Biotin 2,500 MCG capsule Discontinued 2500 ug PO DAILY April 09, 2019 1:00am March 23, 2021 2:28pm cetirizine hydrochloride 10 mg oral capsule (20 sources) Histamine-1 Receptor Antagonist Start: 04-21-2018 End: 08-13-2024 take 1 capsule by mouth once daily Cetirizine 10 mg capsule Discontinued 10 mg PO DAILY July 30, 2023 2:27pm August 13, 2024 1:43pm copper gluconate 2 mg oral capsule (3 sources) Start: 08-13-2024 End: 09-22-2024 take 1 capsule by mouth once daily Copper Gluconate 2 mg capsule Discontinued 2 mg PO daily August 13, 2024 12:00am September 22, 2024 2:11pm fidaxomicin 200 mg oral tablet (3 sources) Macrolide Antibacterial Start: 08-07-2023 End: 08-15-2023 take 1 tablet by mouth every twelve hours Fidaxomicin 200 mg tablet Discontinued 200 mg PO Q12H 20 August 07, 2023 12:00am August 16, 2023 12:00am August 15, 2023 8:55am fluticasone propionate 0.05 mg/actuat metered dose nasal spray (4 sources) Corticosteroid Start: 07-30-2023 End: 08-15-2023 Fluticasone Propionate 50 mcg/actuation spray,suspension Discontinued 2 NMA INTRANASAL DAILY July 30, 2023 12:00am August 15, 2023 8:55am fluticasone (ROCHELLE NASE) 50 MCG/ACT NA SUSP 1 [place] by Nasal route daily as needed. 0 Active Food Supplemt, Lactose-Reduc ed (8 sources) Start: 04-09-2019 End: 07-28-2020 Food Supplemt, Lactose-Reduc ed Discontinued 237 ML PO MOWEFR April 09, 2019 12:00am July 28, 2020 9:52am Start: 04-09-2019 End: 07-28-2020 Food Supplemt, Lactose-Reduc ed Discontinued 237 ML PO MOWEFR April 09, 2019 1:00am July 28, 2020 10:52am Food Supplemt, Lactose-Reduced 120 ML liquid (3 sources) Start: 04-09-2019 End: 07-28-2020 Food Supplemt, Lactose-Reduced 120 ML liquid Discontinued 237 mL PO MOWEFR April 09, 2019 1:00am July 28, 2020 10:52am ketotifen 0.25 mg/ml ophthalmic solution (11 sources) Histamine-1 Receptor Inhibitor Start: 09-30-2019 End: 07-28-2020 Ketotifen Fumarate 10 ML drops Discontinued 10 mL OP DAILY September 30, 2019 12:00am July 28, 2020 10:53am losartan potassium 50 mg oral tablet (20 sources) Angiotensin 2 Receptor Cony Start: 07-28-2020 End: 05-15-2023 take 1 tablet by mouth once daily Losartan 50 mg tablet Discontinued 50 mg PO DAILY March 23, 2021 3:09pm May 15, 2023 10:25am minerals (8 sources) Start: 07-28-2020 End: 03-23-2021 minerals Discontinued TABLET PO July 27, 2020 11:00pm March 23, 2021 1:30pm Start: 07-28-2020 End: 03-23-2021 minerals Discontinued TABLET PO July 28, 2020 12:00am March 23, 2021 2:30pm Minerals tablet (3 sources) Start: 07-28-2020 End: 03-23-2021 Minerals tablet Discontinued {tbl} PO July 28, 2020 12:00am March 23, 2021 2:30pm Multivitamin tablet (3 sources) Start: 07-28-2020 End: 07-30-2023 Multivitamin tablet Discontinued 1 {tbl} PO DAILY July 28, 2020 12:00am July 30, 2023 2:28pm nadolol 20 mg oral tablet (20 sources) beta-Adrenergic Cony Start: 04-17-2018 End: 03-23-2021 take 1 tablet by mouth once daily Nadolol 20 mg tablet Discontinued 20 mg PO DAILY March 23, 2021 2:29pm March 23, 2021 3:10pm Start: 04-17-2018 End: 03-23-2021 take 10 mg by mouth once daily Nadolol Discontinued 10 MG PO DAILY April 17, 2018 12:00am March 23, 2021 1:31pm Nirmatrelvir-Ritonavir (Paxlovid) 300 mg (150 mg x 2)-100 mg tablets,dose pack (6 sources) Start: 12-09-2023 End: 09-16-2024 Nirmatrelvir-Ritonavir (Paxlovid) 300 mg (150 mg x 2)-100 mg tablets,dose pack Discontinued 0 PO .COMPLEX December 09, 2023 12:00am September 16, 2024 8:44am take TWO 150 mg tablets of nirmatrelvir with ONE 100 mg tablet of ritonavir twice daily for 5 days PO Start: 06-27-2023 End: 07-11-2023 Nirmatrelvir-Ritonavir (Paxl ovid) 300 mg (150 mg x 2)-100 mg tablets,dose pack Discontinued 0 PO .COMPLEX June 27, 2023 1:00am July 11, 2023 8:07am take TWO 150 mg tablets of nirmatrelvir with ONE 100 mg tablet of ritonavir twice daily for 5 days PO sulfamethoxazole 800 mg / trimethoprim 160 mg oral tablet (20 sources) Dihydrofolate Reductase Inhibitor Antibacterial, Sulfonamide Antimicrobial Start: 01-22-2019 End: 03-18-2019 Sulfamethoxazole-Trimethopri m 1 TABLET tablet Discontinued 1 {tbl} PO DAILY January 22, 2019 12:00am March 18, 2019 11:29am Start: 01-22-2019 End: 03-18-2019 take 1 tablet by mouth once daily Sulfamethoxazole-Trimethoprim Discontinu ed 1 TABLET PO DAILY January 21, 2019 11:00pm March 18, 2019 10:29am Start: 12-11-2018 End: 12-17-2018 Sulfamethoxazole-Trimethopri m 1 TABLET tablet Discontinued 1 {tbl} PO DAILY December 11, 2018 12:00am December 17, 2018 3:29pm Start: 12-11-2018 End: 12-17-2018 take 1 tablet by mouth once daily Sulfamethoxazole-Trimethoprim Discontinu ed 1 TABLET PO DAILY December 10, 2018 11:00pm December 17, 2018 2:29pm valACYclovir 500 mg oral tablet (11 sources) Herpesvirus Nucleoside Analog DNA Polymerase Inhibitor, Herpes Simplex Virus Nucleoside Analog DNA Polymerase Inhibitor, Herpes Zoster Virus Nucleoside Analog DNA Polymerase Inhibitor Start: 01-22-2019 End: 03-18-2019 take 1 tablet by mouth once daily Valacyclovir 500 MG tablet Discontinued 500 mg PO DAILY January 22, 2019 12:00am March 18, 2019 11:29am vancomycin 125 mg oral capsule (3 sources) Glycopeptide Antibacterial Start: 08-08-2023 End: 08-18-2023 take 1 capsule by mouth four times daily Vancomycin 125 mg capsule Discontinued 125 mg PO .qid 40 10 August 08, 2023 12:00am August 17, 2023 12:00am August 18, 2023 12:05am take 125 mg 4 times per day for 10 days Vitamin K2 45 mcg capsule (3 sources) Start: 08-31-2020 End: 08-13-2024 Vitamin K2 45 mcg capsule Discontinued 45 ug PO DAILY August 31, 2020 12:00am August 13, 2024 1:40pm zinc gluconate 30 mg oral tablet (3 sources) Start: 08-13-2024 End: 09-16-2024 take 1 tablet by mouth once Zinc Gluconate 30 mg tablet Discontinued 30 mg PO ONCE August 13, 2024 12:00am September 16, 2024 8:45am Problems Active Problems Problem Classification Problem Date Documented Date Episodic/Chronic Abdominal pain (6 sources) Indigestion; Translations: [Epigastric pain] 08-14-2024 Episodic Administrative/socia l admission (9 sources) Patient encounter status; Translations: [Counseling, unspecified] 06-13-2023 Episodic Asthma (3 sources) Asthma; Translations: [Unspecified asthma, uncomplicated] 07-30-2023 Chronic Cancer of thyroid (14 sources) Papillary thyroid carcinoma; Translations: [Malignant tumor of thyroid gland] Onset: 7 05-05-2009 Chronic Comment on above: thyroidectomy and Ra enedelia-iodine therapy Cardiac dysrhythmias (11 sources) Multiple premature ventricular complexes; Translations: [Ventricular premature depolarization] 07-27-2020 Chronic Complications of surgical procedures or medical care (8 sources) Postoperative hypothyroidism; Translations: [Postprocedural hypothyroidism] Onset: 4 05-05-2009 Chronic Disorders of lipid metabolism (20 sources) Hyperlipidemia; Translations: [Hyperlipidemia, unspecified] 02-19-2019 Chronic Immunity disorders (4 sources) Hypogammaglobulinemia; Translations: [Nonfamilial hypogammaglobulinemia] 09-16-2024 Chronic Leukemias (20 sources) Chronic lymphoid leukemia, disease; Translations: [Chronic lymphocytic leukemia of B-cell type not having achieved remission] Onset: 5 06-25-2022 Chronic Comment on above: CLL with increasing Lymphocytosis. no indication for therapy.Discussed further management-observation. PET/CT on 06/25/2023 s howed right-left lower anterior hemipelvis and inguinal regionsbilaterally demonstrate an increase in the [place] Deauville score comparedto the prior examination. S/P rituximab on 07/11/23, got 2 cycles.Comes for follow up. Lymphocytes 59K, PLT 91 today-Relapse, doubling of Lymphocytes in 2 months is an indication for treatment.Discussed therapy vs observation, Pt wants therapy. Discussed various regimens, Pt wants Venclexta + Gazyva. PET/CT on 06/25/2023 s howed right-left lower anterior hemipelvis and inguinal regionsbilaterally demonstrate an increase in the [place] Deauville score comparedto the prior examination. S/P rituximab on 07/11/23, got 2 cycles. Lymphocytes 59K, PLT 91 today-Relapse, doubling of Lymphocytes in 2 months is an indication for treatment.Discussed therapy vs observation, Pt wants therapy. Discussed various regimens, Pt wants Venclexta + Gazyva. PET/CT on 06/25/2023 s howed right-left lower anterior hemipelvis and inguinal regionsbilaterally demonstrate an increase in the [place] Deauville score comparedto the prior examination. S/P rituximab on 07/11/23, got 2 cycles. Lymphocytes 59K, PLT 91 today-Relapse, doubling of Lymphocytes in 2 months is an indication for treatment.Comes for f/u to start Venclexta + Gazyva. Leukemias (8 sources) Leukemias Maintenance chemotherapy; radiotherapy (3 sources) H/O: malignant neoplasm; Translations: [Encounter for antineoplastic immunotherapy] 07-11-2023 Chronic Nutritional deficiencies (2 sources) Vitamin D deficiency, unspecified; Translations: [Vitamin D deficiency, unspecified] Onset: 4 Chronic Osteoporosis (6 sources) Osteoporosis; Translations: [Age-related osteoporosis without current pathological fracture] Onset: 4 04-08-2023 Chronic Other aftercare (1 source) Encounter for adjustment and management of vascular access device; Translations: [Encounter for adjustment and management of vascular access device] Onset: 5 Episodic Other circulatory disease (11 sources) Elevated blood-pressure reading without diagnosis of hypertension; Translations: [Elevated blood-pressure reading, without diagnosis of hypertension] 07-28-2020 Episodic Other lower respiratory disease (11 sources) Dyspnea on exertion; Translations: [Other forms of dyspnea] 07-28-2020 Episodic Other lower respiratory disease (5 sources) Other forms of dyspnea; Translations: [Other respiratory abnormalities] 02-01-2023 Episodic Other nutritional; endocrine; and metabolic disorders (8 sources) Obesity; Translations: [Obesity, unspecified] 02-01-2023 Chronic Residual codes; unclassified (8 sources) Obstructive sleep apnea syndrome; Translations: [Obstructive sleep apnea (adult) (pediatric)] 02-01-2023 Chronic Comment on above: AutoPaP Residual codes; unclassified (5 sources) Obstructive sleep apnea (adult) (pediatric); Translations: [Obstructive sleep apnea (adult)(pediatric)] 02-01-2023 Chronic Thyroid disorders (1 source) Hypothyroidism, unspecified; Translations: [Hypothyroidism, unspecified] Onset: 5 Chronic Unclassified (2 sources) Low back pain, unspecified; Translations: [Low back pain, unspecified] Onset: 4 Viral infection (3 sources) Disease caused by 2019-nCoV; Translations: [COVID-19] 06-27-2023 Episodic Past or Other Problems Problem Classification Problem Date Documented Da te Episodic/Chronic Other gastrointestinal disorders (1 source) Diarrhea, unspecified; Translations: [Diarrhea, unspecified] Onset: 12-31-2023 Episodic Results Test Name Value Interpretation Reference Range Facility Immunoglobulins G/A/Mon 06- IMMUNOGLOB A QN 26 mg/dL Low 87-352 [facility] Comment on above: Order Comment: N Result Comment: Resu lt confirmed on concentration. Performed By: #### L 504.2610, L100.0100 #### [facility] [address] [place], [address] IMMUNOGLOB G QN 358 mg/dL Low 586-1602 [facility] Comment on above: Order Comment: N Performed By: #### L 504.2610, L100.0100 #### [facility] [address] [place], [address] IMMUNOGLOB M QN < 5 Low 26-217 [facility] Comment on above: Order Comment: N Result Comment: Resu lt confirmed on concentration. Performed at: - [facility] [id number] Integrity Analyst: Julio Xavier PhD, Phone: [phone] Performed By: #### L 504.2610, L100.0100 #### [facility] [address] [place], [place], [address] Absolute lymphocyte countOrd ered By: Rufe Ishan on 09-30-2024 Lymphocytes Auto (Unsp spec) [#/Vol] 52.16 10*3/uL High 0.83-4.51 [facility] Absolute neutrophil countOrd ered By: [facility] on 09-30-2024 Neutrophils (Bld) [#/Vol] 2.4 10*3/uL 2.0-7.7 [facility] Anion gap in Serum or Plasma Ordered By: Mateo Pereira on 09-30-2024 Anion gap [Moles/Vol] 9 mmol/L 5-15 [facility] Automated lymphocyte count a s percentage of total leukocytesOrdered By: Rufe Ishan on 09-30-2024 Lymphocytes/100 WBC Auto (Unsp spec) 90.1 % High 19-41 [facility] BUN/creatinine ratioOrdered By: [facility] on 09-30-2024 Urea nitrogen/Creatinine [Mass ratio] 20.7 mg/mg High 10-20 [facility] Basophil percentageOrdered B y: Mateo Pereira on 09-30-2024 Basophils/100 WBC (Bld) 0.2 % 0-1 [facility] Bilirubin, totalOrdered By: [facility] on 09-30-2024 Bilirubin [Mass/Vol] 0.80 mg/dL 0.00-1.30 [facility] Blood manual differential co mment interpretation (narrative result)Ordered By: Mateo Pereira on 09-30-2024 Manual differential comment Sherman (Bld) [Interp] COMMENT [facility] Comment on above: LYMPHOCYTOSIS.MONOCY TOSIS.LEUKOCYTOSIS. CBC W/Diff, Automatedon 09-20 PATH REV May foll Normal [facility] Comment on above: Performed By: #### L 504.2610, L100.0100 #### [facility] [address] [place], [address] Carbon dioxide, total [Moles /volume] in Central venous bloodOrdered By: Mateo Pereira on 09-30-2024 CO2 [Moles/Vol] 23.6 mmol/L 21.0-32.0 [facility] Chloride assayOrdered By: Norma Pereira on 09-30-2024 Chloride [Moles/Vol] 105 mmol/L 98-108 [facility] Comprehensive Metabolic Prof ilon 09-30-2024 Albumin [Mass/Vol] 4.4 g/dL Normal 3.4-4.8 [facility] Comment on above: Performed By: #### L 504.2610, L100.0100 #### [facility] [address] [place], [address] Albumin/Globulin [Mass ratio] 2.5 {ratio} High 0.9-2.4 [facility] Comment on above: Performed By: #### L 504.2610, L100.0100 #### [facility] [address] [place], [address] ALK PHOS 56 U/L Normal 35-104 [facility] Comment on above: Performed By: #### L 504.2610, L100.0100 #### [facility] [address] [place], [address] ALT [Catalytic activity/Vol] 32 U/L Normal <=34 [facility] Comment on above: Performed By: #### L 504.2610, L100.0100 #### [facility] [address] [place], [address] AST [Catalytic activity/Vol] 32 U/L Normal <=31 [facility] Comment on above: Performed By: #### L 504.2610, L100.0100 #### [facility] [address] [place], [address] Bilirubin [Mass/Vol] 0.80 mg/dL Normal 0.00-1.30 [facility] Comment on above: Performed By: #### L 504.2610, L100.0100 #### [facility] [address] [place], [address] BUN/CRE 20.7 RATIO High 10-20 [facility] Comment on above: Performed By: #### L 504.2610, L100.0100 #### [facility] [address] [place], [address] Calcium [Mass/Vol] 9.9 mg/dL Normal 7.6-11.0 [facility] Comment on above: Performed By: #### L 504.2610, L100.0100 #### [facility] [address] [place], [address] Chloride [Moles/Vol] 105 mmol/L Normal 98-108 [facility] Comment on above: Performed By: #### L 504.2610, L100.0100 #### [facility] [address] [place], [address] CO2 [Moles/Vol] 23.6 mmol/L Normal 21.0-32.0 [facility] Comment on above: Performed By: #### L 504.2610, L100.0100 #### [facility] [address] [place], [address] Creatinine [Mass/Vol] 0.71 mg/dL Normal 0.70-1.20 [facility] Comment on above: Performed By: #### L 504.2610, L100.0100 #### [facility] [address] [place], [address] ECRCL 71.28 ml/min Normal 50-250 [facility] Comment on above: Performed By: #### L 504.2610, L100.0100 #### [facility] [address] [place], [address] GAP 9 Normal 5-15 [facility] Comment on above: Performed By: #### L 504.2610, L100.0100 #### [facility] [address] [place], [address] GFR/1.73 sq M.predicted among non-blacks MDRD (S/P/Bld) [Vol rate/Area] 93 mL/min/{1.73_m2} Normal >60 [facility] Comment on above: Result Comment: mL/m in/1.73m2 CKD-EPI Creatinine Equation (2020) Performed By: #### L 504.2610, L100.0100 #### [facility] [address] [place], [address] Globulin (S) [Mass/Vol] 1.8 g/dL Low 2.2-4.2 [facility] Comment on above: Performed By: #### L 504.2610, L100.0100 #### [facility] [address] [place], [address] Glucose [Mass/Vol] 101 mg/dL High 70-99 [facility] Comment on above: Performed By: #### L 504.2610, L100.0100 #### [facility] [address] [place], [address] Potassium [Moles/Vol] 4.4 mmol/L Normal 3.3-5.1 [facility] Comment on above: Performed By: #### L 504.2610, L100.0100 #### [facility] [address] [place], [address] Sodium [Moles/Vol] 138 mmol/L Normal 133-145 [facility] Comment on above: Performed By: #### L 504.2610, L100.0100 #### [facility] [address] [place], [address] T PROT 6.1 g/dL Normal 5.9-8.4 [facility] Comment on above: Performed By: #### L 504.2610, L100.0100 #### [facility] [address] [place], [address] Urea nitrogen [Mass/Vol] 15 mg/dL Normal 4-19 [facility] Comment on above: Performed By: #### L 504.2610, L100.0100 #### [facility] [address] [place], [address] Eosinophil percentageOrdered By: Mateo Pereira on 09-30-2024 Eosinophils/100 WBC (Bld) 0.5 % 0-5 [facility] Erythrocyte distribution wid th ratioOrdered By: Mateo Pereira on 09-30-2024 Erythrocyte distribution width (RBC) [Ratio] 13.4 % 11.6-14.6 [facility] Erythrocyte distribution wid th standard deviationOrdered By: Mateo Pereira on 09-30-2024 Erythrocyte distribution width (RBC) [Ratio] 45.3 fl High 35.1-43.9 [facility] Glomerular filtration rate ( GFR) estimation/1.73 sq m using serum, plasma, or whole bOrdered By: Mateo Pereira on 09-30-2024 GFR/1.73 sq M.predicted among non-blacks MDRD (S/P/Bld) [Vol rate/Area] 93 mL/min/{1.73_m2} >60 [facility] Comment on above: mL/min/1.73m2 CKD-EP I Creatinine Equation (2020) Hematocrit Auto (Bld) [Volum e fraction]Ordered By: Mateo Pereira on 09-30-2024 Hematocrit (Bld) [Volume fraction] 39.1 % 37-47 [facility] Hemoglobin measurementOrdere d By: Mateo Pereira on 09-30-2024 Hemoglobin (Bld) [Mass/Vol] 13.3 g/dL 12.0-15.0 [facility] Immature granulocytes/100 WB C Auto (Bld)Ordered By: Mateo Pereira on 09-30-2024 Immature granulocytes/100 WBC (Bld) 0.200 % 0.0-0.9 [facility] Comment on above: IG% - Immature Granu locytes (promyelocytes, myelocytes and metamyelocytes) > 1% indicates that a LEFT SHIFT is Present. LDHon 09-30-2024 LDH 269 U/L High 84-246 [facility] Comment on above: Order Comment: 1 Performed By: #### L 504.2610, L100.0100 #### [facility] [address] [place], [place], [address] LDH 206 U/L Normal 84-246 [facility] Comment on above: Order Comment: This specimen has been REJECTED due to Laboratory criteria: MisLabelled. ONC has been notified of need of recollection. 09/30/24 1002 Valerie Gonzalez 1 Result Comment: This specimen has been REJECTED due to Laboratory criteria: MisLabelled. ONC has been notified of need of recollection. 09/30/24 1002 Valerie Gonzalez Performed By: #### L 501.1400, L3200.1200, L504.2610 #### [facility] [address] [place], [place], [address] Laboratory - Chemistry and C hemistry - challengeOrdered By: Mateo Pereira on 09-30-2024 AST [Catalytic activity/Vol] 32 U/L <32 [facility] Lactate dehydrogenase (LDH) measurementOrdered By: Mateo Pereira on 09-30-2024 LDH [Catalytic activity/Vol] 206 U/L 84-246 [facility] MCV (mean corpuscular volume ) determinationOrdered By: Mateo Pereira on 09-30-2024 MCV (RBC) [Entitic vol] 92.7 fL 81-99 [facility] Mean corpuscular hemoglobin (MCH) determinationOrdered By: Mateo Pereira on 09-30-2024 MCH (RBC) [Entitic mass] 31.5 pg 27.0-32.0 [facility] Mean corpuscular hemoglobin concentration (MCHC) determinationOrdered By: Mateo Pereira on 09-30-2024 MCHC (RBC) [Mass/Vol] 34.0 g/dL 32-36 [facility] Mean platelet volume determi nationOrdered By: Mateo Pereira on 09-30-2024 Platelet mean volume (Bld) [Entitic vol] 11.9 fL 6.2-12.0 [facility] Monocyte percentageOrdered B y: Mateo Pereira on 09-30-2024 Monocytes/100 WBC (Bld) 5.0 % 0-10 [facility] Neutrophil percentageOrdered By: Mateo Pereira on 09-30-2024 Neutrophils/100 WBC (Bld) 4.0 % Low 47-70 [facility] Nucleated red blood cell per centageOrdered By: [facility] on 09-30-2024 Nucleated RBC/100 WBC (Bld) [Ratio] 0 % 0-5 [facility] Oncology Visit Reporton 09-20 Oncology Visit Report [facility] [address] [address] OFFICE VISIT Date of Service: 09/30/24912 MR#: [id number] Acct: [id number] Name: BRANDY LUGO Rep #: [id number] : 1955 From: Mateo Pereira MD Age/Sex: 69/F [place] [facility] [place] Status: Signed HPI Subjective Date of Service 09/16/24 Chief Complaint F/u for CLL therapy. History of Present Illness 69 y.o.woman was diagnosed with CLL,13q minus in [place], [place]. She was on observation, seen at [facility], found to have Lymphocyte count of 111K and referred for evaluation 04/21/18. She remained on observation, was seen in the ER for Gastroenteritis. CT done on 11/09/2018 showed moderate splenomegaly, retroperitoneal adenopathy, pelvic adenopathy, Spigelian hernia, dilated loops of bowel. Underwent PET/CT 11/20/18 which no significant activity in nodes. Hepatitis profile is negative. Flow cytometry showed CLL on 11/10/2018 with CD5+,CD23+ cells. Cytogenetics showed 46 XX here in [facility]. Started BR 12/18/18, comes in for 2nd cycle which was delayed for 1 week because of Neutropenia,1000. Had a minor reaction to Rituxan with the 1st cycle but got through therapy. Finished 3rd cycle on 02/20/2019. She is now on observation. Had CT scans done on 08/01/2022 which increase in axillary and pelvic nodes. Remained on observation until May 2023, when platelets dropped to <100K. Had a PET/CT done on 06/25/2023 showed right-left lower anterior hemipelvis and inguinal regions bilaterally demonstrate an increase in the Lugano Deauville score compared to the prior examination. She was diagnosed with Relapsed CLL. Began single agent rituximab on 07/11/23. Care complicated by C difficile colitis July 2023. Cycle 2 given 08/15/23 with remission. On observation until July 2024 when lymphocyte count became elevated and thrombocytopenia reoccurred. Comes for follow up to start Obinutuzumab and Venetoclax. Feels well. Interval History PFSH Medical History Excessive bleeding Cardiology follow-up encounter History of echocardiogram Hypogammaglobulinemia Osteoporosis Postoperative primary hypothyroidism Elevated blood pressure reading in office without diagnosis of hypertension Multiple premature ventricular complexes Obesity Spigelian hernia Thyroid cancer (1996) AKANKSHA (obstructive sleep apnea) Hypothyroidism Hyperlipidemia Chemotherapy management, encounter for Neutropenia CLL (chronic lymphocytic leukemia) Surgical History Encounter for education History of herniorrhaphy (04/17/19) History of thyroidectomy (1996) Family History Mother , age 52 Breast cancer Father PTSD (post-traumatic stress disorder) Pre-diabetes Hypothyroidism Sister Depression Hypothyroidism Uterine cancer Social History Smoking Status: Never smoker alcohol intake: current details: 4 oz per day substance use type: does not use what type of physical activity do you participate in: other details: heavy yardwork 5 days per week Intake Vital Signs 09/10/24 13:39 09/30/24 09:15 Height 5 ft 5 in 5 ft 5 in Weight: 80.853 kg BMI 29.6 BP 124/82 H Blood Pressure Location Rt brachial Position Sitting Respiration 18 Pulse 60 Pulse Source Monitor Temp 97.7 F L Temperature Source Temporal Artery Pulse Oximetry (%) 94 Oxygen Delivery Method room air Intake Is patient in pain?: Yes (slight headache) Pain scale (1-10): 2 Allergies ibuprofen Allergy (Severe, Verified 09/30/24 09:17) Swelling azithromycin (From Zithromax) Allergy (Intermediate, Verified 09/30/24 09:17) Unknown aspirin Allergy (Verified 09/30/24 09:17) Angioedema oxycodone Allergy (Verified 09/30/24 09:17) Angioedema moxifloxacin (From Avelox) Adverse Reaction (Intermediate, Verified 09/30/24 09:17) Rash Medications ???Medication ???Instructions ???Recorded ???Confirmed ???Type albuterol sulfate 90 mcg/actuation 2 puff inhalation Q4H PRN PRN 09/30/24 History aerosol inhaler Wheezing cholecalciferol (vitamin D3) 25 2,000 unit PO DAILY 12/11/1809/30 History mcg (1,000 unit) capsule citalopram 20 mg tablet 20 mg PO DAILY anxiety/depression 03/23/21 09/30/24 History nadolol 20 mg tablet 20 mg PO DAILY #90 tabs 03/23/21 0 09/30/24 Rx Saccharomyces boulardii 250 mg 250 mg PO BID 07/30/23 09/30/24 Hi story capsule (Florastor) fluticasone propionate 230 2 inh inhalation BID #1 ea 2 4 09/30/24 Rx mcg-salmeterol 21 mcg/actuation HFA inhaler (Advair HFA) spacer #1 ea 07/30/23 09/30/24 Rx (more content not included)... Normal [facility] Phosphoruson 09-30-2024 Phosphate [Mass/Vol] 2.8 mg/dL Normal 2.7-4.5 [facility] Comment on above: Performed By: #### L 504.2610, L100.0100 #### [facility] [address] [place], [address] Platelet countOrdered By: Norma Pereira on 09-30-2024 Platelets (Bld) [#/Vol] 75 10*3/uL Low 150-450 [facility] Platelet estimateOrdered By: Mateo Pereira on 09-30-2024 Platelets LM Ql (Bld) MOD DEC ADEQ [facility] Potassium measurement (mass/ volume)Ordered By: Mateo Pereira on 09-30-2024 Potassium (Unsp spec) [Mass/Vol] 4.4 mmol/L 3.3-5.1 [facility] RBC Auto (Bld) [#/Vol]Ordere d By: Mateo Pereira on 09-30-2024 RBC (Bld) [#/Vol] 4.22 10*6/uL 4.2-5.4 [facility] Review by pathologistOrdered By: Mateo Pereira on 09-30-2024 Pathologist review Sherman (Unsp spec) [Interp] August [facility] Serum creatinine measurement (mass/volume)Ordered By: Mateo Pereira on 09-30-2024 Creatinine [Mass/Vol] 0.71 mg/dL 0.70-1.20 [facility] Serum globulin measurementOr dered By: Mateo Pereira on 09-30-2024 Globulin (S) [Mass/Vol] 1.8 g/dL Low 2.2-4.2 [facility] Serum glucose measurement (m ass/volume)Ordered By: Mateo Pereira on 09-30-2024 Glucose [Mass/Vol] 101 mg/dL High 70-99 [facility] Serum or plasma alanine baker otransferase (ALT) measurementOrdered By: Mateo Pereira on 09-30-2024 ALT [Catalytic activity/Vol] 32 U/L <35 [facility] Serum or plasma albumin ally urement (mass/volume)Ordered By: Mateo Pereira on 09-30-2024 Albumin [Mass/Vol] 4.4 g/dL 3.4-4.8 [facility] Serum or plasma albumin/glob ulin mass ratioOrdered By: Mateo Pereira on 09-30-2024 Albumin/Globulin [Mass ratio] 2.5 {ratio} High 0.9-2.4 [facility] Serum or plasma alkaline ghulam sphatase measurementOrdered By: Mateo Pereira on 09-30-2024 ALP [Catalytic activity/Vol] 56 U/L 35-104 [facility] Serum or plasma calcium ally urement (mass/volume)Ordered By: Mateo Pereira on 09-30-2024 Calcium [Mass/Vol] 9.9 mg/dL 7.6-11.0 [facility] Serum or plasma urea nitroge n measurement (mass/volume)Ordered By: Mateo Pereira on 09-30-2024 Urea nitrogen [Mass/Vol] 15 mg/dL 4-19 [facility] Serum or plasma uric acid me asurement (mass/volume)Ordered By: Mateo Pereira on 09-30-2024 Urate [Mass/Vol] 10.2 mg/dL High 2.6-6.0 [facility] Comment on above: The drugs N-Acetylcy steine and Metamizole may falsely depress this assay. Sodium levelOrdered By: Donny Pereira on 09-30-2024 Sodium [Moles/Vol] 138 mmol/L 133-145 [facility] Total proteinOrdered By: Jermaine Pereira on 09-30-2024 Protein [Mass/Vol] 6.1 g/dL 5.9-8.4 [facility] Uric Acidon 09-30-2024 URIC 10.2 mg/dL High 2.6-6.0 [facility] Comment on above: Order Comment: This specimen has been REJECTED due to Laboratory criteria: MisLabelled. ONC has been notified of need of recollection. 09/30/24 1002 Valerie Gonzalez Result Comment: This specimen has been REJECTED due to Laboratory criteria: MisLabelled. ONC has been notified of need of recollection. 09/30/24 1002 Valerie Gonzalez The drugs N-Acetylcysteine and Metamizole may falsely depress this assay. Performed By: #### L 501.1400, L3200.1200, L504.2610 #### [facility] [address] [place], [place], [address] URIC 4.9 mg/dL Normal 2.6-6.0 [facility] Comment on above: Result Comment: The drugs N-Acetylcysteine and Metamizole may falsely depress this assay. Performed By: #### L 504.2610, L100.0100 #### [facility] [address] [place], [address] White blood cell (WBC) count Ordered By: Mateo Pereira on 09-30-2024 WBC (Bld) [#/Vol] 57.9 10*3/uL High 4.4-11.0 [facility] Comment on above: CRITICAL VALUE LLOYD D TO LUKAS GARCIA (ONC)09/30/24 0851 Ken Mcgarry.RESULTS READ BACK BY SAME. 12 Lead EKGon 09-29-[address] [facility] [address] [facility] [place] [address] 12 Lead EKG 09/29/24 0806 MR#: [id number] Acct: [id number] Name: BRANDY LUGO DARIEL Rep #: [id number] : 1955 69 From: Kyle Pan MD Attending Dr: Dr. Hamilton Melendez MD Status: PRE TNC Ordering Dr: Dariel De Santiago MD Date: 09/29/24 [place] [facility] F C Admitted: Test Reason : PREOP Blood Pressure : */* mmHG Vent. Rate : 66 BPM Atrial Rate : 66 BPM P-R Int : 156 ms QRS Dur : 86 ms QT Int : 400 ms P-R-T Axes : 19 25 34 degrees QTcB Int : 419 ms Normal sinus rhythm Normal ECG Confirmed by Kyle Pan ([id number]), editor publications JARED ALVAREZ ([id number]) on 09/30/2024 10:13:41 AM Referred By: Hamilton Melendez Confirmed By: Kyle Pan 09/30/24 1013 Date Kyle Pan MD CC: Dr. Dariel De Santiago MD; Dr. Hamilton Melendez MD; Dr. Ivan Spears MD Signed [facility] MR/PAT.Kwabena 09-29-2024 MR/PAT.REGIS [facility] Medical Records Department [address] [facility] [place] [address] PAT - Anesthesia 09/29/24 1307 MR#: [id number] Acct: [id number] Name: BRANDY LUGO Rep #: [id number] : 1955 69 From: Andrea Newell MD PCP: Dr. Ivan Spears MD Status:PRE [facility] [place] C [place] [facility] [place] Pre-Assessment Diagnosis/Proposed Procedure Planned Operative Procedure(s): RIGHT POSSIBLE LEFT PORT PLACEMENT Anesthesia History Anesthesia History - jde developer: Anesthesia History - jde developer Hx Hospitalization No 09/22/24 14:15 Any Problems With Anesthesia No 09/22/24 14:15 Cholinesterase deficiency No 09/22/24 14:15 You/Your Family Experience No 09/22/24 14:15 fever (hyperthermia) with Relationship Recent Exposure to Contagious No 06/15/20 10:54 Disease Does patient have nerve No 09/22/24 14:15 stimulator Patient instructed to have device shut off --Does patient have Pacemaker or ICD? When Was Last Pacemaker Check QUESTION #4 FULL TEXT: You/Your Family Experience fever (hyperthermia) with Anesthesia Last Oral Intake Last Oral intake: Last Oral Intake NPO since Meds taken in AM with sips of water? 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 - jde developer: PONV - jde developer Female Yes 09/22/24 14:15 HX of Motion Sickness No 09/22/24 14:15 HX of N/V After Surgery No 09/22/24 14:15 Non-Smoker Yes 09/22/24 14:15 Duration of Surgery greater No 09/22/24 14:15 than 60 minutes Number of Risk Factors 2 09/22/24 14:15 PONV Score Moderate Risk 09/22/24 14:15 Height Weight Height Weight: Anesthesia: Height Weight Height 5 ft 5 in 09/16/24 08:50 Respiratory Assessment Respiratory Assessment - jde developer: Respiratory Tract Infection Hx - jde developer Hx Respiratory Tract Infection No 09/22/24 14:15 STOP Sleep Apnea STOP Sleep Apnea - jde developer: STOP Sleep Apnea - jde developer Hx Hypertension No 09/22/24 14:15 Hx Sleep Apnea Yes 09/22/24 14:15 CPAP Yes 09/22/24 14:15 BIPAP No 09/22/24 14:15 Do you snore loudly (louder than talking or can be heard Do you often feel tired/ fatigued/ sleepy during daytime? Has anyone observed you stop breathing during sleep? STOP Results Positive 09/22/24 14:15 QUESTION #5 FULL TEXT : Do you snore loudly (louder than talking or can be heard through closed doors)? 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 Specify any problems Hx of Preganancy in last 3 No 09/22/24 14:15 Months Nurse Filling Out Transfusion [email or web address] 09/22/24 14:15 Questions: Date: 09/22/24 09/22/24 14:15 Time: 14:23 09/22/24 14:15 Patient unable to answer at this time (ie. confused, unrespo /Reproduction History /Reproductive History - jde developer: /Reproductive Hx- jde developer Hx Now No 09/22/24 14:15 Gestational Age (in weeks): EDC: Hx Hx Para Hx Section SAB No 09/22/24 14:15 PFSH Medical History (Updated 09/29/24 @ 09:[address] Hamilton Melendez MD) Excessive bleeding Cardiology follow-up encounter History of echocardiogram Hypogammaglobulinemia Osteoporosis Postoperative primary hypothyroidism Elevated blood pressure reading in office without diagnosis of hypertension Multiple premature ventricular complexes Obesity Spigelian hernia Thyroid cancer (1996) AKANKSHA (obstructive sleep apnea) Hypothyroidism Hyperlipidemia Chemotherapy management, encounter for Neutropenia CLL (chronic lymphocytic leukemia) Home Medications ???Medication ???Instructions ???Recorded ???Last Taken ???Type albuterol sulfate 90 mcg/actuation 2 puff inhalation Q4H PRN PRN Unknown History aerosol inhaler Wheezing cholecalciferol (vitamin D3) 25 2,000 unit PO DAILY 12/11/18 Unkno wn History mcg (1,000 unit) capsule citalopram 20 mg tablet 20 mg PO DAILY anxiety/depression 03/23/21 Unknown History nadolol 20 mg tablet 2 (more content not included)... Normal [facility] Surgery Visit Reporton 09-29 Surgery Visit Report [facility] [address] [place] [address] OFFICE VISIT Date of Service: 09/29/24 MR#: [id number] Acct: [id number] Name: BRANDY LUGO Rep #: [id number] : 1955 Provider: Dr. 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 Groceries Required: No Is patient in pain?: No Allergies ibuprofen Allergy (Severe, Verified 09/29/24 08:25) Swelling azithromycin (From Zithromax) Allergy (Intermediate, Verified 09/29/24 08:25) Unknown aspirin Allergy (Verified 09/29/24 08:25) Angioedema oxycodone Allergy (Verified 09/29/24 08:25) Angioedema moxifloxacin (From Avelox) Adverse Reaction (Intermediate, Verified 09/29/24 08:25) Rash Medications ???Medication ???Instructions ???Recorded ???Confirmed ???Type albuterol sulfate 90 mcg/actuation 2 puff inhalation Q4H PRN PRN 09/29/24 History aerosol inhaler Wheezing cholecalciferol (vitamin D3) 25 2,000 unit PO DAILY 12/11/1809/29 History mcg (1,000 unit) capsule citalopram 20 mg tablet 20 mg PO DAILY anxiety/depression 03/23/21 09/29/24 History nadolol 20 mg tablet 20 mg PO DAILY #90 tabs 03/23/21 0 09/29/24 Rx Saccharomyces boulardii 250 mg 250 mg PO BID 07/30/23 09/29/24 Hi story capsule (Florastor) fluticasone propionate 230 2 inh inhalation BID #1 ea 4 09/29/24 Rx mcg-salmeterol 21 mcg/actuation HFA inhaler (Advair HFA) spacer #1 ea 07/30/23 09/29/24 Rx zoledronic acid 5 mg/100 mL in 1 ea .Route ONCE #100 mL 10/25/23 09/29/24 Rx mannitol 5 %-water intravenous piggybck Lactobacillus acidophilus 20 100 mmu cells PO QDAY 08/13/2402/13 History billion cell capsule (Florajen Acidophilus) cetirizine 10 mg capsule 10 mg PO DAILY PRN Allergies 08/1309/29/24 History magnesium 200 mg tablet 200 mg PO QDAY 08/13/24 09/29/24 H istory allopurinol 300 mg tablet 300 mg PO QDAY #60 tabs 09/16/24 0 09/29/24 Rx lidocaine-prilocaine 2.5 %-2.5 % 1 applic topical ONCE PRN port 09/29/24 Rx topical cream access 30 days #30 grams ondansetron 4 mg disintegrating 4 mg PO Q8H PRN nausea and 5 09/29/24 Rx tablet vomiting #30 tabs diphenhydramine HCl 25 mg tablet 25 mg PO DAILY PRN allergy symptom s 09/22/24 09/29/24 History (Allergy (diphenhydramine)) levothyroxine 200 mcg tablet 200 mcg PO DAILY 09/22/24 09/29/24 History Have you fallen in the past year?: No PFSH Medical History (Updated 09/29/24 @ 09:[address] Hamilton Melendez MD) Excessive bleeding Cardiology follow-up encounter History of echocardiogram Hypogammaglobulinemia Osteoporosis Postoperative primary hypothyroidism Elevated blood pressure reading in office without diagnosis of hypertension Multiple premature ventricular complexes Obesity Spigelian hernia Thyroid cancer (1996) AKANKSHA (obstructive sleep apnea) Hypothyroidism Hyperlipidemia Chemotherapy management, encounter for Neutropenia CLL (chronic lymphocytic leukemia) Surgical History Encounter for education History of herniorrhaphy (04/17/19) History of thyroidectomy (1996) Family History Mother , age 52 Breast cancer Father PTSD (post-traumatic stress disorder) Pre-diabetes Hypothyroidism Sister Depression Hypothyroidism Uterine cancer Social History Smoking Status: Never smoker alcohol intake: current details: 4 oz per day substance use type: does not use what type of physical activity do you participate in: other details: heavy yardwork 5 days per week HPI HPI HPI: Patient is a 69-year-old female here for port placement for CLL. She has no acute complaints. She does report she bleeds easily. ROS General General: Yes fatigue; No weight change, appetite, colon cancer, breast cancer or weakness HEENT HEENT: Yes difficulty swallowing and swollen glands; No eye injury, eye surgery or hoarseness Endo Endocrine: No thyroid disease, diabetes mellitus, thyroid cancer, Hair loss, heat intolerance or cold intolerance Skin Skin: Yes rash; No changing moles Breast Breast: No left breast lump, right breast lump, nipple discharge, breast pain, abnormal mammogram, abnorma (more content not included)... Normal [facility] PET/CT Tumor Base -Thigh Sub son 09-22-2024 PET/CT Tumor Base -Thigh Subs [facility] Imaging Services [address] [place], [place] [address] PET/CT Tumor Base -Thigh Subs MR#: [id number] Acct: [id number] Name: BRANDY LUGO Rep #: [id number] : 1955 69 From: Yamil Matt PCP: RAS Vigil, BOTTLING ATTENDANT-C Status: REG RCR Study: PET/CT Tumor Base -Thigh Subs Date of Exam: Exam# [id number] Ordering Dr: Mateo Pereira MD PROCEDURE: PET/CT TUMOR BASE -THIGH SUBS 09/22/2024 REASON FOR EXAM: 69 y/o F with LEUKEMIA TECHNIQUE: Following the intravenous administration of radionucleotide, image acquisition on a dedicated PET/CT unit was performed at one hour post injection. A preliminary CT study encompassing the Skull base, neck, chest, abdomen, pelvis, and proximal thighs was performed for purposes of attenuation correction and anatomic localization. The proximal thighs were also included. The patient's blood glucose level was 103 mg/dL (allowable range: 50-180 mg/dL). RADIOPHARMACEUTICAL: 12.83 mCi 18F-FDG (Fluorodeoxyglucose F18) IV was injected into he patient. RADIATION DOSE SUMMARY: Effective Dose: Approximately 7 mSv for a standard whole-body PET scan Organ Doses: Varies by organ, with higher doses typically to the bladder, liver, and brain COMPARISON: COMPARISON FROM CT, PET OR OTHER PERTINENT EXAMS: PET-CT of 06/25/2019. FINDINGS: Physiologic uptake: There may be expected metabolic uptake within the brain, tongue and floor of the mouth and larynx/vocal cords, heart, luis antonio (many normal individuals have hilar uptake in less than 3 nodes with mildly avid hilar nodes less than 2.7 SUV), liver and spleen, system, and GI tract and symmetric muscle uptake. FDG AVID AND NON-AVID LESIONS. Reported avid SUV values (g/mL*) are maximum SUV. NECK: There are no significant neck abnormalities. CHEST: Stable appearance of numerous bilateral axillary lymph nodes are seen. SUV max in the left is 1.6, and on the right 1.7. This compares prior reported values of 1.3, likely indicating interval worsening. Chest wall- There are no significant chest wall abnormalities. Axilla- There are no significant axillary abnormalities. Lung parenchyma- There are no significant lung parenchyma abnormalities. Mediastinum- There are no significant hilar or mediastinal adenopathy. Pleura- There are no significant pleural abnormalities. ABDOMEN: Stable appearance numerous (non hypermetabolic) small retroperitoneal lymph nodes is noted Stomach- No significant abnormalities. Liver- No significant abnormalities. Spleen- No significant abnormalities. Pancrease- No significant abnormalities. Kidneys- No significant abnormalities. Bowel- Normal bowel activity. Spine- No significant abnormalities. PELVIS: Stable appearance of bilateral groin lymph nodes is seen. SUV max is 1.3. Bowel- Normal physiologic bowel activity is identified. Masses- There are no pelvic masses. Bones- Degenerative changes are seen throughout the spine. With the use of bone window settings, there are no osteolytic or osteoblastic lesions. There are no FDG avid lesions within the visualized portion of the axial skeleton. PET/PET/CT Tumor Base -Thigh Subs IMPRESSION: FDG avid- 1. Stable appearance of numerous bilateral axillary lymph nodes are seen. SUV max in the left is 1.6, and on the right 1.7. This compares prior reported values of 1.3, probably representing interval worsening. 2. Stable appearance of bilateral groin lymph nodes. 3. Stable numerous small retroperitoneal lymph nodes. Other: No additional comments. Please note the low-dose CT scan was performed to facilitate PET image reconstruction and anatomic localization and does not replace a diagnostic CT. Any diagnostic CT requested and performed at the time of the PET will be reported separately. Reading Location: [id number] CC: [facility] BOTTLING ATTENDANT-C Jaymie Bailon; Dr. Mateo Pereira MD Regional Branch Manager: Signed Normal [facility] Oncology Visit Reporton 08-21 Oncology Visit Report [address] [address] OFFICE VISIT Date of Service: 09/16/24 0841 MR#: [id number] Acct: [id number] Name: BRANDY LUGO Rep #: [id number] : 1955 From: Valerie Henry NP BOTTLING ATTENDANT -C Age/Sex: 69/F Location: [facility] [place] Status: Signed HPI Subjective Date of Service 09/16/24 Chief Complaint F/U for CLL History of Present Illness 69 y.o.woman was diagnosed with CLL,13q minus in [place], [place]. She was on observation, seen at [facility], found to have Lymphocyte count of 111K and referred for evaluation 04/21/18. She remained on observation, was seen in the ER for Gastroenteritis. CT done on 11/09/2018 showed moderate splenomegaly, retroperitoneal adenopathy, pelvic adenopathy, Spigelian hernia, dilated loops of bowel. Underwent PET/CT 11/20/18 which no significant activity in nodes. Hepatitis profile is negative. Flow cytometry showed CLL on 11/10/2018 with CD5+,CD23+ cells. Cytogenetics showed 46 XX here in [facility]. Started BR 12/18/18, comes in for 2nd cycle which was delayed for 1 week because of Neutropenia,1000. Had a minor reaction to Rituxan with the 1st cycle but got through therapy. Finished 3rd cycle on 02/20/2019. She is now on observation. Had CT scans done on 08/01/2022 which increase in axillary and pelvic nodes. Remained on observation until May 2023, when platelets dropped to <100K. Had a PET/CT done on 06/25/2023 showed right-left lower anterior hemipelvis and inguinal regions bilaterally demonstrate an increase in the Lugano Deauville score compared to the prior examination. She was diagnosed with Relapsed CLL. Began single agent rituximab on 07/11/23. Care complicated by C difficile colitis July 2023. Cycle 2 given 08/15/23 with remission. On observation until July 2024 when lymphocyte count became elevated and thrombocytopenia reoccurred. Interval History The patient is presenting to clinic accompanied by spouse for an education visit to discuss obinutuzumab and venetoclax. Experiencing easy bruising/bleeding and fatigue. Denies infections requiring atb since September 2023. Specifically denies enlarged lymph nodes, night sweats, weight loss, CP, palpitations, cough, SOB, abd pain, swelling/pain of her extremities, rash/skin changes. [facility] Medical History (Updated 09/16/24 @ 12:09 by Valerie Henry NP, BOTTLING ATTENDANT-C) Hypogammaglobulinemia Osteoporosis Postoperative primary hypothyroidism Elevated blood pressure reading in office without diagnosis of hypertension Multiple premature ventricular complexes Obesity Spigelian hernia Thyroid cancer (1996) AKANKSHA (obstructive sleep apnea) Hypothyroidism Hyperlipidemia Chemotherapy management, encounter for Neutropenia CLL (chronic lymphocytic leukemia) Surgical History (Updated 09/16/24 @ 12:09 by Valerie Henry NP, BOTTLING ATTENDANT-C) Encounter for education History of herniorrhaphy (04/17/19) History of thyroidectomy (1996) Family History Mother , age 52 Breast cancer Father PTSD (post-traumatic stress disorder) Pre-diabetes Hypothyroidism Sister Depression Hypothyroidism Uterine cancer Social History Smoking Status: Never smoker alcohol intake: current details: 4 oz per day substance use type: does not use what type of physical activity do you participate in: other details: heavy yardwork 5 days per week ROS ROS Narrative Negative except as documented in the interval HPI Intake Vital Signs 09/10/24 13:39 09/16/24 08:49 09/16/24 08:50 Height 5 ft 5 in 5 ft 5 in 5 ft 5 in Weight: 183 lb 6 oz 181 lb 4 oz BMI 30.5 30.1 BP 131/80 H 118/75 Blood Pressure Location Lt brachial Lt brachial Position Sitting Sitting Respiration 18 16 Pulse 58 L 71 Pulse Source Monitor Monitor Temp 97.6 F L 98.4 F Temperature Source Temporal Artery Temporal Artery Pulse Oximetry (%) 94 96 Oxygen Delivery Method room air room air Intake Is patient in pain?: No Allergies ibuprofen Allergy (Severe, Verified 09/16/24 08:43) Swelling azithromycin (From Zithromax) Allergy (Intermediate, Verified 09/16/24 08:43) Unknown aspirin Allergy (Verified 09/16/24 08:43) Angioedema oxycodone Allergy (Verified 09/16/24 08:43) Angioedema moxifloxacin (From Avelox) Adverse Reaction (Intermediate, Verified 09/16/24 08:43) Rash Medications ???Medication ???Instructions ???Recorded ???Confirmed ???Type albuterol sulfate 90 mcg/actuation 2 puff inhalation Q4H PRN PRN 09/16/24 History aerosol inhaler Wheezing cholecalciferol (vitamin D3) 25 2,000 unit PO DAILY 12/11/1809/16 History mcg (1,000 unit) capsule citalopram 20 mg tablet 20 mg PO DAILY anxiety/depression (more content not included)... Normal [facility] Immunoglobulins G/A/Mon 05-2 -2024 IMMUNOGLOB A QN 26 mg/dL Low 87-352 [facility] Comment on above: Order Comment: 1 Result Comment: Resu lt confirmed on concentration. Performed By: #### L 504.2610, L100.0100 #### [facility] [address] [place], [address] IMMUNOGLOB G QN 366 mg/dL Low 586-1602 [facility] Comment on above: Order Comment: 1 Performed By: #### L 504.2610, L100.0100 #### [facility] [address] [place], [place], [id number] IMMUNOGLOB M QN < 5 Low 26-217 [facility] Comment on above: Order Comment: 1 Result Comment: Resu lt confirmed on concentration. Performed at: - [facility] [id number] Integrity Analyst: Julio Xavier PhD, Phone: [phone] Performed By: #### L 504.2610, L100.0100 #### [facility] [address] [place], [place], [id number] Absolute lymphocyte countOrd ered By: Mateo Pereira on 09-10-2024 Lymphocytes Auto (Unsp spec) [#/Vol] 59.73 10*3/uL High 0.83-4.51 [facility] Absolute neutrophil countOrd ered By: Mateo Pereira on 09-10-2024 Neutrophils (Bld) [#/Vol] 2.1 10*3/uL 2.0-7.7 [facility] Anion gap in Serum or Plasma Ordered By: Mateo Pereira on 09-10-2024 Anion gap [Moles/Vol] 10 mmol/L 5-15 [facility] Automated lymphocyte count a s percentage of total leukocytesOrdered By: Mateo Pereira on 09-10-2024 Lymphocytes/100 WBC Auto (Unsp spec) 93.4 % High 19-41 [facility] BUN/creatinine ratioOrdered By: Mateo Pereira on 09-10-2024 Urea nitrogen/Creatinine [Mass ratio] 17.8 mg/mg 10-20 [facility] Basophil percentageOrdered B y: Mateo Pereira on 09-10-2024 Basophils/100 WBC (Bld) 0.3 % 0-1 [facility] Bilirubin, totalOrdered By: Mateo Pereira on 09-10-2024 Bilirubin [Mass/Vol] 0.91 mg/dL 0.00-1.30 [facility] CBC W/Diff, Automatedon 08-21 PLT EST MOD DEC Normal ADEQ [facility] Comment on above: Performed By: #### L 504.2610, L100.0100 #### [facility] [address] [place], [address] Carbon dioxide, total [Moles /volume] in Central venous bloodOrdered By: Mateo Pereira on 09-10-2024 CO2 [Moles/Vol] 24.2 mmol/L 21.0-32.0 [facility] Chloride assayOrdered By: Norma Pereira on 09-10-2024 Chloride [Moles/Vol] 103 mmol/L 98-108 [facility] Comprehensive Metabolic Prof ilon 09-10-2024 Albumin [Mass/Vol] 4.5 g/dL Normal 3.4-4.8 [facility] Comment on above: Performed By: #### L 504.2610, L100.0100 #### [facility] [address] [place], [address] Albumin/Globulin [Mass ratio] 2.4 {ratio} Normal 0.9-2.4 [facility] Comment on above: Performed By: #### L 504.2610, L100.0100 #### [facility] [address] [place], [address] ALK PHOS 62 U/L Normal 35-104 [facility] Comment on above: Performed By: #### L 504.2610, L100.0100 #### [facility] [address] [place], [address] ALT [Catalytic activity/Vol] 29 U/L Normal <=34 [facility] Comment on above: Performed By: #### L 504.2610, L100.0100 #### [facility] [address] [place], [address] AST [Catalytic activity/Vol] 34 U/L High <=31 [facility] Comment on above: Performed By: #### L 504.2610, L100.0100 #### [facility] [address] [place], [address] Bilirubin [Mass/Vol] 0.91 mg/dL Normal 0.00-1.30 [facility] Comment on above: Performed By: #### L 504.2610, L100.0100 #### [facility] [address] [place], [address] BUN/CRE 17.8 RATIO Normal 10-20 [facility] Comment on above: Performed By: #### L 504.2610, L100.0100 #### [facility] [address] [place], [address] Calcium [Mass/Vol] 9.8 mg/dL Normal 7.6-11.0 [facility] Comment on above: Performed By: #### L 504.2610, L100.0100 #### [facility] [address] [place], [address] Chloride [Moles/Vol] 103 mmol/L Normal 98-108 [facility] Comment on above: Performed By: #### L 504.2610, L100.0100 #### [facility] [address] [place], [address] CO2 [Moles/Vol] 24.2 mmol/L Normal 21.0-32.0 [facility] Comment on above: Performed By: #### L 504.2610, L100.0100 #### [facility] [address] [place], [address] Creatinine [Mass/Vol] 0.80 mg/dL Normal 0.70-1.20 [facility] Comment on above: Performed By: #### L 504.2610, L100.0100 #### [facility] [address] [place], [address] ECRCL 71.88 ml/min Normal 50-250 [facility] Comment on above: Performed By: #### L 504.2610, L100.0100 #### [facility] [address] [place], [address] GAP 10 Normal 5-15 [facility] Comment on above: Performed By: #### L 504.2610, L100.0100 #### [facility] [address] [place], [address] GFR/1.73 sq M.predicted among non-blacks MDRD (S/P/Bld) [Vol rate/Area] 80 mL/min/{1.73_m2} Normal >60 [facility] Comment on above: Result Comment: mL/m in/1.73m2 CKD-EPI Creatinine Equation (2020) Performed By: #### L 504.2610, L100.0100 #### [facility] [address] [place], [address] Globulin (S) [Mass/Vol] 1.9 g/dL Low 2.2-4.2 [facility] Comment on above: Performed By: #### L 504.2610, L100.0100 #### [facility] [address] [place], [address] Glucose [Mass/Vol] 98 mg/dL Normal 70-99 [facility] Comment on above: Performed By: #### L 504.2610, L100.0100 #### [facility] [address] [place], [address] Potassium [Moles/Vol] 5.1 mmol/L Normal 3.3-5.1 [facility] Comment on above: Performed By: #### L 504.2610, L100.0100 #### [facility] [address] [place], [address] Sodium [Moles/Vol] 137 mmol/L Normal 133-145 [facility] Comment on above: Performed By: #### L 504.2610, L100.0100 #### [facility] [address] [place], [address] T PROT 6.3 g/dL Normal 5.9-8.4 [facility] Comment on above: Performed By: #### L 504.2610, L100.0100 #### [facility] [address] [place], [address] Urea nitrogen [Mass/Vol] 14 mg/dL Normal 4-19 [facility] Comment on above: Performed By: #### L 504.2610, L100.0100 #### [facility] [address] [place], [address] Eosinophil percentageOrdered By: Mateo Pereira on 09-10-2024 Eosinophils/100 WBC (Bld) 0.4 % 0-5 [facility] Erythrocyte distribution wid th ratioOrdered By: Mateo Pereira on 09-10-2024 Erythrocyte distribution width (RBC) [Ratio] 13.2 % 11.6-14.6 [facility] Erythrocyte distribution wid th standard deviationOrdered By: Mateo Pereira on 09-10-2024 Erythrocyte distribution width (RBC) [Ratio] 45.5 fl High 35.1-43.9 [facility] Glomerular filtration rate ( GFR) estimation/1.73 sq m using serum, plasma, or whole bOrdered By: Mateo Pereira on 09-10-2024 GFR/1.73 sq M.predicted among non-blacks MDRD (S/P/Bld) [Vol rate/Area] 80 mL/min/{1.73_m2} >60 [facility] Comment on above: mL/min/1.73m2 CKD-EP I Creatinine Equation (2020) Hematocrit Auto (Bld) [Volum e fraction]Ordered By: Mateo Pereira on 09-10-2024 Hematocrit (Bld) [Volume fraction] 41.1 % 37-47 [facility] Hemoglobin measurementOrdere d By: Mateo Pereira on 09-10-2024 Hemoglobin (Bld) [Mass/Vol] 13.6 g/dL 12.0-15.0 [facility] Immature granulocytes/100 WB C Auto (Bld)Ordered By: Mateo Pereira on 09-10-2024 Immature granulocytes/100 WBC (Bld) 0.100 % 0.0-0.9 [facility] Comment on above: IG% - Immature Granu locytes (promyelocytes, myelocytes and metamyelocytes) > 1% indicates that a LEFT SHIFT is Present. LDHon 09-10-2024 LDH 280 U/L High 84-246 [facility] Comment on above: Order Comment: 1 Result Comment: Hemo lysis present, Results??could be affected. ?? Performed By: #### L 504.2610, L100.0100 #### [facility] [address] [place], [address] Laboratory - Chemistry and C hemistry - challengeOrdered By: Mateo Pereira on 09-10-2024 AST [Catalytic activity/Vol] 34 U/L High <32 [facility] Lactate dehydrogenase (LDH) measurementOrdered By: Rufe Kelli on 09-10-2024 LDH [Catalytic activity/Vol] 280 U/L High 84-246 [facility] Comment on above: Hemolysis present, R esults could be affected. MCV (mean corpuscular volume ) determinationOrdered By: Mateo Pereira on 09-10-2024 MCV (RBC) [Entitic vol] 94.7 fL 81-99 [facility] Mean corpuscular hemoglobin (MCH) determinationOrdered By: Mateo Pereira on 09-10-2024 MCH (RBC) [Entitic mass] 31.3 pg 27.0-32.0 [facility] Mean corpuscular hemoglobin concentration (MCHC) determinationOrdered By: Mateo Pereira on 09-10-2024 MCHC (RBC) [Mass/Vol] 33.1 g/dL 32-36 [facility] Mean platelet volume determi nationOrdered By: Mateo Kelli on 09-10-2024 Platelet mean volume (Bld) [Entitic vol] 11.7 fL 6.2-12.0 [facility] Monocyte percentageOrdered B y: Mateo Pereira on 09-10-2024 Monocytes/100 WBC (Bld) 2.6 % 0-10 [facility] Neutrophil percentageOrdered By: Mateo Pereira on 09-10-2024 Neutrophils/100 WBC (Bld) 3.2 % Low 47-70 [facility] Nucleated red blood cell per centageOrdered By: Mateo Pereira on 09-10-2024 Nucleated RBC/100 WBC (Bld) [Ratio] 0 % 0-5 [facility] Oncology Visit Reporton 08-21 Oncology Visit Report [facility] [place] [address] OFFICE VISIT Date of Service: 09/10/24 1338 MR#: [id number] Acct: [id number] Name: BRANDY LUGO Rep #: [id number] : 1955 From: Mateo Pereira MD Age/Sex: 69/F Location[place] [facility] Status: Signed HPI Subjective Date of Service 09/10/24 Chief Complaint F/U for CLL History of Present Illness 69y.o.woman was diagnosed with CLL,13q minus in [place], [place]. She was on observation, seen at [facility], found to have Lymphocyte count of 111K and referred for evaluation 04/21/18. She remained on observation, was seen in the ER for Gastroenteritis. CT done on 11/09/2018 showed moderate splenomegaly, retroperitoneal adenopathy, pelvic adenopathy, Spigelian hernia, dilated loops of bowel. Underwent PET/CT 11/20/18 which no significant activity in nodes. Hepatitis profile is negative. Flow cytometry showed CLL on 11/10/2018 with CD5+,CD23+ cells. Cytogenetics showed 46 XX here in [facility]. Started BR 12/18/18, comes in for 2nd cycle which was delayed for 1 week because of Neutropenia,1000. Had a minor reaction to Rituxan with the 1st cycle but got through therapy. Finished 3rd cycle on 02/20/2019. She is now on observation. Had CT scans done on 08/01/2022 which increase in axillary and pelvic nodes. Remained on observation until May 2023, when platelets dropped to <100K. Had a PET/CT done on 06/25/2023 showed right-left lower anterior hemipelvis and inguinal regions bilaterally demonstrate an increase in the Lugano Deauville score compared to the prior examination. She was diagnosed with Relapsed CLL. Began single agent rituximab on 07/11/23. Care complicated by C difficile colitis July 2023. Cycle 2 given 08/15/23 with remission. She is on observation. Lymphocytes are increasing again. Comes for follow up. Feels well [facility] Medical History Encounter for education Osteoporosis Postoperative primary hypothyroidism Elevated blood pressure reading in office without diagnosis of hypertension Multiple premature ventricular complexes Obesity Spigelian hernia Thyroid cancer (1996) AKANKSHA (obstructive sleep apnea) Hypothyroidism Hyperlipidemia Chemotherapy management, encounter for Neutropenia CLL (chronic lymphocytic leukemia) Surgical History History of herniorrhaphy (04/17/19) History of thyroidectomy (1996) Family History Mother , age 52 Breast cancer Father PTSD (post-traumatic stress disorder) Pre-diabetes Hypothyroidism Sister Depression Hypothyroidism Uterine cancer Social History Smoking Status: Never smoker alcohol intake: current details: 4 oz per day substance use type: does not use what type of physical activity do you participate in: other details: heavy yardwork 5 days per week Intake Vital Signs 08/13/24 13:32 09/10/24 13:39 Height 5 ft 5 in 5 ft 5 in Weight: 83.631 kg 83.178 kg BMI 30.7 30.5 BP 120/81 H 131/80 H Blood Pressure Location Lt brachial Lt brachial Position Sitting Sitting Respiration 18 18 Pulse 64 58 L Pulse Source Monitor Monitor Temp 97.8 F 97.6 F L Temperature Source Temporal Artery Temporal Artery Pulse Oximetry (%) 94 94 Oxygen Delivery Method room air room air Intake Is patient in pain?: Yes (general) Pain scale (1-10): 2 Allergies ibuprofen Allergy (Severe, Verified 09/10/24 13:40) Swelling azithromycin (From Zithromax) Allergy (Intermediate, Verified 09/10/24 13:40) Unknown aspirin Allergy (Verified 09/10/24 13:40) Angioedema oxycodone Allergy (Verified 09/10/24 13:40) Angioedema moxifloxacin (From Avelox) Adverse Reaction (Intermediate, Verified 09/10/24 13:40) Rash Medications ???Medication ???Instructions ???Recorded ???Confirmed ???Type albuterol sulfate 90 mcg/actuation 2 puff inhalation Q4H PRN PRN 09/10/24 History aerosol inhaler Wheezing cholecalciferol (vitamin D3) 25 2,000 unit PO DAILY 12/11/1809/10 History mcg (1,000 unit) capsule citalopram 20 mg tablet 20 mg PO DAILY anxiety/depression 03/23/21 09/10/24 History nadolol 20 mg tablet 20 mg PO DAILY #90 tabs 03/23/21 0 09/10/24 Rx Saccharomyces boulardii 250 mg 250 mg PO BID 07/30/23 09/10/24 Hi story capsule (Florastor) fluticasone propionate 230 2 inh inhalation BID #1 ea 4 09/10/24 Rx mcg-salmeterol 21 mcg/actuation HFA inhaler (Advair HFA) spacer #1 ea 07/30/23 09/10/24 Rx zoledronic acid 5 mg/100 mL in 1 ea .Route ONCE #100 mL 10/25/23 09/10/24 Rx mannitol 5 %-water intravenous piggybck nirmatrelvi (more content not included)... Normal [facility] Platelet countOrdered By: Norma Pereira on 09-10-2024 Platelets (Bld) [#/Vol] 91 10*3/uL Low 150-450 [facility] Platelet estimateOrdered By: Mateo Pereira on 09-10-2024 Platelets LM Ql (Bld) MOD DEC ADEQ [facility] Potassium measurement (mass/ volume)Ordered By: Mateo Pereira on 09-10-2024 Potassium (Unsp spec) [Mass/Vol] 5.1 mmol/L 3.3-5.1 [facility] RBC Auto (Bld) [#/Vol]Ordere d By: Mateo Pereira on 09-10-2024 RBC (Bld) [#/Vol] 4.34 10*6/uL 4.2-5.4 [facility] Serum creatinine measurement (mass/volume)Ordered By: Mateo Pereira on 09-10-2024 Creatinine [Mass/Vol] 0.80 mg/dL 0.70-1.20 [facility] Serum globulin measurementOr dered By: Mateo Pereira on 09-10-2024 Globulin (S) [Mass/Vol] 1.9 g/dL Low 2.2-4.2 [facility] Serum glucose measurement (m ass/volume)Ordered By: Mateo Pereira on 09-10-2024 Glucose [Mass/Vol] 98 mg/dL 70-99 [facility] Serum or plasma IgA measurem ent (mass/volume)Ordered By: Mateo Pereira on 09-10-2024 IgA [Mass/Vol] 26 mg/dL Low 87-352 [facility] Comment on above: Result confirmed on concentration. Serum or plasma IgG measurem ent (mass/volume)Ordered By: Mateo Pereira on 09-10-2024 IgG [Mass/Vol] 366 mg/dL Low 586-1602 [facility] Serum or plasma alanine baker otransferase (ALT) measurementOrdered By: Mateo Pereira on 09-10-2024 ALT [Catalytic activity/Vol] 29 U/L <35 [facility] Serum or plasma albumin ally urement (mass/volume)Ordered By: Mateo Pereira on 09-10-2024 Albumin [Mass/Vol] 4.5 g/dL 3.4-4.8 [facility] Serum or plasma albumin/glob ulin mass ratioOrdered By: Mateo Pereira on 09-10-2024 Albumin/Globulin [Mass ratio] 2.4 {ratio} 0.9-2.4 [facility] Serum or plasma alkaline ghulam sphatase measurementOrdered By: Mateo Pereira on 09-10-2024 ALP [Catalytic activity/Vol] 62 U/L 35-104 [facility] Serum or plasma calcium ally urement (mass/volume)Ordered By: Mateo Pereira on 09-10-2024 Calcium [Mass/Vol] 9.8 mg/dL 7.6-11.0 [facility] Serum or plasma urea nitroge n measurement (mass/volume)Ordered By: Mateo Pereira on 09-10-2024 Urea nitrogen [Mass/Vol] 14 mg/dL 4-19 [facility] Sodium levelOrdered By: Donny Pereira on 09-10-2024 Sodium [Moles/Vol] 137 mmol/L 133-145 [facility] Total proteinOrdered By: Jermaine Pereira on 09-10-2024 Protein [Mass/Vol] 6.3 g/dL 5.9-8.4 [facility] White blood cell (WBC) count Ordered By: Mateo Pereira on 09-10-2024 WBC (Bld) [#/Vol] 63.9 10*3/uL High 4.4-11.0 [facility] Comment on above: CRITICAL VALUE LLOYD D TO NICHOLE KUO09/10/24 1305 Grisel Rogers.RESULTS READ BACK BY SAME. CBC W/Diff, Automatedon 07-23 PATH REV Reviewed Normal [facility] Comment on above: Result Comment: SEE REPORT IN PATIENT'S EMR AMENDED REPORT 08/19/24 1259 PATH REV previously reported as: August Performed By: #### L 504.2610, L501.9520, L506.0400, L500.4050, L100.0100 #### [facility] Laboratory [facility]. [facility] [id number] H pylori Breath Teston 08-17 H.Pylori Breath Negative Normal Negative [facility] Comment on above: Order Comment: Reaso n for Exam: . Result Comment: Perf ormed at: [employer] [facility] [id number] [place], [place] [id number] Integrity Analyst: Julio Xavier PhD, Phone: [phone] Performed By: #### L 504.2610, L100.0100 #### [facility] Laboratory [address] [place] [address]. [facility] [id number] Helicobacter pylori breath t estOrdered By: Mateo Pereira on 08-13-2024 CO2 post dose urea Ql (Exhl gas) Negative Negative [facility] Comment on above: Performed at: [employer] [facility] [address] [place] [id number] Director: Julio Xavier PhD, Phone: [phone] Oncology Visit Reporton 07-22 Oncology Visit Report [facility] [address] [place] [address]. [place], [place] [address] OFFICE VISIT Date of Service: 08/13/24 1331 MR#: [id number] Acct: [id number] Name: BRANDY LUGO Rep #: [id number] : 1955 From: Mateo Pereira MD Age/Sex: 69/F Location[place] [facility] Status: Signed HPI Subjective Date of Service 08/13/24 Chief Complaint F/U for CLL History of Present Illness 69y.o.woman was diagnosed with CLL,13q minus in [place], [place]. She was on observation, seen at [facility], found to have Lymphocyte count of 111K and referred for evaluation 04/21/18. She remained on observation, was seen in the ER for Gastroenteritis. CT done on 11/09/2018 showed moderate splenomegaly, retroperitoneal adenopathy, pelvic adenopathy, Spigelian hernia, dilated loops of bowel. Underwent PET/CT 11/20/18 which no significant activity in nodes. Hepatitis profile is negative. Flow cytometry showed CLL on 11/10/2018 with CD5+,CD23+ cells. Cytogenetics showed 46 XX here in [facility]. Started BR 12/18/18, comes in for 2nd cycle which was delayed for 1 week because of Neutropenia,1000. Had a minor reaction to Rituxan with the 1st cycle but got through therapy. Finished 3rd cycle on 02/20/2019. She is now on observation. Had CT scans done on 08/01/2022 which increase in axillary and pelvic nodes. Remained on observation until May 2023, when platelets dropped to <100K. Had a PET/CT done on 06/25/2023 showed right-left lower anterior hemipelvis and inguinal regions bilaterally demonstrate an increase in the Lugano Deauville score compared to the prior examination. She was diagnosed with Relapsed CLL. Began single agent rituximab on 07/11/23. Care complicated by C difficile colitis July 2023. Cycle 2 given 08/15/23 with remission. She is on observation. Comes for follow up. Feels well [facility] Medical History Encounter for education Osteoporosis Postoperative primary hypothyroidism Elevated blood pressure reading in office without diagnosis of hypertension Multiple premature ventricular complexes Obesity Spigelian hernia Thyroid cancer (1996) AKANKSHA (obstructive sleep apnea) Hypothyroidism Hyperlipidemia Chemotherapy management, encounter for Neutropenia CLL (chronic lymphocytic leukemia) Surgical History History of herniorrhaphy (04/17/19) History of thyroidectomy (1996) Family History Mother , age 52 Breast cancer Father PTSD (post-traumatic stress disorder) Pre-diabetes Hypothyroidism Sister Depression Hypothyroidism Uterine cancer Social History Smoking Status: Never smoker alcohol intake: current details: 4 oz per day substance use type: does not use what type of physical activity do you participate in: other details: heavy yardwork 5 days per week Intake Vital Signs 03/31/24 11:27 08/13/24 13:32 Height 5 ft 5 in 5 ft 5 in Weight: 83.631 kg BMI 30.7 BP 120/81 H Blood Pressure Location Lt brachial Position Sitting Respiration 18 Pulse 64 Pulse Source Monitor Temp 97.8 F Temperature Source Temporal Artery Pulse Oximetry (%) 94 Oxygen Delivery Method room air Intake Is patient in pain?: No Allergies ibuprofen Allergy (Severe, Verified 08/13/24 13:39) Swelling azithromycin (From Zithromax) Allergy (Intermediate, Verified 08/13/24 13:39) Unknown aspirin Allergy (Verified 08/13/24 13:39) Angioedema oxycodone Allergy (Verified 08/13/24 13:39) Angioedema moxifloxacin (From Avelox) Adverse Reaction (Intermediate, Verified 08/13/24 13:39) Rash Medications ???Medication ???Instructions ???Recorded ???Confirmed ???Type albuterol sulfate 90 mcg/actuation 2 puff inhalation Q4H PRN PRN 08/13/24 History aerosol inhaler Wheezing cholecalciferol (vitamin D3) 25 2,000 unit PO DAILY 12/11/1808/13 History mcg (1,000 unit) capsule citalopram 20 mg tablet 20 mg PO DAILY anxiety/depression 03/23/21 08/13/24 History nadolol 20 mg tablet 20 mg PO DAILY #90 tabs 03/23/21 0 08/13/24 Rx Saccharomyces boulardii 250 mg 250 mg PO BID 07/30/23 08/13/24 Hi story capsule (Florastor) fluticasone propionate 230 2 inh inhalation BID #1 ea 2 4 08/13/24 Rx mcg-salmeterol 21 mcg/actuation HFA inhaler (Advair HFA) spacer #1 ea 07/30/23 08/13/24 Rx zoledronic acid 5 mg/100 mL in 1 ea .Route ONCE #100 mL 10/25/23 08/13/24 Rx mannitol 5 %-water intravenous piggybck nirmatrelvir 300 mg (150 mg See Rx Instructions PO .COMPLEX 08/13/24 Rx x2)-ritonavir 100 mg tablet,dose #30 tabs pack (Paxlovid) levothyroxine 200 mcg tablet 200 m (more content not included)... Normal [facility] 08-07-2024 [facility]. 4 COMMENT Normal . [facility] Comment on above: Order Comment: 1 Result Comment: Test Ordered: [id number] IGHV Somatic Hypermutation Interpretation: Comment [facility] Reference Range: . Client Specimen ID: Not Given IGHV Somatic Hypermutation was detected. DISCLAIMER: REFER TO HARDCOPY OR PDF FOR COMPLETE RESULT. If synopsis provided, clinical decisions should not be based on this interfaced synopsis alone. Performed at: [facility] [address] [place] [id number] Integrity Analyst: Sid Leal MD, Phone: [phone] Performed at: [facility] [address] [id number] Integrity Analyst: Julio Xavier PhD, Phone: [phone] Performed By: #### L 504.2610, L100.0100 #### [facility] [address] [place], [address] [facility]. COMMENT Normal . [facility] Comment on above: Order Comment: 1 Result Comment: Test Ordered: [id number] Flow panel: Leukemia/Lymphoma Flow Interpretation Comment -Y Reference Range: . The phenotype is most consistent with a diagnosis of chronic lymphocytic leukemia/small lymphocytic lymphoma (CLL/SLL), CD20+, CD22+, CD38+ Flow Comment Comment -Y Reference Range: . CD38 positivity is an unfavorable prognostic factor in CLL. CLL FISH testing and IGHV mutation analysis are recommended for prognosis assessment on initial workup of CLL patients. Investigation of TP53 aberrations by sequencing is warranted prior to each course of therapy. (Genomic profiling for clinical decision making in lymphoid neoplasms, Blood, December 13, 2021)Previous phenotyping showed similar findings. Clinical Information Comment -Y Reference Range: . A recent CBC was not available for review at the time this report was prepared. Specimen Type Comment -Y Reference Range: . Peripheral blood Assessment of Leukocytes Comment -Y Reference Range: . A CD5+, CD23+, CD38+ (42%) monoclonal B cell population is detected with lambda light chain restriction.(100% of B cells, 90% of leukocytes) There is no loss of, or aberrant expression of, the palafox T cell antigens to suggest a neoplastic T cell process. CD4:CD8 ratio 1.0 No circulating blasts are detected. There is no immunophenotypic evidence of abnormal myeloid maturation. Analysis of the leukocyte population shows: granulocytes 5%, monocytes 1%, lymphocytes 94%, blasts <0.1%, B cells 89%, T cells 4%, NK cells 1%. Viability Comment -Y Reference Range: . 93% Immunophenotypic Profile Comment -Y Reference Range: . Abnormal cell population: present-90% of total cells (Phenotype below) Analysis and Gating Strategy Comment -Y Reference Range: . 8 color analysis with CD45/SSC gating Technical-Analysis performed at [employer], [address] , [place] [address],??Director: Gary Coats, [facility] Phenotype Chart Comment -Y Reference Range: . CD2 (-) CD3 (-) CD4 (-) CD5 (+) CD7 (-) CD8 (-) CD10 (-) CD11b (-) CD11c (+) CD13 (-) CD14 (-) CD15 (-) CD16 (-) CD19 (+) CD20 (+) Dim CD22 (+) Dim CD23 (+) CD33 (-) CD34 (-) CD38 (+) CD45 (+) CD56 (-) CD57 (-) CD103 (-) CD117 (-) FMC-7 (-) HLA-DR (+) KAPPA (-) LAMBDA (+) Dim CD64 (-) Resulting Path Name Comment -Y Reference Range: . Cydney Angulo M.D. Comment: Comment TG Reference Range: . Each antibody in this assay was utilized to assess for potential abnormalities of studied cell populations or to characterize identified abnormalities. This test was developed and its performance characteristics determined by [facility]. It has not been cleared or approved by the U.S. Food and Drug Administration. The FDA has determined that such clearance or approval is not necessary. This test is used for clinical purposes. It should not be regarded as investigational or for research. Performed at: -Y - [facility] [address] [facility], [place] [id number] Integrity Analyst: Gary Coats [facility], Phone: [phone] Performed at: TG - [facility] [address] [facility], [place] [id number] Integrity Analyst: Gary Coats [facility], Phone: [phone] Performed at: - [address] [id number] Integrity Analyst: Julio Xavier PhD, Phone: [phone]. AMENDED REPORT 08/07/[address] [facility] Misc[facility]4 previously reported as: COMMENT Test Ordered: [id number] Flow panel: Leukemia/Lymphoma Flow Interpretation Comment -Y Reference Range: . The phenotype is most consistent with a diagnosis of chronic lymphocytic leukemia/small lymphocytic lymphoma (CLL/SLL), CD20+, CD22+, CD38+ Flow Comment Comment -Y Reference Range: . CD38 positivity is an unfavorable prognostic factor in CLL. CLL FISH testing and IGHV mutation analysis are recommended for prognosis assessment on initial workup of CLL patients. Investigation of TP53 aberrations by sequencing is warranted prior to each course of therapy. (Genomic profiling for clinical decision making in lymphoid neoplasms, Blood, December 13, 2021)Previous phenotyping showed similar findings. Clinical Information Comment -Y Reference Range: . A recent CBC was not available for review at the time this report was prepared. Specimen Type Comment -Y Reference Range: . Peripheral blood Assessment of Leukocytes Comment -Y Reference Range: . A CD5+, CD23+, CD38+ (42%) monoclonal B cell population is detected with lambda light chain restriction.(100% of B cells, 90% of leukocytes) There is no loss of, or aberrant expression of, the palafox T cell antigens to suggest a neoplastic T cell process. CD4:CD8 ratio 1.0 No circulating blasts are detected. There is no immunophenotypic evidence of abnormal myeloid maturation. Analysis of the leukocyte population shows: granulocytes 5%, monocytes 1%, lymphocytes 94%, blasts <0.1%, B cells 89%, T c (more content not included)... Performed By: #### L 504.2610, L100.0100 #### [facility] [address] [place], [place], [id number] [facility]. 4 COMMENT Normal . [facility] Comment on above: Order Comment: [id number] PEDS SODIUM HEP RT Result Comment: Test Ordered: [id number] Chromosome, Leukemia/Lymphoma Specimen Type Comment: SCOTT Reference Range: . BLOOD Cells Counted 20 SCOTT Reference Range: . Cells Analyzed 20 SCOTT Reference Range: . Cells Karyotyped 2 SCOTT Reference Range: . GTG Band Resolution Achieved 400 SCOTT Reference Range: . Cytogenetic Result Comment: Reference Range: . 46,XX[20] Interpretation Comment: SCOTT Reference Range: . NORMAL FEMALE KARYOTYPE Cytogenetic analysis of GTG banded metaphases from unstimulated and B-mitogen stimulated cultures used specifically for B-lymphoid disorders showed only normal cells. Some abnormal clones, however, have low mitotic rates, may not respond to mitogens, or may have alterations below the resolution of cytogenetics. A CLL/MCL interphase fluorescence in situ hybridization (FISH) panel (test code 271059) or Non-Hodgkin lymphoma FISH panel (test code 419434) may be considered. A whole genome SNP microarray-Oncology Reveal (test code 460468) is also available to resolve higher resolution imbalances and copy neutral loss of heterozygosity. Cytogenetic results should be interpreted within the context of a full pathology evaluation which may include flow cytometry, microarray analysis, and molecular genetic testing. Technical Component-Partial chromosome analysis performed at [facility], [employer] [address], [facility] [address], CLIA [id number]. Pillar Worker, Gary Coats M.D., Ph.D. Technical Component-Processing and partial analysis performed at [address], [place] [address], [facility] CLIA [id number]. Pillar Worker, Gary Coats M.D., Ph.D. Director Review: Comment: Reference Range: . Hongcheng Martinez, PhD, FACMG Performed at: [facility] [address] [facility], [facility], [place] [id number] Integrity Analyst: Gary Coats [facility], Phone: [phone] Performed at: [place] [id number] [place], [place] [id number] Integrity Analyst: Julio Xavier PhD, Phone: [phone]. AMENDED REPORT 08/07/24 1320 [facility]4 previously reported as: COMMENT Test Ordered: [id number] Chromosome, Leukemia/Lymphoma Specimen Type Comment: Reference Range: . BLOOD Cells Counted 20 SCOTT Reference Range: . Cells Analyzed 20 SCOTT Reference Range: . Cells Karyotyped 2 SCOTT Reference Range: . GTG Band Resolution Achieved 400 SCOTT Reference Range: . Cytogenetic Result Comment: Reference Range: . 46,XX Interpretation Comment: Reference Range: . NORMAL FEMALE KARYOTYPE Cytogenetic analysis of GTG banded metaphases from unstimulated and B-mitogen stimulated cultures used specifically for B-lymphoid disorders showed only normal cells. Some abnormal clones, however, have low mitotic rates, may not respond to mitogens, or may have alterations below the resolution of cytogenetics. A CLL/MCL interphase fluorescence in situ hybridization (FISH) panel (test code 783105) or Non-Hodgkin lymphoma FISH panel (test code 588480) may be considered. A whole genome SNP microarray-Oncology Reveal (test code 451573) is also available to resolve higher resolution imbalances and copy neutral loss of heterozygosity. Cytogenetic results should be interpreted within the context of a full pathology evaluation which may include flow cytometry, microarray analysis, and molecular genetic testing. Technical Component-Partial chromosome analysis performed at [facility], [employer] [facility] [address] [facility] [place], [facility] [address], CLIA [id number]. Pillar Worker, Gary Coats M.D., Ph.D. Technical Component-Processing and partial analysis performed at [address] [facility] [place] [address], [employer] CLIA [id number]. Pillar Worker, Gary Coats M.D., Ph.D. Director Review: Comment: Reference Range: . Tasia Martinez, PhD, FACMG Performed at: [facility] [address] [facility] [address], [place], [place] [id number] Integrity Analyst: Gary Coats [facility], Phone: [phone] Performed at: [address] [id number] Integrity Analyst: Julio Xavier PhD, Phone: [phone] Performed By: #### L 3410.9998 #### [facility] [address] [place], [place], [id number] [facility]. COMMENT Normal . [facility] Comment on above: Order Comment: DR VANAN AYOUB ORDERED CBCD, CMP, LDH DR SU ORDERED RSH, FT4, THROGL W TB AB, VITD 1 Result Comment: Test Ordered: [id number] CLL FISH Panel Specimen Type Comment: Reference Range: . BLOOD Cells Counted Comment: Reference Range: . 200/PROBE Cells Analyzed Comment: Reference Range: . 200/PROBE FISH Result Comment: Reference Range: . NORMAL CLL PANEL Interpretation Comment: Reference Range: . The CLL interphase fluorescence in situ hybridization (FISH) panel analysis was normal. There were no cells with CCND1-IGH fusion. No extra signals or deletions of ROSENDO, chromosome 12, 13q, or TP53 were observed. SPECIFIC FISH RESULTS: CCND1/IGH: NORMAL . nuc maryuri 11q13(FXUM6f2),14q32(IGHx2)[200] ROSENDO: NORMAL nuc maryuri 11q22.3(ATMx2)[200]. 12cen: NORMAL . nuc maryuri 12cen(Q22Z4h0)[200]. 13q: NORMAL . nuc maryuri 13q14.3(DLEUx2),13q34(VUBW9d6)[200]. TP53: NORMAL . nuc maryuri 17p13.1(TP53x2)[200] This analysis is limited to abnormalities detectable by the specific probes included in the study. FISH results should be interpreted within the context of a full cytogenetic analysis and hematologic evaluation. REFERENCES:. Kim,(2013) Adv Exp Med Biol 792:193-214.PMID#[id number] . Jacob gibbons al.,(2011) Clin Lab Med 31:649-658.PMID#[id number] This test was developed and its performace characteristics determined by [facility] ([employer]). It has not been cleared or approved by the U.S. Food and Drug Administration. The DNA probe vendor for this study was [employer] ([employer]). Director Review: Comment: Reference Range: . Valerie Ellison, PhD, FACMG Performed at: [facility] [address] [facility], [place] [id number] Integrity Analyst: Gary Coats [facility], Phone: [phone] Performed at: [address] [id number] Integrity Analyst: Julio Xavier PhD, Phone: [phone]. AMENDED REPORT 08/07/24 1319 [facility] Misc.4 previously reported as: COMMENT Test Ordered: [id number] CLL FISH Panel Specimen Type Comment: Reference Range: . BLOOD Cells Counted Comment: Reference Range: . 200/PROBE Cells Analyzed Comment: Reference Range: . 200/PROBE FISH Result Comment: Reference Range: . NORMAL CLL PANEL Interpretation Comment: Reference Range: . The CLL interphase fluorescence in situ hybridization (FISH) panel analysis was normal. There were no cells with CCND1-IGH fusion. No extra signals or deletions of ROSENDO, chromosome 12, 13q, or TP53 were observed. SPECIFIC FISH RESULTS: CCND1/IGH: NORMAL . nuc maryuri 11q13(LQKW7v6),14q32(IGHx2) ROSENDO: NORMAL nuc maryuri 11q22.3(ATMx2). 12cen: NORMAL . nuc maryuri 12cen(B60W3a0). 13q: NORMAL . nuc maryuri 13q14.3(DLEUx2),13q34(TUFV6x9). TP53: NORMAL . nuc maryuri 17p13.1(TP53x2) This analysis is limited to abnormalities detectable by the specific probes included in the study. FISH results should be interpreted within the context of a full cytogenetic analysis and hematologic evaluation. REFERENCES:. Kim,(2013) Adv Exp Med Biol 792:193-214.PMID#[id number] . Jacob gibbons al.,(2011) Clin Lab Med 31:649-658.PMID#[id number] This test was developed and its performace characteristics determined by [facility] ([employer]). It has not been cleared or approved by the U.S. Food and Drug Administration. The DNA probe vendor for this study was [employer] ([employer]). Director Review: Comment: SCOTT Reference Range: . Valerie Ellison, PhD, FAC Performed at: [facility] [address] [facility], [place] [id number] Integrity Analyst: Gary Coats [facility], Phone: [phone] Performed at: [address] [id number] Integrity Analyst: Julio Xavier PhD, Phone: [phone] Performed By: #### L 504.2610, L501.9520, L506.0400, L500.4050, L100.0100 #### [facility] [address] [place], [address] Rubeola IgG Abon 07-31-2024 RUBEOLA Ab, IgG > 300.0 Normal Immune >16.4 [facility] Comment on above: Result Comment: Nega tive <13.5 Equivocal 13.5 - 16.4 Positive >16.4 Presence of antibodies to Rubeola is presumptive evidence of immunity except when acute infection is suspected. Performed at: [address] [id number] Integrity Analyst: Julio Xavier PhD, Phone: [phone] Performed By: #### L 504.2610, L100.0100 #### [facility] [address] [place], [address] Blood manual differential co mment interpretation (narrative result)Ordered By: Mateo Pereira on 07-30-2024 Manual differential comment Sherman (Bld) [Interp] SCANNED [facility] Comment on above: LYMPHOCYTOSIS NOTEDL EUKOCYTOSIS NOTEDTHROMBOCYTOPENIA NOTED Calculated very low density lipoprotein (VLDL) cholesterol measurementOrdered By: Mateo Pereira on 07-30-2024 Calculated very low density lipoprotein (VLDL) cholesterol measurement 22 mg/dL 5-40 [facility] Comprehensive Metabolic Prof ilon 07-30-2024 Albumin [Mass/Vol] 4.2 g/dL Normal 3.4-4.8 [facility] Comment on above: Performed By: #### L 504.2610, L501.9520, L506.0400, L500.4050, L100.0100 #### [facility] [address] [place], [address] Albumin/Globulin [Mass ratio] 2.4 {ratio} Normal 0.9-2.4 [facility] Comment on above: Performed By: #### L 504.2610, L501.9520, L506.0400, L500.4050, L100.0100 #### [facility] [address] [place], [address] ALK PHOS 56 U/L Normal 35-104 [facility] Comment on above: Performed By: #### L 504.2610, L501.9520, L506.0400, L500.4050, L100.0100 #### [facility] [address] [place], [address] ALT [Catalytic activity/Vol] 27 U/L Normal <=34 [facility] Comment on above: Performed By: #### L 504.2610, L501.9520, L506.0400, L500.4050, L100.0100 #### [facility] [address] [place], [address] AST [Catalytic activity/Vol] 28 U/L Normal <=31 [facility] Comment on above: Performed By: #### L 504.2610, L501.9520, L506.0400, L500.4050, L100.0100 #### [facility] [address] [place], [address] Bilirubin [Mass/Vol] 0.75 mg/dL Normal 0.00-1.30 [facility] Comment on above: Performed By: #### L 504.2610, L501.9520, L506.0400, L500.4050, L100.0100 #### [facility] [address] [place], [address] BUN/CRE 19.1 RATIO Normal 10-20 [facility] Comment on above: Performed By: #### L 504.2610, L501.9520, L506.0400, L500.4050, L100.0100 #### [facility] [address] [place], [address] Calcium [Mass/Vol] 9.8 mg/dL Normal 7.6-11.0 [facility] Comment on above: Performed By: #### L 504.2610, L501.9520, L506.0400, L500.4050, L100.0100 #### [facility] [address] [place], [address] Chloride [Moles/Vol] 102 mmol/L Normal 98-108 [facility] Comment on above: Performed By: #### L 504.2610, L501.9520, L506.0400, L500.4050, L100.0100 #### [facility] [address] [place], [address] CO2 [Moles/Vol] 24.3 mmol/L Normal 21.0-32.0 [facility] Comment on above: Performed By: #### L 504.2610, L501.9520, L506.0400, L500.4050, L100.0100 #### [facility] [address] [place], [address] Creatinine [Mass/Vol] 0.72 mg/dL Normal 0.70-1.20 [facility] Comment on above: Performed By: #### L 504.2610, L501.9520, L506.0400, L500.4050, L100.0100 #### [facility] [address] [place], [address] ECRCL 71.33 ml/min Normal 50-250 [facility] Comment on above: Performed By: #### L 504.2610, L501.9520, L506.0400, L500.4050, L100.0100 #### [facility] [address] [place], [address] GAP 11 Normal 5-15 [facility] Comment on above: Performed By: #### L 504.2610, L501.9520, L506.0400, L500.4050, L100.0100 #### [facility] [address] [place], [address] GFR/1.73 sq M.predicted among non-blacks MDRD (S/P/Bld) [Vol rate/Area] 91 mL/min/{1.73_m2} Normal >60 [facility] Comment on above: Result Comment: mL/m in/1.73m2 CKD-EPI Creatinine Equation (2020) Performed By: #### L 504.2610, L501.9520, L506.0400, L500.4050, L100.0100 #### [facility] [address] [place], [address] Globulin (S) [Mass/Vol] 1.8 g/dL Low 2.2-4.2 [facility] Comment on above: Performed By: #### L 504.2610, L501.9520, L506.0400, L500.4050, L100.0100 #### [facility] [address] [place], [address] Glucose [Mass/Vol] 91 mg/dL Normal 70-99 [facility] Comment on above: Performed By: #### L 504.2610, L501.9520, L506.0400, L500.4050, L100.0100 #### [facility] [address] [place], [address] Potassium [Moles/Vol] 4.3 mmol/L Normal 3.3-5.1 [facility] Comment on above: Performed By: #### L 504.2610, L501.9520, L506.0400, L500.4050, L100.0100 #### [facility] [address] [place], [address] Sodium [Moles/Vol] 137 mmol/L Normal 133-145 [facility] Comment on above: Performed By: #### L 504.2610, L501.9520, L506.0400, L500.4050, L100.0100 #### [facility] [address] [place], [address] T PROT 6.0 g/dL Normal 5.9-8.4 [facility] Comment on above: Performed By: #### L 504.2610, L501.9520, L506.0400, L500.4050, L100.0100 #### [facility] [address] [place], [address] Urea nitrogen [Mass/Vol] 14 mg/dL Normal 4-19 [facility] Comment on above: Performed By: #### L 504.2610, L501.9520, L506.0400, L500.4050, L100.0100 #### [facility] [address] [place], [address] Hemoglobin A1con 07-30-2024 HbA1c (Bld) [Mass fraction] 5.6 % Low <=5.6 [facility] Comment on above: Performed By: #### L 504.2610, L100.0100 #### [facility] [address] [place], [address] Hemoglobin A1c percentageOrd ered By: Mateo Pereira on 07-30-2024 HbA1c (Bld) [Mass fraction] 5.6 % Low >5.7 [facility] LDHon 07-30-2024 LDH 220 U/L Normal 84-246 [facility] Comment on above: Order Comment: DR VANNA AYOUB ORDERED CBCD, CMP, LDH DR SU ORDERED RSH, FT4, THROGL W TB AB, VITD 1 Performed By: #### L 504.2610, L501.9520, L506.0400, L500.4050, L100.0100 #### [facility] [address] [place], [address] LDL calc ser/plasOrdered By: Mateo Pereira on 07-30-2024 Cholesterol in LDL [Mass/Vol] 169 mg/dL [facility] Comment on above: Gkxwueobgm=864-953 m g/dL & Higher Deom=601 mg/dL or greater Lipid Profileon 07-30-2024 CHOL:HDL 5.11 Normal [facility] Comment on above: Performed By: #### L 504.2610, L100.0100 #### [facility] [address] [place], [address] Cholesterol [Mass/Vol] 238 mg/dL High <=200 [facility] Comment on above: Result Comment: Chol esterol level, Desirable <200 mg/dL Borderline high cholesterol 200-239 mg/dL High cholesterol >=240 mg/dL Recommendations of the NCEP Adult Treatment Panel for the following risk-cutoff thresholds for the [place] population. Performed By: #### L 504.2610, L100.0100 #### [facility] [address] [place], [address] Cholesterol in HDL [Mass/Vol] 47 mg/dL Normal [facility] Comment on above: Result Comment: Kimberly onal Cholesterol Education Program (NCEP) guidelines: <40 mg/dL: Low HDL-cholesterol (major risk factor for CHD) >= 60 mg/dL: High HDL-cholesterol (negative risk factor for CHD) HDL-cholesterol is affected by a number of factors, e.g. smoking, exercise, hormones, sex and age. Performed By: #### L 504.2610, L100.0100 #### [facility] [address] [place], [address] Cholesterol in LDL [Mass/Vol] 169 mg/dL Normal [facility] Comment on above: Result Comment: Bord nhowpj=837-999 mg/dL Higher Fjnf=175 mg/dL or greater Performed By: #### L 504.2610, L100.0100 #### [facility] [address] [place], [address] Cholesterol in VLDL [Mass/Vol] 22 mg/dL Normal 5-40 [facility] Comment on above: Performed By: #### L 504.2610, L100.0100 #### [facility] [address] [place], [address] Triglyceride [Mass/Vol] 112 mg/dL Normal [facility] Comment on above: Result Comment: The drugs N-Acetylcysteine and Metamizole may falsely depress this assay. Normal range: <150 mg/dL Borderline High: 150-199 mg/dL High: 200-499 mg/dL Very High: >500 mg/dL Performed By: #### L 504.2610, L100.0100 #### [facility] [address] [place], [address] No Panel InformationOrdered By: Mateo Pereira on 07-30-2024 Miscellaneous Test 4 COMMENT . [facility] Comment on above: Test Ordered: [id number] CLL FISH PanelSpecimen Type Comment: SCOTT Reference Range: .BLOODCells Counted Comment: SCOTT Reference Range: .200/PROBECells Analyzed Comment: SCOTT Reference Range: .200/PROBEFISH Result Comment: SCOTT Reference Range: .NORMAL CLL PANELInterpretation Comment: SCOTT Reference Range: . The CLL interphase fluorescence in situ hybridization(FISH) panel analysis was normal. There were no cells withCCND1-IGH fusion. No extra signals or deletions of ROSENDO,chromosome 12, 13q, or TP53 were observed. SPECIFIC FISH RESULTS: CCND1/IGH: NORMAL . nuc maryuri 11q13(IQAX1c5),14q32(IGHx2)[200] ROSENDO: NORMAL nuc maryuri 11q22.3(ATMx2)[200]. 12cen: NORMAL . nuc maryuri 12cen(K78S7a4)[200]. 13q: NORMAL . nuc maryuri 13q14.3(DLEUx2),13q34(HSZZ3j5)[200]. TP53: NORMAL . nuc maryuri 17p13.1(TP53x2)[200] This analysis is limited to abnormalities detectableby the specific probes included in the study. FISH resultsshould be interpreted within the context of a fullcytogenetic analysis and hematologic evaluation. REFERENCES:. Kim,(2013) Adv Exp Med Biol 792:193-214.PMID#[id number] . Jacob et al.,(2011) Clin Lab Med31:649-658.PMID#[id number] This test was developed and its performacecharacteristics determined by [employer] ([employer]). It has not been cleared orapproved by the U.S. Food and Drug Administration. The DNAprobe vendor for this study was [employer] ([employer]).Director Review: Comment: Reference Range: .Valerie Ellison, PhD, FACMGPerformed at: [facility] [address] [place], [place] [id number] Director: Gary Coats [facility], Phone: [phone] at: [address] [id number] Director: Julio Xavier PhD, Phone: [phone].Previous reported result: COMMENT Edited by: SUNG on 08/07/24:1319 AMENDED REPORT 08/07/24 1319 [facility] Misc.4 previously reported as: COMMENT Test Ordered: [id number] CLL FISH PanelSpecimen Type Comment: Reference Range: .BLOODCells Counted Comment: Reference Range: .200/PROBECells Analyzed Comment: Reference Range: .200/PROBEFISH Result Comment: Reference Range: .NORMAL CLL PANELInterpretation Comment: Reference Range: . The CLL interphase fluorescence in situ hybridization(FISH) panel analysis was normal. There were no cells withCCND1-IGH fusion. No extra signals or deletions of ROSENDO,chromosome 12, 13q, or TP53 were observed. SPECIFIC FISH RESULTS: CCND1/IGH: NORMAL . nuc maryuri 11q13(JSMS1s2),14q32(IGHx2) ROSENDO: NORMAL nuc maryuri 11q22.3(ATMx2). 12cen: NORMAL . nuc maryuri 12cen(L12A2n9). 13q: NORMAL . nuc maryuri 13q14.3(DLEUx2),13q34(DRUU6p3). TP53: NORMAL . nuc maryuri 17p13.1(TP53x2) This analysis is limited to abnormalities detectableby the specific probes included in the study. FISH resultsshould be interpreted within the context of a fullcytogenetic analysis and hematologic evaluation. REFERENCES:. Kim,(2013) Adv Exp Med Biol 792:193-214.PMID#[id number] . Jacob et al.,(2011) Clin Lab Med31:649-658.PMID#[id number] This test was developed and its performacecharacteristics determined by [facility] ([employer]). It has not been cleared orapproved by the U.S. Food and Drug Administration. The DNAprobe vendor for this study was [employer] ([employer]).Director Review: Comment: SCOTT Reference Range: .Valerie Ellison, PhD, FACMGPerformed at: [facility] OTF[address] [place], [place] [id number] Director: Gary Coats [facility], Phone: [phone] at: [address] [id number] Director: Julio Xavier PhD, Phone: [phone] Review by pathologistOrdered By: Mateo Pereira on 07-30-2024 Pathologist review Sherman (Unsp spec) [Interp] Reviewed [facility] Comment on above: Previous reported re sult: Florecita machado Edited by: AN on 08/19/24:1259SEE REPORT IN PATIENT'S EMR AMENDED REPORT 08/19/24 1259 PATH REV previously reported as: Florecita machado Screening total cholesterol/ high density lipoprotein (HDL) cholesterol ratioOrdered By: Mateo Pereira on 07-30-2024 Cholesterol.total/Chol esterol in HDL [Mass ratio] 5.11 {ratio} [facility] Serum measles virus IgG anti body assay by immunoassay (units/volume)Ordered By: Mateo Pereira on 07-30-2024 MeV IgG IA Qn (S) > 300.0 AU/mL Immune >16.4 [facility] Comment on above: Negative <13.5 Equiv ocal 13.5 - 16.4 Positive >16.4Presence of antibodies to Rubeola is presumptive evidenceof immunity except when acute infection is suspected.Performed at: [employer] [id number] Director: Julio Xavier PhD, Phone: [phone] Serum or plasma cholesterol in HDL measurement (mass/volume)Ordered By: Mateo Pereira on 07-30-2024 Cholesterol in HDL [Mass/Vol] 47 mg/dL >40 [facility] Comment on above: National Cholesterol Education Program (NCEP) guidelines:<40 mg/dL: Low HDL-cholesterol (major risk factor for CHD)>= 60 mg/dL: High HDL-cholesterol (negative risk factor for CHD)HDL-cholesterol is affected by a number of factors, e.g. smoking, exercise, hormones, sex and age. Serum or plasma cholesterol measurement (mass/volume)Ordered By: Mateo Pereira on 07-30-2024 Cholesterol [Mass/Vol] 238 mg/dL High <201 [facility] Comment on above: Cholesterol level, D esirable <200 mg/dLBorderline high cholesterol 200-239 mg/dLHigh cholesterol >=240 mg/dLRecommendations of the NCEP Adult Treatment Panel for the following risk-cutoff thresholds for the [place] population. Triglycerides measurementOrd ered By: Mateo Pereira on 07-30-2024 Triglyceride [Mass/Vol] 112 mg/dL <199 [facility] Comment on above: The drugs N-Acetylcy steine and Metamizole may falsely depress this assay. Normal range: <150 mg/dLBorderline High: 150-199 mg/dLHigh: 200-499 mg/dLVery High: >500 mg/dL Vitamin D,25 Hydroxyon 07-30 Vitamin D 25-OH 38.5 ng/mL Normal 30-100 [facility] Comment on above: Result Comment: Leann min D Status Deficiency: <20 ng/mL (50nmol/L) Insufficiency: 20-30 ng/mL (50-75 nmol/L) Sufficiency: 30-100 ng/mL (75-250 nmol/L) Toxicity: >100 ng/mL (>250 nmol/L) Performed By: #### L 504.2610, L100.0100 #### [facility] [address] [place], [address] Thyroglobulin w/Anti-TG ABon 04-01-2024 Anti-TG AB < 1.0 Normal 0.0-0.9 [facility] Comment on above: Order Comment: DR VANNA AYOUB ORDERED CBCD, CMP, LDH DR SU ORDERED RSH, FT4, THROGL W TB AB, VITD 1 Result Comment: Thyr oglobulin Antibody measured by Ila Garcia Methodology It should be noted that the presence of thyroglobulin antibodies may not be pathogenic nor diagnostic, especially at very low levels. The assay forest firefighter has found that four percent of individuals without evidence of thyroid disease or autoimmunity will have positive TgAb levels up to 4 IU/mL. Performed By: #### L 504.2610, L501.9520, L506.0400, L500.4050, L100.0100 #### [facility] [address] [place], [place], [address] THYROGLOB QUANT < 0.1 Low 1.5-38.5 [facility] Comment on above: Order Comment: DR VANNA AYOUB ORDERED CBCD, CMP, LDH DR SU ORDERED RSH, FT4, THROGL W TB AB, VITD 1 Result Comment: Acco rding to the National Academy of Clinical Biochemistry, the reference interval for Thyroglobulin (TG) should be related to euthyroid patients and not for patients who underwent thyroidectomy. TG reference intervals for these patients depend on the residual mass of the thyroid tissue left after surgery. Establishing a post-operative baseline is recommended. The assay limit of quantitation is 0.1 ng/mL Thyroglobulin measured by Ila Tyler Immunometric Assay Performed at: [address] [id number] Integrity Analyst: Julio Xavier PhD, Phone: [phone] Performed By: #### L 504.2610, L501.9520, L506.0400, L500.4050, L100.0100 #### [facility] [address] [place], [address] CBC W/Diff, Automatedon 12- SMEAR COMMENT COMMENT Normal [facility] Comment on above: Order Comment: DR VANNA AYOUB ORDERED CBCD, CMP, LDH DR SU ORDERED RSH, FT4, THROGL W TB AB, VITD Result Comment: LYMP HOCYTOSIS. Performed By: #### L 504.2610, L501.9520, L506.0400, L500.4050, L100.0100 #### [facility] [address] [place], [address] Comprehensive Metabolic Prof ilon 03-31-2024 Albumin [Mass/Vol] 3.8 g/dL Normal 3.2-5.0 [facility] Comment on above: Order Comment: DR VANNA AYOUB ORDERED CBCD, CMP, LDH DR SU ORDERED RSH, FT4, THROGL W TB AB, VITD 1 Performed By: #### L 504.2610, L501.9520, L506.0400, L500.4050, L100.0100 #### [facility] [address] [place], [address] Albumin/Globulin [Mass ratio] 1.6 {ratio} Normal 0.9-2.4 [facility] Comment on above: Order Comment: DR VANNA AYOUB ORDERED CBCD, CMP, LDH DR SU ORDERED RSH, FT4, THROGL W TB AB, VITD 1 Performed By: #### L 504.2610, L501.9520, L506.0400, L500.4050, L100.0100 #### [facility] [address] [place], [address] ALK P 54 U/L Normal 45-117 [facility] Comment on above: Order Comment: DR VANNA AYOUB ORDERED CBCD, CMP, LDH DR SU ORDERED RSH, FT4, THROGL W TB AB, VITD 1 Performed By: #### L 504.2610, L501.9520, L506.0400, L500.4050, L100.0100 #### [facility] [address] [place], [address] ALT [Catalytic activity/Vol] 22 U/L Normal 13-56 [facility] Comment on above: Order Comment: DR VANNA AYOUB ORDERED CBCD, CMP, LDH DR SU ORDERED RSH, FT4, THROGL W TB AB, VITD 1 Performed By: #### L 504.2610, L501.9520, L506.0400, L500.4050, L100.0100 #### [facility] [address] [place], [address] AST [Catalytic activity/Vol] 21 U/L Normal 15-37 [facility] Comment on above: Order Comment: DR VANNA AYOUB ORDERED CBCD, CMP, LDH DR SU ORDERED RSH, FT4, THROGL W TB AB, VITD 1 Performed By: #### L 504.2610, L501.9520, L506.0400, L500.4050, L100.0100 #### [facility] [address] [place], [address] Bilirubin [Mass/Vol] 1.00 mg/dL Normal 0.20-1.00 [facility] Comment on above: Order Comment: DR VANNA AYOUB ORDERED CBCD, CMP, LDH DR SU ORDERED RSH, FT4, THROGL W TB AB, VITD 1 Result Comment: For patients on eltrombopag therapy, use of Dimension Erhard TBIL is not recommended. Performed By: #### L 504.2610, L501.9520, L506.0400, L500.4050, L100.0100 #### [facility] [address] [place], [address] BUN/CRE 17.0 RATIO Normal 10-20 [facility] Comment on above: Order Comment: DR VANNA AYOUB ORDERED CBCD, CMP, LDH DR SU ORDERED RSH, FT4, THROGL W TB AB, VITD 1 Performed By: #### L 504.2610, L501.9520, L506.0400, L500.4050, L100.0100 #### [facility] [address] [place], [address] CA,Total 9.0 mg/dL Normal 8.5-10.1 [facility] Comment on above: Order Comment: DR VANNA AYOUB ORDERED CBCD, CMP, LDH DR SU ORDERED RSH, FT4, THROGL W TB AB, VITD 1 Performed By: #### L 504.2610, L501.9520, L506.0400, L500.4050, L100.0100 #### [facility] [address] [place], [address] Chloride [Moles/Vol] 105 mmol/L Normal 98-107 [facility] Comment on above: Order Comment: DR VANNA AYOUB ORDERED CBCD, CMP, LDH DR SU ORDERED RSH, FT4, THROGL W TB AB, VITD 1 Performed By: #### L 504.2610, L501.9520, L506.0400, L500.4050, L100.0100 #### [facility] [address] [place], [address] CO2 [Moles/Vol] 26.0 mmol/L Normal 21.0-32.0 [facility] Comment on above: Order Comment: DR VANNA AYOUB ORDERED CBCD, CMP, LDH DR SU ORDERED RSH, FT4, THROGL W TB AB, VITD 1 Performed By: #### L 504.2610, L501.9520, L506.0400, L500.4050, L100.0100 #### [facility] [address] [place], [address] Creatinine [Mass/Vol] 0.65 mg/dL Normal 0.55-1.02 [facility] Comment on above: Order Comment: DR VANNA AYOUB ORDERED CBCD, CMP, LDH DR SU ORDERED RSH, FT4, THROGL W TB AB, VITD 1 Result Comment: The validity of the calculated GFR GFRAA in patients over 70 years has not been determined. Clinical correlation is essential. Performed By: #### L 504.2610, L501.9520, L506.0400, L500.4050, L100.0100 #### [facility] [address] [place], [address] ECRCL 70.87 ml/min Normal [facility] Comment on above: Order Comment: DR VANNA AYOUB ORDERED CBCD, CMP, LDH DR SU ORDERED RSH, FT4, THROGL W TB AB, VITD 1 Performed By: #### L 504.2610, L501.9520, L506.0400, L500.4050, L100.0100 #### [facility] [address] [place], [address] EST GFR - AA 117 mL/min Normal >60 [facility] Comment on above: Order Comment: DR VANNA AYOUB ORDERED CBCD, CMP, LDH DR SU ORDERED RSH, FT4, THROGL W TB AB, VITD 1 Result Comment: Afri can [place] GFR Calc Performed By: #### L 504.2610, L501.9520, L506.0400, L500.4050, L100.0100 #### [facility] [address] [place], [address] GAP 5 Normal 5-15 [facility] Comment on above: Order Comment: DR VANNA AYOUB ORDERED CBCD, CMP, LDH DR SU ORDERED RSH, FT4, THROGL W TB AB, VITD 1 Performed By: #### L 504.2610, L501.9520, L506.0400, L500.4050, L100.0100 #### [facility] [address] [place], [address] GFR/1.73 sq M.predicted among non-blacks MDRD (S/P/Bld) [Vol rate/Area] 97 mL/min/{1.73_m2} Normal >60 [facility] Comment on above: Order Comment: DR VANNA AYOUB ORDERED CBCD, CMP, LDH DR SU ORDERED RSH, FT4, THROGL W TB AB, VITD 1 Result Comment: Non- GFR Calc Performed By: #### L 504.2610, L501.9520, L506.0400, L500.4050, L100.0100 #### [facility] [address] [place], [address] Globulin (S) [Mass/Vol] 2.4 g/dL Normal 2.2-4.2 [facility] Comment on above: Order Comment: DR VANNA AYOUB ORDERED CBCD, CMP, LDH DR SU ORDERED RSH, FT4, THROGL W TB AB, VITD 1 Performed By: #### L 504.2610, L501.9520, L506.0400, L500.4050, L100.0100 #### [facility] [address] [place], [address] Glucose [Mass/Vol] 103 mg/dL Normal 74-106 [facility] Comment on above: Order Comment: DR VANNA AYOUB ORDERED CBCD, CMP, LDH DR SU ORDERED RSH, FT4, THROGL W TB AB, VITD 1 Result Comment: Fast ing Glucose result from 100 to 125 mg/dL suggests IMPAIRED HOMEOSTASIS per A.D.A. criteria. Performed By: #### L 504.2610, L501.9520, L506.0400, L500.4050, L100.0100 #### [facility] [address] [place], [address] Potassium [Moles/Vol] 4.4 mmol/L Normal 3.5-5.1 [facility] Comment on above: Order Comment: DR VANNA AYOUB ORDERED CBCD, CMP, LDH DR SU ORDERED RSH, FT4, THROGL W TB AB, VITD 1 Performed By: #### L 504.2610, L501.9520, L506.0400, L500.4050, L100.0100 #### [facility] [address] [place], [address] Sodium [Moles/Vol] 136 mmol/L Normal 136-145 [facility] Comment on above: Order Comment: DR VANNA AYOUB ORDERED CBCD, CMP, LDH DR SU ORDERED RSH, FT4, THROGL W TB AB, VITD 1 Performed By: #### L 504.2610, L501.9520, L506.0400, L500.4050, L100.0100 #### [facility] [address] [place], [address] T PROT 6.2 g/dL Low 6.4-8.2 [facility] Comment on above: Order Comment: DR VANNA AYOUB ORDERED CBCD, CMP, LDH DR SU ORDERED RSH, FT4, THROGL W TB AB, VITD 1 Performed By: #### L 504.2610, L501.9520, L506.0400, L500.4050, L100.0100 #### [facility] [address] [place], [address] Urea nitrogen [Mass/Vol] 11 mg/dL Normal 7-18 [facility] Comment on above: Order Comment: DR VANNA AYOUB ORDERED CBCD, CMP, LDH DR SU ORDERED RSH, FT4, THROGL W TB AB, VITD 1 Performed By: #### L 504.2610, L501.9520, L506.0400, L500.4050, L100.0100 #### [facility] [address] [place], [address] Direct serum free thyroxine (FT4) measurementOrdered By: Jose Roberto Su on 03-31-2024 Free T4 [Mass/Vol] 1.44 ng/dL 0.76-1.46 [facility] LDHon 03-31-2024 LDH 206 U/L Normal 84-246 [facility] Comment on above: Order Comment: DR VANNA AYOUB ORDERED CBCD, CMP, LDH DR SU ORDERED RSH, FT4, THROGL W TB AB, VITD 1 Performed By: #### L 504.2610, L501.9520, L506.0400, L500.4050, L100.0100 #### [facility] [address] [place], [address] Oncology Visit Reporton 03-22 Oncology Visit Report [facility] [address] [place] [address] OFFICE VISIT Date of Service: 03/31/24 1124 MR#: [id number] Acct: [id number] Name: BRANDY LUGO Rep #: [id number] : 1955 From: Mateo Pereira MD Age/Sex: 69/F [place] [facility] Status: Signed HPI Subjective Date of Service 03/31/24 Chief Complaint F/U for CLL History of Present Illness 69y.o.woman was diagnosed with CLL,13q minus in [place], [place]. She was on observation, seen at [facility], found to have Lymphocyte count of 111K and referred for evaluation 04/21/18. She remained on observation, was seen in the ER for Gastroenteritis. CT done on 11/09/2018 showed moderate splenomegaly, retroperitoneal adenopathy, pelvic adenopathy, Spigelian hernia, dilated loops of bowel. Underwent PET/CT 11/20/18 which no significant activity in nodes. Hepatitis profile is negative. Flow cytometry showed CLL on 11/10/2018 with CD5+,CD23+ cells. Cytogenetics showed 46 XX here in [facility]. Started BR 12/18/18, comes in for 2nd cycle which was delayed for 1 week because of Neutropenia,1000. Had a minor reaction to Rituxan with the 1st cycle but got through therapy. Finished 3rd cycle on 02/20/2019. She is now on observation. Had CT scans done on 08/01/2022 which increase in axillary and pelvic nodes. Remained on observation until May 2023, when platelets dropped to <100K. Had a PET/CT done on 06/25/2023 showed right-left lower anterior hemipelvis and inguinal regions bilaterally demonstrate an increase in the Lugano Deauville score compared to the prior examination. She was diagnosed with Relapsed CLL. Began single agent rituximab on 07/11/23. Care complicated by C difficile colitis July 2023. Cycle 2 given 08/15/23 with remission. She is on observation. Comes for follow up. Feels well [facility] Medical History Encounter for education Osteoporosis Postoperative primary hypothyroidism Elevated blood pressure reading in office without diagnosis of hypertension Multiple premature ventricular complexes Obesity Spigelian hernia Thyroid cancer (1996) AKANKSHA (obstructive sleep apnea) Hypothyroidism Hyperlipidemia Chemotherapy management, encounter for Neutropenia CLL (chronic lymphocytic leukemia) Surgical History History of herniorrhaphy (04/17/19) History of thyroidectomy (1996) Family History Mother , age 52 Breast cancer Father PTSD (post-traumatic stress disorder) Pre-diabetes Hypothyroidism Sister Depression Hypothyroidism Uterine cancer Social History Smoking Status: Never smoker alcohol intake: current details: 4 oz per day substance use type: does not use what type of physical activity do you participate in: other details: heavy yardwork 5 days per week Intake Vital Signs 11/19/23 11:31 03/31/24 11:27 Height 5 ft 5 in 5 ft 5 in Weight: 82.327 kg BMI 30.2 BP 126/84 H Blood Pressure Location Lt brachial Position Sitting Respiration 18 Pulse 65 Pulse Source Monitor Temp 98.3 F Temperature Source Temporal Artery Pulse Oximetry (%) 95 Oxygen Delivery Method room air Intake Is patient in pain?: No Allergies ibuprofen Allergy (Severe, Verified 03/31/24 11:28) Swelling azithromycin (From Zithromax) Allergy (Intermediate, Verified 03/31/24 11:28) Unknown aspirin Allergy (Verified 03/31/24 11:28) Angioedema oxycodone Allergy (Verified 03/31/24 11:28) Angioedema moxifloxacin (From Avelox) Adverse Reaction (Intermediate, Verified 03/31/24 11:28) Rash Medications ???Medication ???Instructions ???Recorded ???Confirmed ???Type albuterol sulfate 90 mcg/actuation 2 puff inhalation Q4H PRN PRN 04/17/18 03/31/24 History aerosol inhaler Wheezing cholecalciferol (vitamin D3) 25 2,000 unit PO DAILY 12/11/18 03/31/24 History mcg (1,000 unit) capsule vitamin K2 45 mcg capsule 45 mcg PO DAILY 08/31/20 03/31/24 History citalopram 20 mg tablet 20 mg PO DAILY anxiety/depression 03/23/21 03/31/24 History nadolol 20 mg tablet 20 mg PO DAILY #90 tabs 03/23/21 03/31/24 Rx Saccharomyces boulardii 250 mg 250 mg PO BID 07/30/23 03/31/24 History capsule (Florastor) cetirizine 10 mg capsule 10 mg PO DAILY Allergies 07/30/23 03/31/24 History fluticasone propionate 230 2 inh inhalation BID #1 ea 07/30/23 03/31/24 Rx mcg-salmeterol 21 mcg/actuation HFA inhaler (Advair HFA) spacer #1 ea 07/30/23 03/31/24 Rx zoledronic acid 5 mg/100 mL in 1 ea .Route ONCE #100 mL 10/25/23 03/31/24 Rx mannitol 5 %-water intravenous piggybck nirmatrelvir 300 mg (150 mg See Rx Instruct (more content not included)... Normal [facility] Serum or plasma thyroid stim ulating hormone (TSH) measurement (units/volume)Ordered By: Jose Roberto Su on 03-31-2024 TSH Qn 0.747 uIU/mL 0.358-3.740 [facility] T4 Free Directon 03-31-2024 T4 FREE DIRECT 1.44 ng/dL Normal 0.76-1.46 [facility] Comment on above: Order Comment: DR VANNA AYOUB ORDERED CBCD, CMP, LDH DR SU ORDERED RSH, FT4, THROGL W TB AB, VITD 1 Performed By: #### L 504.2610, L501.9520, L506.0400, L500.4050, L100.0100 #### [facility] [address] [place], [place], [address] Thyroid Stim Hormone (TSH)on 03-31-2024 TSH 0.747 uIU/mL Normal 0.358-3.740 [facility] Comment on above: Order Comment: DR VANNA AYOUB ORDERED CBCD, CMP, LDH DR SU ORDERED RSH, FT4, THROGL W TB AB, VITD 1 Performed By: #### L 504.2610, L501.9520, L506.0400, L500.4050, L100.0100 #### [facility] [address] [place], [address] Vitamin D,25 Hydroxyon 03-31 Vitamin D 25-OH 30.6 ng/mL Normal [facility] Comment on above: Order Comment: DR VANNA AYOUB ORDERED CBCD, CMP, LDH DR SU ORDERED RSH, FT4, THROGL W TB AB, VITD 1 Result Comment: Leann min D 25(OH) Status Range Deficiency <20 ng/mL (50nmol/L) Insufficiency 20 - 30 ng/mL (50 - 75 nmol/L) Sufficiency 30 - 100 ng/mL (75 - 250 nmol/L) Toxicity >100 ng/mL (>250 nmol/L) Performed By: #### L 504.2610, L501.9520, L506.0400, L500.4050, L100.0100 #### [facility] [address] [place], [place], [address] Endocrinology Visit Reporton 03-23-2024 Endocrinology Visit Report [facility] [address] [place], [place] [address] OFFICE VISIT Date of Service: 03/23/24 MR#: [id number] Acct: [id number] Name: BRANDY LUGO Rep #: [id number] : 1955 Provider: Urszula Brownlee Age/Sex: 69/F Location: [facility] [place] Status: Signed Intake Vital Signs 09/26/23 09:22 02/19/24 09:10 03/23/24 13:27 Height 5 ft 5 in 5 ft 5 in 5 ft 5 in Weight: 180 lb 181 lb 2 oz BMI 29.9 30.1 BP 120/72 128/82 H Blood Pressure Location Rt brachial Lt brachial Position Sitting Sitting Respiration 18 Pulse 72 70 Pulse Source Monitor Monitor Temp 97.5 F L Pulse Oximetry (%) 96 95 Oxygen Delivery Method room air room air Intake Visit Reasons: 1 Y FU Chief Complaint: Thyroid/bone Allergies ibuprofen Allergy (Severe, Verified 02/19/24 14:03) Swelling azithromycin (From Zithromax) Allergy (Intermediate, Verified 02/19/24 14:03) Unknown aspirin Allergy (Verified 02/19/24 14:03) Angioedema oxycodone Allergy (Verified 02/19/24 14:03) Angioedema moxifloxacin (From Avelox) Adverse Reaction (Intermediate, Verified 02/19/24 14:03) Rash Medications ???Medication ???Instructions ???Recorded ???Confirmed ???Type albuterol sulfate 90 mcg/actuation 2 puff inhalation Q4H PRN PRN 04/17/18 03/23/24 History aerosol inhaler Wheezing cholecalciferol (vitamin D3) 25 2,000 unit PO DAILY 12/11/18 03/23/24 History mcg (1,000 unit) capsule vitamin K2 45 mcg capsule 45 mcg PO DAILY 08/31/20 03/23/24 History citalopram 20 mg tablet 20 mg PO DAILY anxiety/depression 03/23/21 03/23/24 History nadolol 20 mg tablet 20 mg PO DAILY #90 tabs 03/23/21 03/23/24 Rx Saccharomyces boulardii 250 mg 250 mg PO BID 07/30/23 03/23/24 History capsule (Florastor) cetirizine 10 mg capsule 10 mg PO DAILY Allergies 07/30/23 03/23/24 History fluticasone propionate 230 2 inh inhalation BID #1 ea 07/30/23 03/23/24 Rx mcg-salmeterol 21 mcg/actuation HFA inhaler (Advair HFA) spacer #1 ea 07/30/23 02/19/24 Rx zoledronic acid 5 mg/100 mL in 1 ea .Route ONCE #100 mL 10/25/23 03/23/24 Rx mannitol 5 %-water intravenous piggybck nirmatrelvir 300 mg (150 mg See Rx Instructions PO .COMPLEX 12/09/23 03/23/24 Rx x2)-ritonavir 100 mg tablet,dose #30 tabs pack (Paxlovid) levothyroxine 200 mcg tablet 200 mcg PO UD 03/23/24 03/23/24 History Have you fallen in the past year?: No PFSH Medical History Encounter for education Osteoporosis Postoperative primary hypothyroidism Elevated blood pressure reading in office without diagnosis of hypertension Multiple premature ventricular complexes Obesity Spigelian hernia Thyroid cancer (1996) AKANKSHA (obstructive sleep apnea) Hypothyroidism Hyperlipidemia Chemotherapy management, encounter for Neutropenia CLL (chronic lymphocytic leukemia) Surgical History History of herniorrhaphy (04/17/19) History of thyroidectomy (1996) Family History Mother , age 52 Breast cancer Father PTSD (post-traumatic stress disorder) Pre-diabetes Hypothyroidism Sister Depression Hypothyroidism Uterine cancer Social History Smoking Status: Never smoker alcohol intake: current details: 4 oz per day substance use type: does not use what type of physical activity do you participate in: other details: heavy yardwork 5 days per week HPI HPI Chief Complaint: Thyroid/bone Details: BRANDY LUGO, is a 69 F who presents to the office today for follow up. She was diagnosed with thyroid cancer in 1996. She had total thyroidectomy followed by high dose WILKERSON. She had positive lymph nodes. She was treated with suppressive doses of levothyroxine for years. She is taking levothyroxine 200 mcg dailyl 6 days and 50 mcg one day. TSH was 0.02 in October. I had asked her to skip her dose completely on Sundays, but she was uncomfortable with that and is taking 1/4 of a tablet. She has osteoporosis by DEXA. T-score in the LS spine is -2.9. Vitamin D is 43.7 She takes vitamin D 2,000 I ud daily and has a diet rich in calcium. No history of fracture. No parental hip fracture. No tobacco. She has one drink per day. She received her first infusion of Reclast in December. She tolerated it well. She is undergoing treatment for CLL. ROS Const Constitutional: No fatigue or weight change ENT ENT: No dizziness/vertigo Cardio Cardiology: No chest pain at rest, chest pain with exertion, shortness of breath or palpitations Skin Skin: No wounds Endo Endocrine: No fatigue or weight change Exam Const General: cooperat (more content not included)... Normal [facility] Pulmonary Visit Reporton Pulmonary Visit Report [facility] [address] [place] [address] OFFICE VISIT Date of Service: 02/19/24 MR#: [id number] Acct: [id number] Name: BRANDY LUGO Rep #: [id number] : 1955 Provider: JOEY Perez Age/Sex: 68/F [place] [facility] Status: Signed Assessment and Plan Assessment and Plan (1) Asthma: Status: Chronic Qualifiers: Asthma severity: mild Asthma persistence: intermittent Asthma complication type: uncomplicated Qualified Code(s): J45.20 - Mild intermittent asthma, uncomplicated Plan: Stable, she is using and benefiting from Pap therapy. No indication for titration study at this time. Contact the office for any new or worsening symptoms in the meantime. Follow-up in 1 year. (2) CLL (chronic lymphoid leukemia) in relapse: Status: Chronic Comment: Lymphocytes increased to 58K with decrease in PLT to 88K, suggestive of relapsed disease. PET/CT on 06/25/2023 showed right-left lower anterior hemipelvis and inguinal regions bilaterally demonstrate an increase in the Lugano Deauville score compared to the prior examination. Began single agent rituximab on 07/11/23, got 2 cycles. ANC 1.2 , PLT 107 today-in [facility]. Discussed therapy vs observation, Pt wants to think abou Plan: Complicates exam, plan, care and prognosis. (3) AKANKSHA (obstructive sleep apnea): Status: Chronic Comment: AutoPaP Plan: She is using and benefiting from PAP therapy. No indication for titration study at this time. Follow-up in 1 year. HPI 6 M FU Chief Complaint: Dry cough HPI Comments Details: This patient presents to the office today for follow-up of her obstructive sleep apnea and asthma. She is ambulatory and currently on room air. She has not recently been seen in the ED or urgent care for any respiratory illness. She has not recently required antibiotics or steroids for any breathing problems. She had a URI in late November but was able to treat it with OTC cough suppresents. She has not recently been utilizing Advair. She has not needed the use of her albuterol rescue inhaler. Today she denies any shortness of breath. She has a dry cough, but denies any hemoptysis or sputum production. She denies any wheezing, chest tightness, chest pain or palpitations. She has not had any fever, chills or body aches. She wakes feeling rested with use of her PAP machine. She does not have difficulty with mask leaks but does admit to occasional dry mouth. She usually wakes up feeling rested and refreshed. She denies difficulty with nocturia. Compliance report for the past 30 days shows 80% compliance with average use of 4 hours and 17 minutes per night. Current setting is AutoPap 6 to 10 cm of water with a residual AHI of 2.4 events per hour. Pressures are typically being utilized at 7.4 to 9.6 cm of water. Leaks do not appear to be problematic. Intake Vital Signs 07/30/23 07:47 11/19/23 11:31 01/20/24 11:51 02/19/24 09:10 Height 5 ft 5 in 5 ft 5 in 5 ft 5 in 5 ft 5 in Weight: 180 lb BMI 29.9 BP 120/72 Blood Pressure Location Rt brachial Position Sitting Respiration 18 Pulse 72 Pulse Source Monitor Temp 97.5 F L Temperature Source Temporal Artery Pulse Oximetry (%) 96 Oxygen Delivery Method room air Intake Visit Reasons: 6 M FU Chief Complaint: Allergies [facility] [place] Vendor: Yun Accompanied by: Self Allergies ibuprofen Allergy (Severe, Verified 02/19/24 14:03) Swelling azithromycin (From Zithromax) Allergy (Intermediate, Verified 02/19/24 14:03) Unknown aspirin Allergy (Verified 02/19/24 14:03) Angioedema oxycodone Allergy (Verified 02/19/24 14:03) Angioedema moxifloxacin (From Avelox) Adverse Reaction (Intermediate, Verified 02/19/24 14:03) Rash Medications ???Medication ???Instructions ???Recorded ???Confirmed ???Type albuterol sulfate 90 mcg/actuation 2 puff inhalation Q4H PRN PRN 04/17/18 02/19/24 History aerosol inhaler Wheezing cholecalciferol (vitamin D3) 25 2,000 unit PO DAILY 12/11/18 02/19/24 History mcg (1,000 unit) capsule levothyroxine 200 mcg tablet 200 mcg PO UD 07/28/20 02/19/24 History vitamin K2 45 mcg capsule 45 mcg PO DAILY 08/31/20 02/19/24 History citalopram 20 mg tablet 20 mg PO DAILY anxiety/depression 03/23/21 02/19/24 History nadolol 20 mg tablet 20 mg PO DAILY #90 tabs 03/23/21 02/19/24 Rx allopurinol 300 mg tablet 300 mg PO DAILY #36 TABLETS 07/04/23 02/19/24 Rx Saccharomyces boulardii 250 mg 250 mg PO BID 07/30/23 02/19/24 History capsule (Florastor) cetirizine 10 mg capsule 10 mg PO DAILY Allergies 07/30/23 02/19/24 History fluticasone propionate 230 2 inh inhalation BID #1 ea 07/30/23 02/19/24 Rx mcg-salmeterol 21 mcg/actuation HFA inhaler (Advair HFA) spacer #1 ea 07/30/23 02/19/24 Rx zoledronic acid (more content not included)... Normal [facility] Inital Evaluation (1) - PTon 01-08-2024 Inital Evaluation (1) - PT [facility] Physical Therapy [facility] [place] [address] / REHABILITATION SERVICES INITIAL EVALUATION MR#: [id number] Acct: [id number] Name: BRANDY LUGO Rep #: [id number] : 1955 68 From: Brandi Maurer PT, Cert. MDT Referring DrMichelle: RAS Vigil, BOTTLING ATTENDANT-C Status: REG RCR Insurance: [facility] [id number] SELF PAY INSURANCE Patient's Visit Information Visit Information Visit Information: BRANDY LUGO is a 68 year old F referred to Physical Therapy by RAS Vigil, BOTTLING ATTENDANT-C with a diagnosis of LOW BACK PAIN. Date of Evaluation: 01/07/24 Physical Therapist: Brandi Maurer, PT, Cert MDT Visit Plan Frequency: 2-3x /Week Duration: 4-6 Weeks Plan: LAND AND/OR AQUATIC THERAPY FOR CORE STRENGTHENING, TRUNK ROM/STRETCHING, POSTURE TRAINING AND HEP INST. Subjective Subjective: Present symptoms: MID BACK PAIN Present since: END August 2023 Pain Scale: WORST 3/10, LEAST 0/10 Currently: 0/10 Is it getting better, worse or staying the same: BETTER Commenced as a result of: LIFTING Worse: STANDING IN THE KITCHEN, DOING ANYTHING STANDING ON A HARD SURFACE, PROLONGED SITTING ON HARD CHAIRS OR REALLY SOFT CHAIRS, NO BACK SUPPORT Better: PULLING IN ABDOMEN AND TUCKING PELVIS Treatment this episode: SEE PT SUMMER 10/22/23. 10 PT VISITS PRIOR TO GOING ON VACATION. PMH/Recent major surgery: Medical History Osteoporosis Postoperative primary hypothyroidism Elevated blood pressure reading in office without diagnosis of hypertension Multiple premature ventricular complexes Obesity Spigelian hernia Thyroid cancer (1996) AKANKSHA (obstructive sleep apnea) Hypothyroidism Hyperlipidemia Chemotherapy management, encounter for Neutropenia CLL (chronic lymphocytic leukemia) Surgical History History of herniorrhaphy (04/17/19) History of thyroidectomy (1996) Objective Objective: Sitting/Standing Posture: FAIR. NORMAL LORDOSIS. NO RELEVANT LUMBAR LATERAL SHIFT. NO TORTICOLLIS. Other Observations: INDEP GAIT AND TRANSFERS. Sensory deficit: JULIO CÉSAR UE AND LE LIGHT TOUCH SENSATION IS GROSSLY INTACT AND SYMMETRICAL. ROM deficit: JULIO CÉSAR UE AND LE ROM WFL. Motor deficit: JULIO CÉSAR UE AND LE STRENGTH GROSSLY 5/5 WITH MMT'ING AND PATIENT DENIES INCREASED PAIN WITH TESTING. Reflexes: JULIO CÉSAR LE'S 2+ Dural Signs: NEG JULIO CÉSAR LE'S. Lumbar mvmt loss: flex - MIN TO MOD ext - MOD R SG - MIN L SG - MIN - INCREASES - NW Thoracic Mvmt Loss: JULIO CÉSAR ROT - MIN TO MOD. Core strength: FAIR Postural Strength: FAIR Palpation: NO ACUTE SPINAL TENDERNESS. Balance/Special Test Scores Oswestry Low Back Score: 7 Goals Goal 1:: DECREASE C/O BACK PAIN BY 80% TO EASE ADL'S. Goal Time Frame: 4-6 Weeks Goal 2:: IMPROVE LIFTING, SITTING, STANDING, TRAVEL AND HOMEMAKING FUNCTION. Goal Time Frame: 4-6 Weeks Goal 3:: INSTRUCT IN PROPHYLAXIS Goal Time Frame: 4-6 Weeks Rehabilitation Potential Physical Therapy Diagnosis: CORE STIFFNESS AND WEAKNESS Rehabilitation Potential: Good Anticipated Interventions Patient/Client Instruction: Educate patient on: Condition, Plan of Care and Risk Factors For the Purpose of:: To improve self management Therapeutic Exercise to Include: Strength training, Body mechanics, Postural training, Flexibilty training, Neuromotor development, In an aquatic setting, Dynamic Lumbar Stabilization and Scapular Strength/Stabilization For the Purpose of:: To decrease pain, To increase ROM, To improve muscle performance and motor function, To increase tolerance to activity/condition/position and To improve ability of physical actions for home/community/work/leisure Cryotherapy (ice pack, ice massage): Yes Thermo therapy (hot pack): Yes Ultrasound (thermal/non thermal): Yes For the Purpose of:: To decrease pain, To improve muscle performance and motor function, To increase tolerance to activity/condition/position and To improve ability of physical actions for home/community/work/leisure Text: Thank you for the opportunity to evaluate your patient. For Medicare and Medicare HMO plans, please review the plan of care and approve it. It will need to be FAXED BACK to us at [phone] for Medicare purposes. For Medicare only, by signing this I certify the plan of care. Please let me know if there are questions or concerns regarding this plan of care. Physician Signature: Date: 01/08/24 1509 CC: RAS Bailon PATEL Signed Normal [facility] CDIFF (PCR)on 12-09-2023 CDIFF Pending 027 027 NAP1-B1 Presumptive Negative *for epidemiolologic???use C. Diff PCR Negative- No toxigenic C. Diff Detected Normal [facility] Comment on above: Performed By: #### L 504.2610, L100.0100 #### [facility] [address] [place], [place], [id number] Thyroglobulin w/Anti-TG ABon 11-20-2023 Anti-TG AB < 1.0 Normal 0.0-0.9 [facility] Comment on above: Order Comment: DR VANNA AYOUB ORDERED CBCD, CMP, LDH DR SU ORDERED RSH, FT4, THROGL W TB AB, VITD 1 Result Comment: Thyr oglobulin Antibody measured by Ila Tyler Methodology It should be noted that the presence of thyroglobulin antibodies may not be pathogenic nor diagnostic, especially at very low levels. The assay forest firefighter has found that four percent of individuals without evidence of thyroid disease or autoimmunity will have positive TgAb levels up to 4 IU/mL. Performed By: #### L 504.2610, L501.9520, L506.0400, L500.4050, L100.0100 #### [facility] [address] [place], [place], [id number] THYROGLOB QUANT < 0.1 Low 1.5-38.5 [facility] Comment on above: Order Comment: DR VANNA YAOUB ORDERED CBCD, CMP, LDH DR SU ORDERED RSH, FT4, THROGL W TB AB, VITD 1 Result Comment: Acco rding to the National Academy of Clinical Biochemistry, the reference interval for Thyroglobulin (TG) should be related to euthyroid patients and not for patients who underwent thyroidectomy. TG reference intervals for these patients depend on the residual mass of the thyroid tissue left after surgery. Establishing a post-operative baseline is recommended. The assay limit of quantitation is 0.1 ng/mL Thyroglobulin measured by Ila Tyler Immunometric Assay Performed at: - [facility] [id number] Integrity Analyst: Julio Xavier PhD, Phone: [phone] Performed By: #### L 504.2610, L501.9520, L506.0400, L500.4050, L100.0100 #### [facility] [address] [place], [place], [id number] CBC W/Diff, Automatedon 10-22 SMEAR COMMENT SCANNED Normal [facility] Comment on above: Result Comment: LYMP HOCYTOSIS NOTED Performed By: #### L 504.2610, L100.0100 #### [facility] [address] [place], [address] Comprehensive Metabolic Prof ilon 11-19-2023 Albumin [Mass/Vol] 3.5 g/dL Normal 3.2-5.0 [facility] Comment on above: Performed By: #### L 504.2610, L501.9520, L506.0400, L500.4050, L100.0100 #### [facility] [address] [place], [address] Albumin/Globulin [Mass ratio] 1.2 {ratio} Normal 0.9-2.4 [facility] Comment on above: Performed By: #### L 504.2610, L501.9520, L506.0400, L500.4050, L100.0100 #### [facility] [address] [place], [address] ALK P 117 U/L Normal 45-117 [facility] Comment on above: Performed By: #### L 504.2610, L501.9520, L506.0400, L500.4050, L100.0100 #### [facility] [address] [place], [address] ALT [Catalytic activity/Vol] 22 U/L Normal 13-56 [facility] Comment on above: Performed By: #### L 504.2610, L501.9520, L506.0400, L500.4050, L100.0100 #### [facility] [address] [place], [address] AST [Catalytic activity/Vol] 20 U/L Normal 15-37 [facility] Comment on above: Performed By: #### L 504.2610, L501.9520, L506.0400, L500.4050, L100.0100 #### [facility] [address] [place], [address] Bilirubin [Mass/Vol] 1.20 mg/dL High 0.20-1.00 [facility] Comment on above: Result Comment: For patients on eltrombopag therapy, use of Dimension Erhard TBIL is not recommended. Performed By: #### L 504.2610, L501.9520, L506.0400, L500.4050, L100.0100 #### [facility] [address] [place], [address] BUN/CRE 15.9 RATIO Normal 10-20 [facility] Comment on above: Performed By: #### L 504.2610, L501.9520, L506.0400, L500.4050, L100.0100 #### [facility] [address] [place], [address] CA,Total 9.3 mg/dL Normal 8.5-10.1 [facility] Comment on above: Performed By: #### L 504.2610, L501.9520, L506.0400, L500.4050, L100.0100 #### [facility] [address] [place], [address] Chloride [Moles/Vol] 107 mmol/L Normal 98-107 [facility] Comment on above: Performed By: #### L 504.2610, L501.9520, L506.0400, L500.4050, L100.0100 #### [facility] [address] [place], [address] CO2 [Moles/Vol] 31.0 mmol/L Normal 21.0-32.0 [facility] Comment on above: Performed By: #### L 504.2610, L501.9520, L506.0400, L500.4050, L100.0100 #### [facility] [address] [place], [address] Creatinine [Mass/Vol] 0.69 mg/dL Normal 0.55-1.02 [facility] Comment on above: Result Comment: The validity of the calculated GFR GFRAA in patients over 70 years has not been determined. Clinical correlation is essential. Performed By: #### L 504.2610, L501.9520, L506.0400, L500.4050, L100.0100 #### [facility] [address] [place], [address] ECRCL 71.85 ml/min Normal [facility] Comment on above: Performed By: #### L 504.2610, L501.9520, L506.0400, L500.4050, L100.0100 #### [facility] [address] [place], [address] EST GFR - AA 108 mL/min Normal >60 [facility] Comment on above: Result Comment: Afri can [place] GFR Calc Performed By: #### L 504.2610, L501.9520, L506.0400, L500.4050, L100.0100 #### [facility] [address] [place], [address] GAP 2 Low 5-15 [facility] Comment on above: Performed By: #### L 504.2610, L501.9520, L506.0400, L500.4050, L100.0100 #### [facility] [address] [place], [address] GFR/1.73 sq M.predicted among non-blacks MDRD (S/P/Bld) [Vol rate/Area] 89 mL/min/{1.73_m2} Normal >60 [facility] Comment on above: Result Comment: Non- GFR Calc Performed By: #### L 504.2610, L501.9520, L506.0400, L500.4050, L100.0100 #### [facility] [address] [place], [address] Globulin (S) [Mass/Vol] 2.8 g/dL Normal 2.2-4.2 [facility] Comment on above: Performed By: #### L 504.2610, L501.9520, L506.0400, L500.4050, L100.0100 #### [facility] [address] [place], [address] Glucose [Mass/Vol] 93 mg/dL Normal 74-106 [facility] Comment on above: Performed By: #### L 504.2610, L501.9520, L506.0400, L500.4050, L100.0100 #### [facility] [address] [place], [address] Potassium [Moles/Vol] 3.8 mmol/L Normal 3.5-5.1 [facility] Comment on above: Performed By: #### L 504.2610, L501.9520, L506.0400, L500.4050, L100.0100 #### [facility] [address] [place], [address] Sodium [Moles/Vol] 140 mmol/L Normal 136-145 [facility] Comment on above: Performed By: #### L 504.2610, L501.9520, L506.0400, L500.4050, L100.0100 #### [facility] [address] [place], [address] T PROT 6.3 g/dL Low 6.4-8.2 [facility] Comment on above: Performed By: #### L 504.2610, L501.9520, L506.0400, L500.4050, L100.0100 #### [facility] [address] [place], [address] Urea nitrogen [Mass/Vol] 11 mg/dL Normal 7-18 [facility] Comment on above: Performed By: #### L 504.2610, L501.9520, L506.0400, L500.4050, L100.0100 #### [facility] [address] [place], [address] LDHon 11-19-2023 LDH 171 U/L Normal 84-246 [facility] Comment on above: Order Comment: 1 Performed By: #### L 504.2610, L100.0100 #### [facility] [address] [place], [address] Oncology Visit Reporton 10-22 Oncology Visit Report [facility] [address] [place] [address] OFFICE VISIT Date of Service: 11/19/23 1128 MR#: [id number] Acct: [id number] Name: BRANDY LUGO Rep #: [id number] : 1955 From: Mateo Pereira MD Age/Sex: 68/F [place] [facility] Status: Signed HPI Subjective Date of Service 11/19/23 Chief Complaint CLL on treatment History of Present Illness 68y.o.woman was diagnosed with CLL,13q minus in [place], [place]. She was on observation, seen at [facility], found to have Lymphocyte count of 111K and referred for evaluation 04/21/18. She remained on observation, was seen in the ER for Gastroenteritis. CT done on 11/09/2018 showed moderate splenomegaly, retroperitoneal adenopathy, pelvic adenopathy, Spigelian hernia, dilated loops of bowel. Underwent PET/CT 11/20/18 which no significant activity in nodes. Hepatitis profile is negative. Flow cytometry showed CLL on 11/10/2018 with CD5+,CD23+ cells. Cytogenetics showed 46 XX here in [facility]. Started BR 12/18/18, comes in for 2nd cycle which was delayed for 1 week because of Neutropenia,1000. Had a minor reaction to Rituxan with the 1st cycle but got through therapy. Finished 3rd cycle on 02/20/2019. She is now on observation. Had CT scans done on 08/01/2022 which increase in axillary and pelvic nodes. Remained on observation until May 2023, when platelets dropped to <100K. Had a PET/CT done on 06/25/2023 showed right-left lower anterior hemipelvis and inguinal regions bilaterally demonstrate an increase in the Lugano Deauville score compared to the prior examination. She was diagnosed with Relapsed CLL. Began single agent rituximab on 07/11/23. Care complicated by C difficile colitis July 2023. Cycle 2 given 08/15/23. Comes for follow up. Feels well [facility] Medical History Encounter for education Osteoporosis Postoperative primary hypothyroidism Elevated blood pressure reading in office without diagnosis of hypertension Multiple premature ventricular complexes Obesity Spigelian hernia Thyroid cancer (1996) AKANKSHA (obstructive sleep apnea) Hypothyroidism Hyperlipidemia Chemotherapy management, encounter for Neutropenia CLL (chronic lymphocytic leukemia) Surgical History History of herniorrhaphy (04/17/19) History of thyroidectomy (1996) Family History Mother , age 52 Breast cancer Father PTSD (post-traumatic stress disorder) Pre-diabetes Hypothyroidism Sister Depression Hypothyroidism Uterine cancer Social History Smoking Status: Never smoker alcohol intake: current details: 4 oz per day substance use type: does not use what type of physical activity do you participate in: other details: heavy yardwork 5 days per week Intake Vital Signs 09/26/23 09:22 11/19/23 11:31 Height 5 ft 5 in 5 ft 5 in Weight: 81.335 kg 81.25 kg BMI 29.8 29.7 BP 136/81 H 137/85 H Blood Pressure Location Rt brachial Lt brachial Position Sitting Sitting Respiration 18 16 Pulse 63 57 L Pulse Source Monitor Monitor Temp 97.4 F L 98.0 F Temperature Source Temporal Artery Temporal Artery Pulse Oximetry (%) 96 97 Oxygen Delivery Method room air room air Intake Is patient in pain?: No Allergies ibuprofen Allergy (Severe, Verified 11/19/23 11:33) Swelling azithromycin (From Zithromax) Allergy (Intermediate, Verified 11/19/23 11:33) Unknown aspirin Allergy (Verified 11/19/23 11:33) Angioedema oxycodone Allergy (Verified 11/19/23 11:33) Angioedema moxifloxacin (From Avelox) Adverse Reaction (Intermediate, Verified 11/19/23 11:33) Rash Medications ???Medication ???Instructions ???Recorded ???Confirmed ???Type albuterol sulfate 90 mcg/actuation 2 puff inhalation Q4H PRN PRN 04/17/18 11/19/23 History aerosol inhaler Wheezing cholecalciferol (vitamin D3) 25 2,000 unit PO DAILY 12/11/18 11/19/23 History mcg (1,000 unit) capsule levothyroxine 200 mcg tablet 200 mcg PO UD 07/28/20 11/19/23 History vitamin K2 45 mcg capsule 45 mcg PO DAILY 08/31/20 11/19/23 History citalopram 20 mg tablet 20 mg PO DAILY anxiety/depression 03/23/21 11/19/23 History nadolol 20 mg tablet 20 mg PO DAILY #90 tabs 03/23/21 11/19/23 Rx allopurinol 300 mg tablet 300 mg PO DAILY #36 TABLETS 07/04/23 11/19/23 Rx Saccharomyces boulardii 250 mg 250 mg PO BID 07/30/23 11/19/23 History capsule (Florastor) cetirizine 10 mg capsule 10 mg PO DAILY Allergies 07/30/23 11/19/23 History fluticasone propionate 230 2 inh inhalation BID #1 ea 07/30/23 11/19/23 Rx mcg-salmeterol 21 mcg/actuation HFA inhaler (Advair HFA) spacer (more content not included)... Normal [facility] T4 Free Directon 11-19-2023 T4 FREE DIRECT 1.85 ng/dL High 0.76-1.46 [facility] Comment on above: Performed By: #### L 504.2610, L501.9520, L506.0400, L500.4050, L100.0100 #### [facility] [address] [place], [address] Thyroid Stim Hormone (TSH)on 11-19-2023 TSH 0.02 uIU/mL Low 0.358-3.74 [facility] Comment on above: Performed By: #### L 504.2610, L501.9520, L506.0400, L500.4050, L100.0100 #### [facility] [address] [place], [address] Vitamin D,25 Hydroxyon 11-18 Vitamin D 25-OH 39.0 ng/mL Normal [facility] Comment on above: Result Comment: Leann min D 25(OH) Status Range Deficiency <20 ng/mL (50nmol/L) Insufficiency 20 - 30 ng/mL (50 - 75 nmol/L) Sufficiency 30 - 100 ng/mL (75 - 250 nmol/L) Toxicity >100 ng/mL (>250 nmol/L) Performed By: #### L 504.2610, L501.9520, L506.0400, L500.4050, L100.0100 #### [facility] [address] [place], [address] PT D/C Summary (1)on 024 PT D/C Summary (1) [facility] [address] [place] [address] / REHABILITATION SERVICES DISCHARGE SUMMARY MR#: [id number] Acct: [id number] Name: BRANDY LUGO Rep #: [id number] : 1955 68 From: Brandi Maurer PT, Cert. MDT Referring Dr.: JOEY Smith Status: REG R Insurance: [facility] [id number] SELF PAY INSURANCE Discharge Summary D/C summary: It has been my pleasure to treat BRANDY LUGO referred by JOEY Cantu, with the diagnosis of LOW BACK PAIN for a total of 10 visit(s). Discharge Date: 11/11/23 Please see the following information for a summary of their discharge status. Subjective Subjective: PATIENT REPORTS SHE HAD GREAT PAIN RELIEF FOR 3 DAYS AFTER TRYING SOME POSTURE CHANGES AROUND October BUT SOMETIME SINCE THEN THE PAIN RETURNED. PAIN IS RANGING 0 TO 6/10 CURRENTLY. OVER-ALL PATIENT STATES SHE DOES NOT FEEL LIKE SHE IS GETTING BETTER NOW. Pain back: Pain Intensity (Out of 10): 2 Overall Improvement % Improvement: 0 Objective Objective/Function: UPON ASSESSMENT TODAY PATIENT IS NOT IMPROVING. WE HAVE BEEN WORKING ON CORE AND LE STRENGTHENING AND LE FLEXIBILITY ALONG WITH POSTURE TRAINING AND ACTIVITY MODIFICATIONS TO TRY TO REDUCE HER PAIN BUT SHE IS NOT IMPROVING. PHYSICIAN RE-ASSESSMENT IS RECOMMENDED AND SHE IS AGREEABLE. UPONE EXAM TODAY: Motor deficit: JULIO CÉSAR UE AND LE STRENGTH GROSSLY 5/5 EXCEPT JULIO CÉSAR HIPS 4/5 AND JULIO CÉSAR SHLD'S 4/5. TESTING OF JULIO CÉSAR HIPS AND JULIO CÉSAR SHLD'S PROVOKES C/O MILD TRUNK DISCOMFORT. Reflexes: JULIO CÉSAR LE DTR'S ARE 2+ Dural Signs: NEGATIVE JULIO CÉSAR LE'S. Lumbar mvmt loss: flex - MOD TO CUCO - INCREASES - NW ext - MOD - MILD INCREASED LBP - NW R SG - MOD - INCREASES - NW L SG - MOD - INCREASES - NW Core strength: FAIR Postural Strength: Fair Goals Goal 1:: DECREASE C/O LOW TRUNK PAIN BY AT LEAST 70% TO EASE ADL'S Goal Progress: Not Progressing Goal 2:: IMPROVE PERSONAL CARE, LIFTING, WALKING, SITTING, STANDING, SLEEP, SOCIAL LIFE, TRAVEL AND RECREATIONAL/HOMEMAKING FUNCTION Goal Progress: Not Progressing Goal 3:: INSTRUCT IN PROPHYLAXIS Goal Progress: Not Progressing Plan Plan: D/C DUE TO LACK OF PROGRESS. PATIENT AGREEABLE. D/C Information d/c sentence: If there are questions or concerns regarding this patient's physical therapy, please feel free to call me at [phone]. Thank you for the referral of this patient. Sincerely, Brandi Maurer, PT, Cert MDT Balance/Gait/Functional tests Balance/Special Test Scores Oswestry Low Back Score: 25 Improvement % Improvement: 0 11/11/23 1137 CC: BOTTLING ATTENDANTLucille Smith; [facility] BOTTLING ATTENDANT-Roge Bailon PATEL Signed Normal [facility] Inital Evaluation (1) - PTon 10-22-2023 Inital Evaluation (1) - PT [facility] [place] [address] [place] [address]. [address] [place] [address] / REHABILITATION SERVICES INITIAL EVALUATION MR#: [id number] Acct: [id number] Name: BRANDY LUGO Rep #: [id number] : 1955 68 From: Brandi Maurer PT, Cert. MDT Referring Dr.: JOEY Cantu Status: REG R Insurance: [facility] [id number] SELF PAY INSURANCE Patient's Visit Information Visit Information Visit Information: BRANDY LUGO is a 68 year old F referred to Physical Therapy by JOEY Cantu with a diagnosis of LOW BACK PAIN. Date of Evaluation: 10/22/23 Physical Therapist: Brandi Maurer, PT, Cert MDT Visit Plan Frequency: 2-3x /Week Duration: 4-6 Weeks Plan: POSTURE CORRECTION/STRENGTHENING, INSTRUCTION IN APPROPRIATE BODY MECHANICS AND ACTIVITY MODIFICATIONS. DLS STARTING WITH A NEUTRAL SPINE PROGRESSING ROM TOLERATED. JULIO CÉSAR LE ROM, STRETCHING AND STRENGTHENING. HEP INSTRUCTION. 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 Present symptoms: MID BACK AND LOW BACK PAIN THAT WRAPS AROUND RIB CAGE AND FRONT OF HIPS INTO PROXIMAL THIGHS. PATIENT DENIES JULIO CÉSAR LE NUMBNESS AND TINGLING. A LITTLE TINGLING IN FINGERS INTERMITTENTLY (HAS HAPPENED IN THE PAST WHEN THYROID MEDS HAVE BEEN OFF). 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 FELT A GRATING FEELING OR A TWINGE THAT DIDN'T FEEL NORMAL WHILE LIFTING THE POTTING SOIL. 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 TRIED HEATING PAD AND TYLONOL THAT NIGHT. SHARP PAINS TURNING AND GOT INCREASINGLY WORSE AND STARTED GETTING SPASMS. WENT TO THE DOCTOR ABOUT A WEEK LATER AT [facility] AND WAS PRESCRIBED PREDNISONE AND EX'S. PREDNISONE DIDN'T HELPED AND EVENTUALLY TRIED EX'S BUT COULD DO ABOUT 3 OF THE EX'S BUT DIDN'T HELP. CALLED BACK AND GOT MUSCLE RELAXERS WHICH HELPED MUSCLE SPASMS BUT HASN'T HELPED PAIN. CALLED BACK AND ASKED ABOUT MORE MORE PREDNISONE AND PHYSICAL THERAPY AND IMAGING AND PHYSICAL THERAPY WAS ORDERED. Worse: BENDING, STANDING, TWISTING, SQUATING, LIFTING, RISING FROM SQUAT, RISING FROM BEND, TURNING WHILE REACHING Better: HEATING PAD WHILE ON BUT IT DOESN'T LAST. MUSCLE RELAXER HELPS SPASMS BUT NOT PAIN. KNEE TO CHEST BUT DOESN'T LAST Disturbed sleep: YES Previous history/Previous treatment: H/O LOW BACK FATIGUE OVER THE YEAR AND TIGHTNESS BUT NOT PAIN. RECENT X-RAYS AND CAT SCANS SHOW DDD (CERVICAL AND LUMBAR) IMAGING WAS DONE FOR ONCOLOGY REASONS PER PATIENT REPORT. NO BACK SURGERY. Coughing/sneezing/straining : POSITIVE FOR INCREASED PAIN Gait: NOT USING ANY ASSISTIVE DEVICES. MORE TIME AND DISTANCE LIMITED THAN USUAL. Bowel or Bladder Dysfunction: NO Unexplained weight loss: NO Imaging: NO IMAGING SINCE THIS INCIDENT. PMH/Recent major surgery: OSTEOPOROSIS. SEE BELOW Objective Objective: Sitting/Standing Posture: FAIR. MILD FH AND RSH'S. NO TORTICOLLIS. NORMAL LORDOSIS. NO RELEVANT LATERAL SHIFT. Other Observations: THIS PATIENT AMBULATES INDEP'LY INTO PT WITHOUT ANY AD'S WITH GUARDED GAIT PATTERN AND DECREASED TRUNK ROTATION. INDEP TRANSFERS SIT TO STAND. TRANSFERS ARE GUARDED TOO. Sensory deficit: JULIO CÉSAR UE AND LE LIGHT TOUCH SENSATION GROSSLY INTACT AND SYMMETRICAL ROM deficit: MILD HS AND CALF TIGHTNESS. JULIO CÉSAR UE ROM WFL. Motor deficit: JULIO CÉSAR UE AND LE STRENGTH GROSSLY 5/5 EXCEPT JULIO CÉSAR HIPS 4/5 AND JULIO CÉSAR SHLD'S 4/5. TESTING OF JULIO CÉSAR HIPS AND JULIO CÉSAR SHLD'S PROVOKES C/O MILD TRUNK DISCOMFORT. Reflexes: JULIO CÉSAR LE DTR'S ARE 2+ Dural Signs: NEGATIVE JULIO CÉSAR LE'S. Lumbar mvmt loss: flex - MOD TO CUCO - INCREASES - NW ext - MOD - NE R SG - MOD - INCREASES - W L SG - MOD - INCREASES - NW Core strength: FAIR Postural Strength: Fair Palpation: NO ACUTE TENDERNESS WITH LIGHT PALPATION OF THORACIC, LUMBAR, SACRAL OR HIP REGIONS. TREATMENT: NEUROMUSCULAR REEDUCATION - RETRAINING OF MVMT AND POSTURE FOR SITTING, LYING AND STANDING ACTIVITIES. Balance/Special Test Scores Oswestry Low Back Score: 27 Goals Goal 1:: DECREASE C/O LOW TRUNK PAIN BY AT LEAST 70% TO EASE ADL'S Goal Time Frame: 4-6 Weeks Goal 2:: IMPROVE PERSONAL CARE, LIFTING, WALKING, SITTING, STANDING, SLEEP, SOCIAL LIFE, TRAVEL AND RECREATIONAL/HOMEMAKING FUNCTION Goal Time Frame: 4-6 Weeks Goal 3:: INSTRUCT IN PROPHYLAXIS Goal Time Frame: 4-6 Weeks Rehabilitation Potential Physical Therapy Diagnosis: THIS PATIENT PRESENTS TO PT WITH C/O TRUNK PAIN THAT SOMETIMES RADIATES INTO PROXIMAL THIGHS AND AROUND HER RIB CAGE LIMITING NORMAL ADL'S. SHE HAS DECRERASED TRUNK ROM, SHLD AND HIP WEAKNESS, CORE WEAKNESS AND POSTURAL WEAKNESS. An (more content not included)... Normal [facility] Serum or plasma uric acid me asurement (mass/volume)Ordered By: Mateo Pereira on 09-26-2023 Urate [Mass/Vol] 5.2 mg/dL 2.6-6.0 [facility] Comment on above: The drugs N-Acetylcy steine and Metamizole may falsely depress this assay. Clostridium difficile detect ion by polymerase chain reactionOrdered By: Mateo Pereira on 08-07-2023 C. difficile DNA RAFY+probe Ql (Unsp spec) [facility] Stool Clostridium difficile detectionOrdered By: Mateo Pereira on 08-07-2023 C. difficile Ql (Stl) Toxigenic C. difficile Abnormal [facility] Erythrocyte sedimentation ra teOrdered By: Mateo Pereira on 06-03-2023 ESR (Bld) [Velocity] 2 mm/h 0-30 [facility] No Panel InformationOrdered By: Mateo Pereira on 06-03-2023 C-Reactive Protein Extended Range < 2.90 mg/L 0.0-3.0 [facility] Comment on above: C-Reactive Protein ( CRP) provides useful information for thediagnosis, therapy and monitoring of inflammatory processesand associated diseases. For the evaluation of Relative Riskfor Cardiovascular Disease, a High Sensitivity CRP (HSCRP)should be ordered. Absolute lymphocyte countOrd ered By: Mateo Pereira on 02-11-2023 Lymphocytes Auto (Unsp spec) [#/Vol] 34.76 10*3/uL 0.83-4.51 [facility] Basophil percentageOrdered B y: Mateo Pereira on 02-11-2023 Basophils/100 WBC (Bld) 0.3 % 0-1 [facility] Bilirubin [Mass/Vol] 0.60 mg/dL 0.20-1.00 [facility] Comment on above: For patients on eltr ombopag therapy, use of Dimension Erhard TBIL is not recommended. Chloride [Moles/Vol] 108 mmol/L 98-107 [facility] Eosinophils/100 WBC (Bld) 0.7 % 0-5 [facility] Glucose [Mass/Vol] 91 mg/dL 74-106 [facility] LDH [Catalytic activity/Vol] 231 U/L 84-246 [facility] Neutrophils (Bld) [#/Vol] 2.5 10*3/uL 2.0-7.7 [facility] Neutrophils/100 WBC (Bld) 6.2 % 47-70 [facility] Potassium [Moles/Vol] 4.7 mmol/L 3.5-5.1 [facility] Protein [Mass/Vol] 6.5 g/dL 6.4-8.2 [facility] Sodium [Moles/Vol] 138 mmol/L 136-145 [facility] WBC (Bld) [#/Vol] 39.4 10*3/uL 4.4-11.0 [facility] Comment on above: CRITICAL VALUE VERIF IED. CALLED TO LORRAINE GARCIA (ONC)02/11/23 1415 Ken Mcgarry.RESULTS READ BACK BY SAME. Blood erythrocytes count (nu mber/volume)Ordered By: Mateo Pereira on 02-11-2023 RBC (Bld) [#/Vol] 4.51 10*6/uL 4.2-5.4 [facility] Blood hemoglobin measurement (mass/volume)Ordered By: Mateo Pereira on 02-11-2023 Hemoglobin (Bld) [Mass/Vol] 13.6 g/dL 12.0-15.0 [facility] Blood lymphocytes/100 leukoc ytesOrdered By: Mateo Pereira on 02-11-2023 Lymphocytes/100 WBC (Bld) 88.3 % 19-41 [facility] Blood manual differential co mment interpretation (narrative result)Ordered By: Mateo Pereira on 02-11-2023 Manual differential comment Sherman (Bld) [Interp] COMMENT [facility] Comment on above: LYMPHOCYTOSIS.MONOCY TOSIS.LEUKOCYTOSIS. Blood monocytes/100 leukocyt esOrdered By: Mateo Pereira on 02-11-2023 Monocytes/100 WBC (Bld) 4.3 % 0-10 [facility] Blood platelet mean volumeOr dered By: Mateo Pereira on 02-11-2023 Platelet mean volume (Bld) [Entitic vol] 11.3 fL 6.2-12.0 [facility] Determination of erythrocyte mean corpuscular volume (MCV)Ordered By: Mateo Pereira on 02-11-2023 MCV (RBC) [Entitic vol] 96.2 fL 81-99 [facility] Hematocrit Auto (Bld) [Volum e fraction]Ordered By: Mateo Pereira on 02-11-2023 Hematocrit (Bld) [Volume fraction] 43.4 % 37-47 [facility] Laboratory - Chemistry and C hemistry - challengeOrdered By: Mateo Pereira on 02-11-2023 ALP [Catalytic activity/Vol] 61 U/L 45-117 [facility] ALT [Catalytic activity/Vol] 35 U/L 13-56 [facility] CO2 [Moles/Vol] 27.0 mmol/L 21.0-32.0 [facility] Globulin (S) [Mass/Vol] 2.8 g/dL 2.2-4.2 [facility] Urea nitrogen/Creatinine [Mass ratio] 26.8 mg/mg 10-20 [facility] Laboratory - Hematology and Cell countsOrdered By: Mateo Pereira on 02-11-2023 Erythrocyte distribution width (RBC) [Entitic vol] 47.2 fL 35.1-43.9 [facility] Erythrocyte distribution width (RBC) [Ratio] 13.2 % 11.6-14.6 [facility] Immature granulocytes/100 WBC (Bld) 0.200 % 0.0-0.9 [facility] Comment on above: IG% - Immature Granu locytes (promyelocytes, myelocytes and metamyelocytes) > 1% indicates that a LEFT SHIFT is Present. MCH (RBC) [Entitic mass] 30.2 pg 27.0-32.0 [facility] Nucleated RBC/100 WBC (Bld) [Ratio] 0 % 0-5 [facility] MCHC Auto (RBC) [Mass/Vol]Or dered By: Mateo Pereira on 02-11-2023 MCHC (RBC) [Mass/Vol] 31.3 g/dL 32-36 [facility] No Panel InformationOrdered By: Mateo Pereira on 02-11-2023 Estimated GFR (MDRD) Amer 106 mL/min >60 [facility] Comment on above: GFR Calc Estimated GFR (MDRD) Non-Af Amer 87 mL/min >60 [facility] Comment on above: Non- GFR Calc Platelets bldOrdered By: Jermaine Pereira on 02-11-2023 Platelets (Bld) [#/Vol] 113 10*3/uL 150-450 [facility] Review by pathologistOrdered By: Mateo Pereira on 02-11-2023 Pathologist review Sherman (Unsp spec) [Interp] Reviewed [facility] Comment on above: Previous reported re sult: Florecita machado Edited by: CHRISTOFER on 02/12/23:1310Absolute lymphocytosis suggestive of low grade lympho-proliferative disorder.Mild Thrombocytopenia.Clinical correlation is necessary. Jamir Milner M.D. 02/12/23 AMENDED REPORT 02/12/23 1310 PATH REV previously reported as: Florecita machado Serum or plasma albumin ally urement (mass/volume)Ordered By: Mateo Pereira on 02-11-2023 Albumin [Mass/Vol] 3.7 g/dL 3.2-5.0 [facility] Serum or plasma albumin/glob ulin mass ratioOrdered By: Mateo Pereira on 02-11-2023 Albumin/Globulin [Mass ratio] 1.3 {ratio} 0.9-2.4 [facility] Serum or plasma calcium ally urement (mass/volume)Ordered By: Mateo Pereira on 02-11-2023 Calcium [Mass/Vol] 9.6 mg/dL 8.5-10.1 [facility] Serum or plasma creatinine m easurement (mass/volume)Ordered By: Mateo Pereira on 02-11-2023 Creatinine [Mass/Vol] 0.71 mg/dL 0.55-1.02 [facility] Comment on above: The validity of the calculated GFR & GFRAA in patients over 70 years has not been determined. Clinical correlation is essential. Serum or plasma urea nitroge n measurement (mass/volume)Ordered By: Mateo Pereira on 02-11-2023 Urea nitrogen [Mass/Vol] 19 mg/dL 7-18 [facility] Thin prep Papanicolaou smear with manual screeningOrdered By: Mateo ePreira on 02-11-2023 Thin prep Papanicolaou smear with manual screening 24 U/L 15-37 [facility] Thin prep Papanicolaou smear with manual screening 3 5-15 [facility] No Panel InformationOrdered By: Mateo Pereira on 12-17-2022 Reactive Lymphocytes 1+ [facility] Smudge cell detectionOrdered By: Mateo Pereira on 12-17-2022 Smudge cells LM Ql (Bld) 1+ High [facility] No Panel InformationOrdered By: Mateo Pereira on 11-21-2022 Miscellaneous Test See comment [facility] Comment on above: TEST RESULTS LIMITSC hromosome, Leukemia/LymphomaSpecimen Type Comment: BLOODCells Counted 20Cells Analyzed 20Cells Karyotyped 2GTG Band ResolutionAchieved 400Cytogenetic Result Comment: 46,XX[20]Interpretation Comment: NORMAL FEMALE KARYOTYPE Cytogenetic analysis of GTG banded metaphases fromunstimulated and B-mitogen stimulated cultures usedspecifically for B-lymphoid disorders showed only normalcells. Some abnormal clones, however, have low mitoticrates, may not respond to mitogens, or may have alterationsbelow the resolution of cytogenetics. A CLL/MCL interphase fluorescence in situhybridization (FISH) panel (test code 211674) or Non-Hodgkinlymphoma FISH panel (test code 570243) may be considered. [facility] microarray-Oncology Reveal (test [id number]) is also available to resolve higher resolutionimbalances and copy neutral loss of heterozygosity. Cytogenetic results should be interpreted within thecontext of a full pathology evaluation which may includeflow cytometry, microarray analysis, and molecular genetictesting. Director Review: Comment:Tasia Martinez, PhD, [facility] TESTING PERFORMED AT [facility]. ORIGINAL REPORT ON FILE IN LAB CONTAINS ADDITIONAL TEST SITE INFORMATION. Laboratory - Chemistry and C hemistry - challengeOrdered By: Mateo Pereira on 11-15-2022 Free T4 [Mass/Vol] 1.33 ng/dL 0.76-1.46 [facility] No Panel InformationOrdered By: Mateo Pereira on 11-15-2022 Estimated Creatinine Clearance Calc 52.97 ml/min [facility] Thyroid Stimulating Hormone (TSH) 0.51 uIU/mL 0.358-3.74 [facility] Absolute lymphocyte countOrd ered By: Dr. Pereira on 08-20-2022 Lymphocytes Auto (Unsp spec) [#/Vol] 13.45 10*3/uL 0.83-4.51 [facility] Basophil percentageOrdered B y: Dr. Pereira on 08-20-2022 Basophils/100 WBC (Bld) 0.3 % 0-1 [facility] Bilirubin [Mass/Vol] 0.70 mg/dL 0.20-1.00 [facility] Comment on above: For patients on eltr ombopag therapy, use of Dimension Erhard TBIL is not recommended. Chloride [Moles/Vol] 105 mmol/L 98-107 [facility] Eosinophils/100 WBC (Bld) 1.2 % 0-5 [facility] Glucose [Mass/Vol] 88 mg/dL 74-106 [facility] LDH [Catalytic activity/Vol] 204 U/L 84-246 [facility] Neutrophils (Bld) [#/Vol] 3.0 10*3/uL 2.0-7.7 [facility] Neutrophils/100 WBC (Bld) 17.3 % 47-70 [facility] Potassium [Moles/Vol] 4.4 mmol/L 3.5-5.1 [facility] Protein [Mass/Vol] 6.3 g/dL 6.4-8.2 [facility] Sodium [Moles/Vol] 138 mmol/L 136-145 [facility] WBC (Bld) [#/Vol] 17.2 10*3/uL 4.4-11.0 [facility] Blood erythrocytes count (nu mber/volume)Ordered By: Dr. Pereira on 08-20-2022 RBC (Bld) [#/Vol] 4.56 10*6/uL 4.2-5.4 [facility] Blood hemoglobin measurement (mass/volume)Ordered By: Dr. Pereira on 08-20-2022 Hemoglobin (Bld) [Mass/Vol] 13.9 g/dL 12.0-15.0 [facility] Blood lymphocytes/100 leukoc ytesOrdered By: Dr. Pereira on 08-20-2022 Lymphocytes/100 WBC (Bld) 78.0 % 19-41 [facility] Blood manual differential co mment interpretation (narrative result)Ordered By: Dr. Pereira on 08-20-2022 Manual differential comment Sherman (Bld) [Interp] SEE COMMENT [facility] Comment on above: LYMPHOCYTOSIS NOTED Blood monocytes/100 leukocyt esOrdered By: Dr. Pereira on 08-20-2022 Monocytes/100 WBC (Bld) 3.0 % 0-10 [facility] Blood platelet adequacy dete ction by light microscopyOrdered By: Dr. Pereira on 08-20-2022 Platelets LM Ql (Bld) SLT DEC ADEQ [facility] Blood platelet mean volumeOr dered By: Dr. Pereira on 08-20-2022 Platelet mean volume (Bld) [Entitic vol] 11.6 fL 6.2-12.0 [facility] Determination of erythrocyte mean corpuscular volume (MCV)Ordered By: Dr. Pereira on 08-20-2022 MCV (RBC) [Entitic vol] 91.2 fL 81-99 [facility] Hematocrit Auto (Bld) [Volum e fraction]Ordered By: Dr. Pereira on 08-20-2022 Hematocrit (Bld) [Volume fraction] 41.6 % 37-47 [facility] Laboratory - Chemistry and C hemistry - challengeOrdered By: Dr. Pereira on 08-20-2022 ALP [Catalytic activity/Vol] 52 U/L 45-117 [facility] ALT [Catalytic activity/Vol] 27 U/L 13-56 [facility] CO2 [Moles/Vol] 27.0 mmol/L 21.0-32.0 [facility] Globulin (S) [Mass/Vol] 2.6 g/dL 2.2-4.2 [facility] Urea nitrogen/Creatinine [Mass ratio] 25.5 mg/mg 10-20 [facility] Laboratory - Hematology and Cell countsOrdered By: Dr. Pereira on 08-20-2022 Anisocytosis Ql (Bld) RARE [facility] Erythrocyte distribution width (RBC) [Entitic vol] 41.4 fL 35.1-43.9 [facility] Erythrocyte distribution width (RBC) [Ratio] 12.5 % 11.6-14.6 [facility] Immature granulocytes/100 WBC (Bld) 0.200 % 0.0-0.9 [facility] Comment on above: IG% - Immature Granu locytes (promyelocytes, myelocytes and metamyelocytes) > 1% indicates that a LEFT SHIFT is Present. MCH (RBC) [Entitic mass] 30.5 pg 27.0-32.0 [facility] Nucleated RBC/100 WBC (Bld) [Ratio] 0.1 % 0-5 [facility] MCHC Auto (RBC) [Mass/Vol]Or dered By: Dr. Pereira on 08-20-2022 MCHC (RBC) [Mass/Vol] 33.4 g/dL 32-36 [facility] Macrocytes detectionOrdered By: Dr. Pereira on 08-20-2022 Macrocytes Ql (Bld) RARE [facility] No Panel InformationOrdered By: Dr. Pereira on 08-20-2022 Atypical Lymphocytes 1+ % [facility] Estimated Creatinine Clearance Calc 49.80 ml/min [facility] Estimated GFR (MDRD) Amer 106 mL/min >60 [facility] Comment on above: GFR Calc Estimated GFR (MDRD) Non-Af Amer 88 mL/min >60 [facility] Comment on above: Non- GFR Calc Platelets bldOrdered By: Dr. Pereira on 08-20-2022 Platelets (Bld) [#/Vol] 121 10*3/uL 150-450 [facility] RBC morphologyOrdered By: Dr Michelle Pereira on 08-20-2022 RBC morphology finding Nom (Bld) N CHROM NORMAL NORM C&C [facility] Review by pathologistOrdered By: Dr. Pereira on 08-20-2022 Pathologist review Sherman (Unsp spec) [Interp] Reviewed [facility] Comment on above: Previous reported re sult: Florecita machado Edited by: RGOOD on 08/21/22:1300Absolute lymphocytosis suggestive of low grade lympho-proliferative disorder.Mild Thrombocytopenia.Clinical correlation is necessary. Jamir Milner M.D. 08/21/22 AMENDED REPORT 08/21/22 1300 PATH REV previously reported as: Florecita machado Serum or plasma albumin ally urement (mass/volume)Ordered By: Dr. Pereira on 08-20-2022 Albumin [Mass/Vol] 3.7 g/dL 3.2-5.0 [facility] Serum or plasma albumin/glob ulin mass ratioOrdered By: Dr. Pereira on 08-20-2022 Albumin/Globulin [Mass ratio] 1.4 {ratio} 0.9-2.4 [facility] Serum or plasma calcium ally urement (mass/volume)Ordered By: Dr. Pereira on 08-20-2022 Calcium [Mass/Vol] 9.6 mg/dL 8.5-10.1 [facility] Serum or plasma creatinine m easurement (mass/volume)Ordered By: Dr. Pereira on 08-20-2022 Creatinine [Mass/Vol] 0.71 mg/dL 0.55-1.02 [facility] Comment on above: The validity of the calculated GFR & GFRAA in patients over 70 years has not been determined. Clinical correlation is essential. Serum or plasma urea nitroge n measurement (mass/volume)Ordered By: Dr. Pereira on 08-20-2022 Urea nitrogen [Mass/Vol] 18 mg/dL 7-18 [facility] Thin prep Papanicolaou smear with manual screeningOrdered By: Dr. Pereira on 08-20-2022 Thin prep Papanicolaou smear with manual screening 19 U/L 15-37 [facility] Thin prep Papanicolaou smear with manual screening 6 5-15 [facility] Basophil percentageOrdered B y: Jaymie Bailon on 07-18-2022 Bilirubin [Mass/Vol] 0.80 mg/dL 0.20-1.00 [facility] Comment on above: For patients on eltr ombopag therapy, use of Dimension Erhard TBIL is not recommended. Chloride [Moles/Vol] 106 mmol/L 98-107 [facility] Cholesterol [Mass/Vol] 231 mg/dL <200 [facility] Comment on above: <200 mg/dL Desirable 200-240 mg/dL Borderline >240 mg/dL High Risk Glucose [Mass/Vol] 94 mg/dL 74-106 [facility] Potassium [Moles/Vol] 4.1 mmol/L 3.5-5.1 [facility] Protein [Mass/Vol] 6.2 g/dL 6.4-8.2 [facility] Sodium [Moles/Vol] 142 mmol/L 136-145 [facility] Triglyceride [Mass/Vol] 88 mg/dL <199 [facility] Comment on above: The drugs N-Acetylcy steine and Metamizole may falsely depress this assay.Serum Triglycerides Reference Interval Normal <150 mg/dL Borderline high 150 - 199 mg/dL High 200 - 499 mg/dL Very High > or = 500 mg/dL Laboratory - Chemistry and C hemistry - challengeOrdered By: Jaymie Bailon on 07-18-2022 ALP [Catalytic activity/Vol] 53 U/L 45-117 [facility] ALT [Catalytic activity/Vol] 26 U/L 13-56 [facility] CO2 [Moles/Vol] 28.0 mmol/L 21.0-32.0 [facility] Free T4 [Mass/Vol] 1.57 ng/dL 0.76-1.46 [facility] Globulin (S) [Mass/Vol] 2.6 g/dL 2.2-4.2 [facility] Urea nitrogen/Creatinine [Mass ratio] 20.2 mg/mg 10-20 [facility] No Panel InformationOrdered By: Jaymie Bailon on 07-18-2022 Estimated GFR (MDRD) Amer 109 mL/min >60 [facility] Comment on above: GFR Calc Estimated GFR (MDRD) Non-Af Amer 90 mL/min >60 [facility] Comment on above: Non- GFR Calc Free Triiodothyronine (T3) pg/dL 2.5 pg/mL 2.18-3.98 [facility] Thyroid Stimulating Hormone (TSH) 0.03 uIU/mL 0.358-3.74 [facility] Vitamin D 25-Hydroxy 43.7 ng/mL [facility] Comment on above: Vitamin D 25(OH) Sta tus Range Deficiency <20 ng/mL (50nmol/L) Insufficiency 20 - 30 ng/mL (50 - 75 nmol/L) Sufficiency 30 - 100 ng/mL (75 - 250 nmol/L) Toxicity >100 ng/mL (>250 nmol/L) Serum or plasma albumin ally urement (mass/volume)Ordered By: Jaymie Bailon on 07-18-2022 Albumin [Mass/Vol] 3.6 g/dL 3.2-5.0 [facility] Serum or plasma albumin/glob ulin mass ratioOrdered By: Jaymie Bailon on 07-18-2022 Albumin/Globulin [Mass ratio] 1.4 {ratio} 0.9-2.4 [facility] Serum or plasma calcium ally urement (mass/volume)Ordered By: Jaymie Bailon on 07-18-2022 Calcium [Mass/Vol] 9.3 mg/dL 8.5-10.1 [facility] Serum or plasma cholesterol in HDL measurement (mass/volume)Ordered By: Jaymie Bailon on 07-18-2022 Cholesterol in HDL [Mass/Vol] 50 mg/dL >40 [facility] Comment on above: The drugs N-Acetylcy steine and Metamizole may falsely depress this assay. Reference Range HDL <40 mg/dL Low HDL Cholesterol HDL >or= 60 mg/dL High HDL Cholesterol Serum or plasma cholesterol in VLDL measurement (mass/volume)Ordered By: Jaymie Bailon on 07-18-2022 Cholesterol in VLDL [Mass/Vol] 18 mg/dL 5-40 [facility] Serum or plasma creatinine m easurement (mass/volume)Ordered By: Jaymie Bailon on 07-18-2022 Creatinine [Mass/Vol] 0.69 mg/dL 0.55-1.02 [facility] Comment on above: The validity of the calculated GFR & GFRAA in patients over 70 years has not been determined. Clinical correlation is essential. Serum or plasma low density lipoprotein (LDL) cholesterol measurement (mass/volume)Ordered By: Jaymie Bailon on 07-18-2022 Cholesterol in LDL [Mass/Vol] 163 mg/dL 0-130 [facility] Serum or plasma urea nitroge n measurement (mass/volume)Ordered By: Jaymie Bailon on 07-18-2022 Urea nitrogen [Mass/Vol] 14 mg/dL 7-18 [facility] Thin prep Papanicolaou smear with manual screeningOrdered By: Jaymie Bailon on 07-18-2022 Thin prep Papanicolaou smear with manual screening 17 U/L 15-37 [facility] Thin prep Papanicolaou smear with manual screening 8 5-15 [facility] Whole blood hemoglobin A1c/t otal hemoglobin ratio (mass fraction)Ordered By: Jaymie Bailon on 07-18-2022 HbA1c (Bld) [Mass fraction] 5.3 % 3.8-5.6 [facility] Comment on above: Normal < 5.7 % Predi abetic 5.7 - 6.4 % Diabetic >or= 6.5 % Please note range changes. HPV W/GENOTYPE THIN PREPon 0 06-29-2022 HPV 16 Ag Ql (Unsp spec) Negative Normal Negative for HPV DNA high risk type 16 by PCR [facility] Comment on above: Order Comment: Speci men Type: FLUID SPECIMEN Ordering Facility: [facility] Address: [address] [place] [address] Performed By: #### H PVHRT #### [facility] CLIA [id number] [address] [place] [address] [place] HPV 18 Ag Ql (Unsp spec) Negative Normal Negative for HPV DNA high risk type 18 by PCR [facility] Comment on above: Order Comment: Speci men Type: FLUID SPECIMEN Ordering Facility: [facility] Address: [address] [place] [address] Performed By: #### H PVHRT #### [facility] CLIA [id number] [address] [place] [address] [place] HPV 31+33+35+39+45+51+52+5 6+58+59+66+68 DNA RAFY+probe Ql (Cvx) Negative for HPV DNA high risk types: 31,33,35,39,45,51,52,56,58, 59,66,68 by PCR. Normal Negative for HPV DNA high risk types: 31,33,35,39 ,45,51,52,5 6,58,59,66, 68 by PCR. [facility] Comment on above: Order Comment: Speci men Type: FLUID SPECIMEN Ordering Facility: [facility] Address: [address] [place] [address] Performed By: #### H PVHRT #### [facility] CLIA [id number] [address] [place] [address] [place] PAP FLUID CERVICAL SCREENING on 06-29-2022 CASE REPORT Normal [facility] Comment on above: Order Comment: Speci men Type: FLUID SPECIMEN Ordering Facility: [facility] Address: [address] [place] [address] Result Comment: Gyne cologic Cytology Report Case: [id number] Authorizing Provider: Erica Barr CNP Collected: 06/29/2022 11:40 AM Ordering Location: [facility] Received: 07/02/2022 02:15 PM First Screen: OLIVIA Hanna [facility] Specimen: Pap, Laser Beam Trim Operator, Screening, CERVICAL SCREENING FLUID Performed By: #### L [id number] #### [facility] CLIA [id number] [address] [place] [address] [place] CYTOLOGY INTERPRETATION PAP Normal [facility] Comment on above: Order Comment: Speci men Type: FLUID SPECIMEN Ordering Facility: [facility] Address: [address] [place] [address] Result Comment: Nega tive for Intraepithelial lesion or malignancy. Performed By: #### L [id number] #### [facility] CLIA [id number] [address] [place] [address] [place] CYTOLOGY PAP OTHER INT Atrophic specimen Normal [facility] Comment on above: Order Comment: Speci men Type: FLUID SPECIMEN Ordering Facility: [facility] Address: [address] [place] [address] Performed By: #### L [id number] #### [facility] CLIA [id number] [address] [place] [address] [place] FINAL DIAGNOSIS Normal [facility] Comment on above: Order Comment: Speci men Type: FLUID SPECIMEN Ordering Facility: [facility] Address: [address] [place] [address], [place] [address] Result Comment: A - CERVICAL SCREENING FLUID Satisfactory for interpretation Negative for Intraepithelial lesion or malignancy. Atrophic specimen Performed By: #### L [id number] #### [facility] CLIA [id number] [address] [place] [address] [place] FINAL PERFORMING LAB Normal [facility] Comment on above: Order Comment: Speci men Type: FLUID SPECIMEN Ordering Facility: [facility] Address: [address] [place] [address] Result Comment: Tech nical component, cinder block maker screening performed at [facility], [address] [place] [id number] CLIA# [id number] Diagnostic interpretation performed at [facility], [address] [place] [id number] CLIA# [id number] [employer]iance Internship: Gerardo Graham M.D. Performed By: #### L [id number] #### [facility] CLIA [id number] [address] [place], [place] [id number] [place] HPV REQUESTED? Yes, automatic HPV p atients over 30 Normal [facility] Comment on above: Order Comment: Speci men Type: FLUID SPECIMEN Ordering Facility: [facility] Address: [address] [place] [address], [place] [address] Performed By: #### L [id number] #### [facility] CLIA [id number] [address] [place] [address] [place] LMP Post Menopausal[Abla tion at age 52 Normal [facility] Comment on above: Order Comment: Speci men Type: FLUID SPECIMEN Ordering Facility: [facility] Address: [address] [place] [address] Performed By: #### L [id number] #### [facility] CLIA [id number] [address] [place] [address] [place] PAP DISCLAIMER COMMENT The Pap Smear is a screening test for cervical cancer. False negative results occur with all screening tests, emphasizing the need for rescreening at recommended intervals, and clinical correlation. Normal [facility] Comment on above: Order Comment: Speci men Type: FLUID SPECIMEN Ordering Facility: [facility] Address: [address] [place] [address] Performed By: #### L [id number] #### [facility] CLIA [id number] [address] [place] [address] [place] PAP DISC PAD KNOCKOUT WORKER COMMENT Normal [facility] Comment on above: Order Comment: Speci men Type: FLUID SPECIMEN Ordering Facility: [facility] Address: [address] [place] [address] Result Comment: This specimen has been analyzed by the ThinPrep Imaging System, an automated imaging and review system, which assists the laboratory in evaluating cells on ThinPrep Pap tests. Following automated imaging, selected monson from every slide are reviewed by a cinder block maker. This specimen has been analyzed by the ThinPrep Imaging System, an automated imaging and review system, which assists the laboratory in evaluating cells on ThinPrep Pap tests. Following automated imaging, selected monson from every slide are reviewed by a cinder block maker. Performed By: #### L [id number] #### [facility] CLIA [id number] [address] [place] [address] [place] Absolute lymphocyte countOrd ered By: Dr. Pereira on 06-25-2022 Lymphocytes Auto (Unsp spec) [#/Vol] 10.79 10*3/uL 0.83-4.51 [facility] Basophil percentageOrdered B y: Dr. Pereira on 06-25-2022 Basophils/100 WBC (Bld) 0.3 % 0-1 [facility] Bilirubin [Mass/Vol] 0.80 mg/dL 0.20-1.00 [facility] Comment on above: For patients on eltr ombopag therapy, use of Dimension Erhard TBIL is not recommended. Chloride [Moles/Vol] 107 mmol/L 98-107 [facility] Eosinophils/100 WBC (Bld) 1.4 % 0-5 [facility] Glucose [Mass/Vol] 133 mg/dL 74-106 [facility] Comment on above: Fasting Glucose resu lt greater than or equal to 126 mg/dL suggests DIABETES MELLITUS per A.D.A. criteria. LDH [Catalytic activity/Vol] 205 U/L 84-246 [facility] Neutrophils (Bld) [#/Vol] 2.7 10*3/uL 2.0-7.7 [facility] Neutrophils/100 WBC (Bld) 17.9 % 47-70 [facility] Potassium [Moles/Vol] 4.0 mmol/L 3.5-5.1 [facility] Protein [Mass/Vol] 6.4 g/dL 6.4-8.2 [facility] Sodium [Moles/Vol] 140 mmol/L 136-145 [facility] WBC (Bld) [#/Vol] 15.3 10*3/uL 4.4-11.0 [facility] Blood erythrocytes count (nu mber/volume)Ordered By: Dr. Pereira on 06-25-2022 RBC (Bld) [#/Vol] 4.75 10*6/uL 4.2-5.4 [facility] Blood hemoglobin measurement (mass/volume)Ordered By: Dr. Pereira on 06-25-2022 Hemoglobin (Bld) [Mass/Vol] 14.3 g/dL 12.0-15.0 [facility] Blood lymphocytes/100 leukoc ytesOrdered By: Dr. Pereira on 06-25-2022 Lymphocytes/100 WBC (Bld) 70.8 % 19-41 [facility] Blood monocytes/100 leukocyt esOrdered By: Dr. Pereira on 06-25-2022 Monocytes/100 WBC (Bld) 9.5 % 0-10 [facility] Blood platelet mean volumeOr dered By: Dr. Pereira on 06-25-2022 Platelet mean volume (Bld) [Entitic vol] 11.9 fL 6.2-12.0 [facility] Determination of erythrocyte mean corpuscular volume (MCV)Ordered By: Dr. Pereira on 06-25-2022 MCV (RBC) [Entitic vol] 90.7 fL 81-99 [facility] Hematocrit Auto (Bld) [Volum e fraction]Ordered By: Dr. Pereira on 06-25-2022 Hematocrit (Bld) [Volume fraction] 43.1 % 37-47 [facility] Laboratory - Chemistry and C hemistry - challengeOrdered By: Dr. Pereira on 06-25-2022 ALP [Catalytic activity/Vol] 51 U/L 45-117 [facility] ALT [Catalytic activity/Vol] 30 U/L 13-56 [facility] CO2 [Moles/Vol] 26.0 mmol/L 21.0-32.0 [facility] Globulin (S) [Mass/Vol] 2.7 g/dL 2.2-4.2 [facility] Urea nitrogen/Creatinine [Mass ratio] 23.2 mg/mg 10-20 [facility] Laboratory - Hematology and Cell countsOrdered By: Dr. Pereira on 06-25-2022 Erythrocyte distribution width (RBC) [Entitic vol] 40.7 fL 35.1-43.9 [facility] Erythrocyte distribution width (RBC) [Ratio] 12.3 % 11.6-14.6 [facility] Immature granulocytes/100 WBC (Bld) 0.100 % 0.0-0.9 [facility] Comment on above: IG% - Immature Granu locytes (promyelocytes, myelocytes and metamyelocytes) > 1% indicates that a LEFT SHIFT is Present. MCH (RBC) [Entitic mass] 30.1 pg 27.0-32.0 [facility] Nucleated RBC/100 WBC (Bld) [Ratio] 0 % 0-5 [facility] MCHC Auto (RBC) [Mass/Vol]Or dered By: Dr. Pereira on 06-25-2022 MCHC (RBC) [Mass/Vol] 33.2 g/dL 32-36 [facility] No Panel InformationOrdered By: Dr. Pereira on 06-25-2022 Estimated Creatinine Clearance Calc 49.80 ml/min [facility] Estimated GFR (MDRD) Amer 102 mL/min >60 [facility] Comment on above: GFR Calc Estimated GFR (MDRD) Non-Af Amer 84 mL/min >60 [facility] Comment on above: Non- GFR Calc Reactive Lymphocytes 1+ [facility] Platelets bldOrdered By: Dr. Pereira on 06-25-2022 Platelets (Bld) [#/Vol] 125 10*3/uL 150-450 [facility] Serum or plasma albumin ally urement (mass/volume)Ordered By: Dr. Pereira on 06-25-2022 Albumin [Mass/Vol] 3.7 g/dL 3.2-5.0 [facility] Serum or plasma albumin/glob ulin mass ratioOrdered By: Dr. Pereira on 06-25-2022 Albumin/Globulin [Mass ratio] 1.4 {ratio} 0.9-2.4 [facility] Serum or plasma calcium ally urement (mass/volume)Ordered By: Dr. Pereira on 06-25-2022 Calcium [Mass/Vol] 9.5 mg/dL 8.5-10.1 [facility] Serum or plasma creatinine m easurement (mass/volume)Ordered By: Dr. Pereira on 06-25-2022 Creatinine [Mass/Vol] 0.73 mg/dL 0.55-1.02 [facility] Comment on above: The validity of the calculated GFR & GFRAA in patients over 70 years has not been determined. Clinical correlation is essential. Serum or plasma urea nitroge n measurement (mass/volume)Ordered By: Dr. Pereira on 06-25-2022 Urea nitrogen [Mass/Vol] 17 mg/dL 7-18 [facility] Serum or plasma uric acid me asurement (mass/volume)Ordered By: Dr. Pereira on 06-25-2022 Urate [Mass/Vol] 5.2 mg/dL 2.6-6.0 [facility] Comment on above: The drugs N-Acetylcy steine and Metamizole may falsely depress this assay. Thin prep Papanicolaou smear with manual screeningOrdered By: Dr. Pereira on 06-25-2022 Thin prep Papanicolaou smear with manual screening 23 U/L 15-37 [facility] Thin prep Papanicolaou smear with manual screening 7 5-15 [facility] Blood manual differential co mment interpretation (narrative result)Ordered By: Dr. Pereira on 03-26-2022 Manual differential comment Sherman (Bld) [Interp] SEE COMMENT [facility] Comment on above: LYMPHOCYTOSIS NOTED Blood platelet adequacy dete ction by light microscopyOrdered By: Dr. Pereira on 03-26-2022 Platelets LM Ql (Bld) ADEQUATE ADEQ [facility] Laboratory - Hematology and Cell countsOrdered By: Dr. Pereira on 03-26-2022 Anisocytosis Ql (Bld) [facility] Macrocytes detectionOrdered By: Dr. Pereira on 03-26-2022 Macrocytes Ql (Bld) [facility] RBC morphologyOrdered By: Dr Michelle Pereira on 03-26-2022 RBC morphology finding Nom (Bld) N CHROM NORMAL NORM C&C [facility] No Panel Informationon 05-30 Miscellaneous Test See comment [facility] Comment on above: TEST RESULT LIMITSCo mp panel: Leukemia/LymphomaFlow InterpretationCD5+, CD23+ clonal B cell population detected, CLL/SLL phenotype, CD38 negative, 28% of leukocytes, <5,000 cells/uL. (See comment.)Flow Comment A small monoclonal B-cell population with a CLL phenotype is present. If the patient has a prior diagnosis of CLL, then the findings may represent persistent involvement. If the patient is not known to have CLL or SLL, further investigation is recommended if clinically indicated. In the absence of CLL or SLL, small (<5000/uL) clonal B-cell populations in the blood are classified as monoclonal B-cell lymphocytosis. Clinical correlation is required.Clinical InformationNo recent CBC is available for review.Specimen Type Peripheral bloodAssessment of Leukocytes A CD5+, CD23+ clonal B cell population is detected with dim lambda light chain restriction, representing 94% of the B cells and 28% of the leukocytes. The phenotype is typical of chronic lymphocytic leukemia (CLL)/small lymphocytic lymphoma (SLL). There is no significant expression of CD38.There is no loss of, or aberrant expression of, the palafox T cell antigens to suggest a neoplastic T cell process.CD4:CD8 ratio 1.4No circulating blasts are detected. There is no immunophenotypic evidence of abnormal myeloid maturation.Analysis of the lymphocyte population shows: B cells 64%, T cells 28%, NK cells 8%.Viability 82%Immunophenotypic Profile Abnormal cell population: present-28% of total cells (Phenotype below)Analysis and Gating Strategy 8 color analysis with CD45/SSC gatingPhenotype Chart CD2 (-) CD3 (-) CD4 (-) CD5 (+) CD7 (-) CD8 (-) CD10 (-) CD11b (-) CD11c (+) CD13 (-) CD14 (-) CD15 (-) CD16 (-) CD19 (+) CD20 (+) Dim CD22 (+) Dim CD23 (+) Bright CD33 (-) CD34 (-) CD38 (-) CD45 (+) CD56 (-) CD57 (-) CD103 (-) CD117 (-) FMC-7 (-) HLA-DR (+) KAPPA (-) LAMBDA (+) Dim CD64 (-)Resulting Path Name Mac MontoyaComment: Each antibody in this assay was utilized to assess for potential abnormalities of studied cell populations or to characterize identified abnormalities.This test was developed and its performance characteristics determined by [facility]. It has not been cleared or approved by the U.S. Food and Drug Administration.The FDA has determined that such clearance or approval is not necessary. This test is used for clinical purposes. It should not be regarded as investigational or for research. ___ TESTING PERFORMED AT [facility]. ORIGINAL REPORT ON FILE IN LAB CONTAINS ADDITIONAL TEST SITE INFORMATION. Basophil percentageon 2019 Cholesterol [Mass/Vol] 221 mg/dL <200 [facility] Comment on above: <200 mg/dL Desirable 200-240 mg/dL Borderline >240 mg/dL High Risk Triglyceride [Mass/Vol] 144 mg/dL <199 [facility] Comment on above: The drugs N-Acetylcy steine and Metamizole may falsely depress this assay.Serum Triglycerides Reference Interval Normal <150 mg/dL Borderline high 150 - 199 mg/dL High 200 - 499 mg/dL Very High > or = 500 mg/dL No Panel Informationon 03-02 Vitamin D 25-Hydroxy 29.6 ng/mL [facility] Comment on above: Vitamin D 25(OH) Sta tus Range Deficiency <20 ng/mL (50nmol/L) Insufficiency 20 - 30 ng/mL (50 - 75 nmol/L) Sufficiency 30 - 100 ng/mL (75 - 250 nmol/L) Toxicity >100 ng/mL (>250 nmol/L) Review by pathologiston 02-20 Pathologist review Sherman (Unsp spec) [Interp] Reviewed [facility] Comment on above: Previous reported re sult: Florecita machado Edited by: CHRISTOFER on 03/03/20:1344Leukopenia.Clinical correlation necessary.Jamir Milner M.D. 03/03/20 AMENDED REPORT 03/03/20 1344 PATH REV previously reported as: Florecita machado Serum or plasma cholesterol in HDL measurement (mass/volume)on 03-02-2020 Cholesterol in HDL [Mass/Vol] 66 mg/dL >40 [facility] Comment on above: The drugs N-Acetylcy steine and Metamizole may falsely depress this assay. Reference Range HDL <40 mg/dL Low HDL Cholesterol HDL >or= 60 mg/dL High HDL Cholesterol Serum or plasma cholesterol in VLDL measurement (mass/volume)on 03-02-2020 Cholesterol in VLDL [Mass/Vol] 29 mg/dL 5-40 [facility] Serum or plasma low density lipoprotein (LDL) cholesterol measurement (mass/volume)on 03-02-2020 Cholesterol in LDL [Mass/Vol] 126 mg/dL 0-130 [facility] Basophil percentageon 2018 Basophil percentage 0 SEEN /hpf 0-5 [facility] Bilirubin Test strip Ql (U)o n 04-02-2019 Bilirubin Ql (U) Negative Negative [facility] Laboratory - Chemistry and C hemistry - challengeon 04-02-2019 Ketones Ql (U) Negative Negative [facility] Laboratory - Urinalysison Bacteria LM.HPF (Urine sed) [#/Area] 0 /[HPF] None Seen [facility] Mucus LM Ql (Urine sed)on Mucus Ql (Urine sed) 0 SEEN /hpf [facility] Nitrite Test strip Ql (U)on 04-02-2019 Nitrite Ql (U) Negative Negative [facility] No Panel Informationon 04-02 Urine Glucose (UA) Normal mg/dl Normal [facility] Squamous epithelial cells de tection in urine sediment by light microscopyon 04-02-2019 Epithelial cells.squamous LM Ql (Urine sed) 0-5 SEEN /hpf 5-10 [facility] Urine blood detectionon 03-22 RBC Ql (U) Negative Negative [facility] RBC Ql (U) 0 SEEN /hpf 0-5 [facility] Urine clarityon 04-02-2019 Clarity (U) Clear Clear [facility] Urine color determinationon 04-02-2019 Color (U) Yellow Yellow [facility] Urine leukocyte esterase det ection by dipstickon 04-02-2019 Leukocyte esterase Test strip Ql (U) Negative Negative [facility] Urine pHon 04-02-2019 pH (U) 6.5 [pH] 5.0 - 8.0 [facility] Urine protein detection by a utomated test stripon 04-02-2019 Protein Auto test strip Ql (U) Negative Negative [facility] Urine specific gravity measu rementon 04-02-2019 Specific gravity (U) [Rel density] 1.010 1.002-1.030 [facility] Urobilinogen Auto test strip Ql (U)on 04-02-2019 Urobilinogen Ql (U) Normal mg/dl Normal [facility] Basophil percentageon 2018 Eosinophils/100 WBC (Bld) 10 % High 0-5 [facility] Basophils/100 WBC Manual cnt (Unsp spec)on 03-05-2019 Basophils/100 WBC (Unsp spec) 2 % High 0-1 [facility] Laboratory - Hematology and Cell countson 03-05-2019 Lymphocytes/100 WBC (Bld) 12 % Low 19-41 [facility] Monocytes/100 WBC (Bld) 30 % High 0-10 [facility] Neutrophils/100 WBC (Bld) 46 % Low 47-70 [facility] Total cell counton 9 Cells counted Molgen (Bld/Tiss) [#] 100 MANUAL DIFF [facility] Hypochromatic red blood cell detectionon 01-15-2019 Hypochromia Ql (Bld) RARE [facility] No Panel Informationon 12-18 Atypical Lymphocytes 3+ % [facility] Laboratory - Microbiology an d Antimicrobial susceptibilityon 11-12-2018 HBV core IgM IA Ql Negative Negative [facility] HCV Ab IB Ql (S) <0.1 s/co ratio 0.0-0.9 [facility] No Panel Informationon 11-12 Hepatitis B Surface Antibody Non-Reactive . [facility] Comment on above: Non Reactive: Incons istent with immunity, less than 10 mIU/mL Reactive: Consistent with immunity, greater than 9.9 mIU/mL Hepatitis B Surface Antigen Negative Negative [facility] Hepatitis Be Antibody Negative Negative [facility] Hepatitis Be Antigen Negative Negative [facility] Hepatitis C Confirmation Comment 1 Comment . [facility] Comment on above: Non reactive HCV ant ibody screen is consistent with no HCVinfection, unless recent infection is suspected or otherevidence exists to indicate HCV infection.Performed at: [facility] [id number] Director: Julio Xavier PhD, Phone: [phone] Serum hepatitis B virus core antibody detectionon 11-12-2018 HBV core Ab Ql (S) Negative Negative [facility] Absolute reticulocyte counto n 11-10-2018 Reticulocytes (Bld) [#/Vol] 0.00 10*3/uL 0-5 [facility] Serum or plasma IgA measurem ent (mass/volume)on 11-10-2018 IgA [Mass/Vol] 46 mg/dL 87-352 [facility] Comment on above: Result confirmed on concentration. Serum or plasma IgG measurem ent (mass/volume)on 11-10-2018 IgG [Mass/Vol] 582 mg/dL 700-1600 [facility] Serum or plasma IgM measurem ent (mass/volume)on 11-10-2018 IgM [Mass/Vol] mg/dL 26-217 [facility] Comment on above: Result confirmed on concentration.Performed at: [facility] [id number] Director: Julio Xavier PhD, Phone: [phone] Erythrocyte distribution wid th standard deviationon 10-15-2018 Erythrocyte distribution width (RBC) [Entitic vol] 50.0 fL High 35.1-43.9 [facility] Laboratory - Hematology and Cell countson 10-15-2018 Erythrocyte distribution width (RBC) [Ratio] 14.8 % High 11.6-14.6 [facility] Vital Signs Date Time Vital Sign Value Performing Clinician Ottoi martinay 09-30-2024 09:15-0400 Body height 165.1 cm Jaymie Bailon NP-C Work Phone: [facility] 09-30-2024 09:15-0400 Body mass index (BMI) [Ratio] 29.6 kg/m2 Jaymie Bailon BOTTLING ATTENDANT-C Work Phone: 7(112)[phone] [place] [address] 09-30-2024 09:15-0400 Body temperature 97.7 [degF] Jaymie Bailon BOTTLING ATTENDANT-C Work Phone: 7(216)[phone] [place] [address] 09-30-2024 09:15-0400 Body weight 80.85 kg Jaymie Bailon BOTTLING ATTENDANT-C Work Phone: 9(508)[phone] [place] [address] 09-30-2024 09:15-0400 Diastolic blood pressure 82 mm[Hg] Jaymie Bailon BOTTLING ATTENDANT-C Work Phone: 1(753)841-196087 [place] [address] 09-30-2024 09:15-0400 Heart rate 60 /min Jaymie Bailon NP-C Work Phone: 2(234)864-377887 [place] [address] 09-30-2024 09:15-0400 Respiratory rate 18 /min Jaymie Bailon BOTTLING ATTENDANT-C Work Phone: [facility] 09-30-2024 09:15-0400 SaO2% (BldA) [Mass fraction] 94 % Jaymie Bailon BOTTLING ATTENDANT-C Work Phone: 6(870)942-847504 [place] [address] 09-30-2024 09:15-0400 Systolic blood pressure 124 mm[Hg] Jaymie Bailon BOTTLING ATTENDANT-C Work Phone: 9(112)961-960504 [place] [address] 09-29-2024 08:24-0400 Body height 165.1 cm Jaymie Bailon BOTTLING ATTENDANT-C Work Phone: 8(066)[phone] [place] [address] 09-29-2024 08:24-0400 Body mass index (BMI) [Ratio] 29.7 kg/m2 Jaymie Bailon BOTTLING ATTENDANT-C Work Phone: 6(709)536-290804 [place] [address] 09-29-2024 08:24-0400 Body weight 81.19 kg Jaymie Bailon BOTTLING ATTENDANT-C Work Phone: 5(364)209-328004 [place] [address] 09-29-2024 08:24-0400 Diastolic blood pressure 84 mm[Hg] Jaymie Bailon BOTTLING ATTENDANT-C Work Phone: 8(105)846-881404 [place] [address] 09-29-2024 08:24-0400 Respiratory rate 16 /min Jaymie Bailon BOTTLING ATTENDANT-C Work Phone: 2(471)802-657504 [place] [address] 09-29-2024 08:24-0400 Systolic blood pressure 131 mm[Hg] Jaymie Bailon BOTTLING ATTENDANT-C Work Phone: 1(866)062-435504 [place] [address] 09-16-2024 08:50-0400 Body height 165.1 cm Jaymie Bailon BOTTLING ATTENDANT-C Work Phone: 3(825)990-573604 [place] [address] 09-16-2024 08:50-0400 Body mass index (BMI) [Ratio] 30.1 kg/m2 Jaymie Bailon BOTTLING ATTENDANT-C Work Phone: 0(657)401-819204 [place] [address] 09-16-2024 08:50-0400 Body temperature 98.4 [degF] Jaymie Bailon BOTTLING ATTENDANT-C Work Phone: 1(028)625-813104 [place] [address] 09-16-2024 08:50-0400 Body weight 82.21 kg Jaymie Bailon BOTTLING ATTENDANT-C Work Phone: 9(538)734-642404 [place] [address] 09-16-2024 08:50-0400 Diastolic blood pressure 75 mm[Hg] Jaymie Bailon BOTTLING ATTENDANT-C Work Phone: 7(492)144-576404 [place] [address] 09-16-2024 08:50-0400 Heart rate 71 /min Jaymie Bailon BOTTLING ATTENDANT-C Work Phone: 0(592)[phone] [place] [address] 09-16-2024 08:50-0400 Respiratory rate 16 /min Jaymie Bailon BOTTLING ATTENDANT-C Work Phone: 4(655)454-335604 [place] [address] 09-16-2024 08:50-0400 SaO2% (BldA) [Mass fraction] 96 % Jaymie Bailon BOTTLING ATTENDANT-C Work Phone: 6(505)237-984804 [place] [address] 09-16-2024 08:50-0400 Systolic blood pressure 118 mm[Hg] Jaymie Bailon BOTTLING ATTENDANT-C Work Phone: 7(707)800-909704 [place] [address] 09-10-2024 13:39-0400 Body mass index (BMI) [Ratio] 30.5 kg/m2 Jaymie Bailon BOTTLING ATTENDANT-C Work Phone: 3(135)725-223904 [place] [address] 09-10-2024 13:39-0400 Body temperature 97.6 [degF] Jaymie Bailon BOTTLING ATTENDANT-C Work Phone: 3(175)885-869004 [place] [address] 09-10-2024 13:39-0400 Body weight 83.17 kg Jaymie Bailon BOTTLING ATTENDANT-C Work Phone: 1(992)062-630304 [place] [address] 09-10-2024 13:39-0400 Diastolic blood pressure 80 mm[Hg] Jaymie Bailon BOTTLING ATTENDANT-C Work Phone: 2(825)206-430704 [place] [address] 09-10-2024 13:39-0400 Heart rate 58 /min Jaymie Bailon BOTTLING ATTENDANT-C Work Phone: 0(551)396-659104 [place] [address] 09-10-2024 13:39-0400 Respiratory rate 18 /min Jaymie Bailon BOTTLING ATTENDANT-C Work Phone: 4(082)841-228604 [place] [address] 09-10-2024 13:39-0400 SaO2% (BldA) [Mass fraction] 94 % Jaymie Bailon BOTTLING ATTENDANT-C Work Phone: 0(395)028-051504 [place] [address] 09-10-2024 13:39-0400 Systolic blood pressure 131 mm[Hg] Jaymie Bailon BOTTLING ATTENDANT-C Work Phone: 2(951)388-077904 [place] [address] 08-13-2024 13:32-0400 Body mass index (BMI) [Ratio] 30.7 kg/m2 Jaymie Bailon BOTTLING ATTENDANT-C Work Phone: 8(983)141-616804 [place] [address] 08-13-2024 13:32-0400 Body temperature 97.8 [degF] Jaymie Bailon BOTTLING ATTENDANT-C Work Phone: 2(464)[phone] [place] [address] 08-13-2024 13:32-0400 Body weight 83.63 kg Jaymie Bailon BOTTLING ATTENDANT-C Work Phone: 4(216)960-889404 [place] [address] 08-13-2024 13:32-0400 Diastolic blood pressure 81 mm[Hg] Jaymie Bailon BOTTLING ATTENDANT-C Work Phone: 1(031)024-476604 [place] [address] 08-13-2024 13:32-0400 Heart rate 64 /min Jaymie Bailon BOTTLING ATTENDANT-C Work Phone: 9(800)763-233004 [place] [address] 08-13-2024 13:32-0400 Respiratory rate 18 /min Jaymie Bailon BOTTLING ATTENDANT-C Work Phone: 7(443)[phone] [place] [address] 08-13-2024 13:32-0400 SaO2% (BldA) [Mass fraction] 94 % Jaymie Bailon BOTTLING ATTENDANT-C Work Phone: 8(345)043-921104 [place] [address] 08-13-2024 13:32-0400 Systolic blood pressure 120 mm[Hg] Jaymie Bailon BOTTLING ATTENDANT-C Work Phone: 2(174)639-787104 [place] [address] 08-15-2023 15:54-0400 Body temperature 96.8 [degF] Jaymie Bailon BOTTLING ATTENDANT-C Work Phone: 7(587)116-370104 [place] [address] 08-15-2023 15:54-0400 Diastolic blood pressure 70 mm[Hg] Jaymie Bailon BOTTLING ATTENDANT-C Work Phone: 7(671)300-653004 [place] [address] 08-15-2023 15:54-0400 Heart rate 72 /min Jaymie Bailon BOTTLING ATTENDANT-C Work Phone: 7(538)325-809304 [place] [address] 08-15-2023 15:54-0400 Respiratory rate 16 /min Jaymie Bailon BOTTLING ATTENDANT-C Work Phone: 2(668)493-869304 [place] [address] 08-15-2023 15:54-0400 SaO2% (BldA) [Mass fraction] 94 % Jaymie Bailon BOTTLING ATTENDANT-C Work Phone: 7(083)519-433904 [place] [address] 08-15-2023 15:54-0400 Systolic blood pressure 124 mm[Hg] Jaymie Bailon BOTTLING ATTENDANT-C Work Phone: 1(653)405-035404 [place] [address] 04-08-2023 13:29-0500 Body height 165.1 cm [facility] Work Phone: 6(176)922-210904 [place] [address] 04-08-2023 13:29-0500 Body mass index (BMI) [Ratio] 29.3 kg/m2 [facility] Work Phone: 5(713)057-180904 [place] [address] 04-08-2023 13:29-0500 Body temperature 98.8 [degF] [facility] Work Phone: 6(330)847-523304 [place] [address] 04-08-2023 13:29-0500 Body weight 79.94 kg [facility] Work Phone: 1(473)944-048404 [place] [address] 04-08-2023 13:29-0500 Diastolic blood pressure 78 mm[Hg] [facility] Work Phone: 4(663)557-484404 [place] [address] 04-08-2023 13:29-0500 Heart rate 78 /min [facility] Work Phone: 4(474)713-049704 [place] [address] 04-08-2023 13:29-0500 Respiratory rate 16 /min [facility] Work Phone: 3(880)865-218004 [place] [address] 04-08-2023 13:29-0500 SaO2% (BldA) [Mass fraction] 98 % [facility] Work Phone: 0(443)268-182504 [place] [address] 04-08-2023 13:29-0500 Systolic blood pressure 150 mm[Hg] [facility] Work Phone: 8(898)164-420004 [place] [address] 02-12-2023 11:15-0400 Body height 165.1 cm [facility] Work Phone: 9(965)220-853204 [place] [address] 02-12-2023 11:15-0400 Body weight 78.92 kg [facility] Work Phone: 0(916)811-231204 [place] [address] 02-12-2023 11:15-0400 Heart rate 71 /min [facility] Work Phone: 1(943)067-567704 [place] [address] 02-12-2023 11:15-0400 SaO2% (BldA) [Mass fraction] 97 % [facility] Work Phone: 4(228)979-249004 [place] [address] 02-11-2023 14:46-0400 Body mass index (BMI) [Ratio] 29.6 kg/m2 [facility] Work Phone: 0(941)038-302804 [place] [address] 02-11-2023 14:46-0400 Body temperature 98.2 [degF] [facility] Work Phone: 7(811)443-452004 [place] [address] 02-11-2023 14:46-0400 Body weight 80.73 kg [facility] Work Phone: 3(958)029-707904 [place] [address] 02-11-2023 14:46-0400 Diastolic blood pressure 80 mm[Hg] [facility] Work Phone: 1(050)509-888904 [place] [address] 02-11-2023 14:46-0400 Heart rate 81 /min [facility] Work Phone: 8(081)992-670304 [place] [address] 02-11-2023 14:46-0400 Respiratory rate 18 /min [facility] Work Phone: 8(471)974-205804 [place] [address] 02-11-2023 14:46-0400 SaO2% (BldA) [Mass fraction] 94 % [facility] Work Phone: 4(780)814-422504 [place] [address] 02-11-2023 14:46-0400 Systolic blood pressure 140 mm[Hg] [facility] Work Phone: 0(953)483-736704 [place] [address] 02-01-2023 08:39-0400 Body mass index (BMI) [Ratio] 29 kg/m2 [facility] Work Phone: 4(544)512-541604 [place] [address] 02-01-2023 08:39-0400 Body temperature 97.1 [degF] [facility] Work Phone: 1(280)458-004804 [place] [address] 02-01-2023 08:39-0400 Body weight 79.09 kg [facility] Work Phone: 9(818)021-885604 [place] [address] 02-01-2023 08:39-0400 Diastolic blood pressure 83 mm[Hg] [facility] Work Phone: 1(484)501-109904 [place] [address] 02-01-2023 08:39-0400 Heart rate 61 /min [facility] Work Phone: 2(614)525-493204 [place] [address] 02-01-2023 08:39-0400 Respiratory rate 18 /min [facility] Work Phone: 9(671)211-591504 [place] [address] 02-01-2023 08:39-0400 SaO2% (BldA) [Mass fraction] 95 % [facility] Work Phone: 4(680)613-063004 [place] [address] 02-01-2023 08:39-0400 Systolic blood pressure 142 mm[Hg] [facility] Work Phone: 2(632)965-354904 [place] [address] 12-17-2022 13:03-0400 Body mass index (BMI) [Ratio] 30.3 kg/m2 [facility] Work Phone: 2(903)316-486704 [place] [address] 12-17-2022 13:03-0400 Body temperature 97.4 [degF] [facility] Work Phone: 1(347)620-935304 [place] [address] 12-17-2022 13:03-0400 Body weight 82.72 kg [facility] Work Phone: 5(568)757-213704 [place] [address] 12-17-2022 13:03-0400 Diastolic blood pressure 81 mm[Hg] [facility] Work Phone: 2(035)152-533904 [place] [address] 12-17-2022 13:03-0400 Heart rate 61 /min [facility] Work Phone: 1(117)115-258804 [place] [address] 12-17-2022 13:03-0400 Respiratory rate 16 /min [facility] Work Phone: 5(628)935-352804 [place] [address] 12-17-2022 13:03-0400 SaO2% (BldA) [Mass fraction] 96 % [facility] Work Phone: 5(539)847-129204 [place] [address] 12-17-2022 13:03-0400 Systolic blood pressure 128 mm[Hg] [facility] Work Phone: 3(853)986-330704 [place] [address] 11-15-2022 13:14-0400 Body mass index (BMI) [Ratio] 30.2 kg/m2 [facility] Work Phone: 0(946)538-429204 [place] [address] 11-15-2022 13:14-0400 Body temperature 97.7 [degF] [facility] Work Phone: 5(831)376-619004 [place] [address] 11-15-2022 13:14-0400 Body weight 82.27 kg [facility] Work Phone: 6(028)686-024104 [place] [address] 11-15-2022 13:14-0400 Diastolic blood pressure 78 mm[Hg] [facility] Work Phone: 3(518)800-219904 [place] [address] 11-15-2022 13:14-0400 Heart rate 94 /min [facility] Work Phone: 7(002)735-825104 [place] [address] 11-15-2022 13:14-0400 Respiratory rate 16 /min [facility] Work Phone: 7(099)146-128404 [place] [address] 11-15-2022 13:14-0400 SaO2% (BldA) [Mass fraction] 94 % [facility] Work Phone: 8(033)348-299804 [place] [address] 11-15-2022 13:14-0400 Systolic blood pressure 119 mm[Hg] [facility] Work Phone: 5(133)711-248204 [place] [address] 08-20-2022 14:27-0400 Body height 165.1 cm [facility] Work Phone: 6(532)860-097104 [place] [address] 08-20-2022 14:27-0400 Body mass index (BMI) [Ratio] 30.2 kg/m2 [facility] Work Phone: 2(041)173-645604 [place] [address] 08-20-2022 14:27-0400 Body temperature 98.4 [degF] [facility] Work Phone: 6(052)058-616704 [place] [address] 08-20-2022 14:27-0400 Body weight 82.32 kg [facility] Work Phone: 1(405)937-084204 [place] [address] 08-20-2022 14:27-0400 Diastolic blood pressure 84 mm[Hg] [facility] Work Phone: 1(084)091-509304 [place] [address] 08-20-2022 14:27-0400 Heart rate 63 /min [facility] Work Phone: 0(255)889-874504 [place] [address] 08-20-2022 14:27-0400 Respiratory rate 16 /min [facility] Work Phone: 8(442)926-747004 [place] [address] 08-20-2022 14:27-0400 SaO2% (BldA) [Mass fraction] 63 % [facility] Work Phone: 4(986)636-385204 [place] [address] 08-20-2022 14:27-0400 Systolic blood pressure 139 mm[Hg] [facility] Work Phone: 8(812)364-943404 [place] [address] 06-25-2022 14:11-0500 Body height 165.1 cm [facility] 06-25-2022 14:04-0500 Body mass index (BMI) [Ratio] 31.5 kg/m2 [facility] Work Phone: 4(433)682-945204 [place] [address] 06-25-2022 14:04-0500 Body temperature 98.2 [degF] [facility] Work Phone: 8(877)765-403404 [place] [address] 06-25-2022 14:04-0500 Body weight 85.95 kg [facility] Work Phone: 1(671)745-813604 [place] [address] 06-25-2022 14:04-0500 Diastolic blood pressure 85 mm[Hg] [facility] Work Phone: 3(326)844-237604 [place] [address] 06-25-2022 14:04-0500 Heart rate 63 /min [facility] Work Phone: 4(374)993-039804 [place] [address] 06-25-2022 14:04-0500 Respiratory rate 19 /min [facility] Work Phone: 4(244)603-771404 [place] [address] 06-25-2022 14:04-0500 SaO2% (BldA) [Mass fraction] 95 % [facility] Work Phone: 3(494)402-626004 [place] [address] 06-25-2022 14:04-0500 Systolic blood pressure 136 mm[Hg] [facility] Work Phone: [facility] 03-02-2020 10:31-0500 Body mass index (BMI) [Ratio] 32.3 kg/m2 [facility] 03-02-2020 10:31-0500 Body temperature 97 [degF] [facility] 03-02-2020 10:31-0500 Body weight 87.99 kg [facility] 03-02-2020 10:31-0500 Diastolic blood pressure 90 mm[Hg] [facility] 03-02-2020 10:31-0500 Heart rate 59 /min [facility] 03-02-2020 10:31-0500 Respiratory rate 16 /min [facility] 03-02-2020 10:31-0500 SaO2% (BldA) [Mass fraction] 94 % [facility] 03-02-2020 10:31-0500 Systolic blood pressure 134 mm[Hg] [facility] Encounters Encounter Date Encounter Type Care Provider Facility Start: 09-30-[address] Mateo Pereira MD -[facility] Start: 09-30-2024 End: 09-30-[address] Mateo Pereira MD -[facility] Work Phone: Start: 09-30-2024 End: 09-30-2024 ambulatory Jaymie Bailon BOTTLING ATTENDANT-C Work Phone: [facility] Work Phone: Start: 09-29-2024 End: 09-29-[address] Hamilton Melendez MD -[facility] Work Phone: Start: 09-29-2024 End: 09-29-2024 ambulatory Jaymie Bailon BOTTLING ATTENDANT-C Work Phone: [facility] Work Phone: Start: 09-22-[address] Mateo Pereira MD -[facility] Start: 09-16-2024 End: 09-16-2024 Patient encounter procedure Valerie Henry BOTTLING ATTENDANT-C -[facility] Work Phone: Start: 09-16-2024 End: 09-16-2024 ambulatory Jaymie Bailon BOTTLING ATTENDANT-C Work Phone: [facility] Work Phone: Start: 09-10-[address] Mateo Pereira MD -[facility] Start: 09-10-2024 End: 09-10-[address] Mateo Pereira MD -[facility] Work Phone: Start: 09-10-2024 End: 09-10-2024 ambulatory Ivan Spears Facility:[facility] Start: 09-04-2024 ambulatory JAYMIE BAILON Facili ty:[facility] Start: 08-13-2024 End: 08-13-[address] Mateo Pereira MD -Laboratory Work Phone: Start: 08-13-2024 End: 08-13-[address] Mateo Pereira MD -[facility] Work Phone: Start: 08-13-2024 End: 08-13-2024 ambulatory Jaymie Uvaldo VSC Facility:[facility] Start: 08-13-2024 End: 08-13-2024 ambulatory Mateo Pereira Facility:[facility] Start: 03-31-2024 End: 03-31-2024 ambulatory Jaymie Uvaldo VSC Facility:[facility] Start: 03-23-2024 End: 03-23-2024 ambulatory Jose Roberto Georges Facility:[facility] Start: 02-19-2024 End: 02-19-2024 ambulatory Lauren Perez NP Facility:[facility] Start: 01-20-2024 End: 01-20-2024 ambulatory Jose Roberto Georges Facility:[facility] Start: 01-07-2024 End: 01-07-2024 ambulatory Jaymie Bailon VSC Facility:[facility] Start: 12-09-2023 End: 12-09-2023 ambulatory Sabiha Garcia VSC Facility:[facility] Start: 11-30-2023 ambulatory Sabiha Joyer VSC Faci lity:[facility] Start: 11-19-2023 End: 11-19-2023 ambulatory Jaymie Uvaldo VSC Facility:[facility] Start: 11-11-2023 End: 11-11-2023 ambulatory El Smith VSC Facility:[facility] Start: 04-11-2023 End: 04-11-2023 ambulatory [facility] Work Phone: [facility] Work Phone: Start: 04-11-2023 End: 04-11-2023 Patient encounter procedure [facility] Work Phone: [facility]-Radiology, [facility] Work Phone: Start: 04-08-2023 End: 04-08-2023 Patient encounter procedure [facility] Work Phone: [facility] Work Phone: Start: 03-04-2023 End: 03-04-2023 ambulatory [facility] Work Phone: [facility] Work Phone: Start: 03-04-2023 End: 03-04-2023 Patient encounter procedure [facility] Work Phone: [facility]-Sleep Lab Work Phone: Start: 02-19-2023 End: 02-19-2023 ambulatory [facility] Work Phone: [facility] Work Phone: Start: 02-19-2023 End: 02-19-2023 Patient encounter procedure [facility] Work Phone: [facility]-Sleep Lab Work Phone: Start: 02-13-2023 Non-patient / Non-visit [facility] Work Phone: [facility] Start: 02-12-2023 End: 02-12-2023 ambulatory [facility] Work Phone: [facility] Work Phone: Start: 02-12-2023 End: 02-12-2023 Patient encounter procedure [facility] Work Phone: [facility]-Pulmonary Services/Neurology Work Phone: Start: 02-11-2023 [facility] Start: 02-11-2023 End: 02-11-2023 Patient encounter procedure [facility] Work Phone: [facility] Work Phone: Start: 02-07-2023 Non-patient / Non-visit [facility] Work Phone: [facility] Start: 02-06-2023 End: 02-06-2023 ambulatory [facility] Work Phone: [facility] Work Phone: Start: 02-06-2023 End: 02-06-2023 Patient encounter procedure [facility] Work Phone: [facility]-Pulmonary Services/Neurology Work Phone: Start: 02-01-2023 End: 02-01-2023 Patient encounter procedure [facility] Work Phone: [facility] [place] Work Phone: Start: 12-17-2022 End: 12-17-2022 Patient encounter procedure [facility] Work Phone: [facility] Work Phone: Start: 11-15-2022 End: 11-15-2022 Patient encounter procedure [facility] Work Phone: [facility] Work Phone: Start: 09-11-2022 End: 09-11-2022 ambulatory [facility] Work Phone: [facility] Work Phone: Start: 09-11-2022 End: 09-11-2022 Patient encounter procedure [facility] Work Phone: [facility]-Outpatient Bone Densitometry Start: 08-20-2022 [facility]: [facility] Start: 08-20-2022 End: 08-20-2022 Patient encounter procedure [facility] Work Phone: [facility] Start: 08-01-2022 End: 08-01-2022 Patient encounter procedure [facility] Work Phone: [facility]-Cat Scan, [facility] Start: 07-18-2022 End: 07-18-2022 ambulatory [facility] Work Phone: Start: 07-18-2022 End: 07-18-2022 Patient encounter procedure [facility]Laboratory, [facility] Start: 07-11-2022 End: 07-11-2022 ambulatory [facility] Work Phone: Start: 07-11-2022 End: 07-11-2022 Patient encounter procedure [facility]-Outpatient Breast Imaging Start: 06-25-2022 End: 06-25-2022 Patient encounter procedure [facility] Work Phone: [facility] Start: 06-25-2022 Registered Recurring [facility] Start: 07-08-2020 End: 07-08-2020 Patient encounter procedure [facility] Start: 06-17-2020 End: 06-17-2020 Patient encounter procedure [facility] Start: 04-02-2019 End: 10-01-2024 ambulatory [facility] Facility:[facility] Start: 06-05-2018 End: 06-05-2018 Telephone encounter Lalita Skelton Work Phone: [facility] at [facility] Comment on above: Flu Procedures Date Procedure Procedure Detail Performing Clinician Start: 09-30-2024 Estimated creatinine clearance Jaymie COOK Work Phone: Start: 09-30-2024 Serum inorganic phosphate measurement Jaymie COOK Work Phone: Start: 09-22-2024 PET study for localization of tumor Jaymie COOK Work Phone: Start: 09-10-2024 Estimated creatinine clearance Jaymie Saucedo joyashelley BOTTLING ATTENDANT-C Work Phone: Start: 09-10-2024 Immunoglobulin M measurement Jaymie lovechristofer BOTTLING ATTENDANT-C Work Phone: Comment on above: Result confirmed on concentration.Perfor med at: [email or web address] [place], [place] [id number] Director: Julio Xavier PhD, Phone: [phone] Start: 07-30-2024 Vitamin D, 25-hydroxy measurement Abraham Bailon BOTTLING ATTENDANT-C Work Phone: Comment on above: Vitamin D StatusDeficiency: <20 ng/mL (5 0nmol/L)Insufficiency: 20-30 ng/mL (50-75 nmol/L)Sufficiency: 30-100 ng/mL (75-250 nmol/L)Toxicity: >100 ng/mL (>250 nmol/L) Start: 03-31-2024 Measurement of renal function Jaymiefabian magallanes BOTTLING ATTENDANT-C Work Phone: Comment on above: GFR Calc Start: 03-31-2024 Serum thyroglobulin level Jaymie Rohan in BOTTLING ATTENDANT-C Work Phone: Comment on above: According to the National Academy of Cli nical Biochemistry,the reference interval for Thyroglobulin (TG) should berelated to euthyroid patients and not for patients whounderwent thyroidectomy. TG reference intervals for thesepatients depend on the residual mass of the thyroid tissueleft after surgery. Establishing a post-operative baselineis recommended. The assay limit of quantitation is 0.1ng/mLThyroglobulin measured by [employer] ImmunometricAssayPerformed at: [employer] [id number] [place], [place] [id number] Director: Julio Xavier PhD, Phone: [phone] Start: 03-31-2024 Thyroglobulin antibody measurement Michellesanthosh Bailon BOTTLING ATTENDANT-C Work Phone: Comment on above: Thyroglobulin Antibody measured by [employer] TechnologyMethodologyIt should be noted that the presence of thyroglobulinantibodies may not be pathogenic nor diagnostic, especiallyat very low levels. The assay forest firefighter has found thatfour percent of individuals without evidence of thyroiddisease or autoimmunity will have positive TgAb levels upto 4 IU/mL. Start: 08-07-2023 Clostridium difficile detection Jaymie Uvaldo COOK Work Phone: Start: 06-25-2023 PET study for localization of tumor Jaymie Uvaldo COOK Work Phone: Start: 04-11-2023 X-ray of chest posteroanterior view [facility] Work Phone: Start: 08-01-2022 CT of chest and abdomen [facility] Work Phone: Start: 08-01-2022 CT of soft tissues of neck with contrast [facility] Work Phone: Start: 07-11-2022 Screening mammography Start: 11-20-2018 PET/CT Tumor Base -Thigh Subs Plan of Treatment Date Care Activity Detail Author Start: 10-05-2024 ambulatory Ambulatory Facility:[facility] Start: 09-30-2024 Immunoglobulin measurement [facility] Start: 09-30-2024 Procedure [facility] Start: 09-16-2024 Patient referral [facility] Work Phone: Start: 09-10-2024 Patient referral [facility] Work Phone: Start: 09-11-2022 Dual energy X-ray absorptiometry Dexa Bone Density Study [facility] Start: 09-11-2022 DXA Bone [Mass/Area] Bone density [facility] Start: 02-20-2019 Disease process or condition education [facility] Start: 02-20-2019 Medication administration assessment [facility] Start: 02-20-2019 Medication monitoring [facility] Start: 02-20-2019 Precautionary procedure [facility] Start: 02-20-2019 Vital signs measurements [facility] Start: 02-20-2019 [facility] Start: 02-19-2019 Disease process or condition education [facility] Start: 02-19-2019 Medication administration assessment [facility] Start: 02-19-2019 Medication monitoring [facility] Start: 02-19-2019 Precautionary procedure [facility] Start: 02-19-2019 Vital signs measurements [facility] Start: 02-19-2019 [facility] Start: 01-23-2019 Disease process or condition education [facility] Start: 01-23-2019 Medication administration assessment [facility] Start: 01-23-2019 Medication monitoring [facility] Start: 01-23-2019 Precautionary procedure [facility] Start: 01-23-2019 Vital signs measurements [facility] Start: 01-23-2019 [facility] Start: 01-22-2019 Disease process or condition education [facility] Start: 01-22-2019 Medication administration assessment [facility] Start: 01-22-2019 Medication monitoring [facility] Start: 01-22-2019 Precautionary procedure [facility] Start: 01-22-2019 Vital signs measurements [facility] Start: 01-22-2019 [facility] Start: 12-19-2018 Disease process or condition education [facility] Start: 12-19-2018 Medication administration assessment [facility] Start: 12-19-2018 Medication monitoring [facility] Start: 12-19-2018 Precautionary procedure [facility] Start: 12-19-2018 Vital signs measurements [facility] Start: 12-19-2018 [facility] Start: 12-18-2018 Disease process or condition education [facility] Start: 12-18-2018 Medication administration assessment [facility] Start: 12-18-2018 Medication monitoring [facility] Start: 12-18-2018 Precautionary procedure [facility] Start: 12-18-2018 Vital signs measurements [facility] Start: 12-18-2018 [facility] Start: 12-21-2017 Influenza vaccination INFLUENZA VACCINE (#1) [facility] Start: 2006 Protein mass conc COLON CANCER SCREENING DISCUSSION [facility] Start: 2006 Zoster vaccine hzv live for subcutaneous use ZOSTER (SHINGLES) VACCINE (1 of 2) [facility] Start: 09-13-2005 Protein mass conc MAMMOGRAM SCREENING DISCUSSION [facility] Start: 1996 Fasting lipid profile LIPID SCREENING [facility] Start: 1977 Screening for malignant neoplasm of cervix PAP SMEAR DISCUSSION [facility] Start: 1975 Third diphtheria, tetanus and acellular pertussis (DTaP) vaccination TDAP (ADULT) [facility] Start: 1974 Tetanus vaccination TETANUS [facility] Start: 1969 HIV screening HIV SCREENING DISCUSSION [facility] Start: 1956 Hepatitis C antibody, confirmatory test HEPATITIS C VIRUS SCREENING [facility] C reactive protein [Mass/volume] in Serum or Plasma [facility] CBC W Auto Different ial panel - Blood [facility] CBC W Auto Different ial panel - Blood [facility] CBC W Auto Different ial panel - Blood [facility] CBC W Auto Different ial panel - Blood [facility] Comprehensive metabo lic 2000 panel - Serum or Plasma [facility] CT Abdomen and Pelvi s W contrast IV [facility] CT Chest W contrast IV [facility] Erythrocyte sediment ation rate [facility] IgA [Mass/volume] in Serum or Plasma [facility] IgG [Mass/volume] in Serum or Plasma [facility] IgM [Mass/volume] in Serum or Plasma [facility] Immunoglobulin measurement W [facility] Lactate dehydrogenas e measurement [facility] Lactate dehydrogenas e measurement [facility] Lactate dehydrogenas e measurement [facility] Lactate dehydrogenas e measurement [facility] Patient referral [facility] Work Phone: Procedure [facility] PT Unspecified body region W [facility] PT Unspecified body region [facility] Thyroglobulin and Thyrogobulin Ab panel - Serum or Plasma [facility] Urate [Mass/volume] in Serum or Plasma [facility] Immunizations Immunization Date Immunization Notes Care Provider Kary humphreys 02-01-2023 influenza, injectabl e, quadrivalent, preservative free [facility] Work Phone: [facility] Payers Date Payer Category Payer Unknown [id number] 2018 Unknown [id number] 2018 Unknown JAYCOB KUMAR xxxxxxxxxxx 2018-Present xxxxxxxxxxx [id number] 2018 Medicare [id number] 2018 Self-pay [id number] 2012 Unknown ANTHEM [id number] 1955 Unknown [id number] 1955 Unknown [id number] [id number] 1955 Unknown [id number] Medicare ANTHEM MEDICARE SENIOR ADVAN TA [id number] Unknown [id number] Unknown [id number] [id number] Unknown [id number] [id number] Unknown [id number] [id number] Unknown [id number] [id number] Unknown [id number] [id number] Unknown [id number] 2.16840.1.260385.3.579.2.462 Unknown [id number] [id number] Unknown [id number] 2.16840.1.602061.3.579.2.462 Unknown [id number] [id number] Unknown [id number] 2.16840.1.447194.3.579.2.462 Unknown [id number] [id number]2 Unknown [id number] 2.16.840.1.313013.3.579.2.462 Unknown [id number] [id number] Unknown [id number] [id number] Unknown [id number] [id number] Unknown [id number] [id number] Unknown [id number] Social History Date Type Detail Facility Start: 09-01-2014 End: 09-22-2024 Tobacco smoking status TXIS Never smoker [facility] Start: 05-05-2009 Alcohol Comment beer, wine occasiona lly [facility] Sex Assigned At Not on file [facility] Start: 03-23-2021 End: 04-08-2023 Tobacco smoking status [facility] Unknown if ever smoked [facility] Start: 11-09-2018 Spouse/ Significant Oth er [facility] Start: 04-09-2019 Non-smoker [facility] Start: 1955 Sex Assigned At Female W [facility] Medical Equipment Procedure Code Equipment Code Equipment Origin al Text Equipment Identifier Dates MESH,SELF FIX [id number] FDA Start: 04-17-2019 MESH,SELF FIX [id number] FDA Start: 04-17-2019 MESH,SELF FIX [id number] FDA Start: 04-17-2019 MESH,SELF FIX [id number] FDA Start: 04-17-2019 MESH,SELF FIX [id number] FDA Start: 04-17-2019 MESH,SELF FIX [id number] FDA Start: 04-17-2019 MESH,SELF FIX [id number] FDA Start: 04-17-2019 MESH,SELF FIX [id number] FDA Start: 04-17-2019 MESH,SELF FIX [id number] FDA Start: 04-17-2019 MESH,SELF FIX [id number] FDA Start: 04-17-2019 MESH,SELF FIX [id number] FDA Start: 04-17-2019 Mental Status Date Assessment Result Facility 02-20-2019 Cognitive function Mood Description Appro priwandy [facility] Work Phone: Clinical Notes 02-07-2023 to 09-29-2024 Note Date & Type Note Facility 09-29-2024 Progress note [facility] 09-29-2024 Progress note Note Date/Time September 29, 2024 9:02am [facility] H ealt System [facility] [address] [place] [address] OFFICE VISIT Date of Service: 09/29/24 MR#: [id number] Acct: [id number] Name: BRANDY LUGO Rep #: [id number] : 1955 Provider: Dr. 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 Groceries Required: No Is patient in pain?: No Allergies ibuprofen Allergy (Severe, Verified 09/29/24 08:25) Swelling azithromycin (From Zithromax) Allergy (Intermediate, Verified 09/29/24 08:25) Unknown aspirin Allergy (Verified 09/29/24 08:25) Angioedema oxycodone Allergy (Verified 09/29/24 08:25) Angioedema moxifloxacin (From Avelox) Adverse Reaction (Intermediate, Verified 09/29/24 08:25) Rash Medications ?Medication ?Instructions ?Recorded ?Confirmed ?Type albuterol sulfate 90 mcg/actuation 2 puff inhalation Q 4H PRN PRN 04/17/18 09/29/24 History aerosol inhaler Wheezing cholecalciferol (vitamin D3) 25 2,000 unit PO DAILY 09/29/24 History mcg (1,000 unit) capsule citalopram 20 mg tablet 20 mg PO DAILY anxiety/depre ssion 03/23/21 09/29/24 History nadolol 20 mg tablet 20 mg PO DAILY #90 tabs 06/1209/29/24 Rx Saccharomyces boulardii 250 mg 250 mg PO BID 07/30/23 09/29/24 History capsule (Florastor) fluticasone propionate 230 2 inh inhalation BID #1 ea 07/30/23 09/29/24 Rx mcg-salmeterol 21 mcg/actuation HFA inhaler (Advair HFA) spacer #1 ea 07/30/23 09/29/24 Rx zoledronic acid 5 mg/100 mL in 1 ea .Route ONCE #100 m L 10/25/23 09/29/24 Rx mannitol 5 %-water intravenous piggybck Lactobacillus acidophilus 20 100 mmu cells PO QDAY 09/29/24 History billion cell capsule (Florajen Acidophilus) cetirizine 10 mg capsule 10 mg PO DAILY PRN Allergies 08/13/24 09/29/24 History magnesium 200 mg tablet 200 mg PO QDAY 08/13/2409/20 History allopurinol 300 mg tablet 300 mg PO QDAY #60 tabs 08/2109/29/24 Rx lidocaine-prilocaine 2.5 %-2.5 % 1 applic topical ONCE PRN port 09/16/24 09/29/24 Rx topical cream access 30 days #30 grams ondansetron 4 mg disintegrating 4 mg PO Q8H PRN nausea and 09/16/24 09/29/24 Rx tablet vomiting #30 tabs diphenhydramine HCl 25 mg tablet 25 mg PO DAILY PRN al lergy symptoms 09/22/24 09/29/24 History (Allergy (diphenhydramine)) levothyroxine 200 mcg tablet 200 mcg PO DAILY 09/22/24 09/29/24 History Have you fallen in the past year?: No [facility] Medical History (Updated 09/29/24 @ 09:[address] Hamilton Melendez MD) Excessive bleeding Cardiology follow-up encounter History of echocardiogram Hypogammaglobulinemia Osteoporosis Postoperative primary hypothyroidism Elevated blood pressure reading in office without diagnosis of hypertension Multiple premature ventricular complexes Obesity Spigelian hernia Thyroid cancer (1996) AKANKSHA (obstructive sleep apnea) Hypothyroidism Hyperlipidemia Chemotherapy management, encounter for Neutropenia CLL (chronic lymphocytic leukemia) Surgical History Encounter for education History of herniorrhaphy (04/17/19) History of thyroidectomy (1996) Family History Mother , age 52 Breast cancer Father PTSD (post-traumatic stress disorder) Pre-diabetes Hypothyroidism Sister Depression Hypothyroidism Uterine cancer Social History Smoking Status: Never smoker alcohol intake: current details: 4 oz per day substance use type: does not use what type of physical activity do you participate in: other details: heavy yardwork 5 days per week HPI HPI HPI: Patient is a 69-year-old female here for port placement for CLL. She has no acute complaints. She does report she bleeds easily. ROS General General: Yes fatigue; No weight change, appetite, colon cancer, breast cancer or weakness HEENT HEENT: Yes difficulty swallowing and swollen glands; No eye injury, eye surgery or hoarseness Endo Endocrine: No thyroid disease, diabetes mellitus, thyroid cancer, Hair loss, heat intolerance or cold intolerance Skin Skin: Yes rash; No changing moles Breast Breast: No left breast lump, right breast lump, nipple discharge, breast pain, abnormal mammogram, abnormal US or breast enlargement Musc Musculoskeletal: No back problems, arthritis, rheumatoid arthritis, gout or joint pain Cardio Cardiovascular: No murmur, pacemaker, heart disease, atrial fibrillation, high blood pressure, heart attack, heart stent, palpitations, shortness of breath with exertion or chest pain Psych Psychiatric: Yes depression and anxiety; No hearing voices Resp Respiratory: No shortness of breath, Yes sleep apnea, No cough, No COPD, Yes asthma, No emphysema and No wheezing Gastro Gastrointestinal: Yes abdominal pain, No nausea or vomiting, No diarrhea, No constipation, No blood in stool, No acid reflux, No hemorrhoids, No ulcers, No gallbladder problem and No black,tarry stools Hu Hematologic: No blood thinners, Yes blood disorders, No bleeding, No anemia and No blood clots Neuro Neurologic: No system reviewed and no additional complaints, except as documented, No as per HPI, No abnormal gait, No abnormal hearing, No abnormal movements, No abnormal speech, No behavioral changes, No burning sensations, No confusion, No convulsions, No disequilibrium, No dizziness, No localized weakness, No frequent falls, No headache(s), No lack of coordination, No loss ofvision, No memory loss, No numbness, No other visual disturbances, No radicular pain, No restless legs, No sensory deficit, No syncope, No tingling, No tremor(s), No weakness and No other Exam Const General: cooperative Orientation: alert and oriented x3 HENMT Head: normal to inspection Neck Neck: normal visual inspection and full ROM Chest Chest palpation & inspection: normal inspection of the chest Resp Effort & Inspection: normal respiratory effort Auscultation: clear to auscultation bilaterally Cardio Rate: regular rate Rhythm: regular rhythm GI Inspection: non-distended Palpation: soft and nontender Skin General: no rashes or lesions noted Neuro General: patient alert and patient oriented x3 Extrem General: full ROM Psych Appearance: grossly normal Mental Status: mental status grossly normal Assessment and Plan Assessment and Plan (1) Encounter for insertion of venous access port: Status: Acute Plan: I discussed right chest port placement with the patient in detail. I discussed the risks including but not limited to bleeding, infection, injury other organs,of pneumothorax. Patient understands the risks and is willing to proceed. The patient has CLL and her platelet count has been over 100. She is not on any blood thinners but does report that she bleeds easily. Hamilton Melendez MD Pager: [facility] [address] [place] [address], [address] [place] [address] Office: Coding Level of Care Code Off vis,est,level 3 Diagnoses Encounter for insertion of venous access port Z45.2 Clinical Quality Measures Falls Risk Screening/Assistive Devices Have you fallen in the past year?: No 09/29/24 0902 <Electronically signed by Hamilton pina MD> Date _ Hamilton Cota Signature: Date (if applicable) CC: ~ [facility] Work Phone: 1(576) 396-851504-24-2025 Evaluation note* Diagnosis Onset Date Resolution Status Admit Date Dyspepsia acute August 13 1:28pm CLL (chronic lymphoid leukem ia) in relapse chronic August 13, 2024 1:28pm CLL (chronic lymphoid leukem ia) in relapse chronic September 10, 2024 1 2:29pm CLL (chronic lymphocytic leukemia) chronic September 10, 2024 1 2:30pm Hyperlipidemia chronic September 10, 2024 12:30pm CLL (chronic lymphoid leukem ia) in relapse chronic September 16, 2024 8 :35am [facility] Work Phone: 1(502) 443-293804-24-2025 Evaluation note* Diagnosis Onset Date Resolution Status Admit Date Dyspepsia acute August 13 1:28pm CLL (chronic lymphoid leukem ia) in relapse chronic August 13, 2024 1:28pm CLL (chronic lymphoid leukem ia) in relapse chronic September 10, 2024 12:29pm Encounter for education acute M 2024 8:35am Hypogammaglobulinemia acute September 16, 2024 8:35am CLL (chronic lymphoid leukem ia) in relapse chronic September 16, 2024 8:35am CLL (chronic lymphocytic leukemia) c hronic September 22, 2024 7:30am Hyperlipidemia chronic September 22, 2024 7:30am Encounter for insertion of v enous access port acute September 29, 2024 8:17am [facility] Work Phone: 1(631) 519-778204-24-2025 Evaluation note* Diagnosis Onset Date Resolution Status Admit Date Dyspepsia acute August 13 1:28pm CLL (chronic lymphoid leukem ia) in relapse chronic August 13, 2024 1:28pm CLL (chronic lymphoid leukem ia) in relapse chronic September 10, 2024 12:29pm Encounter for education acute M ay 2024 8:35am Hypogammaglobulinemia acute September 16, 2024 8:35am CLL (chronic lymphoid leukem ia) in relapse chronic September 16, 2024 8:35am Encounter for insertion of v enous access port acute September 29, 2024 8:17am CLL (chronic lymphocytic leukemia) c hronic September 30, 2024 8:15am Hyperlipidemia chronic September 30, 2024 8:15am [facility] Work Phone: 1([phone]) 563-427810-25-2023 Procedure [facility] Diagnosis Onset Date Resolution Status CLL (chronic lymphocytic leukemia) chronic CLL (chronic lymphocytic leukemia) chronic Hyperlipidemia [facility] Work Phone: Evaluation note* Diagnosis Onset Date Resolution Status CLL (chronic lymphocytic leukemia) chronic CLL (chronic lymphocytic leukemia) chronic CLL (chronic lymphocytic leukemia) chronic Hyperlipidemia [facility] Work Phone: Evaluation note* Diagnosis Onset Date Resolution Status CLL (chronic lymphocytic leukemia) chronic CLL (chronic lymphocytic leukemia) chronic Dyspnea on exertion chronic AKANKSHA (obstructive sleep apnea) chronic CLL (chronic lymphocytic leukemia) chronic CLL (chronic lymphocytic leukemia) chronic Hyperlipidemia [facility] Work Phone: Evaluation note* Diagnosis Onset Date Resolution Status Dyspnea on exertion chronic AKANKSHA (obstructive sleep apnea) chronic CLL (chronic lymphocytic leukemia) chronic CLL (chronic lymphocytic leukemia) chronic Hyperlipidemia chronic Osteoporosis chronic Postoperative primary hypothyroidism chronic Thyroid cancer 1996 [facility] Work Phone: Hospital Discharge instructionsAmbulatory Orders* Abdomen/Pelvis W IV Cont ONLY [CT] Time Frame: 3 Days, Location: None Selected * Chest WITH Contrast [CT] Time Frame: 3 Weeks, Location: None Selected [facility] Work Phone: Summary Purpose Family History No Family History Records Found Relationship Condition Age at Onset Recorded Date/T luís mother Malignant neoplasm of breast Unknown father Posttraumatic stress disorder Unknown Prediabetes Unknown Hypothyroidism Unknown sister Depression Unknown Malignant neoplasm of uterus Unknown Advance Directives No Advanced Directives Records Found Advance Directive Response Recorded Date/ Time Advance Directives No May 11:54am Living Will No June 15 11:54am Power of Chemistry Quality Control Technician No June 15, 2020 11:54am Advance Directive Response Recorded Date/ Time Advance Directives No May 10:54am Living Will No June 15 10:54am Power of Chemistry Quality Control Technician No June 15, 2020 10:54am Advance Directive Response Recorded Date/ Time Advance Directives on File No August 15, 2023 9:58am Living Will No August 15, 2023 9:58am Do you have a Healthcare Power of Chemistry Quality Control Technician? No August 15, 2023 9:58am Advance Directives No August 14 9:58am Chief Complaint and Reason for Visit Chief Complaint RESTAGING LEUKEMIA SCREENING Reason for Visit CLL (chronic lymphoc ytic leukemia) CLL (chronic lymphocytic leukemia) Hyperlipidemia Chief Complaint 6MO LABS SCREENING LYMPHOCYTIC LEUKEMIA 2MO LABS RESTAGING LEUKEMIA OSTEOPOROSIS Reason for Visit CLL (chronic lymphoc ytic leukemia) CLL (chronic lymphocytic leukemia) CLL (chronic lymphocytic leukemia) Hyperlipidemia Chief Complaint 4MO LABS 4WKS LABS REVIEW MISC LABS akanksha DYSPNEA DYSPNEA 2MO LABS RESTAGING LEUKEMIA DYSPNEA DYSPNEA Reason for Visit CLL (chronic lymphoc ytic leukemia) CLL (chronic lymphocytic leukemia) Dyspnea on exertion AKANKSHA (obstructive sleep apnea) CLL (chronic lymphocytic leukemia) CLL (chronic lymphocytic leukemia) Hyperlipidemia Chief Complaint 4MO LABS 4WKS LABS REVIEW MISC LABS akanksha DYSPNEA DYSPNEA 2MO LABS RESTAGING LEUKEMIA DYSPNEA DYSPNEA AKANKSHA; NB APPROVED 02/05/23 Reason for Visit CLL (chronic lymphoc ytic leukemia) CLL (chronic lymphocytic leukemia) Dyspnea on exertion AKANKSHA (obstructive sleep apnea) CLL (chronic lymphocytic leukemia) CLL (chronic lymphocytic leukemia) Hyperlipidemia Chief Complaint 4MO LABS 4WKS LABS REVIEW MISC LABS akanksha DYSPNEA DYSPNEA 2MO LABS RESTAGING LEUKEMIA DYSPNEA DYSPNEA AKANKSHA; NB APPROVED 02/05/23 AKANKSHA; AUTO CPAP *DEVICE TAGGED AS11 Reason for Visit CLL (chronic lymphoc ytic leukemia) CLL (chronic lymphocytic leukemia) Dyspnea on exertion AKANKSHA (obstructive sleep apnea) CLL (chronic lymphocytic leukemia) CLL (chronic lymphocytic leukemia) Hyperlipidemia Chief Complaint akanksha DYSPNEA DYSPNEA 2MO LABS RESTAGING LEUKEMIA DYSPNEA DYSPNEA AKANKSHA; NB APPROVED 02/05/23 AKANKSHA; AUTO CPAP *DEVICE TAGGED AS11 Osteoporosis R/O RIB FX Reason for Visit Dyspnea on exertion AKANKSHA (obstructive sleep apnea) CLL (chronic lymphocytic leukemia) CLL (chronic lymphocytic leukemia) Hyperlipidemia Osteoporosis Postoperative primary hypothyroidism Thyroid cancer Chief Complaint Admit Date LABS PRIOR August 13, 2024 1:2 8pm 4WKS LABS September 10, 2024 12:29 pm RESTAGING LEUKEMIA September 10, 2024 12:30 pm CHEMO ED September 16, 2024 8:35a m Reason for Visit Admit Date Dyspepsia August 13, 2024 1:2 8pm CLL (chronic lymphoid leukemia) in [facility] August 13, 2024 1:28pm CLL (chronic lymphoid leukemia) in [facility] September 10, 2024 12:29pm CLL (chronic lymphocytic leukemia) August 212024 12:30pm Hyperlipidemia September 10, 2024 12:30 pm CLL (chronic lymphoid leukemia) in [facility] September 16, 2024 8:35am Chief Complaint Admit Date LABS PRIOR August 13, 2024 1:2 8pm 4WKS LABS September 10, 2024 12:29 pm CHEMO ED September 16, 2024 8:35a m RESTAGING LEUKEMIA September 22, 2024 7:30a m PORT PLACEMENT September 29, 2024 8:17 am Reason for Visit Admit Date Dyspepsia August 13, 2024 1:2 8pm CLL (chronic lymphoid leukemia) in [facility] August 13, 2024 1:28pm CLL (chronic lymphoid leukemia) in [facility] September 10, 2024 12:29pm Encounter for education September 16, 2024 8 :35am Hypogammaglobulinemia September 16, 2024 8:3 5am CLL (chronic lymphoid leukemia) in [facility] September 16, 2024 8:35am CLL (chronic lymphocytic leukemia) September 22, 2024 7:30am Hyperlipidemia September 22, 2024 7:30a m Encounter for insertion of venous access port September 29, 2024 8:17am Chief Complaint Admit Date LABS PRIOR August 13, 2024 1:2 8pm 4WKS LABS September 10, 2024 12:29 pm CHEMO ED September 16, 2024 8:35a m PORT PLACEMENT September 29, 2024 8:17 am 3WKS LABS NEW START REVIEW PET September 8:04am RESTAGING LEUKEMIA September 30, 2024 8:15 am Reason for Visit Admit Date Dyspepsia August 13, 2024 1:2 8pm CLL (chronic lymphoid leukemia) in [facility] August 13, 2024 1:28pm CLL (chronic lymphoid leukemia) in [facility] September 10, 2024 12:29pm Encounter for education September 16, 2024 8 :35am Hypogammaglobulinemia September 16, 2024 8:3 5am CLL (chronic lymphoid leukemia) [facility] September 16, 2024 8:35am Encounter for insertion of venous access port September 29, 2024 8:17am CLL (chronic lymphocytic leukemia) September 30, 2024 8:15am Hyperlipidemia September 30, 2024 8:15 am Additional Source Comments Reason for Visit (unrecogniz ed section and content) Reason Comments Flu INFORMATION SOURCE (unrecogn ized section and content) DATE CREATED AUTHOR 07/18/2020 [facility] DATE CREATED AUTHOR AUTHOR'S ORGANIZ ATION 07/05/2022 [facility] DATE CREATED AUTHOR AUTHOR'S ORGANIZ ATION 09/08/2024 [facility] DATE CREATED AUTHOR AUTHOR'S ORGANIZ ATION 10/02/2024 [facility] Care Teams (unrecognized sec tion and content) Team Status: Active Member Role Status Dates [facility] Family Provider Active [facility] Primary Care Provider A ctive Team Status: Active Member Role Status Dates Dr. Mateo Pereira MD Attending Provider Active [facility] Primary C are Provider, Family Provider, Referring Provider Active Team Status: Inactive Member Role Status Dates [facility] Primary Care Provider A ctive Jaymie Bailon BOTTLING ATTENDANT, BOTTLING ATTENDANT-C Attending Provider, Referrin g Provider Active Team Status: Inactive Member Role Status Dates [facility] Primary Care Provider, Referring Provider Active Dr. Mateo Pereira MD Attending Provider Active Team Status: Inactive Member Role Status Dates [facility] Primary Care Provider A ctive Valerie Henry BOTTLING ATTENDANT, BOTTLING ATTENDANT-C Attending Provider, Referring Provider Active Team Status: Inactive Member Role Status Dates [facility] Primary Care Provider, Referring Provider Active Lauren Perez BOTTLING ATTENDANT, BOTTLING ATTENDANT-C Attending Provider Active Team Status: Active Member Role Status Dates [facility] Primary Care Provider A ctive Lauren Perez BOTTLING ATTENDANT, BOTTLING ATTENDANT-C Referring Provider, Other Pr ovider Active Dr. Justin Dobbs DO Attending Provider Active Team Status: Active Member Role Status Dates [facility] Primary Care Provider A duy Luongselam Perez BOTTLING ATTENDANT, BOTTLING ATTENDANT-C Referring Provider, Other Pr ovider Active Dr. Obdulio Fonseca MD Attending Provider Active Team Status: Inactive Member Role Status Dates [facility] Primary Care Provider A ctive Laurenselam Perez BOTTLING ATTENDANT, BOTTLING ATTENDANT-C Attending Provider, Referrin g Provider Active Team Status: Active Member Role Status Dates [facility] Primary Care Provider A ctive Laurenselam Perez BOTTLING ATTENDANT, BOTTLING ATTENDANT-C Attending Provider, Referrin g Provider Active Team Status: Inactive Member Role Status Dates [facility] Primary Care Provider A ctive Laurenselam Perez BOTTLING ATTENDANT, BOTTLING ATTENDANT-C Attending Provider Active Team Status: Inactive Member Role Status Dates [facility] Primary Care Provider, Referring Provider Active Dr. Jose Roberto Su MD Attending Provider Active Team Status: Inactive Member Role Status Dates Jaymie Bailon BOTTLING ATTENDANT, BOTTLING ATTENDANT-C Primary Care Provider Active Dr. Zac Wilkins MD Attending Provider, Referring P ольга Active Team Status: Active Member Role Status Dates Dr. Ivan Spears MD Primary Care Provider Active Team Status: Inactive Member Role Status Dates Jaymie Bailon VSC, BOTTLING ATTENDANT-C Primary Care Provider Activ e Start: August 13, 2024 End: August 13, 2024 Jaymie Bailon VSC, BOTTLING ATTENDANT-C Referring Provider Active Start: August 13, 2024 End: August 13, 2024 Dr. Mateo Pereira MD Attending Provider Active S tart: August 13, 2024 End: August 13, 2024 Team Status: Inactive Member Role Status Dates Dr. Ivan Spears MD Primary Care Provider Active Start: August 13, 2024 End: August 13, 2024 Dr. Mateo Pereira MD Attending Provider Active S tart: August 13, 2024 End: August 13, 2024 Dr. Mateo Pereira MD Referring Provider Active S tart: August 13, 2024 End: August 13, 2024 Team Status: Inactive Member Role Status Dates Dr. Mateo Pereira MD Attending Provider Active S tart: September 10, 2024 End: September 10, 2024 Dr. Ivan Spears MD Primary Care Provider Active Start: September 10, 2024 End: September 10, 2024 Dr. Ivan Spears MD Referring Provider Active Start: September 10, 2024 End: September 10, 2024 Team Status: Active Member Role Status Dates Dr. Mateo Pereira MD Attending Provider Active S tart: September 10, 2024 [facility] Family Provider Active Start: September 10, 2024 [facility] Referring Provider Acti ve Start: September 10, [facility] BOTTLING ATTEND[facility]-C Primary Care Provider Activ e Start: September 10, 2024 Dr. Jose Roberto Su MD Other Provider Active Start: September 10, 2024 Dr. Ivan Spears MD Other Provider Active Star t: September 10, 2024 Team Status: Inactive Member Role Status Dates Dr. Ivan Spears MD Primary Care Provider Active Start: September 16, 2024 End: September 16, 2024 Dr. Ivan Spears MD Referring Provider Active Start: September 16, 2024 End: September 16, 2024 Valerie Henry NP, BOTTLING ATTENDANT-C Attending Provider Active Start: September 16, 2024 End: September 16, 2024 Team Status: Active Member Role Status Dates Dr. Mateo Pereira MD Attending Provider Active S tart: September 22, 2024 [facility] Family Provider Active Start: September 22, 2024 [facility] Referring Provider Acti ve Start: September 22, 2024 [facility] BOTTLING ATTENDANT-C Primary Care Provider Activ e Start: September 22, 2024 Dr. Jose Roberto Su MD Other Provider Active Start: September 22, 2024 Dr. Ivan Spears MD Other Provider Active Star t: September 22, 2024 Team Status: Inactive Member Role Status Dates Dr. Ivan Spears MD Primary Care Provider Active Start: September 29, 2024 End: September 29, 2024 Dr. Ivan Spears MD Referring Provider Active Start: September 29, 2024 End: September 29, 2024 Dr. Hamilton Melendez MD Attending Provider Active Start: September 29, 2024 End: September 29, 2024 Team Status: Inactive Member Role Status Dates Dr. Mateo Pereira MD Attending Provider Active S tart: September 30, 2024 End: September 30, 2024 Dr. Ivan Spears MD Primary Care Provider Active Start: September 30, 2024 End: September 30, 2024 Dr. Ivan Spears MD Referring Provider Active Start: September 30, 2024 End: September 30, 2024 Team Status: Active Member Role Status Dates Dr. Mateo Pereira MD Attending Provider Active S tart: September 30, 2024 [facility] Family Provider Active Start: September 30, 2024 [facility] Referring Provider Acti ve Start: September 30, 2024 Jaymie Bailon VSRoge, BOTTLING ATTENDANT-C Primary Care Provider Activ e Start: September 30, 2024 Dr. Jose Roberto Su MD Other Provider Active Start: September 30, 2024 Dr. Ivan Spears MD Other Provider Active Star t: September 30, 2024 Goals (unrecognized section and content) Goals may be documented in a n alternate sectionGoals may be documented in an alternate sectionGoals may be documented in an alternate sectionGoals may be documented in an alternate sectionGoals may be documented in an alternate sectionGoals may be documented in an alternate sectionGoals may be documented in an alternate sectionGoals may be documented in an alternate sectionGoals may be documented in an alternate sectionGoals may be documented in an alternate sectionGoals may be documented in an alternate section FOR RECORDS PERTAINING TO PATIENTS WHO ARE OR HAVE BEEN ENROLLED IN A CHEMICAL DEPENDENCY/SUBSTANCEABUSE PROGRAM, SOME INFORMATION MAY BE OMITTED. This clinical summary was aggregated from multiple sources. Caution should be exercised in using it in the provision of clinical care. This summary normalizes information from multiple sources, and as a consequence, information in this document may materially change the coding, format and clinical context of patient data. In addition, data may be omitted in some cases. CLINICAL DECISIONS SHOULD BE BASED ON THE PRIMARY CLINICAL RECORDS. [facility] [employer] [facility]. provides no warranty or guarantee of the accuracy or completeness of information in this document.
== END 2024-10-05 13:43 | disposition home or self-care (01) ==
LOC: SDC 09:57 → AC 09:59
PROVIDERS: PCP Family Medicine; Referring Provider Surgery; Visit Provider Surgery
PROC: (CPT 36561; principal; 2024-10-05 11:15)
DX: Z45.2 Encounter for adjustment and management of vascular access device (principal); C91.10 Chronic lymphocytic leukemia of B-cell type not having achieved remission; G47.33 Obstructive sleep apnea (adult) (pediatric); E03.9 Hypothyroidism, unspecified; Z79.51 Long term (current) use of inhaled steroids; Z79.899 Other long term (current) drug therapy
CPT/HCPCS: 36561; 00532; 71045; 77001; 93005; C1788; J2405

== ENCOUNTER 2025-01-22 09:53 | Outpatient (CLI) | payer MEDICARE, SELFPAY ==
[2025-01-22 10:02] VITALS: BP 140/75; PULSE 60; RESP 16; TEMP 35.9; O2SAT 95
[2025-01-22] MEDS: 0.9% NaCl IVPB Med Flush (100mL) 15 ML IV (10:11)
[2025-01-22 10:53] VITALS: BP 133/70; PULSE 50; RESP 16; O2SAT 97
== END 2025-01-22 23:59 | disposition home or self-care (01) ==
LOC: MEDOUTP 09:54
PROVIDERS: PCP Family Medicine; Referring Provider Internal Medicine Endocrinology, Diabetes & Metabolism; Visit Provider Internal Medicine Endocrinology, Diabetes & Metabolism
DX: M81.0 Age-related osteoporosis without current pathological fracture (principal)
CPT/HCPCS: 96365; A4216; J3489